=== PATIENT | female | born 1950 | race Caucasian/White ===

== ENCOUNTER 2016-08-15 16:50 | Inpatient (IN) | payer MEDICARE, MEDICAID ==
--- NOTE | 2016-08-15 16:57 | HP ---
HISTORY OF PRESENT ILLNESS: This 65-year-old, white female is admitted to the hospital from Dr. Chamberlain office as a direct admit. She has been getting progressively worse with worsening shortness of breath for the last 6 days. She was seen about [address] Chamberlain office when a chest x-ray was within normal limits and was started on Keflex and prednisone with a tapering dosage. She has taken the medications faithfully and now returns to his office feeling worse. No one else is sick in the family. She has had no fever or chills, no sputum production. She is short of breath to the point where she has difficulty completing her sentences. Her last episode of severe shortness of breath similar to this was about 3 years previously. In the clinic, her white count was 5,000 and she was afebrile with a chest x-ray repeated earlier today in the clinic for which we have no record or direct as to was reported as within normal limits. The patient is very noisy with expiratory slowing and coughing, but no sputum production. She is admitted to the hospital because of severe dyspnea as well as hypoxia with only 83% on room air saturation in the clinic. PAST MEDICAL HISTORY: 1. Coronary artery disease with an acute myocardial infarction in the years 2007, 2009 and 2014, requiring 3 stents. 2. 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 3. Diverticulosis. 4. Chronic neck and back pain. 5. History of fibromyalgia. 6. History of generalized osteoarthritis. 7. History of repeat thoracic and lumbar vertebral compression fractures requiring multiple procedures. 8. Chronic migraine headaches. 9. Depression. 10. Hyperlipidemia. 11. History of hypertension 12. History of gastroesophageal reflux disease with a large hiatal hernia. 13. Iron deficiency anemia. PAST SURGICAL HISTORY: 1. Hysterectomy. 2. Coronary stents in 2007 and 2009. 3. Kyphoplasty. 4. Appendectomy. 5. Hernia repair. 6. Tummy tuck surgery. 7. Colonoscopy in April 2010. MEDICATIONS: Please refer to nursing notes for complete list of up to date and verified medications taken at home. ALLERGIES: PENICILLIN, ADHESIVE TAPES. FAMILY HISTORY: The patient is adopted and she does not know the significance of her family history. 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 She has never smoked, but has breathed a lot of secondhand smoke from her . She lives in [place] and does not drink alcohol or illicit drugs. REVIEW OF SYSTEMS: GENERAL: Weight is generally stable, no fever or chills. HEENT: Hearing and vision appear to be fairly normal. LUNGS: Worsening shortness of breath with expiratory wheezing and tightness in breathing. CARDIOVASCULAR: No significant palpitations or chest pains. GASTROINTESTINAL: Appetite is fairly good with no nausea, vomiting, diarrhea or blood in the stool. GENITOURINARY: No dysuria or blood in the urine. EXTREMITIES: No significant worsening pedal edema. Chronic arthritic discomforts noted in both legs and arms. NEUROLOGIC: No focal weakness. She does have headaches in the past. PHYSICAL EXAMINATION: VITAL SIGNS: Afebrile. Pulse 103. Blood pressure 123/79. Pulse oximetry 89% on room air, up to 97% on 2 liters. Weight 75.1 kg. GENERAL: The patient is otherwise alert and communicative though is sometimes so tight in her breathing that she has difficulty talking in complete sentences. is present to assist with the history collection. HEENT: Unremarkable. NECK: Supple with slight increased jugular venous distention on the right. LUNGS: Diminished breath sounds with marked wheezes on exhalation and rhonchi especially laterally bilaterally. Faint rales present in the bases. CARDIOVASCULAR: Heart tones are regular without any significant gallops, but somewhat fast. ABDOMEN: Soft with no organomegaly, masses or tenderness. EXTREMITIES: Fairly well-formed with no significant edema or tenderness upon palpation. NEUROLOGIC: No focal neurological deficits are noted, but the patient appears to be somewhat weak compared to normal and definitely dyspneic. LABORATORY: Laboratory studies were done in Dr. Chamberlain office and repeat lab will be in the morning as part of followup. ASSESSMENT: 1. Chronic obstructive pulmonary disease with an acute exacerbation, having failed outpatient therapy and requiring a new antibiotic, corticosteroid administration and bronchodilator. 2. Hypoxia with pulse oximetry 83% on room air. 3. History of coronary artery disease with history of repeat myocardial infarctions as well as coronary stent placements. 4. History of diverticulosis. 5. History of chronic neck and back pain having had repeat thoracic and lumbar vertebral compression fractures repaired with multiple procedures. 6. History of fibromyalgia. 7. Chronic migraine headaches. 8. History of depression. 9. History of hyperlipidemia. 10. Hypertension. 11. Gastroesophageal reflux disease with a large hiatal hernia. 12. History of chronic anemia with iron deficiency state. PLAN: The patient is admitted to the hospital for initiation of antibiotic therapy with Levaquin which is different than what she has been on for the last week. She will be continued on a tapering dose of Solu-Medrol as well as bronchodilators with inhaled Decadron initially to assist with the wheezing noted. Await a sputum specimen. Await ambulation studies. Continue with SCDs and Lovenox for prophylaxis. Repeat lab and chest x-ray in the morning. Close observation and followup and followup with Dr. Barrera when ready to be discharged. #[id number] [facility]
[2016-08-15] MEDS ORDERED: IPRATROPIUM/ALBUTEROL 3 ML VIAL NEB ONE ×2 (17:52→18:06)
[2016-08-15] MEDS ORDERED: ALUM & MAG HYDROX-SIMETHICONE 30 ML UD PO PRN (18:29)
[2016-08-15] MEDS ORDERED: ONDANSETRON INJ 4 MG/2 ML VIAL IV PRN (18:29)
[2016-08-15] MEDS ORDERED: MAGNESIUM HYDROXIDE 30 ML UD PO PRN (18:29)
[2016-08-15] MEDS ORDERED: ACETAMINOPHEN 325 MG TAB PO PRN (18:29)
[2016-08-15] MEDS ORDERED: LEVALBUTEROL NEBS 1.25 MG/3 ML VIAL INH PRN (18:29)
[2016-08-15] MEDS: LEVALBUTEROL NEBS 0.63 MG/3 ML VIAL INH SCH ×2 (18:30→23:46)
[2016-08-15] MEDS ORDERED: IV SET AND CAP CHANGE INJ INJ SCH (18:30)
[2016-08-15] MEDS ORDERED: DEXAMETHASONE INJ 2 MG, SODIUM CHLORIDE 0.9% NEB 3 ML NEB ONE ×2 (18:48)
[2016-08-15] MEDS ORDERED: levoFLOXacin 500MG IV 100 ML IVPB ONE (19:33)
[2016-08-15] MEDS: SODIUM CHLORIDE 0.9% (FLUSH) 10 ML SYG IV PRN ×2 (20:21→20:54)
[2016-08-15] MEDS: SODIUM CHLORIDE 0.9% 1000ML 1,000 ML IVS PRN (20:21)
[2016-08-15] MEDS: levoFLOXacin 500MG IV 500 MG in PREMIX BAG 1 BAG IVPB SCH (20:22)
[2016-08-15] MEDS: ENOXAPARIN SODIUM 40 MG/0.4 ML SYG SUBCU SCH (20:22)
[2016-08-15] MEDS: methylPREDNISolone SODIUM SUC 40 MG/ML VIAL IV SCH (20:55)
[2016-08-15] MEDS: IPRATROPIUM/ALBUTEROL 3 ML VIAL INH SCH (21:09)
[2016-08-15] MEDS ORDERED: DEXAMETHASONE INJ 4 MG/ML VIAL ONE (23:36)
[2016-08-15] MEDS ORDERED: SODIUM CHLORIDE 0.9% NEB 3 ML VIAL ONE (23:36)
[2016-08-16] MEDS: SODIUM CHLORIDE 0.9% (FLUSH) 10 ML SYG IV PRN ×2 (02:56→19:55)
[2016-08-16] MEDS: methylPREDNISolone SODIUM SUC 40 MG/ML VIAL IV SCH ×4 (02:56→19:56)
[2016-08-16] MEDS: OMEPRAZOLE CAP 20 MG CAP PO SCH (06:30)
--- NOTE | 2016-08-16 07:03 | RAD ---
Clinical History : COPD with Hypoxia , MAIN Exam : PA and lateral views of the chest 08/16/2016 8:00 AM BOTTLE WASHER Comparisons : Portable AP view of the chest May 05, 2016CT chest with contrast May 06, 2016 Findings : There is patchy lingular airspace disease. Stable emphysematous changes are noted throughout the lungs bilaterally.There is flattening of the diaphragms and increased retrosternal clear space.. The heart is normal in size. The mediastinal contours are normal in appearance. There is a stable large hiatal hernia. The patient is osteopenic with multilevel vertebral plasty material throughout the thoracic spine. Limited evaluation of the upper abdomen demonstrates no gross abnormalities. Impression: 1. Patchy left basilar airspace disease.2. Stable emphysema and large hiatal hernia.3. Osteopenia with multilevel vertebroplasty. Electronically signed by: Tobi Morgan MD 08/16/2016 7:03 AM BOTTLE WASHER
[2016-08-16] MEDS ORDERED: SODIUM CHLORIDE 0.9% 10 ML VIAL IV PRN (07:40)
[2016-08-16] MEDS: LEVALBUTEROL NEBS 0.63 MG/3 ML VIAL INH SCH (08:00)
[2016-08-16] MEDS: IPRATROPIUM/ALBUTEROL 3 ML VIAL INH SCH ×4 (08:50→20:13)
[2016-08-16] MEDS ORDERED: BENZONATATE PERLES 100 MG CAP PO PRN ×2 (09:14→09:33)
[2016-08-16] MEDS: SODIUM CHLORIDE 0.9% 1000ML 1,000 ML IVS PRN (13:02)
[2016-08-16] MEDS ORDERED: HYDROcodone 10MG/APAP 325MG 1 EA TAB PO PRN (14:34)
[2016-08-16] MEDS ORDERED: levoFLOXacin 500MG IV 100 ML IVPB ONE (18:31)
[2016-08-16] MEDS: ENOXAPARIN SODIUM 40 MG/0.4 ML SYG SUBCU SCH (18:36)
[2016-08-16] MEDS: levoFLOXacin 500MG IV 500 MG in PREMIX BAG 1 BAG IVPB SCH (18:37)
[2016-08-16] MEDS ORDERED: MELOXICAM 7.5 MG TAB ONE (19:23)
[2016-08-16] MEDS ORDERED: DOCUSATE SODIUM 100 MG CAP ONE (19:24)
[2016-08-16] MEDS ORDERED: SERTRALINE HCL 50 MG TAB ONE (19:24)
[2016-08-16] MEDS ORDERED: PREGABALIN 75 MG CAP ONE (19:25)
[2016-08-16] MEDS ORDERED: TEMAZEPAM 15 MG CAP PO PRN (19:40)
--- NOTE | 2016-08-16 19:44 | PN ---
DATE: 08/16/16 SUBJECTIVE: The patient is having some choking spells with some respiratory secretions apparently tending to go down the wrong tube. She is able to eventually cough it out and is feeling much improved. She seems to be more alert though she did have some significant depressive symptoms earlier today according to the family. The patient has been ambulating in the room but we are still awaiting the ambulation studies to determine the degree of oxygen requirements. She does have oxygen at home with a concentrator. Appetite is fair. Unable to produce any sputum because most of it is swallowed. OBJECTIVE: Afebrile, pulse 94, blood pressure 125/77, pulse oximetry 95% with 2 liters nasal cannula. Weight 76.7 kilos. The patient is otherwise awake and alert. No significant pain. No constipation. No nausea and vomiting. No fever. LABORATORY: White count is low at 3,200 with hemoglobin 11.5, 85% neutrophils. Chemistry shows potassium 4.3, BUN 16, glucose 145, calcium 8.9. Liver enzymes normal. Beta natriuretic peptide 52, albumin 3.5. Urinalysis generally clean. No cultures obtained. Repeat chest x-ray after last x-ray was done yesterday in Dr. Barrera's office which was reported as normal. This morning, x-ray does reveal a patchy left basilar infiltrative process suggesting a pneumonia with chronic obstructive pulmonary disease and a large hiatal hernia, and bone softening with osteopenia. CHEST: She does have some localized wheezing especially on the left side with some rales noted in the left base compared to the right. HEART: Tones otherwise regular. ABDOMEN: Soft. Color is otherwise pretty good at this time. ASSESSMENT: 1. Chronic obstructive pulmonary disease with an acute exacerbation having failed outpatient therapy and requiring antibiotic and corticosteroid administration and bronchodilator with support. 2. Acute left lower lobe infiltrate suggesting community acquired pneumonia currently being treated with Levaquin and cultures pending. 3. Hypoxia awaiting ambulation studies to determine requirements for oxygen. 4. History of coronary artery disease with a history of repeat myocardial infarctions as well as coronary stent placements. 5. History of diverticulosis. 6. History of chronic neck and back pain having had repeat thoracic and lumbar vertebral compression fractures repaired with multiple procedures. 7. History of fibromyalgia. 8. Chronic migraine headaches. 9. History of depression. 10. History of hyperlipidemia. 11. Hypertension. 12. History of gastroesophageal reflux disease with a large hiatal hernia noted. 13. History of chronic anemia with iron deficiency state. PLAN: Will continue with tomorrow being day 2 of parenteral antibiotic therapy with Levaquin. Await ambulation studies to evaluate the function of the lung. Continue to taper Solu-Medrol and increased activity level encouraged. Reevaluation in the morning. #[id number] [facility]
[2016-08-16] MEDS: MELOXICAM 7.5 MG TAB PO SCH (19:57)
[2016-08-16] MEDS: PREGABALIN 75 MG CAP PO SCH (19:57)
[2016-08-16] MEDS ORDERED: SERTRALINE HCL 50 MG TAB PO SCH (21:00)
[2016-08-16] MEDS ORDERED: DOCUSATE SODIUM 100 MG CAP PO SCH (21:00)
[2016-08-17] MEDS: LEVALBUTEROL NEBS 0.63 MG/3 ML VIAL INH SCH ×2 (00:14→07:48)
[2016-08-17] MEDS: OMEPRAZOLE CAP 20 MG CAP PO SCH (06:30)
[2016-08-17] MEDS: SODIUM CHLORIDE 0.9% 1000ML 1,000 ML IVS PRN (06:33)
[2016-08-17] MEDS ORDERED: POTASSIUM CHLORIDE 10 MEQ TAB PO SCH (07:30)
[2016-08-17] MEDS: IPRATROPIUM/ALBUTEROL 3 ML VIAL INH SCH ×2 (07:48→12:05)
[2016-08-17] MEDS: methylPREDNISolone SODIUM SUC 40 MG/ML VIAL IV SCH (07:50)
[2016-08-17] MEDS ORDERED: TIOTROPIUM INHALER INH SCH (08:00)
[2016-08-17] MEDS: PREGABALIN 75 MG CAP PO SCH (08:47)
[2016-08-17] MEDS: MELOXICAM 7.5 MG TAB PO SCH (08:47)
[2016-08-17] MEDS ORDERED: ASPIRIN EC 81 MG TAB PO SCH (09:00)
[2016-08-17] MEDS ORDERED: NON-FORMULARY MEDICATION 1 EA MIS (Tiotropium Bromide Monohydrate [Spiriva Respimat] 2.5 M IN SCH (09:00)
[2016-08-17] MEDS ORDERED: VERAPAMIL ER TAB 180 MG TAB PO SCH (09:00)
[2016-08-17] MEDS ORDERED: CLOPIDOGREL 75 MG TAB PO SCH (09:00)
[2016-08-17 15:06] VITALS: BP 130/80; TEMP 97.9; O2SAT 90
--- NOTE | 2016-08-18 13:53 | DS ---
SUPERVISING PHYSICIAN: Nikunj Roberts MD DISCHARGE DIAGNOSIS: 1. Chronic obstructive pulmonary disease with acute exacerbation having failed outpatient therapy treatment plan and requiring antibiotic and corticosteroid administration as well as bronchodilators and aggressive pulmonary hygiene , showing improvement. 2. Acute left lower lobe infiltrate suggestive of community acquired pneumonia , treated with Levaquin, showing clinical improvement. 3. Hypoxia requiring oxygen. 4. History of coronary artery disease with history of repeat myocardial infarctions as well as coronary stent placements. 5. History of diverticulosis. 6. History of chronic neck and back pain having repeat thoracic and lumbar vertebral compression fracture, repaired with multiple procedures. 7. History of fibromyalgia. 8. History of chronic migraine headaches. 9. History of depression. 10. History of hyperlipidemia. 11. Hypertension. 12. History of gastroesophageal reflux disease with large hiatal hernia. 13. History of chronic anemia with iron deficiency state. HISTORY OF PRESENT ILLNESS: Ms. Herring is a 65-year-old, female patient who was admitted to the hospital directly from Dr. Chamberlain office. She had been getting progressively worse with worsening shortness of breath for six days prior to admission. She was seen five days previously in Dr. Barrera s office when a chest x-ray was within normal limits and at that time started on Keflex and prednisone tapering dose. She was taking the medications faithfully and returned to the office feeling worse. She noted there was no one else at home that was sick. She denied any fever or chills, no sputum production. She was short of breath to the point where she was having difficulty completing her sentences. Her last episode of severe shortness of breath previous to this admission was three years previously. On the clinic on date of admission, her white count was 5,000 and she was afebrile. Chest x-ray repeated was reported to be within normal limits. The patient was very noisy with expiratory slowing and coughing, but no sputum production. She was admitted to the hospital due to severe dyspnea as well as hypoxia with 83% on room air saturation in the clinic having failed to respond to outpatient treatment plan. LABORATORY: White count on admission was 3.2, hemoglobin 11.5, hematocrit 34.8. Differential did show a left shift. Chemistries showed normal electrolytes with potassium 4.3, BUN 16, creatinine 0.5. Urinalysis was within normal limits. RADIOLOGY: Chest x-ray on admission showed patchy left basilar airspace disease and a large hiatal hernia per radiology interpretation. HOSPITAL COURSE: Ms. Herring was admitted directly from Dr. Chamberlain office as noted in history of present illness for exacerbation of chronic obstructive pulmonary disease with concern for bibasilar pneumonia, likely community acquired. She was started on Levaquin, Solu-Medrol and bronchodilators. Clinically, she did show good improvement and on date of discharge was felt well enough clinically to be continued in the outpatient setting with treatment plan. PLAN: Ms. Herring was discharged to have close clinical followup with Dr. Barrera on 08/23/16 at 10:45 AM. She was encouraged to increase her activity as tolerate and resume her normal diet and to resume all her home medications as previously. She was started on new medications and instructed to take as directed. She was to wear oxygen as instructed previous to admission and to return to the hospital if she was having worsening or no improvement in her symptoms. She was sent home with new prescriptions to include: 1. Levaquin 500 mg p.o., #8. 2. Prednisone tapering dose, 10 mg tablets, #12, with 40 mg x1 day, 30 mg x1 day, then 20 mg, then 10 mg until all gone. CONDITION AT TIME OF DISCHARGE: Good and stable. #[id number] [facility]
--- NOTE | 2016-08-29 00:11 | RAD ---
Clinical History : COPD with Hypoxia , MAIN Exam : PA and lateral views of the chest 08/16/2016 8:00 AM ELEMENTARY READING SPECIALIST Comparisons : Portable AP view of the chest May 05, 2016CT chest with contrast May 06, 2016 Findings : There is patchy lingular airspace disease. Stable emphysematous changes are noted throughout the lungs bilaterally.There is flattening of the diaphragms and increased retrosternal clear space.. The heart is normal in size. The mediastinal contours are normal in appearance. There is a stable large hiatal hernia. The patient is osteopenic with multilevel vertebral plasty material throughout the thoracic spine. Limited evaluation of the upper abdomen demonstrates no gross abnormalities. Impression: 1. Patchy left basilar airspace disease.2. Stable emphysema and large hiatal hernia.3. Osteopenia with multilevel vertebroplasty. Electronically signed by: Tobi Morgan MD 08/16/2016 7:03 AM ELEMENTARY READING SPECIALIST
== END 2016-08-17 15:03 | disposition home or self-care (01) | DRG 190 ==
LOC: MS 16:50
PROVIDERS: ADMIT Emergency Medicine; ATTEND Nurse Practitioner Family
DX: J44.0 Chronic obstructive pulmonary disease with (acute) lower respiratory infection (principal); J18.9 Pneumonia, unspecified organism; R09.02 Hypoxemia; J44.1 Chronic obstructive pulmonary disease with (acute) exacerbation; K57.30 Diverticulosis of large intestine without perforation or abscess without bleeding; G89.29 Other chronic pain; M54.9 Dorsalgia, unspecified; M79.7 Fibromyalgia; F32.9 Major depressive disorder, single episode, unspecified; E78.5 Hyperlipidemia, unspecified; I10 Essential (primary) hypertension; K21.9 Gastro-esophageal reflux disease without esophagitis; K44.9 Diaphragmatic hernia without obstruction or gangrene; D50.9 Iron deficiency anemia, unspecified; M15.9 Polyosteoarthritis, unspecified; Z77.22 Contact with and (suspected) exposure to environmental tobacco smoke (acute) (chronic); I25.2 Old myocardial infarction; Z95.5 Presence of coronary angioplasty implant and graft; Z88.0 Allergy status to penicillin

== ENCOUNTER 2016-10-10 20:13 | Emergency (ER) | payer MEDICARE, MEDICAID ==
[2016-10-10] MEDS ORDERED: ASPIRIN TABLET 325 MG TAB ONE (20:15)
[2016-10-10] MEDS ORDERED: NITROGLYCERIN 0.4 MG 25 EA TAB SL ONE ×2 (20:15→20:26)
[2016-10-10] MEDS ORDERED: SODIUM CHLORIDE 0.9% 1000ML 1,000 ML ONE (20:25)
[2016-10-10] MEDS ORDERED: ONDANSETRON INJ 4 MG/2 ML VIAL IV ONE (20:26)
[2016-10-10] MEDS ORDERED: SODIUM CHLORIDE 0.9% (FLUSH) 10 ML SYG IV PRN (20:26)
[2016-10-10] MEDS ORDERED: ASPIRIN TABLET 325 MG TAB PO ONE (20:26)
--- NOTE | 2016-10-10 21:04 | RAD ---
Procedure: AP View Chest Exam date: 10/10/2016 8:26 PM CDT Ordering Provider: Leonora Foy Clinical Indication: chest pain Comparison: August 16, 2016 Findings: Mild cardiomegaly. Mild central vascular congestion. No large pleural effusions or pneumothorax. Osseous structures are nonacute. Stable findings of extensive prior vertebral augmentation procedure. Large hiatal hernia. No evidence of active tuberculosis. Impression: Cardiomegaly with mild central vascular congestion. Other chronic findings as above. Electronically signed by: Spencer Benson MD 10/10/2016 9:03 PM CDT
[2016-10-10] MEDS ORDERED: SODIUM CHLORIDE 0.9% 1000ML 1,000 ML IVS PRN (21:06)
--- NOTE | 2016-10-10 21:20 | ED.PDOC ---
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 The pain is substernal and piercing. It radiates to her left neck and arm. The arm feels very heavy. It also radiates to her back. She has reflux, but it is not the reflux kind of pain. She has SOB which started when the chest pain started, and mild nausea. Patient has some type of heart monitor inserted which was inserted about 6 months ago when she had episodes of fainting. She "pushed the button" already this evening. Patient's paid search analyst is Pankaj Norris M.D. in [facility]. Timing/Duration: 1/2 hour Severity/Quality: severe, sharp, stabbing Location: substernal, back Chest Pain Radiation: jaw, arms, back Activities at Onset: none Prior Chest Pain/Cardiac Workup: cardiac cath, heart attack Worsening Factors: nothing Nitro Today/Relief: 0.4 mg x 2, no relief Aspirin Treatment Today: 325 mg x 1, provided by ED Associated Symptoms: back pain, nausea/vomiting, shortness of breath Allergies/Adverse Reactions: Allergies Penicillins Allergy (Verified 01/12/15 21:57) ADHESIVE TAPE Adverse Reaction (Uncoded 02/09/15 15:43) Home Medications: Ambulatory Orders Aspirin [Aspir-81] 81 mg PO AM 08/31/12 Clopidogrel Bisulfate [Plavix] 75 mg PO AM 08/31/12 Esomeprazole [Nexium] 40 mg PO DAILY@0700 08/31/12 Pregabalin [Lyrica] 150 mg PO BID 08/31/12 Verapamil HCl ER [Isoptin Sr] 180 mg PO DAILY 01/13/15 Docusate Sodium [Colace] 100 mg PO BEDTIME 05/06/16 Meloxicam [Mobic] 15 mg PO BID 05/06/16 Potassium Chloride Tab [Micro-K] 10 meq PO DAILY 05/06/16 Sennosides [Senokot] 17.2 mg PO BEDTIME 05/06/16 Sertraline HCl [Zoloft] 200 mg PO BEDTIME 05/06/16 Albuterol Sulfate Nebs [Proventil Nebs] 2.5 mg INH QID PRN 08/16/16 Atorvastatin Calcium [Lipitor] 40 mg PO BEDTIME 08/16/16 Nitroglycerin [Nitrostat] 0.4 mg SL Q5MIN PRN 08/16/16 Tiotropium [place] Monohydrate [Spiriva Handihaler] 2 puff INH DAILY 08/16/16 Review of Systems - Review of Systems Constitutional: States: no symptoms reported EENTM: States: no symptoms reported Respiratory: States: cough, short of breath Cardiology: States: chest pain Gastrointestinal/Abdominal: States: nausea Genitourinary: States: no symptoms reported Musculoskeletal: States: back pain Skin: States: no symptoms reported Neurological: States: anxiety Endocrine: States: no symptoms reported Hematologic/Lymphatic: States: no symptoms reported All other Systems: Reviewed and Negative Past Medical History (General) - Patient Medical History Hx Seizures: No Hx Stroke: Yes - 2009 Hx Dementia: No Hx Asthma: No Hx of COPD: Yes Hx Cardiac Disorders: Yes Hx Congestive Heart Failure: Yes Hx Pacemaker: No Hx Hypertension: No Hx Thyroid Disease: No Hx Diabetes: No Hx Gastroesophageal Reflux: Yes Hx Renal Disease: No Hx Cancer: No Hx of HIV: No Hx Hepatitis C: No Hx MRSA: No MRSA Source:: Wound Surgical History: coronary bypass surgery - Vaccination History Hx Tetanus, Diphtheria Vaccination: Yes Hx Influenza Vaccination: Yes Hx Pneumococcal Vaccination: Yes - Social History Hx Tobacco Use: No Hx Alcohol Use: No Hx Substance Use: No Hx Substance Use Treatment: No Hx Depression: Yes Hx Physical Abuse: No Hx Emotional Abuse: No - Female History Patient is a Female of Child Bearing Age (10 -59 yrs old): No Patient : No Family Medical History - Family History Mother Family History: Unknown Living Status: Hx Family;Other: SHE DID NOT KNOW PARENTS AND SHE DOES KNOW NOT HISTORY. PT ADOPTED Physical Exam - Physical Exam General Appearance: Alert, Anxious, Obvious distress Eyes, Ears, Nose, Throat Exam: normal ENT inspection Neck: non-tender, full range of motion, supple Respiratory: lungs clear, no respiratory distress, decreased breath sounds Cardiovascular/Chest: regular rate, rhythm, no edema, no JVD, no murmur Gastrointestinal/Abdominal: soft, no organomegaly, abnormal bowel sounds - hyperactive, tenderness - RUQ, mild Extremity: normal range of motion, non-tender, no pedal edema, no calf tenderness Neurologic: alert, normal mood/affect, oriented x 3 Skin Exam: normal color, warm/dry Progress - Progress Progress: 10/10/16 22:15 Patient had no pain relief after a total of 3 sublingual nitro, ASA 325, and 1/2 " nitro paste. Therefore a nitro drip was started at 5 mcg/min and Patient was given Morphine 2 mg IV. 10/10/16 22:23 Transfer accepted at 1009. - Results/Orders Results/Orders: 10/10/16 10/10/16 10/10/16 20:20 20:30 20:55 Pulse Rate 90 Pulse Rate [ 89 90 84 Apical] Respiratory 18 18 Rate Blood Pressure 117/71 121/67 [Right Arm] O2 Sat by Pulse 96 97 Oximetry 10/10/16 10/10/16 10/10/16 21:05 21:26 22:00 Pulse Rate Pulse Rate [ 82 88 92 H Apical] Respiratory 18 20 18 Rate Blood Pressure 119/74 117/51 128/74 [Right Arm] O2 Sat by Pulse 96 96 96 Oximetry 10/10/16 20:26 IV Care:Saline Lock per Protoc QSHIFT Telemetry .ONCE Sodium Chloride 0.9% (Flush) [Saline Flush Syringe] 10 ml IV PRN PRN EKG Stat Oxygen Delivery Assessment: QSHIFT Pulse Ox Stat Pulse Oximetry Assessment DAILY 10/10/16 20:55 B-TYPE NATRIURETIC PEPTIDE/BNP Stat CARDIAC PANEL,ER Stat HEPATIC FUNCTION PANEL Stat 10/10/16 21:06 Sodium Chloride 0.9% 1000ML [Ns 1000 ml] 1,000 ml IVS .KVO 10/10/16 22:00 Nitroglycerin/D5w IV 250 ml IVS PRN 10/11/16 09:00 Oxygen Daily Laboratory Results WBC 5.0 K/mm3 (4.8-10.8) 10/10/16 20:55 RBC 3.67 M/mm3 (4.20-5.40) L 10/10/16 20:55 Hgb 11.6 gm/dL (12.0-16.0) L 10/10/16 20:55 Hct 35.0 % (36.0-47.0) L 10/10/16 20:55 MCV 95.3 fl (81.0-99.0) 10/10/16 20:55 MCH 31.6 pg (27.0-31.0) H 10/10/16 20:55 MCHC 33.1 g/dL (33.0-37.0) 10/10/16 20:55 RDW 14.7 % (11.5-14.5) H 10/10/16 20:55 Plt Count 221 K/mm3 (130-400) 10/10/16 20:55 MPV 8.3 fl (7.40-10.4) 10/10/16 20:55 Absolute Neuts (auto) 3.30 K/uL (1.8-6.8) 10/10/16 20:55 Absolute Lymphs (auto) 1.10 K/uL (1.0-3.4) 10/10/16 20:55 Absolute Monos (auto) 0.50 K/uL (0.2-0.8) 10/10/16 20:55 Absolute Eos (auto) 0.00 K/uL (0.0-0.4) 10/10/16 20:55 Absolute Basos (auto) 0.00 K/uL (0.0-0.1) 10/10/16 20:55 Neutrophils % 65.3 % (42.0-78.0) 10/10/16 20:55 Lymphocytes % 22.9 % (20.0-50.0) 10/10/16 20:55 Monocytes % 10.7 % (2.0-9.0) H 10/10/16 20:55 Eosinophils % 0.5 % (1.0-5.0) L 10/10/16 20:55 Basophils % 0.6 % (0.0-2.0) 10/10/16 20:55 PT 10.4 SECONDS (9.4-12.5) 10/10/16 20:55 INR 0.920 10/10/16 20:55 PTT (SP) 29.6 SECONDS (25.1-36.5) 10/10/16 20:55 D-Dimer, Quantitative < 200 ng/mL (0-230) 10/10/16 20:55 Sodium 142 mmol/L (135-145) 10/10/16 20:55 Potassium 3.5 mmol/L (3.6-5.0) L 10/10/16 20:55 Chloride 108 mmol/L (101-111) 10/10/16 20:55 Carbon Dioxide 28 mmol/L (21-31) 10/10/16 20:55 Anion Gap 9.5 (12-18) L 10/10/16 20:55 BUN 10 mg/dL (7-18) 10/10/16 20:55 Creatinine 0.65 mg/dL (0.6-1.3) 10/10/16 20:55 BUN/Creatinine Ratio 15.4 (10-20) 10/10/16 20:55 Random Glucose 101 mg/dL (70-105) 10/10/16 20:55 Serum Osmolality 282.3 mOsm/L (275-295) 10/10/16 20:55 Calcium 8.9 mg/dL (8.4-10.2) 10/10/16 20:55 Magnesium 2.0 mg/dL (1.8-2.5) 10/10/16 20:55 Total Bilirubin 0.4 mg/dL (0.2-1.0) 10/10/16 20:55 Direct Bilirubin < 0.1 mg/dL (0-0.2) 10/10/16 20:55 Indirect Bilirubin 0.3 mg/dL (0.2-0.8) 10/10/16 20:55 AST 18 IU/L (10-42) 10/10/16 20:55 ALT < 8 IU/L (10-60) L 10/10/16 20:55 Alkaline Phosphatase 85 IU/L (42-121) 10/10/16 20:55 Creatine Kinase 52 IU/L (26-140) 10/10/16 20:55 CK-MB (CK-2) 1.7 ng/mL (0.0-4.4) 10/10/16 20:55 CK-MB (CK-2) % Not Reportable 10/10/16 20:55 Troponin I < 0.02 ng/mL (0.01-0.05) 10/10/16 20:55 Serum Total Protein 6.2 gm/dL (6.4-8.2) L 10/10/16 20:55 Albumin 3.6 g/dl (3.2-5.5) 10/10/16 20:55 - EKG/XRAY/CT EKG: Sinus - 96 bpm, nonspecific ST T wave Chg - T-wave inversion in leads III and aVF, Changed from - No T-wave inversion in EKG of Comments: [place] NML, NML intervals. NML EKG XRAY: chest Xray Comments: cardiomegaly, mild central vascular congestion Departure - Departure Clinical Impression: History of PA (myocardial infarction) Chest pain Qualifiers: Chest pain type: unspecified Qualifier Code: (R07.9) Chest pain, unspecified Time of Disposition: 22:22 Disposition: Transfer to Hospital Condition: Poor Home Medications: Ambulatory Orders Aspirin [Aspir-81] 81 mg PO AM 08/31/12 Clopidogrel Bisulfate [Plavix] 75 mg PO AM 08/31/12 Esomeprazole [Nexium] 40 mg PO DAILY@0700 08/31/12 Pregabalin [Lyrica] 150 mg PO BID 08/31/12 Verapamil HCl ER [Isoptin Sr] 180 mg PO DAILY 01/13/15 Docusate Sodium [Colace] 100 mg PO BEDTIME 05/06/16 Meloxicam [Mobic] 15 mg PO BID 05/06/16 Potassium Chloride Tab [Micro-K] 10 meq PO DAILY 05/06/16 Sennosides [Senokot] 17.2 mg PO BEDTIME 05/06/16 Sertraline HCl [Zoloft] 200 mg PO BEDTIME 05/06/16 Albuterol Sulfate Nebs [Proventil Nebs] 2.5 mg INH QID PRN 08/16/16 Atorvastatin Calcium [Lipitor] 40 mg PO BEDTIME 08/16/16 Nitroglycerin [Nitrostat] 0.4 mg SL Q5MIN PRN 08/16/16 Tiotropium [place] Monohydrate [Spiriva Handihaler] 2 puff INH DAILY 08/16/16 Transfer to Outside Facility - Transfer Information Accepting Provider:: Dr. Landa Accepting Facility: [facility] Reason for Transfer: required specialist not available - Cardiology
[2016-10-10] MEDS ORDERED: NITROGLYCERIN 2% 1 GM UD TOP ONE (21:24)
[2016-10-10] MEDS ORDERED: MORPHINE SULFATE INJ 10 MG/ML VIAL IV ONE (21:55)
[2016-10-10] MEDS ORDERED: NITROGLYCERIN/D5W IV 250 ML IVS SCH (22:00)
[2016-10-10 23:00] VITALS: BP 111/62; TEMP 98.2; O2SAT 96
== END 2016-10-10 23:00 | disposition short-term general hospital (02) ==
LOC: ER 20:13
DX: R07.9 Chest pain, unspecified (principal); I25.2 Old myocardial infarction; I51.7 Cardiomegaly; I50.9 Heart failure, unspecified; K21.9 Gastro-esophageal reflux disease without esophagitis; Z95.1 Presence of aortocoronary bypass graft; J44.9 Chronic obstructive pulmonary disease, unspecified; Z79.82 Long term (current) use of aspirin; Z79.899 Other long term (current) drug therapy; Z86.73 Personal history of transient ischemic attack (TIA), and cerebral infarction without residual deficits; Z88.0 Allergy status to penicillin; Z91.048 Other nonmedicinal substance allergy status
CPT/HCPCS: 36415; 71010; 80048; 80076; 82550; 82553; 83880; 84484; 85025; 85379; 85610; 85730; 93005; J2060; J2270; J2405; J7030

== ENCOUNTER 2017-01-20 10:29 | Emergency (ER) | payer MEDICARE, MEDICAID ==
--- NOTE | 2017-01-20 11:17 | ED.PDOC ---
History of Present Illness - General Chief Complaint: Lower Extremity Injury Time Seen by Provider: 01/20/17 11:10 Source: patient Exam Limitations: no limitations - History of Present Illness Initial Comments: Mariann Herring 66 y/o male stated she fell on carpeted floor at home landing on his left hip.Denies head/neck injuries.But with dull ache after the incidenton her left hip. Occurred: yesterday Pain - Lower Extremity: moderate: Left Thigh/Hip Method of Injury: fell Improving Factors: rest Worsening Factors: movement Allergies/Adverse Reactions: Allergies Penicillins Allergy (Verified 01/20/17 11:34) ADHESIVE TAPE Adverse Reaction (Uncoded 02/09/15 15:43) Home Medications: Ambulatory Orders Aspirin [Aspir-81] 81 mg PO AM 08/31/12 Clopidogrel Bisulfate [Plavix] 75 mg PO AM 08/31/12 Esomeprazole [Nexium] 40 mg PO DAILY@0700 08/31/12 Pregabalin [Lyrica] 150 mg PO BID 08/31/12 Verapamil HCl ER [Isoptin Sr] 180 mg PO DAILY 01/13/15 Docusate Sodium [Colace] 100 mg PO BEDTIME 05/06/16 Meloxicam [Mobic] 15 mg PO BID 05/06/16 Potassium Chloride Tab [Micro-K] 10 meq PO DAILY 05/06/16 Sennosides [Senokot] 17.2 mg PO BEDTIME 05/06/16 Sertraline HCl [Zoloft] 200 mg PO BEDTIME 05/06/16 Albuterol Sulfate Nebs [Proventil Nebs] 2.5 mg INH QID PRN 08/16/16 Atorvastatin Calcium [Lipitor] 40 mg PO BEDTIME 08/16/16 Nitroglycerin [Nitrostat] 0.4 mg SL Q5MIN PRN 08/16/16 Tiotropium [place] Monohydrate [Spiriva Handihaler] 2 puff INH DAILY 08/16/16 Review of Systems - Review of Systems Constitutional: States: no symptoms reported EENTM: States: no symptoms reported Respiratory: States: no symptoms reported Cardiology: States: no symptoms reported Genitourinary: States: no symptoms reported Musculoskeletal: States: see HPI Skin: States: no symptoms reported Neurological: States: no symptoms reported Endocrine: States: no symptoms reported Past Medical History (General) - Patient Medical History Hx Seizures: No Hx Stroke: Yes - 2009 Hx Dementia: No Hx Asthma: No Hx of COPD: Yes Hx Cardiac Disorders: Yes Hx Congestive Heart Failure: Yes Hx Pacemaker: No Hx Hypertension: No Hx Thyroid Disease: No Hx Diabetes: No Hx Gastroesophageal Reflux: Yes Hx Renal Disease: No Hx Cancer: No Hx of HIV: No Hx Hepatitis C: No Hx MRSA: No Hx Other PMH: Yes - osteoporosis MRSA Source:: Wound Surgical History: coronary bypass surgery, other - stent cardiac,right hip, hysterectomy ,lumbar spine - Vaccination History Hx Tetanus, Diphtheria Vaccination: Yes Hx Influenza Vaccination: Yes Hx Pneumococcal Vaccination: Yes - Social History Hx Tobacco Use: No Hx Alcohol Use: No Hx Substance Use: No Hx Substance Use Treatment: No Hx Depression: Yes Hx Physical Abuse: No Hx Emotional Abuse: No - Female History Patient : No Family Medical History - Family History Mother Family History: Unknown Living Status: Hx Family;Other: SHE DID NOT KNOW PARENTS AND SHE DOES KNOW NOT HISTORY. PT ADOPTED Physical Exam - Physical Exam General Appearance: Alert, Comfortable, No apparent distress Eyes, Ears, Nose, Throat: PERRL/EOMI, normal ENT inspection, TMs normal, pharynx normal Neck: non-tender, full range of motion, supple Cardiovascular/Respiratory: regular rate, rhythm, no M/R/G, normal breath sounds , no respiratory distress Gastrointestinal/Abdominal: non-tender, no organomegaly Back: normal inspection, no CVA tenderness, no vertebral tenderness Thigh/Hip: normal inspection, bone tenderness - left hip, limited ROM - left hip because of pain, soft tissue tenderness Leg: normal inspection, non-tender, no evidence of injury Knee: normal inspection, non-tender, no evidence of injury Ankle: normal inspection, non-tender, no evidence of injury Foot: normal inspection, non-tender, no evidence of injury Neuro/Tendon: normal sensation, normal motor functions, normal tendon functions Mental Status: alert, oriented x 3 Skin: normal color, warm/dry Progress - Progress Progress: 01/20/17 12:08 Vital Signs - 8 hr 01/20/17 11:03 Temperature 98.0 F Pulse Rate [ 78 Left Radial] Respiratory 20 Rate Blood Pressure 113/69 [Left Arm] O2 Sat by Pulse 93 L Oximetry - EKG/XRAY/CT XRAY: hip - left -no acute fracture/radiologist Departure - Departure Clinical Impression: Hip pain, left, Contusion of hip or thigh, left Fall at home Qualifiers: Encounter type: initial encounter Qualified Code(s): W19.XXXA - Unspecified fall, initial encounter Time of Disposition: 12:10 Disposition: Discharge to Home or Self Care Departure Forms: ED Discharge - Pt. Copy, Patient Portal Self Enrollment Instructions: Contusion Referrals: Kwame Barrera MD [Primary Care Provider] - 1-2 Weeks Home Medications: Ambulatory Orders Aspirin [Aspir-81] 81 mg PO AM 08/31/12 Clopidogrel Bisulfate [Plavix] 75 mg PO AM 08/31/12 Esomeprazole [Nexium] 40 mg PO DAILY@0700 08/31/12 Pregabalin [Lyrica] 150 mg PO BID 08/31/12 Verapamil HCl ER [Isoptin Sr] 180 mg PO DAILY 01/13/15 Docusate Sodium [Colace] 100 mg PO BEDTIME 05/06/16 Meloxicam [Mobic] 15 mg PO BID 05/06/16 Potassium Chloride Tab [Micro-K] 10 meq PO DAILY 05/06/16 Sennosides [Senokot] 17.2 mg PO BEDTIME 05/06/16 Sertraline HCl [Zoloft] 200 mg PO BEDTIME 05/06/16 Albuterol Sulfate Nebs [Proventil Nebs] 2.5 mg INH QID PRN 08/16/16 Atorvastatin Calcium [Lipitor] 40 mg PO BEDTIME 08/16/16 Nitroglycerin [Nitrostat] 0.4 mg SL Q5MIN PRN 08/16/16 Tiotropium [place] Monohydrate [Spiriva Handihaler] 2 puff INH DAILY 08/16/16 Additional Instructions: Follow up with primary md in one week ;Call for appointment
--- NOTE | 2017-01-20 11:19 | RAD ---
EXAM DESCRIPTION: Hip,Left 2 Views CLINICAL HISTORY: 66 years,Female,fall COMPARISON: None FINDINGS: The left hip demonstrates no fractures, dislocations, or other bony abnormalities. The joint spaces are unremarkable. The included pelvis is unremarkable. IMPRESSION: Unremarkable hip Electronically signed by: Huhg Meredith MD 01/20/2017 11:18 AM CDT
[2017-01-20 11:31] VITALS: BP 113/69; TEMP 98; O2SAT 93
--- NOTE | 2017-01-20 11:38 | RAD ---
EXAM DESCRIPTION: Pelvis CLINICAL HISTORY: pain COMPARISON: None. TECHNIQUE: AP pelvis FINDINGS: A total hip arthroplasty seen in place on the patient's left. No evidence of loosening or infection is seen. No pelvic fracturing is detected. IMPRESSION: A right total hip arthroplasty is observed. Exam is otherwise unremarkable. Electronically signed by: Hugh King MD 01/20/2017 11:36 AM CDT
== END 2017-01-20 12:27 | disposition home or self-care (01) ==
LOC: ER 10:29
DX: S70.02XA Contusion of left hip, initial encounter (principal); J44.9 Chronic obstructive pulmonary disease, unspecified; I50.9 Heart failure, unspecified; K21.9 Gastro-esophageal reflux disease without esophagitis; M81.0 Age-related osteoporosis without current pathological fracture; Z79.82 Long term (current) use of aspirin; Z79.02 Long term (current) use of antithrombotics/antiplatelets; Z79.899 Other long term (current) drug therapy; Z88.0 Allergy status to penicillin; Z95.1 Presence of aortocoronary bypass graft; Z98.61 Coronary angioplasty status; Z91.048 Other nonmedicinal substance allergy status; W19.XXXA Unspecified fall, initial encounter; Y92.009 Unspecified place in unspecified non-institutional (private) residence as the place of occurrence of the external cause

== ENCOUNTER → 2017-01-25 | Outpatient (CLI) | payer MEDICARE, MEDICAID ==
--- NOTE | 2017-01-27 10:29 | CT ---
EXAM DESCRIPTION: Pelvis CLINICAL HISTORY: 66 years, Female, LEFT HIP PAIN COMPARISON: November 07, 2013 TECHNIQUE: This exam was performed using radiation doses that are As Low As Reasonably Achievable (ALARA). Multiple axial helical tomographic images obtained of the pelvis without contrast and reconstructed sagittal coronal plane. FINDINGS: There is a right total hip orthoplasty which appears unremarkable. No lucencies about the hardware devices or fractures. Few small rounded bony fragments seen about the greater trochanter but they are all old appearing. L4 and L5 demonstrate compression fractures. L4 measures 1.7 cm and L2 measures 1.6 cm Central height. There are unchanged. There is severe facet hypertrophy bilaterally at L5-S1. And moderate at L4-5. And mild bilateral neural foraminal stenosis at L4-5. Few diverticula sigmoid colon. No acute disease. Uterus and ovaries not seen present be surgically absent including the appendix. Mild loss of joint space in the left hip. And mild osteophyte changes. IMPRESSION: Mild left hip osteoarthritic changes no acute findings. Stable mild compression fractures at L4 and L5. And facet arthropathy at the lower 2 lumbar levels with mild bilateral neural foraminal stenosis at L4-5. A few uncomplicated diverticula sigmoid colon. Interval right total hip orthoplasty which appears unremarkable. Electronically signed by: Hugh Meredith MD 01/27/2017 10:28 AM CDT
== END ==
LOC: CT 11:01
PROVIDERS: ATTEND Family Medicine
DX: M16.12 Unilateral primary osteoarthritis, left hip (principal); M48.56XA Collapsed vertebra, not elsewhere classified, lumbar region, initial encounter for fracture; Z96.641 Presence of right artificial hip joint

== ENCOUNTER → 2017-02-09 | Outpatient (CLI) | payer MEDICARE, MEDICAID ==
--- NOTE | 2017-02-09 14:28 | MRI ---
MRI left hip without and with intravenous contrast INDICATION: Left hip pain multiple falls TECHNIQUE: MR imaging left hip without and with intravenous gadolinium FINDINGS: Metal artifact is noted related to a right hip arthroplasty. There is extensive osteonecrosis throughout the left femoral head with diffuse edema throughout the femoral neck to the intertrochanteric region. There is also edema within the acetabulum which is of uncertain etiology either an occult fracture degenerative change or acetabular osteonecrosis. There is mild flattening of the subchondral aspect of the superior and superior medial femoral head. This indicates developing subchondral collapse. Minimal hip fluid. Superimposed subchondral fracture in the femoral head cannot be entirely excluded but the crescentic morphology is more suggestive of AVN. 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
== END | disposition home or self-care (01) ==
LOC: MRI 09:53
PROVIDERS: ATTEND Family Medicine
DX: M25.552 Pain in left hip (principal); M16.12 Unilateral primary osteoarthritis, left hip

== ENCOUNTER 2017-02-11 09:19 | Observation (INO) | payer MEDICAID, MEDICARE ==
--- NOTE | 2017-02-11 10:12 | RAD ---
PROCEDURE: Chest,2 Views CLINICAL HISTORY: chest pain, nausea INDICATION: Same as above COMPARISON: 10/10/2016 TECHNIQUE: PA and and lateral chest radiographs were obtained. FINDINGS: There is evidence of prior surgery in the lower cervical spine. Vertebral body augmentation is again noted at multiple levels in the thoracic spine . A cine loop recorder is projected over the left anterior chest There are no discrete airspace infiltrates, pneumothoraces or pleural effusions. The pulmonary vascularity is normal. Large hiatal hernia is again noted. The cardiomediastinal silhouette is stable. IMPRESSION: There is no acute pleural-parenchymal process seen in the imaged lung smith. Multilevel vertebral body augmentation and a large hiatal hernia Electronically signed by: Jose Ames MD 02/11/2017 10:11 AM CDT Workstation: [id number]
--- NOTE | 2017-02-11 10:13 | RAD ---
PROCEDURE: Abdomen Flat Upright Clinical History: chest pain, nausea Indication: Chest pain and nausea Comparison: Chest x-ray done on the same day Technique: Two views of the abdomen and pelvis were done. Findings: There is no gross evidence of free air in the abdomen or the pelvis . The small and large bowel gas pattern does not show any evidence of obstruction, ileus or bowel wall thickening. There is no visualization of radiopaque calculi in the outline of the urinary tract. The visualized lung bases are unremarkable . Note is made of multilevel vertebral body augmentation in the visualized lower thoracic and the upper lumbar spine. There is a right hip arthroplasty. Small amount of retained fecal material is seen in the large bowel. Impression: Nonobstructive and nonspecific bowel gas pattern Location of Interpretation: [id number] Electronically signed by: Jose Ames MD 02/11/2017 10:12 AM CDT Workstation: [id number]
[2017-02-11] MEDS ORDERED: ONDANSETRON ODT 8 MG TAB SL ONE (10:30)
[2017-02-11] MEDS ORDERED: LIDOCAINE VIS-MYLANTA 30 ML UD PO ONE (10:30)
[2017-02-11] MEDS ORDERED: ASPIRIN TABLET 325 MG TAB PO ONE (13:48)
[2017-02-11] MEDS ORDERED: ALUMINUM & MAGNESIUM HYDROXIDE 30 ML UD PO ONE (13:48)
[2017-02-11] MEDS ORDERED: CLOPIDOGREL 75 MG TAB PO ONE (13:48)
--- NOTE | 2017-02-11 13:51 | ED.PDOC ---
History of Present Illness - General Chief Complaint: Chest Pain/NH Stated Complaint: nausea,chest pain Time Seen by Provider: 02/11/17 09:22 Source: patient Exam Limitations: no limitations - History of Present Illness Initial Comments: The patient is a 66-year-old female presenting to the emergency room secondary to substernal chest pain that started this morning. The symptoms have been preceded by some nausea and vomiting overnight. The patient has a known large hiatal hernia. She has had some constipation issues no diarrhea. No fevers. The patient does have a history of coronary artery disease and apparently has 3 stents. The patient is concerned because she did have a heart attack in the past that presented symptomatically with nausea and vomiting. The patient did go to [facility] approximately 4 months ago for a similar episode. They did not find any acute coronary pathology. Her cardiologists is a Dr. Hensley in [place] [address]. The patient has been doing well otherwise. No fevers. No blood or bile in the vomitus. Timing/Duration: 24 hours Severity: mild Improving Factors: nothing Worsening Factors: nothing Associated Symptoms: chest pain, malaise, nausea/vomiting Allergies/Adverse Reactions: Allergies Penicillins Allergy (Verified 01/20/17 11:34) ADHESIVE TAPE Adverse Reaction (Uncoded 02/09/15 15:43) Home Medications: Ambulatory Orders Aspirin [Aspir-81] 81 mg PO AM 08/31/12 Clopidogrel Bisulfate [Plavix] 75 mg PO AM 08/31/12 Esomeprazole [Nexium] 40 mg PO DAILY@0700 08/31/12 Pregabalin [Lyrica] 150 mg PO BID 08/31/12 Verapamil HCl ER [Isoptin Sr] 180 mg PO DAILY 01/13/15 Docusate Sodium [Colace] 100 mg PO BEDTIME 05/06/16 Meloxicam [Mobic] 15 mg PO BID 05/06/16 Potassium Chloride Tab [Micro-K] 10 meq PO DAILY 05/06/16 Sennosides [Senokot] 17.2 mg PO BEDTIME 05/06/16 Sertraline HCl [Zoloft] 200 mg PO BEDTIME 05/06/16 Albuterol Sulfate Nebs [Proventil Nebs] 2.5 mg INH QID PRN 08/16/16 Atorvastatin Calcium [Lipitor] 40 mg PO BEDTIME 08/16/16 Nitroglycerin [Nitrostat] 0.4 mg SL Q5MIN PRN 08/16/16 Tiotropium Wilson Monohydrate [Spiriva Handihaler] 2 puff INH DAILY 08/16/16 Review of Systems - Review of Systems Constitutional: States: malaise EENTM: States: no symptoms reported Respiratory: States: no symptoms reported Cardiology: States: chest pain. Denies: edema, palpitations, syncope Gastrointestinal/Abdominal: States: constipation, nausea, vomiting Genitourinary: States: no symptoms reported Musculoskeletal: States: no symptoms reported Skin: States: no symptoms reported Neurological: States: no symptoms reported Endocrine: States: no symptoms reported Hematologic/Lymphatic: States: no symptoms reported All other Systems: No Change from Baseline Past Medical History (General) - Patient Medical History Hx Seizures: No Hx Stroke: Yes - 2009 Hx Dementia: No Hx Asthma: No Hx of COPD: Yes Hx Cardiac Disorders: Yes Hx Congestive Heart Failure: Yes Hx Pacemaker: No Hx Hypertension: No Hx Thyroid Disease: No Hx Diabetes: No Hx Gastroesophageal Reflux: Yes Hx Renal Disease: No Hx Cancer: No Hx of HIV: No Hx Hepatitis C: No Hx MRSA: No MRSA Source:: Wound Surgical History: coronary bypass surgery, Hysterectomy - Vaccination History Hx Tetanus, Diphtheria Vaccination: Yes Hx Influenza Vaccination: Yes Hx Pneumococcal Vaccination: Yes - Social History Hx Tobacco Use: No Hx Alcohol Use: No Hx Substance Use: No Hx Substance Use Treatment: No Hx Depression: Yes Hx Physical Abuse: No Hx Emotional Abuse: No - Female History Patient : No Family Medical History - Family History Mother Family History: Unknown Living Status: Hx Family;Other: SHE DID NOT KNOW PARENTS AND SHE DOES KNOW NOT HISTORY. PT ADOPTED Physical Exam - Physical Exam General Appearance: Alert, Anxious, No apparent distress Eye Exam: bilateral normal Ears, Nose, Throat: hearing grossly normal, normal ENT inspection, normal pharynx Neck: full range of motion, supple Respiratory: lungs clear, normal breath sounds, no respiratory distress, no accessory muscle use, other - the patient does have some mild chest wall discomfort palpation. Cardiovascular/Chest: normal peripheral pulses, regular rate, rhythm, no edema Peripheral Pulses: radial,right: 2+, radial,left: 2+, dorsalis pedis,right: 2+, dorsalis pedis,left: 2+ Gastrointestinal/Abdominal: soft, other - Mild epigastric and right upper quadrant discomfort palpation. No true rebound or peritoneal signs. 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, alert, normal mood/affect - She is anxiouswhich is appropriate, oriented x 3 Skin Exam: normal color Comments: Vital Signs - 24 hr 02/11/17 02/11/17 02/11/17 09:28 09:38 10:57 Temperature 97.7 F Pulse Rate [ 77 77 97 H Left Brachial] Respiratory 20 20 Rate Blood Pressure 109/76 116/85 [Left Arm] O2 Sat by Pulse 95 95 Oximetry 02/11/17 02/11/17 02/11/17 11:29 11:47 12:11 Temperature Pulse Rate [ 89 91 H Left Brachial] Respiratory 20 20 Rate Blood Pressure 112/81 117/77 [Left Arm] O2 Sat by Pulse 89 L 85 L 96 Oximetry 02/11/17 13:21 Temperature Pulse Rate [ 92 H Left Brachial] Respiratory 20 Rate Blood Pressure 118/73 [Left Arm] O2 Sat by Pulse 95 Oximetry Progress - Progress Progress: 02/11/17 13:55 The patient is a 66-year-old female presenting with nausea and vomiting and some chest discomfort since last night. 2 sets of cardiac enzymes showed no elevation. Chest discomfort and nausea. I have resolved with medications. Given her significant cardiac history the patient will be admitted for a longer rule out. Symptoms are most likely from her hernia and long-standing underlying constipation. Continue monitoring. The patient is given a dose of her aspirin and Plavix here. She does appear to have a small urinary tract infection. She is going to be given a dose of Rocephin IV 1 for now. - Results/Orders Results/Orders: 02/11/17 09:37 Telemetry .CONTINUOUS normal sinus rhythm. 02/11/17 09:45 EKG STAT Normal sinus rhythm. No acute definitive ST segment changes concerning for ischemia. Normal QT interval. There is long-standing T-wave inversion in lead 3. 02/11/17 10:44 URINE CULTURE W/COLONY COUNT Stat Chest x-ray shows significant hiatal hernia. No other acute abnormalities. The hiatal hernia is not new. Abdominal x-ray shows no acute definitive pathology. Laboratory Results - last 24 hr 02/11/17 02/11/17 02/11/17 09:55 09:55 09:55 WBC 4.8 RBC 4.06 L Hgb 12.6 Hct 37.8 MCV 93.1 MCH 31.0 MCHC 33.3 RDW 13.9 Plt Count 224 MPV 8.1 Absolute Neuts (auto) 3.70 Absolute Lymphs (auto) 0.70 L Absolute Monos (auto) 0.40 Absolute Eos (auto) 0.10 Absolute Basos (auto) 0.00 Neutrophils % 77.0 Lymphocytes % 13.8 L Monocytes % 7.3 Eosinophils % 1.4 Basophils % 0.5 PT 11.0 INR 0.970 PTT (SP) 30.9 Sodium 143 Potassium 3.8 Chloride 106 Carbon Dioxide 27 Anion Gap 13.8 BUN 11 Creatinine 0.52 L BUN/Creatinine Ratio 21.2 H Random Glucose 109 H Serum Osmolality 285.0 Calcium 9.5 Magnesium 2.1 Total Bilirubin 0.4 AST 22 ALT < 8 L Alkaline Phosphatase 100 Creatine Kinase 46 CK-MB (CK-2) 1.3 CK-MB (CK-2) % Not Reportable Troponin I < 0.02 B-Natriuretic Peptide 56.5 Serum Total Protein 7.1 Albumin 3.9 Globulin 3.2 Albumin/Globulin Ratio 1.2 Amylase 34 Lipase 16 L Urine Color Urine Appearance Urine pH Ur Specific [place] Urine Protein Urine Glucose (UA) Urine Ketones Urine Blood Urine Nitrite Urine Bilirubin Urine Urobilinogen Ur Leukocyte Esterase Urine RBC Urine WBC Ur Epithelial Cells Urine Bacteria 02/11/17 02/11/17 10:44 12:58 WBC RBC Hgb Hct MCV MCH MCHC RDW Plt Count MPV Absolute Neuts (auto) Absolute Lymphs (auto) Absolute Monos (auto) Absolute Eos (auto) Absolute Basos (auto) Neutrophils % Lymphocytes % Monocytes % Eosinophils % Basophils % PT INR PTT (SP) Sodium Potassium Chloride Carbon Dioxide Anion Gap BUN Creatinine BUN/Creatinine Ratio Random Glucose Serum Osmolality Calcium Magnesium Total Bilirubin AST ALT Alkaline Phosphatase Creatine Kinase 44 CK-MB (CK-2) 1.3 CK-MB (CK-2) % Not Reportable Troponin I < 0.02 B-Natriuretic Peptide Serum Total Protein Albumin Globulin Albumin/Globulin Ratio Amylase Lipase Urine Color Yellow Urine Appearance Cloudy Urine pH 7.5 Ur Specific [place] 1.015 Urine Protein Negative Urine Glucose (UA) Negative Urine Ketones Negative Urine Blood Trace-intact H Urine Nitrite Positive H Urine Bilirubin Negative Urine Urobilinogen 0.2 Ur Leukocyte Esterase Small H Urine RBC 1-3 Urine WBC 5-10 H Ur Epithelial Cells 3-5 Urine Bacteria 2+ H Departure - Departure Clinical Impression: Chest pain of unknown etiology, History of NH (myocardial infarction) Urinary tract infection Qualifiers: Urinary tract infection type: site unspecified Hematuria presence: without hematuria Qualified Code(s): N39.0 - Urinary tract infection, site not specified Disposition: Admit Patient Home Medications: Ambulatory Orders Aspirin [Aspir-81] 81 mg PO AM 08/31/12 Clopidogrel Bisulfate [Plavix] 75 mg PO AM 08/31/12 Esomeprazole [Nexium] 40 mg PO DAILY@0700 08/31/12 Pregabalin [Lyrica] 150 mg PO BID 08/31/12 Verapamil HCl ER [Isoptin Sr] 180 mg PO DAILY 01/13/15 Docusate Sodium [Colace] 100 mg PO BEDTIME 05/06/16 Meloxicam [Mobic] 15 mg PO BID 05/06/16 Potassium Chloride Tab [Micro-K] 10 meq PO DAILY 05/06/16 Sennosides [Senokot] 17.2 mg PO BEDTIME 05/06/16 Sertraline HCl [Zoloft] 200 mg PO BEDTIME 05/06/16 Albuterol Sulfate Nebs [Proventil Nebs] 2.5 mg INH QID PRN 08/16/16 Atorvastatin Calcium [Lipitor] 40 mg PO BEDTIME 08/16/16 Nitroglycerin [Nitrostat] 0.4 mg SL Q5MIN PRN 08/16/16 Tiotropium Wilson Monohydrate [Spiriva Handihaler] 2 puff INH DAILY 08/16/16 Decision To Admit - Decistion To Admit Decision to Admit Reason: Medical Nature Decision to Admit Date: 02/11/17 Decision to Admit Time: 13:57
--- NOTE | 2017-02-11 14:09 | HP ---
SUPERVISING PHYSICIAN: Ney Fernandez M.D. CHIEF COMPLAINT: Chest pain. HISTORY OF PRESENT ILLNESS: Ms. Herring is a 66 year-old female patient that presented to the Emergency Room complaining of substernal chest pain that started early this morning. She notes that the symptoms progressed with some nausea and vomiting. She has had some issues with constipation in the past but reports no diarrhea or any fevers. She does have a history of having coronary artery disease and apparently has had previous stents placed with the most recent being in 2014. The patient noted that she came to the E. R. because she is concerned that she had a heart attack in the past that presented symptomatically with nausea and vomiting similar to this episode. The patient notes that she has been to [facility] in the past 4 months for the same episodes and no acute coronary pathology was noted. She does see a director home health in [place], Dr. Norris. Laboratory studies in the Emergency Department showed initial cardiac enzymes to be negative times 2. EKG showed normal sinus rhythm with no acute ST segment changes concerning for any ischemia. Initially the patient was given a GI cocktail which did result in resolution of her symptoms. She notes that she does have a large hiatal hernia and again has had constipation issues. Given the patient's significant cardiac history, the patient now will be admitted to rule out an acute ischemic event. The patient was given Plavix and aspirin in the Emergency Department. It was also noted that on urinalysis she had positive nitrites on dipstick with 5 to 10 WBCs and 2+ bacteria. She was given Rocephin in the Emergency Department prior to admission. She is now placed in Observation in stable condition. PAST MEDICAL HISTORY: 1. Coronary artery disease with acute myocardial infarction both in 2007, 2009 and 2014 requiring stents. 2. Chronic obstructive pulmonary disease. 3. Diverticulosis. 4. Chronic neck and back pain. 5. History of fibromyalgia. 6. History of osteoarthritis. 7. Multiple thoracic and lumbar vertebral compression fractures requiring multiple procedures. 8. Chronic migraine nodularities. 9. Depression. 10. Hyperlipidemia. 11. Hypertension. 12. Gastroesophageal reflux disease. 13. Large hiatal hernia. 14. Iron deficiency anemia. PAST SURGICAL HISTORY: 1. Hysterectomy. 2. Coronary artery stents in 2007, 2009 and 2014. 3. Kyphoplasty. 4. Appendectomy. 5. Hernia repair. 6. Tummy tuck surgery. 7. Right hip surgery replacement. CURRENT MEDICATIONS: Please see updated list for verified medications list. Home medications: 1. Verapamil extended release 180 mg daily. 2. Spiriva Handihaler 2 puffs daily. 3. Zoloft 200 mg at bedtime. 4. Senokot 17.2 mg at bedtime. 5. Lyrica 150 mg b.i.d. 6. Micro-K 10 mEq daily. 7. Nitrostat 0.4 mg sublingual every 5 minutes as needed. 8. Meloxicam 15 mg twice daily. 9. Nexium 40 mg daily. 10. Colace 100 mg at bedtime. 11. Plavix 75 mg. 12. Lipitor 40 mg at bedtime. 13. Aspirin 81 mg. 14. Albuterol nebs 2.5 mg inhaled q.i.d. as needed. ALLERGIES: PENICILLINS AND ADHESIVE TAPE. FAMILY HISTORY: She is adopted and has no knowledge of her previous family history. 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 She has never smoked. She currently lives in [place]. She denies any alcohol or illicit drug use. REVIEW OF SYSTEMS: Denies any fevers or chills. No significant weight loss. HEENT: Denies any hearing or visual disturbances. CARDIOVASCULAR: As noted on History of Present Illness, chest pains. RESPIRATORY: Denies any dyspnea with the chest pains. No cough. No shortness of breath. GASTROINTESTINAL: As noted in History of Present Illness, she does have some nausea and vomiting but no reported abdominal pains. GENITOURINARY: Denies any dysuria, hematuria, polyuria or other urinary symptoms. NEUROLOGIC: She denies any neurological complaints. PHYSICAL EXAMINATION: VITAL SIGNS: Temperature 97.3, pulse 90, blood pressure 101/98, respirations 18 , satting 96% on room air. Admission weight was 72.9 kg. GENERAL: The patient on exam on the Medical/Surgical floor was in no acute distress. Resting comfortably and alert. HEENT: Tympanic membranes are clear bilaterally. Oropharynx is pink and moist without any lesions. NECK: Supple with full range of motion, non-tender with no jugular venous distention. CHEST: Lungs are clear to auscultation without any rhonchi, wheezing or rales. She does have a little chest wall tenderness on palpation. CARDIOVASCULAR: Regular rate and rhythm without appreciable murmurs, gallops, or rubs. ABDOMEN: Soft with some mild epigastric discomfort on palpation. No rebound tenderness. No guarding. Bowel sounds were positive. EXTREMITIES: No clubbing, cyanosis or edema. NEUROLOGIC: Cranial nerves II-XII are grossly intact. She was alert and oriented times three. Facial features were symmetrical. Extraocular movements are within normal limits. There was no notable nystagmus. LABORATORY: White count was 4.8, hemoglobin 12.6, hematocrit 37.8, platelet count was 224,000. Differential showed to be within normal limits with no left shift. Coagulation studies showed a normal PT and PTT. Chemistries showed normal electrolytes with potassium 3.8 with BUN 11, creatinine 0.52. Glucose 109, magnesium 2.1, calcium 9.5. Liver functions showed to be within normal limits with troponins times 2 at less than 0.02. BNP was 56.5. Lipase was normal at 16, amylase normal at 34. Urinalysis showed a trace of intact blood with positive nitrites, small amount of leukocyte esterase with WBCs showing to be 5 to 10, 3 to 5 epithelials and 2+ bacteria. MICROBIOLOGY: Urine culture is pending. RADIOLOGY: Abdominal x-ray per radiology interpretation showed nonobstructive nonspecific bowel gas pattern. She also had a chest x-ray 2 view per radiology interpretation showed no acute pleural parenchymal processes noted. There is note of multilevel vertebral body augmentation and large hiatal hernia. ASSESSMENT: 1. Chest pain with unknown etiology needing to rule out acute myocardial infarction and ischemic changes with the patient having a significant history of previous myocardial infarctions. 2. Epigastric discomfort with a history of large hiatal hernia and gastroesophageal reflux disease showing no relief of her symptoms of chest pains with GI cocktail. 3. Hypertension. 4. History of coronary artery disease with multiple myocardial infarctions in 2007, 2009 and 2014. 5. Urinary tract infection with cultures pending. PLAN: The patient will be placed in Observation tonight for close cardiac monitoring to further rule out any further acute ischemic changes. She was given Plavix and aspirin in the Emergency Department. Given her past medical history with significant cardiovascular disease and multiple myocardial infarctions, I will go ahead and start her on Lovenox 1 mg per kg every 12 hours awaiting final rule out enzymes and EKGs. For the urinary tract infection , she was started on Rocephin. This will be continued until we have culture results. Will anticipate length of stay to be 1 to 2 days, hopefully discharge tomorrow pending reevaluation of cardiac enzymes. Until then, will continue to monitor and treat appropriately. [facility][id number] [facility]
[2017-02-11] MEDS ORDERED: SODIUM CHLORIDE 0.9% (FLUSH) 10 ML SYG IV PRN (14:20)
[2017-02-11] MEDS ORDERED: ACETAMINOPHEN 325 MG TAB PO PRN (14:20)
[2017-02-11] MEDS ORDERED: NITROGLYCERIN 0.4 MG 25 EA TAB SL PRN (14:20)
[2017-02-11] MEDS ORDERED: MORPHINE SULFATE INJ 10 MG/ML VIAL IV PRN (14:20)
[2017-02-11] MEDS ORDERED: cefTRIAXone SODIUM 1 GM in SODIUM CHL 0.9% 50ML MIN-BAG+ 50 ML IVPB SCH (14:30)
[2017-02-11] MEDS ORDERED: IV SET AND CAP CHANGE INJ INJ SCH (14:30)
[2017-02-11] MEDS ORDERED: SODIUM CHL 0.9% 50ML MIN-BAG+ 50 ML IVPB ONE (16:31)
[2017-02-11] MEDS ORDERED: cefTRIAXone SODIUM 1 GM VIAL ONE (16:32)
--- NOTE | 2017-02-11 16:41 | PCM.CORE ---
Physician DVT/VTE - Prophylaxis Currently: Patient already on anticoagulation therapy - lovenox 1mg/kg q 12 - Nurse DVT Assessment & Total Each Risk Factor Represents 3 Points: Medical PT with Hx of PA, CHF, Severe infection/sepsis Each Risk Factor Represents 2 Points: Age 60-74 Each Risk Factor is 1 Point: Obesity (BMI >25), Serious Lung disease (pnemonia < 1month, COPD, emphysema,etc) DVT Assessment Score: 7 - 5 or more Very High Risk Treatments: Early Ambulation *, Sequential Compression Device
[2017-02-11] MEDS: ENOXAPARIN SODIUM 80 MG/0.8 ML SYG SUBCU SCH (16:43)
[2017-02-11] MEDS: VERAPAMIL ER TAB 180 MG TAB PO SCH (16:43)
[2017-02-11] MEDS: KCL 20MEQ/0.45% NS 1,000 ML IVS PRN (16:45)
[2017-02-11] MEDS ORDERED: SODIUM CHLORIDE 0.9% (FLUSH) 10 ML SYG IV SCH (21:00)
[2017-02-12] MEDS: KCL 20MEQ/0.45% NS 1,000 ML IVS PRN (02:07)
[2017-02-12] MEDS: ENOXAPARIN SODIUM 80 MG/0.8 ML SYG SUBCU SCH (02:07)
[2017-02-12 06:20] VITALS: BP 99/61; TEMP 97.3
[2017-02-12] MEDS ORDERED: ASPIRIN TABLET 325 MG TAB ONE (07:39)
[2017-02-12] MEDS: VERAPAMIL ER TAB 180 MG TAB PO SCH (08:22)
[2017-02-12] MEDS ORDERED: ASPIRIN TABLET 325 MG TAB PO SCH (09:00)
[2017-02-12 09:28] VITALS: O2SAT 97
[2017-02-12] MEDS ORDERED: SULFA/TRIMETH 800/160 (DS) TAB 1 EA TAB PO SCH ×2 (09:30→21:00)
--- NOTE | 2017-02-12 14:22 | DS ---
SUPERVISING PHYSICIAN: Ney Fernandez M.D. DISCHARGE DIAGNOSIS: 1. Chest pain with unknown etiology rule out myocardial infarction. The patient has a significant history of previous myocardial infarctions and has negative cardiac enzymes on this admission. 2. Epigastric discomfort with a history of a large hiatal hernia with gastroesophageal reflux disease. 3. Hypertension. 4. History of coronary artery disease with multiple myocardial infarctions in 2007, 2009 and [address] Norris at [facility]. 5. Urinary tract infection with cultures pending and presently on Rocephin. She will be discharged on Bactrim. HISTORY OF PRESENT ILLNESS: This is a 66 year-old female patient that presented to the Emergency Room with complaints of substernal pains that started earlier on the morning of her admission. The symptoms progressively worsened with some nausea and vomiting. She also has had some history of constipation and gastroesophageal reflux disease in the past. She does have a history of coronary artery disease and has had multiple stents placed in the past, most recently in 2014. She sees Dr. Norris in [place] at [facility]. She came to the E. R. because she was concerned she was having a heart attack because she has had several in the past. Laboratory studies in the Emergency Department showed initial cardiac enzymes to be negative times 2. Her EKG showed normal sinus rhythm with no acute ST segment changes concerning for any ischemia. The patient was given a gastrointestinal cocktail with minimal resolution to her symptoms. She does have a large hiatal hernia and has had constipation in the past. HOSPITAL COURSE: She was placed in observation in the hospital given her significant cardiac history. She is on Plavix and aspirin and she was placed on Lovenox 1 mg per kg. She had positive nitrites on her urinalysis with 5 to 10 WBCs and 2+ bacteria. She was given Rocephin in the Emergency Room and continued on admission. She had no further complaints of chest pain. Her third and fourth set of cardiac enzymes were negative. Chemistries were basically within normal limits as well as her CBC. Urine cultures are still pending but show gram-negative rods. She will be discharged home. DISCHARGE PLAN: The patient will be discharged home in stable condition. She is to resume her previous diet as well as her previous activity. Her cultures and sensitivities are still pending but I will send her home on Bactrim. She is to followup with Dr. Barrera in the next week to followup both with the chest pain issues as well as her urinary tract infection and to review her sensitivities on her urine culture. She is to return to the hospital or to call Dr. Barrera's office for any further problems. DISCHARGE MEDICATIONS: 1. Plavix. 2. Aspirin. 3. Lyrica. 4. Nexium. 5. Verapamil. 6. Meloxicam. 7. Sertraline. 8. Potassium chloride. 9. Docusate sodium. 10. Senokot. 11. Spiriva. 12. Lipitor. 13. Nitrostat. 14. Albuterol. 15. Bactrim DS. Dr. Fernandez is the collaborating physician and available for consultation. [facility][id number] [facility]
== END 2017-02-12 09:55 | disposition home or self-care (01) ==
LOC: ER 09:19 → MS 14:08
PROVIDERS: ADMIT Nurse Practitioner Family; ATTEND Nurse Practitioner Acute Care
DX: R07.89 Other chest pain (principal); R10.13 Epigastric pain; K44.9 Diaphragmatic hernia without obstruction or gangrene; K21.9 Gastro-esophageal reflux disease without esophagitis; I10 Essential (primary) hypertension; I25.10 Atherosclerotic heart disease of native coronary artery without angina pectoris; I25.2 Old myocardial infarction; N39.0 Urinary tract infection, site not specified; R11.2 Nausea with vomiting, unspecified; J44.9 Chronic obstructive pulmonary disease, unspecified; G89.29 Other chronic pain; M19.90 Unspecified osteoarthritis, unspecified site; M79.7 Fibromyalgia; E78.5 Hyperlipidemia, unspecified; Z95.5 Presence of coronary angioplasty implant and graft; Z90.49 Acquired absence of other specified parts of digestive tract; Z90.710 Acquired absence of both cervix and uterus; Z96.641 Presence of right artificial hip joint; Z79.1 Long term (current) use of non-steroidal anti-inflammatories (NSAID); Z79.899 Other long term (current) drug therapy; Z79.02 Long term (current) use of antithrombotics/antiplatelets; Z79.82 Long term (current) use of aspirin; Z88.0 Allergy status to penicillin; Z91.048 Other nonmedicinal substance allergy status
CPT/HCPCS: 36415 ×4; 71020; 74010; 80048; 80053; 80061; 81001; 82150; 82550 ×4; 82553 ×4; 83690; 83735; 83880; 84484 ×4; 85025 ×2; 85610; 85730; 87086; 87088; 87186; 93005; 94760 ×3; 96361 ×2; 96372 ×2; 96374; 96375; 99284; G0378; J0696; J1650 ×2; J2270; J3480 ×2; J7050

== ENCOUNTER 2017-02-12 16:36 | Emergency (ER) | payer MEDICARE ==
[2017-02-12 16:49] VITALS: TEMP 98.1
--- NOTE | 2017-02-12 16:49 | ED.PDOC ---
History of Present Illness - General Chief Complaint: GI Problem Stated Complaint: nausea Time Seen by Provider: 02/12/17 16:48 Source: patient, RN notes reviewed Exam Limitations: no limitations - History of Present Illness Initial Comments: Mariann Herring 66 y/o female stated felt nauseated since she was discharged from the hospital this am for chest pain symptoms but all her cardiac enzymes came back normal.Denies vomiting,diarrhea but unable to eat for last 2 days.Had abdominal series done no acute changes noted Timing/Duration: 4-6 hours Severity: moderate Improving Factors: nothing Worsening Factors: eating Associated Symptoms: denies symptoms Allergies/Adverse Reactions: Allergies Penicillins Allergy (Verified 02/12/17 16:49) ADHESIVE TAPE Adverse Reaction (Uncoded 02/12/17 16:49) Home Medications: Ambulatory Orders Aspirin [Aspir-81] 81 mg PO AM 08/31/12 Clopidogrel Bisulfate [Plavix] 75 mg PO AM 08/31/12 Esomeprazole [Nexium] 40 mg PO DAILY@0700 08/31/12 Pregabalin [Lyrica] 150 mg PO BID 08/31/12 Verapamil HCl ER [Isoptin Sr] 180 mg PO DAILY 01/13/15 Docusate Sodium [Colace] 100 mg PO BEDTIME 05/06/16 Meloxicam [Mobic] 15 mg PO BID 05/06/16 Potassium Chloride Tab [Micro-K] 10 meq PO DAILY 05/06/16 Sennosides [Senokot] 17.2 mg PO BEDTIME 05/06/16 Sertraline HCl [Zoloft] 200 mg PO BEDTIME 05/06/16 Albuterol Sulfate Nebs [Proventil Nebs] 2.5 mg INH QID PRN 08/16/16 Atorvastatin Calcium [Lipitor] 40 mg PO BEDTIME 08/16/16 Nitroglycerin [Nitrostat] 0.4 mg SL Q5MIN PRN 08/16/16 Tiotropium [place] Monohydrate [Spiriva Handihaler] 2 puff INH DAILY 08/16/16 Metoclopramide Tab [Reglan Tab] 5 mg PO TID #30 tab 02/12/17 Sucralfate Suspension [Carafate Suspension] 10 ml PO QID #120 ml 02/12/17 Sulfa/Trimeth 800/160 (Ds) Tab [Bactrim DS] 1 ea PO Q12H #19 tablet 02/12/17 Review of Systems - Review of Systems Constitutional: States: no symptoms reported EENTM: States: no symptoms reported Respiratory: States: no symptoms reported Cardiology: States: no symptoms reported Gastrointestinal/Abdominal: States: see HPI Genitourinary: States: no symptoms reported Past Medical History (General) - Patient Medical History Hx Seizures: No Hx Stroke: Yes - 2009 Hx Dementia: No Hx Asthma: No Hx of COPD: Yes Hx Cardiac Disorders: Yes Hx Congestive Heart Failure: Yes Hx Pacemaker: No Hx Hypertension: No Hx Thyroid Disease: No Hx Diabetes: No Hx Gastroesophageal Reflux: Yes - HIATAL HERNIA Hx Renal Disease: No Hx Cancer: No Hx of HIV: No Hx Hepatitis C: No Hx MRSA: No MRSA Source:: Wound Surgical History: coronary bypass surgery, other - cardiac stent ,right hip, hysterectomy,lumbar spine - Vaccination History Hx Tetanus, Diphtheria Vaccination: Yes Hx Influenza Vaccination: Yes Hx Pneumococcal Vaccination: Yes - Social History Hx Tobacco Use: No Hx Alcohol Use: No Hx Substance Use: No Hx Substance Use Treatment: No Hx Depression: Yes Hx Physical Abuse: No Hx Emotional Abuse: No - Female History Patient : No Family Medical History - Family History Mother Family History: Unknown Living Status: Hx Family;Other: SHE DID NOT KNOW PARENTS AND SHE DOES KNOW NOT HISTORY. PT ADOPTED Physical Exam - Physical Exam General Appearance: Alert, No apparent distress Eye Exam: bilateral normal Ears, Nose, Throat: hearing grossly normal, normal ENT inspection Neck: non-tender, supple Respiratory: chest non-tender, lungs clear Cardiovascular/Chest: normal peripheral pulses, regular rate, rhythm, no murmur Peripheral Pulses: radial,right: 1+, radial,left: 1+ Gastrointestinal/Abdominal: normal bowel sounds, non tender, soft, no organomegaly Back Exam: no CVA tenderness Extremity: non-tender, no pedal edema, no calf tenderness Neurologic: alert, normal mood/affect, oriented x 3 Progress - Progress Progress: 02/12/17 19:51 Vital Signs - 8 hr 02/12/17 02/12/17 16:41 18:15 Temperature 98.1 F Pulse Rate [ 83 90 pulse ox] Respiratory 20 16 Rate Blood Pressure 143/64 119/77 [Right Arm] O2 Sat by Pulse 95 Oximetry Laboratory Tests 02/12/17 02/12/17 02/12/17 17:03 17:03 17:03 WBC 4.5 L RBC 4.25 Hgb 13.3 Hct 39.7 MCV 93.5 MCH 31.2 H MCHC 33.4 RDW 13.9 Plt Count 236 MPV 8.2 Absolute Neuts (auto) 3.40 Absolute Lymphs (auto) 0.70 L Absolute Monos (auto) 0.30 Absolute Eos (auto) 0.00 Absolute Basos (auto) 0.00 Neutrophils % 75.5 Lymphocytes % 16.2 L Monocytes % 7.2 Eosinophils % 0.6 L Basophils % 0.5 Sodium 143 Potassium 4.1 Chloride 104 Carbon Dioxide 26 Anion Gap 17.1 BUN 9 Creatinine 0.66 BUN/Creatinine Ratio 13.6 Random Glucose 98 Serum Osmolality 283.6 Calcium 9.8 Total Bilirubin 0.5 AST 26 ALT 11 Alkaline Phosphatase 108 Troponin I Serum Total Protein 7.8 Albumin 4.2 Globulin 3.6 H Albumin/Globulin Ratio 1.2 Lipase 16 L 02/12/17 17:44 WBC RBC Hgb Hct MCV MCH MCHC RDW Plt Count MPV Absolute Neuts (auto) Absolute Lymphs (auto) Absolute Monos (auto) Absolute Eos (auto) Absolute Basos (auto) Neutrophils % Lymphocytes % Monocytes % Eosinophils % Basophils % Sodium Potassium Chloride Carbon Dioxide Anion Gap BUN Creatinine BUN/Creatinine Ratio Random Glucose Serum Osmolality Calcium Total Bilirubin AST ALT Alkaline Phosphatase Troponin I < 0.02 Serum Total Protein Albumin Globulin Albumin/Globulin Ratio Lipase Departure - Departure Clinical Impression: Nausea, Hiatal hernia with GERD Time of Disposition: 19:52 Disposition: Discharge to Home or Self Care Condition: Fair Departure Forms: ED Discharge - Pt. Copy, Patient Portal Self Enrollment Instructions: Hiatal Hernia, DI for Hiatal Hernia Diet: low fat, low cholesterol, low salt diet, other - small frequent meal Referrals: Kwame Barrera MD [Primary Care Provider] - 1-2 Weeks Prescriptions: Metoclopramide Tab [Reglan Tab] 5 mg PO TID #30 tab Sucralfate Suspension [Carafate Suspension] 10 ml PO QID #120 ml Home Medications: Ambulatory Orders Aspirin [Aspir-81] 81 mg PO AM 08/31/12 Clopidogrel Bisulfate [Plavix] 75 mg PO AM 08/31/12 Esomeprazole [Nexium] 40 mg PO DAILY@0700 08/31/12 Pregabalin [Lyrica] 150 mg PO BID 08/31/12 Verapamil HCl ER [Isoptin Sr] 180 mg PO DAILY 01/13/15 Docusate Sodium [Colace] 100 mg PO BEDTIME 05/06/16 Meloxicam [Mobic] 15 mg PO BID 05/06/16 Potassium Chloride Tab [Micro-K] 10 meq PO DAILY 05/06/16 Sennosides [Senokot] 17.2 mg PO BEDTIME 05/06/16 Sertraline HCl [Zoloft] 200 mg PO BEDTIME 05/06/16 Albuterol Sulfate Nebs [Proventil Nebs] 2.5 mg INH QID PRN 08/16/16 Atorvastatin Calcium [Lipitor] 40 mg PO BEDTIME 08/16/16 Nitroglycerin [Nitrostat] 0.4 mg SL Q5MIN PRN 08/16/16 Tiotropium [place] Monohydrate [Spiriva Handihaler] 2 puff INH DAILY 08/16/16 Metoclopramide Tab [Reglan Tab] 5 mg PO TID #30 tab 02/12/17 Sucralfate Suspension [Carafate Suspension] 10 ml PO QID #120 ml 02/12/17 Sulfa/Trimeth 800/160 (Ds) Tab [Bactrim DS] 1 ea PO Q12H #19 tablet 02/12/17 Additional Instructions: FOLLOW UP WITH PRIMARY MD IN AM FOR REFERRAL TO [facility]AL[facility] MANAGER
[2017-02-12] MEDS ORDERED: ONDANSETRON INJ 4 MG/2 ML VIAL IV ONE (16:50)
[2017-02-12] MEDS ORDERED: METOCLOPRAMIDE HCL INJ 10 MG/2 ML VIAL IV ONE (17:30)
[2017-02-12] MEDS ORDERED: PANTOPRAZOLE INJECTION 80 MG in SODIUM CHLORIDE 0.9% 100ML 80 ML IVPB ONE (17:30)
[2017-02-12] MEDS ORDERED: SUCRALFATE 1 GM/10 ML 1 GM UD PO ONE (17:31)
[2017-02-12] MEDS ORDERED: PANTOPRAZOLE SODIUM IV 40 MG VIAL ONE ×2 (17:32→17:33)
[2017-02-12] MEDS ORDERED: SODIUM CHLORIDE 0.9% 100ML 100 ML IVPB ONE (17:33)
[2017-02-12] MEDS ORDERED: SODIUM CHLORIDE 0.9% 500ML 500 ML IVS ONE (17:55)
[2017-02-12] MEDS ORDERED: LORazepam 0.5 MG TAB PO ONE (18:16)
[2017-02-12 20:24] VITALS: BP 126/82; O2SAT 96
== END 2017-02-12 20:24 | disposition home or self-care (01) ==
LOC: ER 16:36
DX: K21.9 Gastro-esophageal reflux disease without esophagitis (principal); K44.9 Diaphragmatic hernia without obstruction or gangrene; R11.0 Nausea; J44.9 Chronic obstructive pulmonary disease, unspecified; I50.9 Heart failure, unspecified; Z79.899 Other long term (current) drug therapy; Z88.0 Allergy status to penicillin; Z91.048 Other nonmedicinal substance allergy status; Z86.73 Personal history of transient ischemic attack (TIA), and cerebral infarction without residual deficits
CPT/HCPCS: 36415; 80053; 83690; 84484; 85025; J2060; J2405; J2765; J7040; J7050

== ENCOUNTER → 2017-03-08 | Outpatient (CLI) | payer MEDICARE, MEDICAID | LOC: GMAH 11:31 | PROVIDERS: ATTEND Family Medicine | DX: Z01.810 Encounter for preprocedural cardiovascular examination (principal); I50.9 Heart failure, unspecified ==

== ENCOUNTER 2017-03-22 08:55 | Emergency (ER) | payer MEDICARE, MEDICAID ==
[2017-03-22 09:15] VITALS: TEMP 98.6
--- NOTE | 2017-03-22 09:17 | ED.PDOC ---
History of Present Illness - General Chief Complaint: GI Problem Stated Complaint: nausea Time Seen by Provider: 03/22/17 09:17 Source: patient Exam Limitations: no limitations - History of Present Illness Initial Comments: Mariann Herring 66 y/o female stated that she had been feeling nauseated for the last 3 days had seen primary md yesterday and had blood work done and abdominal x rays stating that it came back with normal results. Timing/Duration: other - 3 days Severity: moderate Improving Factors: nothing Worsening Factors: eating Associated Symptoms: other - insomnia ;unable to sleep the last 3 days;takes benadryl Allergies/Adverse Reactions: Allergies Penicillins Allergy (Verified 03/22/17 09:15) ADHESIVE TAPE Adverse Reaction (Uncoded 03/22/17 09:15) Home Medications: Ambulatory Orders Aspirin [Aspir-81] 81 mg PO AM 08/31/12 Clopidogrel Bisulfate [Plavix] 75 mg PO AM 08/31/12 Esomeprazole [Nexium] 40 mg PO DAILY@0700 08/31/12 Pregabalin [Lyrica] 150 mg PO BID 08/31/12 Verapamil HCl ER [Isoptin Sr] 180 mg PO DAILY 01/13/15 Docusate Sodium [Colace] 100 mg PO BEDTIME 05/06/16 Meloxicam [Mobic] 15 mg PO BID 05/06/16 Potassium Chloride Tab [Micro-K] 10 meq PO DAILY 05/06/16 Sennosides [Senokot] 17.2 mg PO BEDTIME 05/06/16 Sertraline HCl [Zoloft] 200 mg PO BEDTIME 05/06/16 Albuterol Sulfate Nebs [Proventil Nebs] 2.5 mg INH QID PRN 08/16/16 Atorvastatin Calcium [Lipitor] 40 mg PO BEDTIME 08/16/16 Nitroglycerin [Nitrostat] 0.4 mg SL Q5MIN PRN 08/16/16 Tiotropium [place] Monohydrate [Spiriva Handihaler] 2 puff INH DAILY 08/16/16 Metoclopramide Tab [Reglan Tab] 5 mg PO TID #30 tab 02/12/17 Sucralfate Suspension [Carafate Suspension] 10 ml PO QID #120 ml 02/12/17 Sulfa/Trimeth 800/160 (Ds) Tab [Bactrim DS] 1 ea PO Q12H #19 tablet 02/12/17 Trazodone HCl 100 mg PO BEDTIME #30 tab 03/22/17 Review of Systems - Review of Systems Constitutional: States: no symptoms reported EENTM: States: no symptoms reported Respiratory: States: no symptoms reported Cardiology: States: no symptoms reported Gastrointestinal/Abdominal: States: see HPI Genitourinary: States: no symptoms reported Musculoskeletal: States: no symptoms reported Skin: States: no symptoms reported Neurological: States: other - insomnia Past Medical History (General) - Patient Medical History Hx Seizures: No Hx Stroke: Yes - 2010 Hx Dementia: No Hx Asthma: No Hx of COPD: Yes Hx Cardiac Disorders: Yes - [place] Hx Congestive Heart Failure: Yes Hx Pacemaker: No Hx Hypertension: No Hx Thyroid Disease: No Hx Diabetes: No Hx Gastroesophageal Reflux: Yes - HIATAL HERNIA Hx Renal Disease: No Hx Cancer: No Hx of HIV: No Hx Hepatitis C: No Hx MRSA: No MRSA Source:: Wound Surgical History: Hysterectomy, other - hysterectomy,right hip replacement - Vaccination History Hx Tetanus, Diphtheria Vaccination: Yes Hx Influenza Vaccination: Yes Hx Pneumococcal Vaccination: Yes - Social History Hx Tobacco Use: No Hx Alcohol Use: No Hx Substance Use: No Hx Substance Use Treatment: No Hx Depression: Yes Hx Physical Abuse: No Hx Emotional Abuse: No - Female History Patient is a Female of Child Bearing Age (10 -59 yrs old): No Patient : No Family Medical History - Family History Mother Family History: Unknown Living Status: Hx Family;Other: SHE DID NOT KNOW PARENTS AND SHE DOES NOT KNOW FH HISTORY. PT ADOPTED Physical Exam - Physical Exam General Appearance: Alert, Anxious, No apparent distress Eye Exam: bilateral normal Ears, Nose, Throat: hearing grossly normal, normal ENT inspection, normal pharynx Neck: full range of motion, supple Respiratory: chest non-tender, lungs clear, normal breath sounds, no respiratory distress Cardiovascular/Chest: normal peripheral pulses, regular rate, rhythm, no gallop , no murmur Peripheral Pulses: radial,right: 1+, radial,left: 1+ Gastrointestinal/Abdominal: normal bowel sounds, non tender, soft, no organomegaly Back Exam: no CVA tenderness Neurologic: alert, normal mood/affect, oriented x 3 Skin Exam: normal color, warm/dry Lymphatic: no adenopathy Progress - Progress Progress: 03/22/17 09:36 Vital Signs - 8 hr 03/22/17 08:55 Temperature 98.6 F Pulse Rate [ 78 pulse ox] Respiratory 20 Rate Blood Pressure 105/58 [Left Arm] O2 Sat by Pulse 98 Oximetry - Results/Orders Results/Orders: Laboratory Tests 03/22/17 03/22/17 03/22/17 09:30 09:30 09:30 WBC 4.8 RBC 4.29 Hgb 13.3 Hct 39.5 MCV 92.1 MCH 31.0 MCHC 33.6 RDW 13.9 Plt Count 248 MPV 8.0 Absolute Neuts (auto) 3.60 Absolute Lymphs (auto) 0.70 L Absolute Monos (auto) 0.40 Absolute Eos (auto) 0.00 Absolute Basos (auto) 0.00 Neutrophils % 74.9 Lymphocytes % 15.5 L Monocytes % 8.7 Eosinophils % 0.5 L Basophils % 0.4 Sodium 139 Potassium 3.6 Chloride 103 Carbon Dioxide 25 Anion Gap 14.6 BUN 26 H Creatinine 0.60 BUN/Creatinine Ratio 43.3 H Random Glucose 89 Serum Osmolality 281.8 Calcium 9.5 Total Bilirubin 0.6 AST 25 ALT 11 Alkaline Phosphatase 96 Troponin I < 0.02 Serum Total Protein 7.6 Albumin 4.0 Globulin 3.6 H Albumin/Globulin Ratio 1.1 Lipase 24 No nausea/vomiting while in ER Departure - Departure Clinical Impression: Nausea and vomiting in adult Insomnia disorder Qualifiers: Insomnia type: unspecified Qualified Code(s): G47.00 - Insomnia, unspecified Time of Disposition: 14:36 Disposition: Discharge to Home or Self Care Condition: Fair Departure Forms: ED Discharge - Pt. Copy, Patient Portal Self Enrollment Instructions: Insomnia, No More Sleepless Nights: Dealing With Insomnia, DI for Insomnia Diet: other - SMALL FREQUENT MEALS AVOID greasy,spicy foods Referrals: Kwame Barrera MD [Primary Care Provider] - 1-2 Weeks Prescriptions: Trazodone HCl 100 mg PO BEDTIME #30 tab Home Medications: Ambulatory Orders Aspirin [Aspir-81] 81 mg PO AM 08/31/12 Clopidogrel Bisulfate [Plavix] 75 mg PO AM 08/31/12 Esomeprazole [Nexium] 40 mg PO DAILY@0700 08/31/12 Pregabalin [Lyrica] 150 mg PO BID 08/31/12 Verapamil HCl ER [Isoptin Sr] 180 mg PO DAILY 01/13/15 Docusate Sodium [Colace] 100 mg PO BEDTIME 05/06/16 Meloxicam [Mobic] 15 mg PO BID 05/06/16 Potassium Chloride Tab [Micro-K] 10 meq PO DAILY 05/06/16 Sennosides [Senokot] 17.2 mg PO BEDTIME 05/06/16 Sertraline HCl [Zoloft] 200 mg PO BEDTIME 05/06/16 Albuterol Sulfate Nebs [Proventil Nebs] 2.5 mg INH QID PRN 08/16/16 Atorvastatin Calcium [Lipitor] 40 mg PO BEDTIME 08/16/16 Nitroglycerin [Nitrostat] 0.4 mg SL Q5MIN PRN 08/16/16 Tiotropium [place] Monohydrate [Spiriva Handihaler] 2 puff INH DAILY 08/16/16 Metoclopramide Tab [Reglan Tab] 5 mg PO TID #30 tab 02/12/17 Sucralfate Suspension [Carafate Suspension] 10 ml PO QID #120 ml 02/12/17 Sulfa/Trimeth 800/160 (Ds) Tab [Bactrim DS] 1 ea PO Q12H #19 tablet 02/12/17 Trazodone HCl 100 mg PO BEDTIME #30 tab 03/22/17 Additional Instructions: Follow up with primary md in one week patient to call for appointment
[2017-03-22] MEDS ORDERED: PROMETHAZINE HCL INJ 25 MG/ML VIAL IM ONE (09:20)
[2017-03-22] MEDS ORDERED: SODIUM CHLORIDE 0.9% 1000ML 1,000 ML IVS ONE (09:20)
[2017-03-22] MEDS ORDERED: PANTOPRAZOLE SODIUM IV 40 MG VIAL IV ONE (09:23)
--- NOTE | 2017-03-22 10:02 | RAD ---
EXAM DESCRIPTION: Chest,2 Views CLINICAL HISTORY: Nausea COMPARISON: February 11, 2017 Findings/impression: Frontal and lateral views of the chest. Cine loop recorder again seen projecting over the left anterior chest. Cardiac silhouette and pulmonary vascularity are stable in appearance. Calcific atherosclerosis and tortuosity noted of the thoracic aorta. Subtle opacities in the bilateral lung bases, left greater than right, atelectasis versus infiltrates. No pleural effusion. No pneumothorax. Multiple vertebral augmentation demonstrated of the thoracic spine. Cervical ACDF construct is incompletely imaged. Electronically signed by: Hugh Castellanos MD 03/22/2017 10:01 AM CDT
[2017-03-22 14:42] VITALS: BP 124/69; O2SAT 95
== END 2017-03-22 14:55 | disposition home or self-care (01) ==
LOC: ER 08:55
DX: R11.2 Nausea with vomiting, unspecified (principal); G47.00 Insomnia, unspecified; I25.2 Old myocardial infarction; I50.9 Heart failure, unspecified; Z86.73 Personal history of transient ischemic attack (TIA), and cerebral infarction without residual deficits; Z79.82 Long term (current) use of aspirin; Z79.02 Long term (current) use of antithrombotics/antiplatelets; Z88.0 Allergy status to penicillin
CPT/HCPCS: 36415; 71020; 80053; 83690; 84484; 85025; 93005; J2060; J2550; J7030

== ENCOUNTER 2017-05-08 17:19 | Emergency (ER) | payer MEDICARE, MEDICAID ==
[2017-05-08 17:38] VITALS: TEMP 98
[2017-05-08] MEDS ORDERED: SODIUM CHLORIDE 0.9% 1000ML 1,000 ML IVS ONE (17:53)
[2017-05-08] MEDS ORDERED: PROMETHAZINE HCL INJ 25 MG in SODIUM CHLORIDE 0.9% 50ML 50 ML IVPB ONE (17:53)
[2017-05-08] MEDS ORDERED: SODIUM CHLORIDE 0.9% 50ML 50 ML ONE (18:28)
[2017-05-08] MEDS ORDERED: PROMETHAZINE HCL INJ 25 MG/ML VIAL ONE (18:28)
--- NOTE | 2017-05-08 19:01 | RAD ---
EXAM: Abdomen Series CLINICAL INDICATION: 66-year-old female with nausea, vomiting and history of hiatal hernia. TECHNIQUE: Single view, PA chest was obtained. Two views of the abdomen were obtained in upright and supine positioning. COMPARISON: None. FINDINGS: Chest: Unremarkable cardiac and mediastinal silhouette. Heart size is normal. Lungs are clear without focal opacity, pneumothorax or pleural effusions. The visualized bones are reveal diffuse demineralization and multilevel vertebral plasty cement. Cervical spine fusion hardware. Abdomen: Gas is seen within normal caliber large bowel. Multiple nonspecific dilated air-filled small bowel loops raising the question of enteritis versus small bowel obstruction No free air is identified. Bilateral pelvic phleboliths. RIGHT total hip arthroplasty. Degenerative changes of the lumbar spine. IMPRESSION: 1. No acute cardiopulmonary abnormalities. 2. Multiple nonspecific dilated air-filled small bowel loops raising the question of enteritis versus small bowel obstruction further evaluation with CT may be considered. Electronically signed by: Maday Quinteros MD 05/08/2017 6:59 PM [employer] Workstation: [id number]
[2017-05-08] MEDS ORDERED: METOCLOPRAMIDE HCL 5 MG TAB PO ONE (19:19)
--- NOTE | 2017-05-08 21:02 | CT ---
EXAM DESCRIPTION: Abdoment/Pelvis w/o Contrast CLINICAL HISTORY: Nausea, vomiting, diarrhea, generalized abdominal pain COMPARISON: None Available TECHNIQUE: Contiguous axial images of the abdomen and pelvis were obtained followed by reconstruction images. This exam was performed according to our departmental dose-optimization program, which includes automated exposure control, adjustment of the mA and/or kV according to patient size and/or use of iterative reconstruction technique. FINDINGS: There is a hiatal hernia. There is atherosclerosis. Linear opacities within the lungs may represent scar versus subsegmental atelectasis. Patient is status post right hip arthroplasty. Metallic artifact degrades images of the pelvis. There are diverticuli without CT evidence of acute diverticulitis. Patient is status post hysterectomy. Calcifications within the pelvis may represent phlebolith. Appendix was not visualized, there is no pericecal inflammation. Gallbladder is distended otherwise unremarkable by CT criteria. There is evidence of prior vertebroplasty. Compression fractures of multiple thoracic and lumbar vertebral bodies could represent old fractures. There is a punctate nonobstructive stone within the right kidney. The liver, spleen, pancreas and kidneys are otherwise within normal limits. There is no hydronephrosis. Aorta is of normal caliber and tapering. There is no free fluid in the abdomen or pelvis. There is no bowel obstruction. There is no stranding of the mesenteric fat to suggest an inflammatory response. 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
[2017-05-08] MEDS ORDERED: ALUMINUM & MAGNESIUM HYDROXIDE 30 ML UD PO ONE (21:08)
--- NOTE | 2017-05-08 21:11 | ED.PDOC ---
History of Present Illness - General Chief Complaint: GI Problem Stated Complaint: N/V/D Time Seen by Provider: 05/08/17 17:52 Source: patient, family Exam Limitations: no limitations - History of Present Illness Initial Comments: the patient is a 66-year-old female presenting to the emergency room secondary to a recurrence of her nausea and vomiting. It has been going on for about the last 36-48 hours. No fever. No abdominal pain. She has a known large hiatal hernia that has caused her issue in the past. Additionally she has just had put her sister on end-of-life care apparently causing numerous social stressors and anxiety. The patient is quite worked up on arrival here. She denies any blood or bile in the vomitus. Fever. No real diarrhea. No chest pain and no shortness of breath. No syncope or near syncope. She is very dysphoric. Timing/Duration: 24 hours Severity: moderate Improving Factors: nothing Worsening Factors: nothing Associated Symptoms: malaise, nausea/vomiting Allergies/Adverse Reactions: Allergies Penicillins Allergy (Verified 03/22/17 09:15) ADHESIVE TAPE Adverse Reaction (Uncoded 03/22/17 09:15) Home Medications: Ambulatory Orders Aspirin [Aspir-81] 81 mg PO AM 08/31/12 Clopidogrel Bisulfate [Plavix] 75 mg PO AM 08/31/12 Esomeprazole [Nexium] 40 mg PO DAILY@0700 08/31/12 Pregabalin [Lyrica] 150 mg PO BID 08/31/12 Verapamil HCl ER [Isoptin Sr] 180 mg PO DAILY 01/13/15 Docusate Sodium [Colace] 100 mg PO BEDTIME 05/06/16 Meloxicam [Mobic] 15 mg PO BID 05/06/16 Potassium Chloride Tab [Micro-K] 10 meq PO DAILY 05/06/16 Sennosides [Senokot] 17.2 mg PO BEDTIME 05/06/16 Sertraline HCl [Zoloft] 200 mg PO BEDTIME 05/06/16 Albuterol Sulfate Nebs [Proventil Nebs] 2.5 mg INH QID PRN 08/16/16 Atorvastatin Calcium [Lipitor] 40 mg PO BEDTIME 08/16/16 Nitroglycerin [Nitrostat] 0.4 mg SL Q5MIN PRN 08/16/16 Tiotropium [place] Monohydrate [Spiriva Handihaler] 2 puff INH DAILY 08/16/16 Metoclopramide Tab [Reglan Tab] 5 mg PO TID #30 tab 02/12/17 Sucralfate Suspension [Carafate Suspension] 10 ml PO QID #120 ml 02/12/17 Sulfa/Trimeth 800/160 (Ds) Tab [Bactrim DS] 1 ea PO Q12H #19 tablet 02/12/17 Trazodone HCl 100 mg PO BEDTIME #30 tab 03/22/17 Metoclopramide Tab [Reglan Tab] 5 mg PO Q8HR #30 tab 05/08/17 Review of Systems - Review of Systems Constitutional: States: malaise EENTM: States: no symptoms reported Respiratory: States: no symptoms reported Cardiology: States: no symptoms reported Gastrointestinal/Abdominal: States: nausea, vomiting Genitourinary: States: no symptoms reported Musculoskeletal: States: no symptoms reported Skin: States: no symptoms reported Neurological: States: anxiety, depressed Endocrine: States: no symptoms reported All other Systems: No Change from Baseline Past Medical History (General) - Patient Medical History Hx Seizures: No Hx Stroke: Yes - 2009 Hx Dementia: No Hx Asthma: No Hx of COPD: Yes Hx Cardiac Disorders: Yes - [place] Hx Congestive Heart Failure: Yes Hx Pacemaker: No Hx Hypertension: No Hx Thyroid Disease: No Hx Diabetes: No Hx Gastroesophageal Reflux: Yes - HIATAL HERNIA Hx Renal Disease: No Hx Cancer: No Hx of HIV: No Hx Hepatitis C: No Hx MRSA: No MRSA Source:: Wound - Vaccination History Hx Tetanus, Diphtheria Vaccination: Yes Hx Influenza Vaccination: Yes Hx Pneumococcal Vaccination: Yes - Social History Hx Tobacco Use: No Hx Alcohol Use: No Hx Substance Use: No Hx Substance Use Treatment: No Hx Depression: Yes Hx Physical Abuse: No Hx Emotional Abuse: No - Female History Patient : No Family Medical History - Family History Mother Family History: Unknown Living Status: Hx Family;Other: SHE DID NOT KNOW PARENTS AND SHE DOES NOT KNOW FH HISTORY. PT ADOPTED Physical Exam - Physical Exam General Appearance: Alert, Anxious, No apparent distress Eye Exam: bilateral normal Ears, Nose, Throat: hearing grossly normal, normal ENT inspection, normal pharynx Neck: full range of motion, supple, normal inspection Respiratory: lungs clear, normal breath sounds, no respiratory distress, no accessory muscle use Cardiovascular/Chest: normal peripheral pulses, regular rate, rhythm, no edema Peripheral Pulses: radial,right: 2+, radial,left: 2+, dorsalis pedis,right: 2+, dorsalis pedis,left: 2+ Gastrointestinal/Abdominal: non tender, soft Rectal Exam: deferred Back Exam: normal inspection, no CVA tenderness Extremity: normal range of motion, non-tender, normal inspection, no pedal edema , normal capillary refill 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 This is likely the result of her hiatal hernia combined with increased stress and anxiety over recent family matters. The patient has responded well to antiemetics. She has received some IV fluids here. Lab work is reassuring at this time otherwise. The CT scan of abdomen and pelvis shows no evidence of any obstruction but does confirm a hiatal hernia. I'm going to place the patient on a trial of Reglan 5 mg 3 times daily which will hopefully help in the near future with reducing the nausea and vomiting as well as reducing some anxiety. This may not be a good medication for her long-term. She should follow-up with her primary care doctor later this week. If her blood pressure started running too low this medication will need to be discontinued. ER warnings were given for any significant worsening. She should keep herself well hydrated. 05/08/17 21:14 - Results/Orders Results/Orders: Laboratory Results - last 24 hr 05/08/17 05/08/17 05/08/17 19:33 19:33 19:48 WBC 4.4 L RBC 4.06 L Hgb 12.4 Hct 37.5 MCV 92.4 MCH 30.5 MCHC 33.1 RDW 13.8 Plt Count 192 MPV 8.2 Absolute Neuts (auto) 3.00 Absolute Lymphs (auto) 1.00 Absolute Monos (auto) 0.40 Absolute Eos (auto) 0.00 Absolute Basos (auto) 0.00 Neutrophils % 67.5 Lymphocytes % 21.9 Monocytes % 9.7 H Eosinophils % 0.5 L Basophils % 0.4 Sodium 140 Potassium 3.6 Chloride 107 Carbon Dioxide 26 Anion Gap 10.6 L BUN 17 Creatinine 0.51 L BUN/Creatinine Ratio 33.3 H Random Glucose 80 Serum Osmolality 279.9 Calcium 9.0 Total Bilirubin 0.7 AST 26 ALT 9 L Alkaline Phosphatase 87 Creatine Kinase 253 H* CK-MB (CK-2) 6.7 H* CK-MB (CK-2) % 2.65 Troponin I < 0.02 Serum Total Protein 6.7 Albumin 3.8 Globulin 2.9 Albumin/Globulin Ratio 1.3 Amylase 27 L Lipase 18 L Urine Color Yellow Urine Appearance Clear Urine pH 5.5 Ur Specific Rock >= 1.030 Urine Protein 30 Urine Glucose (UA) Negative Urine Ketones 40 H Urine Blood Negative Urine Nitrite Negative Urine Bilirubin Moderate Urine Urobilinogen 0.2 Ur Leukocyte Esterase Negative Urine RBC 0 Urine WBC 3-5 H Ur Epithelial Cells 1-3 Urine Bacteria 2+ H Urine Mucus Large abdominal series shows some mildly dilated loops of small intestine possibly second consistent with a small bowel obstruction. No free air. Corresponding CT scan shows no evidence of any bowel obstruction. No evidence of acute pathology. She does have a large hiatal hernia. Departure - Departure Clinical Impression: Dehydration, moderate Vomiting alone Qualifiers: Vomiting type: unspecified Vomiting Intractability: non-intractable Qualified Code(s): R11.11 - Vomiting without nausea Disposition: Discharge to Home or Self Care Condition: Fair Departure Forms: ED Discharge - Pt. Copy, Patient Portal Self Enrollment Instructions: DI for Hiatal Hernia Diet: bland diet Activity: increase activity as tolerated Referrals: Kwame Barrera MD [Primary Care Provider] - 1-2 Weeks Prescriptions: Metoclopramide Tab [Reglan Tab] 5 mg PO Q8HR #30 tab Home Medications: Ambulatory Orders Aspirin [Aspir-81] 81 mg PO AM 08/31/12 Clopidogrel Bisulfate [Plavix] 75 mg PO AM 08/31/12 Esomeprazole [Nexium] 40 mg PO DAILY@0700 08/31/12 Pregabalin [Lyrica] 150 mg PO BID 08/31/12 Verapamil HCl ER [Isoptin Sr] 180 mg PO DAILY 01/13/15 Docusate Sodium [Colace] 100 mg PO BEDTIME 05/06/16 Meloxicam [Mobic] 15 mg PO BID 05/06/16 Potassium Chloride Tab [Micro-K] 10 meq PO DAILY 05/06/16 Sennosides [Senokot] 17.2 mg PO BEDTIME 05/06/16 Sertraline HCl [Zoloft] 200 mg PO BEDTIME 05/06/16 Albuterol Sulfate Nebs [Proventil Nebs] 2.5 mg INH QID PRN 08/16/16 Atorvastatin Calcium [Lipitor] 40 mg PO BEDTIME 08/16/16 Nitroglycerin [Nitrostat] 0.4 mg SL Q5MIN PRN 08/16/16 Tiotropium [place] Monohydrate [Spiriva Handihaler] 2 puff INH DAILY 08/16/16 Metoclopramide Tab [Reglan Tab] 5 mg PO TID #30 tab 02/12/17 Sucralfate Suspension [Carafate Suspension] 10 ml PO QID #120 ml 02/12/17 Sulfa/Trimeth 800/160 (Ds) Tab [Bactrim DS] 1 ea PO Q12H #19 tablet 02/12/17 Trazodone HCl 100 mg PO BEDTIME #30 tab 03/22/17 Metoclopramide Tab [Reglan Tab] 5 mg PO Q8HR #30 tab 05/08/17 Additional Instructions: the patient is 66-year-old female presenting to the emergency room secondary to a recurrence of her vomiting with resultant moderate dehydration. This is likely the result of her hiatal hernia combined with increased stress and anxiety over recent family matters. The patient has responded well to antiemetics. She has received some IV fluids here. Lab work is reassuring at this time otherwise. The CT scan of abdomen and pelvis shows no evidence of any obstruction but does confirm a hiatal hernia. I'm going to place the patient on a trial of Reglan 5 mg 3 times daily which will hopefully help in the near future with reducing the nausea and vomiting as well as reducing some anxiety. This may not be a good medication for her long-term. She should follow-up with her primary care doctor later this week. If her blood pressure started running too low this medication will need to be discontinued. ER warnings were given for any significant worsening. She should keep herself well hydrated. the patient should additionally try to sit upright for at least a couple of hours after taking food and drink.
[2017-05-08 21:19] VITALS: BP 88/52; O2SAT 90
== END 2017-05-08 21:27 | disposition home or self-care (01) ==
LOC: ER 17:19
DX: E86.0 Dehydration (principal); R11.11 Vomiting without nausea; K21.9 Gastro-esophageal reflux disease without esophagitis; K44.9 Diaphragmatic hernia without obstruction or gangrene; I50.9 Heart failure, unspecified; Z88.0 Allergy status to penicillin; Z79.82 Long term (current) use of aspirin; Z79.02 Long term (current) use of antithrombotics/antiplatelets; I25.2 Old myocardial infarction; Z86.73 Personal history of transient ischemic attack (TIA), and cerebral infarction without residual deficits
CPT/HCPCS: 36415; 74020; 74176; 80053; 81001; 82150; 82550; 82553; 83690; 84484; 85025; A4216; J2550; J7030

== ENCOUNTER 2017-06-05 18:00 | Emergency (ER) | payer MEDICARE, MEDICAID ==
[2017-06-05] MEDS ORDERED: SODIUM CHLORIDE 0.9% (FLUSH) 10 ML SYG IV PRN (18:38)
--- NOTE | 2017-06-05 18:38 | ED.PDOC ---
History of Present Illness - General Source: patient, family Exam Limitations: no limitations - History of Present Illness Initial Comments: PT SENT TO THE ED FOR PSYCHIATRIC EVALUATION AFTER EXPRESSING SUICIDAL IDEATION TO REHAB FACILITY STAFF, PERSONAL THERAPIST AND FAMILY. PT REPORTS THAT SHE WAS FRUSTRATED WHEN SHE SAID IT BECAUSE SHE HAD NOT BEEN RECEIVING HER REGULAR HOME MEDS, PAIN MEDS OR NAUSEA MEDS. PT DENIES HAVING A PLAN AND DENIES SUICIDALITY AT THIS TIME. PT COMPLAINS OF L HIP PAIN S/P LEFT HIP REPLACEMENT 5 DAYS AGO AND NAUSEA. Timing/Duration: this afternoon Severity: moderate Associated Symptoms: insomnia, suicidal ideation <Stephane Strickland - Last Filed: 06/05/17 18:41> <Dawood Britt - Last Filed: 06/05/17 20:31> - General Chief Complaint: Behavioral / Psych Stated Complaint: suicidal thoughts Time Seen by Provider: 06/05/17 18:35 - History of Present Illness Allergies/Adverse Reactions: Allergies Penicillins Allergy (Verified 03/22/17 09:15) Sulfa Antibiotics Allergy (Verified 06/05/17 18:21) Sulfamethoxazole w/Trimethoprim [From Bactrim] Allergy (Verified 06/05/17 18:21) ADHESIVE TAPE Adverse Reaction (Uncoded 03/22/17 09:15) Home Medications: Ambulatory Orders Aspirin [Aspir-81] 81 mg PO AM 08/31/12 Clopidogrel Bisulfate [Plavix] 75 mg PO AM 08/31/12 Esomeprazole [Nexium] 40 mg PO DAILY@0700 08/31/12 Pregabalin [Lyrica] 150 mg PO BID 08/31/12 Verapamil HCl ER [Isoptin Sr] 180 mg PO DAILY 01/13/15 Docusate Sodium [Colace] 100 mg PO BEDTIME 05/06/16 Meloxicam [Mobic] 15 mg PO BID 05/06/16 Potassium Chloride Tab [Micro-K] 10 meq PO DAILY 05/06/16 Sennosides [Senokot] 17.2 mg PO BEDTIME 05/06/16 Sertraline HCl [Zoloft] 200 mg PO BEDTIME 05/06/16 Albuterol Sulfate Nebs [Proventil Nebs] 2.5 mg INH QID PRN 08/16/16 Atorvastatin Calcium [Lipitor] 40 mg PO BEDTIME 08/16/16 Nitroglycerin [Nitrostat] 0.4 mg SL Q5MIN PRN 08/16/16 Tiotropium [place] Monohydrate [Spiriva Handihaler] 2 puff INH DAILY 08/16/16 Metoclopramide Tab [Reglan Tab] 5 mg PO TID #30 tab 02/12/17 Sucralfate Suspension [Carafate Suspension] 10 ml PO QID #120 ml 02/12/17 Sulfa/Trimeth 800/160 (Ds) Tab [Bactrim DS] 1 ea PO Q12H #19 tablet 02/12/17 Trazodone HCl 100 mg PO BEDTIME #30 tab 03/22/17 Metoclopramide Tab [Reglan Tab] 5 mg PO Q8HR #30 tab 05/08/17 Review of Systems - Review of Systems Constitutional: Denies: chills, fever EENTM: Denies: nose congestion, throat pain Respiratory: Denies: cough, short of breath Cardiology: Denies: chest pain, palpitations, syncope Gastrointestinal/Abdominal: States: nausea. Denies: abdominal pain, diarrhea, vomiting Genitourinary: Denies: dysuria, frequency Musculoskeletal: States: see HPI, joint pain, joint swelling Skin: Denies: change in color, dryness Neurological: States: see HPI, depressed. Denies: headache, paresthesia Endocrine: States: no symptoms reported Hematologic/Lymphatic: States: no symptoms reported <Stephane Strickland - Last Filed: 06/05/17 18:41> Past Medical History (General) - Patient Medical History Hx Seizures: No Hx Stroke: Yes - 2009 Hx Dementia: No Hx Asthma: No Hx of COPD: Yes Hx Cardiac Disorders: Yes - [place] Hx Congestive Heart Failure: Yes Hx Pacemaker: No Hx Hypertension: No Hx Thyroid Disease: No Hx Diabetes: No Hx Gastroesophageal Reflux: Yes - HIATAL HERNIA Hx Renal Disease: No Hx Cancer: No Hx of HIV: No Hx Hepatitis C: No Hx MRSA: No MRSA Source:: Wound Surgical History: Hysterectomy - Vaccination History Hx Tetanus, Diphtheria Vaccination: Yes Hx Influenza Vaccination: Yes Hx Pneumococcal Vaccination: Yes Immunizations Up to Date: Yes - Social History Hx Tobacco Use: No Hx Alcohol Use: No Hx Substance Use: No Hx Substance Use Treatment: No Hx Depression: Yes Feels Threatened In Home Enviroment: No Feels Threatened In a Relationship: No Hx Physical Abuse: No Hx Emotional Abuse: No Hx Suspected Abuse: No - Activities of Daily Living [facility] (if applicable[facility]:: [facility] - Female History Patient is a Female of Child Bearing Age (10 -59 yrs old): No Patient : No <Marco AOswaldoaudrey Sil - Last Filed: 06/05/17 18:41> Family Medical History - Family History Mother Family History: Unknown Living Status: Hx Family;Other: SHE DID NOT KNOW PARENTS AND SHE DOES NOT KNOW FH HISTORY. PT ADOPTED <Marco AOswaldoaudrey Sil - Last Filed: 06/05/17 18:41> Physical Exam - Physical Exam General Appearance: Alert, Comfortable, No apparent distress Eyes, Ears, Nose, Throat Exam: normal ENT inspection Neck: full range of motion, supple Respiratory: chest non-tender, lungs clear, normal breath sounds, no respiratory distress Cardiovascular/Chest: regular rate, rhythm, no murmur Gastrointestinal/Abdominal: non tender, soft Extremities Exam: edema, tenderness - WITH ECHYMOSIS TO THE LEFT LATERAL HIP, INCISION IS DRESSED WITH ADHESIVE DRESSING Neurological: alert, normal mood/affect, calm, oriented x 3 Appearance: appropriate appearance, appropriate insight, no memory impairment Behavior/Eye Contact/Speech: cooperative, good eye contact, normal speech Thoughts/Hallucinations: normal thought pattern, no apparent hallucination Skin Exam: normal color, warm/dry <Stephane Strickland Sil - Last Filed: 06/05/17 18:41> Progress - Progress Progress: 06/05/17 18:46 WILL TRANSFER PATIENT CARE TO DR. BRITT UPON ARRIVAL. PENDING LABS AND [facility] EVALUATION. - EKG/XRAY/CT CT Ordered: No CT Interpretation Call Back: No <Stephane Strickland Sil - Last Filed: 06/05/17 18:41> - Progress Progress: 06/05/17 20:28 ASSUMED CARE OF PT 1900. HAVE REVIEWED CHART, LAB, EXAMINED AND INTERVIEWED PT. AGREE WITH DOCUMENTATION THUS FAR. PT DENIES ANY CURRENT SUICIDAL/HOMICIDAL IDEATIONS. STATES SHE WAS FRUSTRATED AND MADE A COMMENT SHE SHOULD NOT HAVE. SHE HAS BEEN EVALUATED BY LANA VASQUEZ AND THEY HAVE RECOMMENDED D/C WITH SAFETY PLAN WHICH [facility] IS CURRENTLY GIVING. PT. 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 Copy, Patient Portal Self Enrollment Instructions: DI for Psychosis, Depression Referrals: Kwame Barrera MD [Primary Care Provider] - 1-2 Weeks Home Medications: Ambulatory Orders Aspirin [Aspir-81] 81 mg PO AM 08/31/12 Clopidogrel Bisulfate [Plavix] 75 mg PO AM 08/31/12 Esomeprazole [Nexium] 40 mg PO DAILY@0700 08/31/12 Pregabalin [Lyrica] 150 mg PO BID 08/31/12 Verapamil HCl ER [Isoptin Sr] 180 mg PO DAILY 01/13/15 Docusate Sodium [Colace] 100 mg PO BEDTIME 05/06/16 Meloxicam [Mobic] 15 mg PO BID 05/06/16 Potassium Chloride Tab [Micro-K] 10 meq PO DAILY 05/06/16 Sennosides [Senokot] 17.2 mg PO BEDTIME 05/06/16 Sertraline HCl [Zoloft] 200 mg PO BEDTIME 05/06/16 Albuterol Sulfate Nebs [Proventil Nebs] 2.5 mg INH QID PRN 08/16/16 Atorvastatin Calcium [Lipitor] 40 mg PO BEDTIME 08/16/16 Nitroglycerin [Nitrostat] 0.4 mg SL Q5MIN PRN 08/16/16 Tiotropium [place] Monohydrate [Spiriva Handihaler] 2 puff INH DAILY 08/16/16 Metoclopramide Tab [Reglan Tab] 5 mg PO TID #30 tab 02/12/17 Sucralfate Suspension [Carafate Suspension] 10 ml PO QID #120 ml 02/12/17 Sulfa/Trimeth 800/160 (Ds) Tab [Bactrim DS] 1 ea PO Q12H #19 tablet 02/12/17 Trazodone HCl 100 mg PO BEDTIME #30 tab 03/22/17 Metoclopramide Tab [Reglan Tab] 5 mg PO Q8HR #30 tab 05/08/17
[2017-06-05] MEDS: ONDANSETRON INJ 4 MG/2 ML VIAL IV ONE (18:54)
[2017-06-05] MEDS: KETOROLAC TROMETHAMINE INJ 30 MG/ML VIAL IV ONE (18:55)
[2017-06-05] MEDS: MORPHINE SULFATE INJ 10 MG/ML VIAL IV ONE (18:56)
[2017-06-05] MEDS: SODIUM CHLORIDE 0.9% 1000ML 1,000 ML IVS ONE ×2 (18:58→19:15)
[2017-06-05 19:46] VITALS: TEMP 99
[2017-06-05] MEDS: HYDROcodone 7.5MG/APAP 325MG 1 EA TAB PO ONE (21:15)
[2017-06-05] MEDS: PROMETHAZINE HCL 25 MG TAB PO ONE (21:15)
[2017-06-05 21:27] VITALS: BP 110/57; O2SAT 93
== END 2017-06-05 21:44 | disposition home or self-care (01) ==
LOC: ER 18:00
DX: F32.9 Major depressive disorder, single episode, unspecified (principal); Z96.642 Presence of left artificial hip joint; I25.2 Old myocardial infarction; I50.9 Heart failure, unspecified; J44.9 Chronic obstructive pulmonary disease, unspecified; K21.9 Gastro-esophageal reflux disease without esophagitis; K44.9 Diaphragmatic hernia without obstruction or gangrene; Z86.73 Personal history of transient ischemic attack (TIA), and cerebral infarction without residual deficits; Z79.82 Long term (current) use of aspirin; Z79.02 Long term (current) use of antithrombotics/antiplatelets; Z79.899 Other long term (current) drug therapy; Z88.0 Allergy status to penicillin; Z88.2 Allergy status to sulfonamides
CPT/HCPCS: 80048; 80076; 81001; 85025; J1885; J2270; J2405; Q0169

== ENCOUNTER → 2017-06-15 | Outpatient (CLI) | payer MEDICARE, MEDICAID | END | disposition home or self-care (01) | LOC: BFHH 12:05 | PROVIDERS: ATTEND Family Medicine | DX: I25.10 Atherosclerotic heart disease of native coronary artery without angina pectoris (principal); E78.5 Hyperlipidemia, unspecified; I10 Essential (primary) hypertension ==

== ENCOUNTER 2017-06-25 07:51 | Emergency (ER) | payer MEDICARE, MEDICAID ==
[2017-06-25 08:01] VITALS: TEMP 97.7
[2017-06-25] MEDS ORDERED: ONDANSETRON INJ 4 MG/2 ML VIAL IV ONE (08:11)
[2017-06-25] MEDS ORDERED: SODIUM CHLORIDE 0.9% 1000ML 1,000 ML IVS ONE (08:11)
--- NOTE | 2017-06-25 08:15 | ED.PDOC ---
History of Present Illness - General Chief Complaint: GI Problem Stated Complaint: Nausea and diarrhea Time Seen by Provider: 06/25/17 08:04 Information Source: patient, RN notes reviewed, Vital Signs reviewed Exam Limitations: no limitations - History of Present Illness Initial Comments: Patient presents to ER with c/o diarrhea that started overnight. Reports 3-4 episodes of watery diarrhea. No blood or abdominal pain. + nausea for a couple of days but no vomiting. Concerned she is dehydrated. No fever but + chills. Abdominal Pain Onset Location: other - None Pain Radiation: no radiation Timing/Duration: 4-6 hours Improving Factors: nothing Worsening Factors: nothing Associated Symptoms: diarrhea, fever/chills, nausea/vomiting, weakness Review of Systems - Review of Systems Constitutional: States: see HPI, chills, malaise, weakness. Denies: fever EENTM: States: no symptoms reported Respiratory: States: no symptoms reported Cardiology: States: no symptoms reported Gastrointestinal/Abdominal: States: see HPI, diarrhea, nausea. Denies: abdominal pain, vomiting Genitourinary: States: no symptoms reported Musculoskeletal: States: no symptoms reported Skin: States: no symptoms reported Neurological: States: no symptoms reported Endocrine: States: no symptoms reported Hematologic/Lymphatic: States: no symptoms reported Past Medical History (General) - Patient Medical History Hx Seizures: No Hx Stroke: Yes - 2009 Hx Dementia: No Hx Asthma: No Hx of COPD: Yes Hx Cardiac Disorders: Yes - [place]; cardiac stents Hx Congestive Heart Failure: Yes Hx Pacemaker: No Hx Hypertension: No Hx Thyroid Disease: No Hx Diabetes: No Hx Gastroesophageal Reflux: Yes - HIATAL HERNIA Hx Renal Disease: No Hx Cancer: No Hx of HIV: No Hx Hepatitis C: No Hx MRSA: No MRSA Source:: Wound Surgical History: other - Vaccination History Hx Tetanus, Diphtheria Vaccination: Yes Hx Influenza Vaccination: Yes Hx Pneumococcal Vaccination: Yes - Social History Hx Tobacco Use: No Hx Alcohol Use: No Hx Substance Use: No Hx Substance Use Treatment: No Hx Depression: Yes Hx Physical Abuse: No Hx Emotional Abuse: No Hx Suspected Abuse: No - Female History Patient : No Family Medical History - Family History Mother Family History: Unknown Living Status: Hx Family;Other: SHE DID NOT KNOW PARENTS AND SHE DOES NOT KNOW FH HISTORY. PT ADOPTED Physical Exam - Physical Exam General Appearance: Alert, Comfortable, No apparent distress, Well Developed, Well Groomed, Well Nourished Eyes, Ears, Nose, Throat Exam: other - mildly dry mucous membranes Neck: full range of motion, supple Respiratory: lungs clear, normal breath sounds, no respiratory distress, no accessory muscle use Cardiovascular/Chest: regular rate, rhythm, no gallop, no JVD, no murmur Gastrointestinal/Abdominal: non tender, soft, no organomegaly, no pulsatile mass , abnormal bowel sounds - Hyperactive Extremity: normal range of motion, normal inspection Neurologic: no motor/sensory deficits, alert, normal mood/affect, oriented x 3 Skin Exam: normal color, warm/dry, rash - mild decreased turgur Comments: Vital Signs 06/25/17 07:58 Temperature 97.7 F Pulse Rate [ 77 Left Radial] Respiratory 20 Rate Blood Pressure 99/56 [Right Arm] O2 Sat by Pulse 96 Oximetry Progress - Progress Progress: 06/25/17 09:27 Patient is resting comfortably. Benign labs. No diarrhea since arrival. Awaiting IVF to finish. 06/25/17 09:51 Patient continues to do well. IVF are done. Will d/c home with Rx for Zofran - Results/Orders Results/Orders: Laboratory Tests 06/25/17 06/25/17 08:19 08:19 WBC 4.5 L RBC 3.84 L Hgb 12.1 Hct 35.7 L MCV 92.9 MCH 31.5 H MCHC 33.9 RDW 14.8 H Plt Count 324 MPV 8.1 Absolute Neuts (auto) 3.30 Absolute Lymphs (auto) 0.80 L Absolute Monos (auto) 0.40 Absolute Eos (auto) 0.00 Absolute Basos (auto) 0.00 Neutrophils % 73.3 Lymphocytes % 17.2 L Monocytes % 8.5 Eosinophils % 0.4 L Basophils % 0.6 Sodium 141 Potassium 4.0 Chloride 102 Carbon Dioxide 26 Anion Gap 17.0 BUN 11 Creatinine 0.51 L BUN/Creatinine Ratio 21.6 H Random Glucose 90 Serum Osmolality 280.2 Calcium 9.6 Total Bilirubin 0.7 AST 22 ALT 9 L Alkaline Phosphatase 129 H Serum Total Protein 7.7 Albumin 3.8 Globulin 3.9 H Albumin/Globulin Ratio 1.0 L Departure - Departure Clinical Impression: Nausea, Dehydration, mild Diarrhea Qualifiers: Diarrhea type: presumed infectious Qualified Code(s): A09 - Infectious gastroenteritis and colitis, unspecified Time of Disposition: 09:52 Disposition: Discharge to Home or Self Care Condition: Good Departure Forms: ED Discharge - Pt. Copy, Patient Portal Self Enrollment Instructions: Diarrhea Diet: resume usual diet Activity: increase activity as tolerated Referrals: Kwame Barrera MD [Primary Care Provider] - 1-2 Weeks Prescriptions: Ondansetron [Zofran Odt] 4 mg PO Q6HR PRN #12 tab PRN Reason: Nausea/Vomiting Home Medications: Ambulatory Orders Aspirin [Aspir-81] 81 mg PO AM 08/31/12 Clopidogrel Bisulfate [Plavix] 75 mg PO AM 08/31/12 Esomeprazole [Nexium] 40 mg PO DAILY@0700 08/31/12 Pregabalin [Lyrica] 150 mg PO BID 08/31/12 Verapamil HCl ER [Isoptin Sr] 180 mg PO DAILY 01/13/15 Docusate Sodium [Colace] 100 mg PO BEDTIME 05/06/16 Meloxicam [Mobic] 15 mg PO BID 05/06/16 Potassium Chloride Tab [Micro-K] 10 meq PO DAILY 05/06/16 Sennosides [Senokot] 17.2 mg PO BEDTIME 05/06/16 Sertraline HCl [Zoloft] 200 mg PO BEDTIME 05/06/16 Albuterol Sulfate Nebs [Proventil Nebs] 2.5 mg INH QID PRN 08/16/16 Atorvastatin Calcium [Lipitor] 40 mg PO BEDTIME 08/16/16 Nitroglycerin [Nitrostat] 0.4 mg SL Q5MIN PRN 08/16/16 Tiotropium [place] Monohydrate [Spiriva Handihaler] 2 puff INH DAILY 08/16/16 Metoclopramide Tab [Reglan Tab] 5 mg PO TID #30 tab 02/12/17 Sucralfate Suspension [Carafate Suspension] 10 ml PO QID #120 ml 02/12/17 Trazodone HCl 100 mg PO BEDTIME #30 tab 03/22/17 Ondansetron [Zofran Odt] 4 mg PO Q6HR PRN #12 tab 06/25/17
[2017-06-25 10:31] VITALS: BP 107/61; O2SAT 94
== END 2017-06-25 10:19 | disposition home or self-care (01) ==
LOC: ER 07:51
DX: R19.7 Diarrhea, unspecified (principal); R11.0 Nausea; E86.0 Dehydration; J44.9 Chronic obstructive pulmonary disease, unspecified; I25.2 Old myocardial infarction; I50.9 Heart failure, unspecified; K21.9 Gastro-esophageal reflux disease without esophagitis; F32.9 Major depressive disorder, single episode, unspecified; Z86.73 Personal history of transient ischemic attack (TIA), and cerebral infarction without residual deficits; Z95.5 Presence of coronary angioplasty implant and graft; Z79.82 Long term (current) use of aspirin; Z79.899 Other long term (current) drug therapy
CPT/HCPCS: 36415; 80053; 85025; J2405; J7030

== ENCOUNTER 2017-06-28 12:07 | Emergency (ER) | payer MEDICARE, MEDICAID ==
[2017-06-28] MEDS ORDERED: SODIUM CHLORIDE 0.9% 1000ML 1,000 ML IVS ONE (12:10)
[2017-06-28] MEDS ORDERED: ONDANSETRON INJ 4 MG/2 ML VIAL IV ONE (12:11)
--- NOTE | 2017-06-28 12:14 | ED.PDOC ---
History of Present Illness - General Chief Complaint: General Stated Complaint: n/v/weakness Time Seen by Provider: 06/28/17 12:10 Source: patient, RN notes reviewed, Vital Signs reviewed Additional Information: Pt here 3 days ago with similar complaints. Pt in no visible distress. Her main complaint is poor appetite and concern for dehydration. - History of Present Illness Timing/Duration: 1 week Severity: mild Improving Factors: nothing Worsening Factors: nothing Associated Symptoms: malaise, nausea/vomiting, weakness Allergies/Adverse Reactions: Allergies Penicillins Allergy (Verified 06/28/17 12:13) Sulfa Antibiotics Allergy (Verified 06/28/17 12:13) Sulfamethoxazole w/Trimethoprim [From Bactrim] Allergy (Verified 06/28/17 12:13) ADHESIVE TAPE Adverse Reaction (Uncoded 06/28/17 12:13) Home Medications: Ambulatory Orders Aspirin [Aspir-81] 81 mg PO AM 08/31/12 Clopidogrel Bisulfate [Plavix] 75 mg PO AM 08/31/12 Esomeprazole [Nexium] 40 mg PO DAILY@0700 08/31/12 Pregabalin [Lyrica] 150 mg PO BID 08/31/12 Verapamil HCl ER [Isoptin Sr] 180 mg PO DAILY 01/13/15 Docusate Sodium [Colace] 100 mg PO BEDTIME 05/06/16 Meloxicam [Mobic] 15 mg PO BID 05/06/16 Potassium Chloride Tab [Micro-K] 10 meq PO DAILY 05/06/16 Sennosides [Senokot] 17.2 mg PO BEDTIME 05/06/16 Sertraline HCl [Zoloft] 200 mg PO BEDTIME 05/06/16 Albuterol Sulfate Nebs [Proventil Nebs] 2.5 mg INH QID PRN 08/16/16 Atorvastatin Calcium [Lipitor] 40 mg PO BEDTIME 08/16/16 Nitroglycerin [Nitrostat] 0.4 mg SL Q5MIN PRN 08/16/16 Tiotropium [place] Monohydrate [Spiriva Handihaler] 2 puff INH DAILY 08/16/16 Metoclopramide Tab [Reglan Tab] 5 mg PO TID #30 tab 02/12/17 Sucralfate Suspension [Carafate Suspension] 10 ml PO QID #120 ml 02/12/17 Trazodone HCl 100 mg PO BEDTIME #30 tab 03/22/17 Ondansetron [Zofran Odt] 4 mg PO Q6HR PRN #12 tab 06/25/17 Ondansetron Odt [Zofran ODT] 8 mg PO Q6HR PRN #10 tab 06/28/17 Review of Systems - Review of Systems Constitutional: States: weakness EENTM: States: no symptoms reported Respiratory: States: no symptoms reported Cardiology: States: no symptoms reported Gastrointestinal/Abdominal: States: see HPI, nausea, vomiting Genitourinary: States: no symptoms reported Musculoskeletal: States: no symptoms reported Skin: States: no symptoms reported Neurological: States: no symptoms reported Endocrine: States: no symptoms reported Hematologic/Lymphatic: States: no symptoms reported Past Medical History (General) - Patient Medical History Hx Seizures: No Hx Stroke: Yes - 2009 Hx Dementia: No Hx Asthma: No Hx of COPD: Yes Hx Cardiac Disorders: Yes - [place]; cardiac stents Hx Congestive Heart Failure: Yes Hx Pacemaker: No Hx Hypertension: No Hx Thyroid Disease: No Hx Diabetes: No Hx Gastroesophageal Reflux: Yes - HIATAL HERNIA Hx Renal Disease: No Hx Cancer: No Hx of HIV: No Hx Hepatitis C: No Hx MRSA: No MRSA Source:: Wound - Vaccination History Hx Tetanus, Diphtheria Vaccination: Yes Hx Influenza Vaccination: Yes Hx Pneumococcal Vaccination: Yes - Social History Hx Tobacco Use: No Hx Alcohol Use: No Hx Substance Use: No Hx Substance Use Treatment: No Hx Depression: Yes Hx Physical Abuse: No Hx Emotional Abuse: No Hx Suspected Abuse: No - Female History Patient : No Family Medical History - Family History Mother Family History: Unknown Living Status: Hx Family;Other: SHE DID NOT KNOW PARENTS AND SHE DOES NOT KNOW FH HISTORY. 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 Pt given 1 L NS IV x 1 and renewed Zofran Rx. Pt stable for d/c home with strict return precautions. - Results/Orders Results/Orders: Laboratory Results - last 24 hr 06/28/17 06/28/17 12:24 12:24 WBC 4.3 L RBC 3.97 L Hgb 12.4 Hct 36.7 MCV 92.5 MCH 31.2 H MCHC 33.7 RDW 14.6 H Plt Count 290 MPV 7.7 Absolute Neuts (auto) 3.10 Absolute Lymphs (auto) 0.70 L Absolute Monos (auto) 0.40 Absolute Eos (auto) 0.00 Absolute Basos (auto) 0.00 Neutrophils % 72.3 Lymphocytes % 16.7 L Monocytes % 9.8 H Eosinophils % 0.7 L Basophils % 0.5 Sodium 140 Potassium 3.9 Chloride 100 L Carbon Dioxide 26 Anion Gap 17.9 BUN 14 Creatinine 0.54 L BUN/Creatinine Ratio 25.9 H Random Glucose 91 Serum Osmolality 279.5 Calcium 9.5 Total Bilirubin 0.7 AST 21 ALT < 8 L Alkaline Phosphatase 119 Serum Total Protein 7.3 Albumin 3.7 Globulin 3.6 H Albumin/Globulin Ratio 1.0 L 06/28/17 06/28/17 12:16 13:52 Temperature 98.2 F Pulse Rate [ 69 72 Left Radial] Respiratory 20 20 Rate Blood Pressure 107/65 126/79 [Left Arm] O2 Sat by Pulse 98 94 L Oximetry Departure - Departure Clinical Impression: Weakness Time of Disposition: 13:40 Disposition: Discharge to Home or Self Care Condition: Fair Departure Forms: ED Discharge - Pt. Copy, Patient Portal Self Enrollment Instructions: DI for Muscle Weakness Referrals: Kwame Barrera MD [Primary Care Provider] - 1-5 Days Prescriptions: Ondansetron Odt [Zofran ODT] 8 mg PO Q6HR PRN #10 tab PRN Reason: Nausea/Vomiting Home Medications: Ambulatory Orders Aspirin [Aspir-81] 81 mg PO AM 08/31/12 Clopidogrel Bisulfate [Plavix] 75 mg PO AM 08/31/12 Esomeprazole [Nexium] 40 mg PO DAILY@0700 08/31/12 Pregabalin [Lyrica] 150 mg PO BID 08/31/12 Verapamil HCl ER [Isoptin Sr] 180 mg PO DAILY 01/13/15 Docusate Sodium [Colace] 100 mg PO BEDTIME 05/06/16 Meloxicam [Mobic] 15 mg PO BID 05/06/16 Potassium Chloride Tab [Micro-K] 10 meq PO DAILY 05/06/16 Sennosides [Senokot] 17.2 mg PO BEDTIME 05/06/16 Sertraline HCl [Zoloft] 200 mg PO BEDTIME 05/06/16 Albuterol Sulfate Nebs [Proventil Nebs] 2.5 mg INH QID PRN 08/16/16 Atorvastatin Calcium [Lipitor] 40 mg PO BEDTIME 08/16/16 Nitroglycerin [Nitrostat] 0.4 mg SL Q5MIN PRN 08/16/16 Tiotropium [place] Monohydrate [Spiriva Handihaler] 2 puff INH DAILY 08/16/16 Metoclopramide Tab [Reglan Tab] 5 mg PO TID #30 tab 02/12/17 Sucralfate Suspension [Carafate Suspension] 10 ml PO QID #120 ml 02/12/17 Trazodone HCl 100 mg PO BEDTIME #30 tab 03/22/17 Ondansetron [Zofran Odt] 4 mg PO Q6HR PRN #12 tab 06/25/17 Ondansetron Odt [Zofran ODT] 8 mg PO Q6HR PRN #10 tab 06/28/17 Additional Instructions: Stay well hydrated. Follow-up with Primary Care Provider for ongoing evaluation and management. Continue home Physical Therapy for post-operative rehab.
[2017-06-28 12:18] VITALS: TEMP 98.2
[2017-06-28 13:53] VITALS: BP 126/79; O2SAT 94
== END 2017-06-28 13:53 | disposition home or self-care (01) ==
LOC: ER 12:07
DX: R53.1 Weakness (principal); R11.2 Nausea with vomiting, unspecified; I50.9 Heart failure, unspecified; I25.2 Old myocardial infarction; J44.9 Chronic obstructive pulmonary disease, unspecified; Z88.0 Allergy status to penicillin; Z88.2 Allergy status to sulfonamides; Z79.82 Long term (current) use of aspirin; Z79.899 Other long term (current) drug therapy; Z86.73 Personal history of transient ischemic attack (TIA), and cerebral infarction without residual deficits; Z95.5 Presence of coronary angioplasty implant and graft
CPT/HCPCS: 36415; 80053; 85025; J2405; J7030

== ENCOUNTER 2017-07-05 05:56 | Emergency (ER) | payer MEDICARE, MEDICAID ==
[2017-07-05] MEDS ORDERED: PROPOFOL 200 MG/20 ML VIAL IV ONE (05:57)
[2017-07-05] MEDS ORDERED: ePHEDrine SULF 50 MG/ML IV ONE (05:57)
[2017-07-05] MEDS ORDERED: HYDROmorphone HCL INJ 2 MG/ML VIAL IV ONE (06:04)
[2017-07-05 06:09] VITALS: TEMP 98
--- NOTE | 2017-07-05 06:18 | ED.PDOC ---
History of Present Illness - General Source: patient, EMS notes reviewed Exam Limitations: no limitations - History of Present Illness Initial Comments: Mariann Herring 66 y/o female brought by EMS with sharp left hip pain after rolling from her bed early this morning.No history of fall but had left hip replacement May 31 in [place], [place].She was given Morphine Sulfate 10 mg iv by ems. Occurred: just prior to arrival Pain - Lower Extremity: moderate: Left Thigh/Hip Method of Injury: other - no injury Improving Factors: nothing Worsening Factors: movement <Francisco Ford R - Last Filed: 07/05/17 06:14> <Trenton Roberts - Last Filed: 07/05/17 08:36> - General Chief Complaint: Lower Extremity Injury Stated Complaint: left hip pain Time Seen by Provider: 07/05/17 06:02 - History of Present Illness Allergies/Adverse Reactions: Allergies Penicillins Allergy (Verified 06/28/17 12:13) Sulfa Antibiotics Allergy (Verified 06/28/17 12:13) Sulfamethoxazole w/Trimethoprim [From Bactrim] Allergy (Verified 06/28/17 12:13) ADHESIVE TAPE Adverse Reaction (Uncoded 06/28/17 12:13) Home Medications: Ambulatory Orders Aspirin [Aspir-81] 81 mg PO AM 08/31/12 Clopidogrel Bisulfate [Plavix] 75 mg PO AM 08/31/12 Esomeprazole [Nexium] 40 mg PO DAILY@0700 08/31/12 Pregabalin [Lyrica] 150 mg PO BID 08/31/12 Verapamil HCl ER [Isoptin Sr] 180 mg PO DAILY 01/13/15 Docusate Sodium [Colace] 100 mg PO BEDTIME 05/06/16 Meloxicam [Mobic] 15 mg PO BID 05/06/16 Potassium Chloride Tab [Micro-K] 10 meq PO DAILY 05/06/16 Sennosides [Senokot] 17.2 mg PO BEDTIME 05/06/16 Sertraline HCl [Zoloft] 200 mg PO BEDTIME 05/06/16 Albuterol Sulfate Nebs [Proventil Nebs] 2.5 mg INH QID PRN 08/16/16 Atorvastatin Calcium [Lipitor] 40 mg PO BEDTIME 08/16/16 Nitroglycerin [Nitrostat] 0.4 mg SL Q5MIN PRN 08/16/16 Tiotropium [place] Monohydrate [Spiriva Handihaler] 2 puff INH DAILY 08/16/16 Metoclopramide Tab [Reglan Tab] 5 mg PO TID #30 tab 02/12/17 Sucralfate Suspension [Carafate Suspension] 10 ml PO QID #120 ml 02/12/17 Trazodone HCl 100 mg PO BEDTIME #30 tab 03/22/17 Ondansetron [Zofran Odt] 4 mg PO Q6HR PRN #12 tab 06/25/17 Ondansetron Odt [Zofran ODT] 8 mg PO Q6HR PRN #10 tab 06/28/17 Review of Systems - Review of Systems Constitutional: States: no symptoms reported EENTM: States: no symptoms reported Respiratory: States: no symptoms reported Cardiology: States: no symptoms reported Gastrointestinal/Abdominal: States: no symptoms reported Genitourinary: States: no symptoms reported Musculoskeletal: States: see HPI Skin: States: no symptoms reported Neurological: States: no symptoms reported <Francisco Ford R - Last Filed: 07/05/17 06:14> Past Medical History (General) - Patient Medical History Hx Seizures: No Hx Stroke: Yes - 2009 Hx Dementia: No Hx Asthma: No Hx of COPD: Yes Hx Cardiac Disorders: Yes - [place]; cardiac stents Hx Congestive Heart Failure: Yes Hx Pacemaker: No Hx Hypertension: No Hx Thyroid Disease: No Hx Diabetes: No Hx Gastroesophageal Reflux: Yes - HIATAL HERNIA Hx Renal Disease: No Hx Cancer: No Hx of HIV: No Hx Hepatitis C: No Hx MRSA: No MRSA Source:: Wound - Vaccination History Hx Tetanus, Diphtheria Vaccination: Yes Hx Influenza Vaccination: Yes Hx Pneumococcal Vaccination: Yes - Social History Hx Tobacco Use: No Hx Alcohol Use: No Hx Substance Use: No Hx Substance Use Treatment: No Hx Depression: Yes Hx Physical Abuse: No Hx Emotional Abuse: No Hx Suspected Abuse: No - Female History Patient : No <Francisco Ford R - Last Filed: 07/05/17 06:14> Family Medical History - Family History Mother Family History: Unknown - adopted Living Status: Hx Family;Other: SHE DID NOT KNOW PARENTS AND SHE DOES NOT KNOW FH HISTORY. PT ADOPTED <Francisco Ford R - Last Filed: 07/05/17 06:14> Physical Exam - Physical Exam General Appearance: No apparent distress, Other - in pain Eyes, Ears, Nose, Throat: normal ENT inspection, pharynx normal Neck: full range of motion, supple Cardiovascular/Respiratory: regular rate, rhythm, no M/R/G, normal peripheral pulses Gastrointestinal/Abdominal: non-tender, no organomegaly Back: no vertebral tenderness Thigh/Hip: deformity - left hip, pain - left hip, soft tissue tenderness Leg: normal inspection, non-tender Knee: normal inspection, non-tender Ankle: normal inspection, non-tender Foot: normal inspection, non-tender Neuro/Tendon: normal sensation, normal motor functions Mental Status: alert, oriented x 3 Skin: normal color <Francisco Ford - Last Filed: 07/05/17 06:14> Progress - Progress Progress: 07/05/17 08:33 the patient is a 66-year-old female presenting to the emergency room approximately 5 weeks after a left total hip. The patient sustained a dislocation today while rolling over in bed. Anesthesia was contacted for moderate sedation. Risks and benefits were explained and the patient did agree to proceed. See anesthesia notes for details of the procedure. Adequate reduction was obtained of the hip with x-ray postreduction for confirmation. The patient has been instructed to make small movements with the hip. She is to contact her orthopedist for any further restrictions on the hip. She needs to keep follow-up as indicated by them. She needs to ambulate with her walker only. ER warnings were given for any worsening or recurrence. No additional pain medications are warranted at this time. <Trenton Roberts L - Last Filed: 07/05/17 08:36> Departure <Francisco Ford R - Last Filed: 07/05/17 06:14> - Departure Diet: regular diet Activity: other - see above <Trenton Roberts - Last Filed: 07/05/17 08:36> - Departure Clinical Impression: Hip dislocation, left Qualifiers: Encounter type: initial encounter Qualified Code(s): S73.005A - Unspecified dislocation of left hip, initial encounter Disposition: Discharge to Home or Self Care Condition: Fair Departure Forms: ED Discharge - Pt. Copy, Patient Portal Self Enrollment Instructions: DI for Leg Pain Referrals: Kwame Barrera MD [Primary Care Provider] - 1-2 Weeks Home Medications: Ambulatory Orders Aspirin [Aspir-81] 81 mg PO AM 08/31/12 Clopidogrel Bisulfate [Plavix] 75 mg PO AM 08/31/12 Esomeprazole [Nexium] 40 mg PO DAILY@0700 08/31/12 Pregabalin [Lyrica] 150 mg PO BID 08/31/12 Verapamil HCl ER [Isoptin Sr] 180 mg PO DAILY 01/13/15 Docusate Sodium [Colace] 100 mg PO BEDTIME 05/06/16 Meloxicam [Mobic] 15 mg PO BID 05/06/16 Potassium Chloride Tab [Micro-K] 10 meq PO DAILY 05/06/16 Sennosides [Senokot] 17.2 mg PO BEDTIME 05/06/16 Sertraline HCl [Zoloft] 200 mg PO BEDTIME 05/06/16 Albuterol Sulfate Nebs [Proventil Nebs] 2.5 mg INH QID PRN 08/16/16 Atorvastatin Calcium [Lipitor] 40 mg PO BEDTIME 08/16/16 Nitroglycerin [Nitrostat] 0.4 mg SL Q5MIN PRN 08/16/16 Tiotropium [place] Monohydrate [Spiriva Handihaler] 2 puff INH DAILY 08/16/16 Metoclopramide Tab [Reglan Tab] 5 mg PO TID #30 tab 02/12/17 Sucralfate Suspension [Carafate Suspension] 10 ml PO QID #120 ml 02/12/17 Trazodone HCl 100 mg PO BEDTIME #30 tab 03/22/17 Ondansetron [Zofran Odt] 4 mg PO Q6HR PRN #12 tab 06/25/17 Ondansetron Odt [Zofran ODT] 8 mg PO Q6HR PRN #10 tab 06/28/17 Additional Instructions: the patient is a 66-year-old female presenting to the emergency room approximately 5 weeks after a left total hip. The patient sustained a dislocation today while rolling over in bed. Anesthesia was contacted for moderate sedation. Risks and benefits were explained and the patient did agree to proceed. See anesthesia notes for details of the procedure. Adequate reduction was obtained of the hip with x-ray postreduction for confirmation. The patient has been instructed to make small movements with the hip. She is to contact her orthopedist for any further restrictions on the hip. She needs to keep follow-up as indicated by them. She needs to ambulate with her walker only. ER warnings were given for any worsening or recurrence. No additional pain medications are warranted at this time.
--- NOTE | 2017-07-05 06:26 | RAD ---
EXAM: Two view(s) of the left hip. INDICATION: Pain. COMPARISON: None. FINDINGS: There are changes of a left hip arthroplasty with a dislocation of the left hip with the femoral component dislocated superiorly and laterally from its expected position. There is no acute fracture. Changes of a right hip arthroplasty are partially visualized. IMPRESSION: Left hip dislocation Electronically signed by: Milind Gonzalez MD 07/05/2017 6:25 AM [facility] Workstation: [id number]
[2017-07-05] MEDS ORDERED: SODIUM CHLORIDE 0.9% 1000ML 1,000 ML ONE (07:00)
[2017-07-05] MEDS ORDERED: NALOXONE HCL INJ 0.4 MG/ML VIAL ONE (07:25)
--- NOTE | 2017-07-05 07:55 | RAD ---
EXAM DESCRIPTION: Left hip, 2 views CLINICAL HISTORY: Hip arthroplasty dislocation. Reduction radiographs FINDINGS/ IMPRESSION: Comparison previous radiograph 6:10 AM Interval reduction of the previously noted dislocated left total hip arthroplasty. No periprosthetic osteolysis. A well-corticated fragment is present along the superior lateral aspect of the left hip. The margins suggest remote fragment or heterotopic ossification as opposed to an acute fracture fragment, although not excluded. There are no previous radiographs of the left hip prior to the dislocation Electronically signed by: Car Shin MD 07/05/2017 7:54 AM [facility]
[2017-07-05 09:11] VITALS: BP 91/74; O2SAT 96
== END 2017-07-05 09:11 | disposition home or self-care (01) ==
LOC: ER 05:56
DX: T84.021A Dislocation of internal left hip prosthesis, initial encounter (principal); W06.XXXA Fall from bed, initial encounter; I25.2 Old myocardial infarction; I11.0 Hypertensive heart disease with heart failure; I50.9 Heart failure, unspecified; Z98.61 Coronary angioplasty status; Z79.82 Long term (current) use of aspirin; Z79.02 Long term (current) use of antithrombotics/antiplatelets
CPT/HCPCS: 73502; 94770; 99156; 99157; J1170; J2310; J3490; J7030

== ENCOUNTER → 2017-08-16 | Outpatient (CLI) | payer MEDICARE, MEDICAID | LOC: GMAH 11:55 | PROVIDERS: ATTEND Family Medicine | DX: N39.0 Urinary tract infection, site not specified (principal); Z51.81 Encounter for therapeutic drug level monitoring ==

== ENCOUNTER 2017-10-02 18:34 | Emergency (ER) | payer MEDICARE, MEDICAID ==
[2017-10-02 18:55] VITALS: O2SAT 97
--- NOTE | 2017-10-02 19:40 | RAD ---
Procedure: XR FEMUR 2 VIEWS . Left Exam Date: 10/02/2017 6:57 PM CDT Ordering Provider: Trenton Roberts Clinical Indication: fall with pain this am Comparison: None Findings: There is evidence of profound osteopenia. There is a total left hip arthroplasty with a single femoral cerclage wire. No evidence of hardware failure or loosening is present. There is no evidence for an acute fracture or focal osseous destruction. IMPRESSION: No acute osseous abnormality. Intact left hip total arthroplasty. Electronically signed by: Michael Suh MD 10/02/2017 7:39 PM CDT
--- NOTE | 2017-10-02 19:43 | RAD ---
Procedure: XR KNEE 1-2 VIEWS, XR LUMBAR SPINE 4 OR MORE VIEWS, XR PELVIS 1-2 VIEWS Exam Date: 10/02/2017 6:57 PM CDT Ordering Provider: Trenton Roberts Clinical Indication: fall with pain this am Comparison: None Findings: AP view of the pelvis demonstrates bilateral total hip arthroplasties. No definite evidence for an acute fracture or focal osseous destruction is present. There appears to be a subacute or chronic healing fracture of the proximal left femur. Bones are profoundly osteopenic. Five views of the lumbar spine demonstrate diffusely osteopenic appearance of the bones. There is age indeterminate compression fracture deformities of the T12 and L2 vertebral bodies. Approximately 25% height loss at superior endplate of T12 and 60% height loss involving the central aspect of the L2 vertebral body. No significant osseous retropulsion. Percutaneous vertebral body augmentation at T11 and L1 vertebral bodies. Vascular calcifications are present. Two views of the left knee demonstrate no evidence for an acute fracture or focal osseous destruction. No joint effusion is present. Bones are profoundly osteopenic. IMPRESSION: No definite acute, displaced fracture in the pelvis or the left knee joint. Age indeterminate compression fracture deformities of T12 and L2 without significant osseous retropulsion. Electronically signed by: Michael Suh MD 10/02/2017 7:41 PM CDT
--- NOTE | 2017-10-02 20:18 | ED.PDOC ---
History of Present Illness - General Chief Complaint: Trauma Stated Complaint: fall Time Seen by Provider: 10/02/17 18:41 Source: patient Exam Limitations: no limitations - History of Present Illness Initial Comments: the patient is a 67-year-old female presenting to the emergency room secondary to a fall last night in the middle of the night when she tried to get up to adjust her oxygen. She tripped and fell and sustained some pain to her left lateral knee as well as some pain to her coccyx and left lateral upper hip. She has mild bruising to the left flank that actually does look older than just last night. No spinal tenderness to palpation. No evidence of any pelvic instability. Range of motion of the knee is preserved and she does have mild tenderness to palpation laterally. Ligamentous testing does appear reassuring however. Passive range of motion testing of the left hip is limited secondary to recent surgery. No evidence of reinjury at that site clinically. No undue tenderness to palpation. No evidence of infection. No gross deformity. She does appear neurovascularly at her baseline. No other obvious injuries. No lacerations. Severity: moderate Improving Factors: nothing Worsening Factors: movement Associated Symptoms: denies symptoms Allergies/Adverse Reactions: Allergies Penicillins Allergy (Verified 10/02/17 18:51) Sulfa Antibiotics Allergy (Verified 10/02/17 18:51) Sulfamethoxazole w/Trimethoprim [From Bactrim] Allergy (Verified 10/02/17 18:51) ADHESIVE TAPE Adverse Reaction (Uncoded 10/02/17 18:51) Home Medications: Ambulatory Orders Aspirin [Aspir-81] 81 mg PO AM 08/31/12 Clopidogrel Bisulfate [Plavix] 75 mg PO AM 08/31/12 Esomeprazole [Nexium] 40 mg PO DAILY@0700 08/31/12 Pregabalin [Lyrica] 150 mg PO BID 08/31/12 Verapamil HCl ER [Isoptin Sr] 180 mg PO DAILY 01/13/15 Docusate Sodium [Colace] 100 mg PO BEDTIME 05/06/16 Meloxicam [Mobic] 15 mg PO BID 05/06/16 Potassium Chloride Tab [Micro-K] 10 meq PO DAILY 05/06/16 Sennosides [Senokot] 17.2 mg PO BEDTIME 05/06/16 Sertraline HCl [Zoloft] 200 mg PO BEDTIME 05/06/16 Albuterol Sulfate Nebs [Proventil Nebs] 2.5 mg INH QID PRN 08/16/16 Atorvastatin Calcium [Lipitor] 40 mg PO BEDTIME 08/16/16 Nitroglycerin [Nitrostat] 0.4 mg SL Q5MIN PRN 08/16/16 Tiotropium [place] Monohydrate [Spiriva Handihaler] 2 puff INH DAILY 08/16/16 Metoclopramide Tab [Reglan Tab] 5 mg PO TID #30 tab 02/12/17 Sucralfate Suspension [Carafate Suspension] 10 ml PO QID #120 ml 02/12/17 Trazodone HCl 100 mg PO BEDTIME #30 tab 03/22/17 Ondansetron [Zofran Odt] 4 mg PO Q6HR PRN #12 tab 06/25/17 Ondansetron Odt [Zofran ODT] 8 mg PO Q6HR PRN #10 tab 06/28/17 Review of Systems - Review of Systems Constitutional: States: no symptoms reported EENTM: States: no symptoms reported Respiratory: States: no symptoms reported Gastrointestinal/Abdominal: States: no symptoms reported Genitourinary: States: no symptoms reported Musculoskeletal: States: see HPI Skin: States: see HPI Neurological: States: no symptoms reported Endocrine: States: no symptoms reported All other Systems: No Change from Baseline Past Medical History (General) - Patient Medical History Hx Seizures: No Hx Stroke: Yes - 2009 Hx Dementia: No Hx Asthma: No Hx of COPD: Yes Hx Cardiac Disorders: Yes - [place]; cardiac stents Hx Congestive Heart Failure: Yes Hx Pacemaker: No Hx Hypertension: No Hx Thyroid Disease: No Hx Diabetes: No Hx Gastroesophageal Reflux: Yes - HIATAL HERNIA Hx Renal Disease: No Hx Cancer: No Hx of HIV: No Hx Hepatitis C: No Hx MRSA: No MRSA Source:: Wound Surgical History: other - Vaccination History Hx Tetanus, Diphtheria Vaccination: Yes Hx Influenza Vaccination: Yes Hx Pneumococcal Vaccination: Yes - Social History Hx Tobacco Use: No Hx Alcohol Use: No Hx Substance Use: No Hx Substance Use Treatment: No Hx Depression: Yes Hx Physical Abuse: No Hx Emotional Abuse: No Hx Suspected Abuse: No - Female History Patient : No Family Medical History - Family History Mother Family History: Unknown Living Status: Hx Family;Other: SHE DID NOT KNOW PARENTS AND SHE DOES NOT KNOW FH HISTORY. PT ADOPTED Physical Exam - Physical Exam General Appearance: Alert, Comfortable, No apparent distress Eye Exam: bilateral normal Ears, Nose, Throat: hearing grossly normal, normal ENT inspection, normal pharynx Neck: full range of motion, supple Respiratory: lungs clear, normal breath sounds, no respiratory distress, no accessory muscle use Cardiovascular/Chest: normal peripheral pulses, no edema, other - regular rate Peripheral Pulses: radial,right: 2+, radial,left: 2+, dorsalis pedis,right: 2+, dorsalis pedis,left: 2+ Gastrointestinal/Abdominal: non tender, soft Rectal Exam: deferred Back Exam: other - the patient does have some tenderness to palpation over her coccyx but no obviouspalpable deformity there. No laceration there. She has mild discomfort palpation over her left lateral upper hip There is mild bruising on the left flank that is minimally uncomfortable to palpation and does look older. No spinous tenderness to palpation. No obvious new deformities. 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 No lacerations. Comments: Vital Signs - 24 hr 10/02/17 10/02/17 18:45 18:54 Temperature 97.1 F L Pulse Rate [ 83 pulse ox] Respiratory 20 20 Rate Blood Pressure 108/70 [Left Arm] O2 Sat by Pulse 97 Oximetry Progress - Progress Progress: 10/02/17 20:19 the patient is a 67-year-old female fell in the middle of the night last night on accident. X-rays of the pelvis, lumbar spine, left femur and left knee show no evidence of any acute trauma. Multiple chronic changes are present. She does have what are most likely old compression fractures of T12 and L2 but she does not have any pain in those areas currently. The patient is to ambulate carefully with her walker. She does likely have a mild left LCL strain. she can continue her medications as current. ER warnings were given for any significant worsening. She should anticipate some pain in the knee for at least 2 weeks. she should follow-up with her primary care doctor within the coming week. Departure - Departure Clinical Impression: Strain of left knee Fall at home Qualifiers: Encounter type: initial encounter Qualified Code(s): W19.XXXA - Unspecified fall, initial encounter; Y92.099 - Unspecified place in other non-institutional residence as the place of occurrence of the external cause Contusion, back Qualifiers: Encounter type: initial encounter Laterality: left Qualified Code(s): S20.222A - Contusion of left back wall of thorax, initial encounter Disposition: Discharge to Home or Self Care Condition: Fair Departure Forms: ED Discharge - Pt. Copy, Patient Portal Self Enrollment Diet: regular diet Activity: increase activity as tolerated Referrals: Kwame Barrera MD [Primary Care Provider] - 1-2 Weeks Home Medications: Ambulatory Orders Aspirin [Aspir-81] 81 mg PO AM 08/31/12 Clopidogrel Bisulfate [Plavix] 75 mg PO AM 08/31/12 Esomeprazole [Nexium] 40 mg PO DAILY@0700 08/31/12 Pregabalin [Lyrica] 150 mg PO BID 08/31/12 Verapamil HCl ER [Isoptin Sr] 180 mg PO DAILY 01/13/15 Docusate Sodium [Colace] 100 mg PO BEDTIME 05/06/16 Meloxicam [Mobic] 15 mg PO BID 05/06/16 Potassium Chloride Tab [Micro-K] 10 meq PO DAILY 05/06/16 Sennosides [Senokot] 17.2 mg PO BEDTIME 05/06/16 Sertraline HCl [Zoloft] 200 mg PO BEDTIME 05/06/16 Albuterol Sulfate Nebs [Proventil Nebs] 2.5 mg INH QID PRN 08/16/16 Atorvastatin Calcium [Lipitor] 40 mg PO BEDTIME 08/16/16 Nitroglycerin [Nitrostat] 0.4 mg SL Q5MIN PRN 08/16/16 Tiotropium [place] Monohydrate [Spiriva Handihaler] 2 puff INH DAILY 08/16/16 Metoclopramide Tab [Reglan Tab] 5 mg PO TID #30 tab 02/12/17 Sucralfate Suspension [Carafate Suspension] 10 ml PO QID #120 ml 02/12/17 Trazodone HCl 100 mg PO BEDTIME #30 tab 03/22/17 Ondansetron [Zofran Odt] 4 mg PO Q6HR PRN #12 tab 06/25/17 Ondansetron Odt [Zofran ODT] 8 mg PO Q6HR PRN #10 tab 06/28/17 Additional Instructions: the patient is a 67-year-old female fell in the middle of the night last night on accident. X-rays of the pelvis, lumbar spine, left femur and left knee show no evidence of any acute trauma. Multiple chronic changes are present. She does have what are most likely old compression fractures of T12 and L2 but she does not have any pain in those areas currently. The patient is to ambulate carefully with her walker. She does likely have a mild left LCL strain. she can continue her medications as current. ER warnings were given for any significant worsening. She should anticipate some pain in the knee for at least 2 weeks. she should follow-up with her primary care doctor within the coming week.
[2017-10-02 20:37] VITALS: BP 74/54; TEMP 97.8
== END 2017-10-02 20:37 | disposition home or self-care (01) ==
LOC: ER 18:34
DX: S86.912A Strain of unspecified muscle(s) and tendon(s) at lower leg level, left leg, initial encounter (principal); S20.222A Contusion of left back wall of thorax, initial encounter; J44.9 Chronic obstructive pulmonary disease, unspecified; I25.2 Old myocardial infarction; K21.9 Gastro-esophageal reflux disease without esophagitis; K44.9 Diaphragmatic hernia without obstruction or gangrene; Z88.0 Allergy status to penicillin; Z88.2 Allergy status to sulfonamides; Z79.82 Long term (current) use of aspirin; Z79.02 Long term (current) use of antithrombotics/antiplatelets; Z99.81 Dependence on supplemental oxygen; W01.0XXA Fall on same level from slipping, tripping and stumbling without subsequent striking against object, initial encounter; Y92.009 Unspecified place in unspecified non-institutional (private) residence as the place of occurrence of the external cause

== ENCOUNTER → 2017-10-30 | Outpatient (CLI) | payer MEDICARE, MEDICAID | LOC: BFHH 13:30 | PROVIDERS: ATTEND Family Medicine | DX: I95.9 Hypotension, unspecified (principal); I50.30 Unspecified diastolic (congestive) heart failure; I25.10 Atherosclerotic heart disease of native coronary artery without angina pectoris ==

== ENCOUNTER → 2018-02-06 | Outpatient (CLI) | payer MEDICARE, MEDICAID ==
--- NOTE | 2018-02-07 15:44 | MRI ---
Study: MRI of the Left Hip. Indication: T84.038A,M25.552, M70.62, Z47.1R Technique: Multiplanar, multi sequence MRI of the left hip was obtained without intravenous contrast. Menorrhagia artifact reduction techniques utilized. Comparison: February 04, 2015. CT pelvis May 08, 2017. Findings: Age-indeterminate wedge deformities of the L5, L4, and L2 vertebral bodies noted on the linux consultant images. These are likely remote but ultimately age indeterminate by this examination. No acute high-grade tendon tear identified of the pelvis. Mild pubic symphysis osseous or triceps. Colonic diverticulosis. Post surgical changes of bilateral total hip arthroplasties with pronounced susceptibility artifact despite metal artifact reduction techniques. No gross periprosthetic fracture or osteolysis identified. As noted on the prior CT pelvis there is multifocal ossification along the superior and posterior aspects of the right hip joint with changes most pronounced at the superior margin of the greater trochanter where the dominant osseous fragment measures up to 27 mm. A small right hip effusion is suspected extending along the lateral margin the right greater trochanter. This is difficult to evaluate due to the artifact. There is more pronounced elevated STIR signal about the left hip joint which is likely artifactual. There is at least a small left hip effusion with extension along the left greater trochanter as well and is slightly larger than that on the right. No definitive periprosthetic osteolysis. Impression: Postsurgical changes of bilateral total hip arthroplasties without definitive features of acute periprostatic fracture or osteolysis, however there does appear to be nonspecific joint effusions. Correlation with ESR and CRP recommended.. There is concern for infection, aspiration could be performed. Additional findings as above. Electronically signed by: Alex Sheppard MD 02/07/2018 3:43 PM CDT
== END ==
LOC: MRI 11:15
PROVIDERS: ATTEND Orthopaedic Surgery
DX: T84.038A Mechanical loosening of other internal prosthetic joint, initial encounter (principal); M25.552 Pain in left hip; M70.62 Trochanteric bursitis, left hip; Z47.1 Aftercare following joint replacement surgery

== ENCOUNTER 2018-03-16 12:02 | Inpatient (IN) | payer MEDICARE, MEDICAID ==
--- NOTE | 2018-03-16 12:13 | ED.PDOC ---
History of Present Illness - General Chief Complaint: Trauma Stated Complaint: fall/syncope Time Seen by Provider: 03/16/18 12:12 Source: patient, EMS Exam Limitations: no limitations - History of Present Illness Initial Comments: Mariann Herring 67 y/o female stated that she was at her door standing holding to a walker looking for her dog then she just passed out fell on her head and back on the concrete floor does not remember how long she was laying on the floor and on waking up she pressed her alarm button then son came home after he was called by the alarm company on sons arrival he noted she was still on the floor stating has dull ache on her head,neck and lower back then ems arrived 4 minutes later to pick her up at home and was brought to er.Lives by herself.On her arrival at ER she was talking awake pointing to scalp selling back of head.Denies weakness,dysarthria,hip pains shoulder pains.Patient remembers incident. Timing/Duration: 1-3 hours Improving Factors: immobilization Worsening Factors: nothing Associated Symptoms: other - see hpi Allergies/Adverse Reactions: Allergies Penicillins Allergy (Verified 10/02/17 18:51) Sulfa Antibiotics Allergy (Verified 10/02/17 18:51) Sulfamethoxazole w/Trimethoprim [From Bactrim] Allergy (Verified 10/02/17 18:51) ADHESIVE TAPE Adverse Reaction (Uncoded 10/02/17 18:51) Home Medications: Ambulatory Orders Aspirin [Aspir-81] 81 mg PO AM 08/31/12 Clopidogrel Bisulfate [Plavix] 75 mg PO AM 08/31/12 Esomeprazole [Nexium] 40 mg PO DAILY@0700 08/31/12 Pregabalin [Lyrica] 150 mg PO BID 08/31/12 Verapamil HCl ER [Isoptin Sr] 180 mg PO DAILY 01/13/15 Docusate Sodium [Colace] 100 mg PO BEDTIME 05/06/16 Meloxicam [Mobic] 15 mg PO BID 05/06/16 Potassium Chloride Tab [Micro-K] 10 meq PO DAILY 05/06/16 Sennosides [Senokot] 17.2 mg PO BEDTIME 05/06/16 Sertraline HCl [Zoloft] 200 mg PO BEDTIME 05/06/16 Albuterol Sulfate Nebs [Proventil Nebs] 2.5 mg INH QID PRN 08/16/16 Atorvastatin Calcium [Lipitor] 40 mg PO BEDTIME 08/16/16 Nitroglycerin [Nitrostat] 0.4 mg SL Q5MIN PRN 08/16/16 Tiotropium [place] Monohydrate [Spiriva Handihaler] 2 puff INH DAILY 08/16/16 Metoclopramide Tab [Reglan Tab] 5 mg PO TID #30 tab 02/12/17 Sucralfate Suspension [Carafate Suspension] 10 ml PO QID #120 ml 02/12/17 Trazodone HCl 100 mg PO BEDTIME #30 tab 03/22/17 Ondansetron [Zofran Odt] 4 mg PO Q6HR PRN #12 tab 06/25/17 Ondansetron Odt [Zofran ODT] 8 mg PO Q6HR PRN #10 tab 06/28/17 Review of Systems - Review of Systems Constitutional: States: no symptoms reported EENTM: States: no symptoms reported Respiratory: States: no symptoms reported Cardiology: States: no symptoms reported Gastrointestinal/Abdominal: States: no symptoms reported Genitourinary: States: no symptoms reported Musculoskeletal: States: no symptoms reported Skin: States: see HPI Neurological: States: see HPI Endocrine: States: no symptoms reported Hematologic/Lymphatic: States: no symptoms reported Past Medical History (General) - Patient Medical History Hx Seizures: No Hx Stroke: Yes - 2009 Hx Dementia: No Hx Asthma: No Hx of COPD: Yes Hx Cardiac Disorders: Yes - [place]; cardiac stents Hx Congestive Heart Failure: Yes Hx Pacemaker: No Hx Hypertension: No Hx Thyroid Disease: No Hx Diabetes: No Hx Gastroesophageal Reflux: Yes - HIATAL HERNIA Hx Renal Disease: No Hx Cancer: No Hx of HIV: No Hx Hepatitis C: No Hx MRSA: No MRSA Source:: Wound Surgical History: other - hysterectomy,cataract,cardiac stents - Vaccination History Hx Tetanus, Diphtheria Vaccination: Yes Hx Influenza Vaccination: Yes Hx Pneumococcal Vaccination: Yes - Social History Hx Tobacco Use: No Hx Alcohol Use: No Hx Substance Use: No Hx Substance Use Treatment: No Hx Depression: Yes Hx Physical Abuse: No Hx Emotional Abuse: No Hx Suspected Abuse: No - Activities of Daily Living Patient Lives Alone: Yes Grooming Ability: Independent Eating (Feeding) Ability: Independent Toileting Ability: Independent - Female History Patient : No Family Medical History - Family History Mother Family History: Unknown Living Status: Hx Family;Other: SHE DID NOT KNOW PARENTS AND SHE DOES NOT KNOW FH HISTORY. PT ADOPTED Physical Exam - Physical Exam General Appearance: Alert, Comfortable, No apparent distress Eye Exam: bilateral normal Ears, Nose, Throat: hearing grossly normal, normal ENT inspection Neck: normal inspection, tender lateral Respiratory: chest non-tender, lungs clear, normal breath sounds, no respiratory distress Cardiovascular/Chest: normal peripheral pulses, regular rate, rhythm, no murmur Peripheral Pulses: radial,right: 2+, radial,left: 2+ Gastrointestinal/Abdominal: normal bowel sounds, non tender, soft, no organomegaly Back Exam: normal inspection, no CVA tenderness, no vertebral tenderness Extremity: normal range of motion, normal inspection, no pedal edema, no calf tenderness, normal capillary refill, other - internqal external rotation of both hips non tender Neurologic: no motor/sensory deficits, alert, oriented x 3, other - speech fluent ,no neurologic deficits Skin Exam: normal color, warm/dry, other - soft tissue swelling and tenderness saclp Progress - Progress Progress: 03/16/18 12:55 Vital Signs - 24 hr 03/16/18 12:02 Temperature 97.4 F L Pulse Rate [ 66 Right Radial] Respiratory 16 Rate Blood Pressure 103/63 [Left Arm] O2 Sat by Pulse 93 L Oximetry - Results/Orders Results/Orders: 03/16/18 12:17 IV Care:Saline Lock per Protoc QSHIFT 03/16/18 12:30 EKG STAT 03/16/18 14:05 Lactated Ringers [Lr] 1,000 ml IVS .QD 03/16/18 14:31 URINALYSIS Stat 03/16/18 14:32 URINE DRUG SCREEN, 7 ASSAY Stat Laboratory Results - last 24 hr 03/16/18 03/16/18 12:33 12:33 WBC 3.9 L RBC 3.47 L Hgb 10.6 L Hct 32.0 L MCV 92.3 MCH 30.5 MCHC 33.1 RDW 16.3 H Plt Count 194 MPV 8.2 Absolute Neuts (auto) 2.60 Absolute Lymphs (auto) 0.80 L Absolute Monos (auto) 0.40 Absolute Eos (auto) 0.00 Absolute Basos (auto) 0.00 Neutrophils % 66.9 Lymphocytes % 21.4 Monocytes % 11.2 H Eosinophils % 0.0 L Basophils % 0.5 Sodium 140 Potassium 4.3 Chloride 105 Carbon Dioxide 30 Anion Gap 9.3 L BUN 21 H Creatinine 0.78 BUN/Creatinine Ratio 26.9 H Random Glucose 99 Serum Osmolality 282.4 Calcium 9.1 Total Bilirubin 0.2 AST 17 ALT < 8 L Alkaline Phosphatase 139 H Creatine Kinase 55 CK-MB (CK-2) 2.0 CK-MB (CK-2) % Not Reportable Troponin I < 0.02 Serum Total Protein 6.5 Albumin 3.5 Globulin 3.0 Albumin/Globulin Ratio 1.2 - EKG/XRAY/CT EKG: Sinus, no ST T wave changes Comments: HR-61 Xray Comments: Carotid doppler-no blockage CT Ordered: Yes - head-no hemorrhage or midline shift CT Interpretation Call Back: Yes - C-spine :intact hardware;no fracture CT Interpretation Call Back Date: 03/16/18 - lumbar-old compression fracture Departure - Departure Clinical Impression: Dehydration, mild Syncope Qualifiers: Syncope type: unspecified Qualified Code(s): R55 - Syncope and collapse Urinary tract infection Qualifiers: Urinary tract infection type: site unspecified Hematuria presence: without hematuria Qualified Code(s): N39.0 - Urinary tract infection, site not specified Time of Disposition: 14:55 Disposition: Admit Patient Condition: Fair Departure Forms: Patient Portal Self Enrollment Referrals: Kwame Barrera MD [Primary Care Provider] - 1-2 Weeks Home Medications: Ambulatory Orders Aspirin [Aspir-81] 81 mg PO AM 08/31/12 Clopidogrel Bisulfate [Plavix] 75 mg PO AM 08/31/12 Esomeprazole [Nexium] 40 mg PO DAILY@0700 08/31/12 Pregabalin [Lyrica] 150 mg PO BID 08/31/12 Verapamil HCl ER [Isoptin Sr] 180 mg PO DAILY 01/13/15 Docusate Sodium [Colace] 100 mg PO BEDTIME 05/06/16 Meloxicam [Mobic] 15 mg PO BID 05/06/16 Potassium Chloride Tab [Micro-K] 10 meq PO DAILY 05/06/16 Sennosides [Senokot] 17.2 mg PO BEDTIME 05/06/16 Sertraline HCl [Zoloft] 200 mg PO BEDTIME 05/06/16 Albuterol Sulfate Nebs [Proventil Nebs] 2.5 mg INH QID PRN 08/16/16 Atorvastatin Calcium [Lipitor] 40 mg PO BEDTIME 08/16/16 Nitroglycerin [Nitrostat] 0.4 mg SL Q5MIN PRN 08/16/16 Tiotropium [place] Monohydrate [Spiriva Handihaler] 2 puff INH DAILY 08/16/16 Metoclopramide Tab [Reglan Tab] 5 mg PO TID #30 tab 02/12/17 Sucralfate Suspension [Carafate Suspension] 10 ml PO QID #120 ml 02/12/17 Trazodone HCl 100 mg PO BEDTIME #30 tab 03/22/17 Ondansetron [Zofran Odt] 4 mg PO Q6HR PRN #12 tab 06/25/17 Ondansetron Odt [Zofran ODT] 8 mg PO Q6HR PRN #10 tab 06/28/17 Decision To Admit - Decistion To Admit Decision to Admit Reason: Admit from ER Decision to Admit Date: 03/16/18 - D/W Caridad Wright-ANGELICA/Hospitalist Decision to Admit Time: 14:52
[2018-03-16] MEDS ORDERED: SODIUM CHLORIDE 0.9% 500ML 500 ML IVS ONE (12:40)
--- NOTE | 2018-03-16 13:31 | CT ---
EXAM DESCRIPTION: Head: Computed Tomography. CLINICAL HISTORY: syncope/head contusion. Patient fell after episode of syncope. COMPARISON: CT scan of the cervical spine and lumbar spine on this visit. MRI brain 01/13/2015. CT head 01/12/2015. TECHNIQUE: Non-helical axial scans through the skull and brain, at 5.0 mm intervals, non-contrast. Coronal and sagittal 2.0 mm reconstructions. Axial 2.5 mm reconstructions. Total Exam DLP: 859.97 mGy-cm. This exam was performed according to our departmental dose-optimization program which includes automated exposure control, adjustment of the mA and/or kV according to patient size and/or use of iterative reconstruction technique; to reduce radiation dose to as low as reasonably achievable (ALARA). FINDINGS: No hemorrhage, no mass-effect, and no midline shift. Minimal low-density in the bilateral periventricular white matter and internal capsules bilaterally. Stable since the prior study. No abnormal radiodense material in the brain parenchyma. Vascular calcifications anterior and posterior, stable since the prior study; physiologic calcifications in the pineal gland and choroid plexus. Calcification in the bety just to the right of midline also stable. No effacement or displacement of the ventricles, CSF spaces, or subdural spaces. Cortical sulci minimally prominent for patient's age. Stable since the prior study. No extra axial fluid collection or hemorrhage. No gross abnormalities of the bony calvarium. Included paranasal sinuses and mastoid air cells are well - aerated. IMPRESSION: 1. No hemorrhage, no mass effect, no midline shift. Probable microvascular disease bilateral periventricular white matter and internal capsules, stable since the prior study. No extra-axial hemorrhage. Minimal cortical atrophy. 2. CT scans are insensitive for detecting small CVAs in the first 24 hours after onset. Evaluation of the brain stem is also limited. If symptoms persist, consider NON-EMERGENT MRI scan of the brain with diffusion imaging. Electronically signed by: Valeriano Sloan MD 03/16/2018 1:29 PM CDT
--- NOTE | 2018-03-16 13:42 | CT ---
EXAM DESCRIPTION: Cervical Spine: Computed Tomography. CLINICAL HISTORY: syncope/head contusion COMPARISON: MRI cervical spine 04/06/2016. Noncontrast CT scans of the head and lumbar spine on this visit. TECHNIQUE: Spiral, axial 2.5 mm scans through the cervical spine without contrast. Coronal and sagittal 2.0 mm Reconstructions. Total Exam DLP: 415.16 mGy-cm. This exam was performed according to our departmental dose-optimization program which includes automated exposure control, adjustment of the mA and/or kV according to patient size and/or use of iterative reconstruction technique; to reduce radiation dose to as low as reasonably achievable (ALARA). FINDINGS: Atlantoaxial joint is intact with marginal spurs. Atlantooccipital joints are unremarkable other than minimal narrowing. No fracture. Bilateral C1-2 facet joints are unremarkable. Prior ACDF C3-4 with complete interbody bony fusion. Normal bone density around the hardware. Minimal 2 mm gap between the superior aspect of the plate in the anterior cortex at C3. Minimal to moderate narrowing of the neural foramina with mild facet arthrosis. Canal is patent. No acute bony or hardware abnormalities. Small uncinate spur left side at C2-C3 with mild bilateral foraminal narrowing and facet arthrosis. Posterior disc spur bulging at C6-7 narrowing the canal. Small anterior spurs. Mild bilateral facet arthrosis and bilateral uncinate spurs, with bilateral mild neural foraminal narrowing. No acute bony abnormality. No significant disc space narrowing at other levels. No fracture or other acute bony changes. Facet joints are unremarkable. Cervical lordosis is maintained. No scoliosis. Mosaic bilateral parenchymal densities in the included lung smith. Thyroid gland is unremarkable. No dominant soft tissue masses in the included neck. IMPRESSION: 1. ACDF C3-4 customary position and near-anatomic alignment. No bony or hardware complications. 2. Bilateral neural foraminal narrowing at C2-3 with facet arthrosis and uncinate spurs. No acute bony abnormality. 3. Posterior spondylosis C6-7 with mild bilateral neural foraminal narrowing, not acute. Electronically signed by: Valeriano Sloan MD 03/16/2018 1:41 PM CDT
[2018-03-16] MEDS ORDERED: LACTATED RINGERS 1,000 ML IVS PRN (14:05)
--- NOTE | 2018-03-16 14:08 | CT ---
EXAM DESCRIPTION: Lumbar Spine: Computed Tomography. CLINICAL HISTORY: syncope/head contusion. Patient fell. COMPARISON: MRI scan lumbar spine 04/06/2016. CT scan of the cervical spine and head on this visit. TECHNIQUE: Spiral, axial 2.5 x 2.5 mm scans through the lumbarspine without contrast. Coronal and sagittal 2.0 mm Reconstructions. 0.6 mm scans with bone algorithm. Total Exam DLP: 433.32 mGy-cm. This exam was performed according to our departmental dose-optimization program which includes automated exposure control, adjustment of the mA and/or kV according to patient size and/or use of iterative reconstruction technique; to reduce radiation dose to as low as reasonably achievable (ALARA). FINDINGS: Central compression type vertebral body fracture at L2 with the craniocaudal dimension 7.5 mm in the anterior cortical vertebral body distance 2.4 mm. Similar appearance on the MRI scan with no marrow edema. 2 mm retropulsion of the superior endplate. Posterior elements intact. No significant bulge of the L1-2 disc or L2-3 disc with no canal stenosis. No foraminal stenosis L2-3 with facet arthrosis, and posterior elements intact. Prior kyphoplasty at L1 with cement in the bilateral L1-2 foramina. Arthrosis in the bilateral facets. Appearance of the vertebral body, with compression, and location of the cement appears stable since the prior MRI. Bilateral facet arthrosis. No acute bony abnormalities of the posterior elements. Compression type vertebral body fractures at L4 and L5 with reduction in height of approximately 30-35% at both levels which is stable since the prior MRI scan which also did not demonstrate marrow edema. 2 elements are intact at both levels. Mild facet arthrosis bilaterally at L3-4 with moderate to severe bilateral facet arthrosis L4-5 and L5-S1. No spondylolisthesis. No canal or foraminal stenosis but moderate foraminal narrowing at L4-5. Normal height of the L3 vertebral body and no acute bony changes in the posterior elements. Bilateral facet arthrosis and mild foraminal narrowing and no canal stenosis. Vertebral body augmentation also at T11 also seen in the bilateral pedicles. Stable since the prior study. Gas density in the T10-11 and T11-12 disc spaces. Reduction of height of the central and anterior T12 vertebral body similar to the MRI scan with no marrow edema on the scan. No significant retropulsion. Significant bilateral foraminal narrowing at T12-L1; bilateral facet arthrosis. IMPRESSION: 1. No acute compression type vertebral body fractures in the lumbar spine and no significant retropulsion. Compression of the T12 L2 L4 and L5 vertebral bodies stable. Posterior elements are intact. Prior vertebral bodies augmentation T11 and L1. 2. Possible bilateral foraminal stenosis due to bony elements at T12-L1. Also seen on the prior MRI. Augmentation cement in the bilateral L1-2 foramina may be abutting the L1 nerves in the foramina. Electronically signed by: Valeriano Sloan MD 03/16/2018 2:06 PM CDT
--- NOTE | 2018-03-16 14:14 | US ---
EXAM DESCRIPTION: Carotid Duplex: ULTRASOUND. CLINICAL HISTORY: syncope. Patient fell. COMPARISON: CT scans of the head, cervical spine, and lumbar spine on this visit. TECHNIQUE: Transcutaneous scanning utilizing naylor-scale and Doppler modes to evaluate the bilateral carotid systems and vertebral arteries. Percentage of diameter of stenosis or no stenosis recorded will be based upon NASCET criteria. FINDINGS: Peak systolic/end diastolic (CM-Sec) CCA Right 79/27 Left 72/18. ICA Right proximal 65/21, distal 100/39. Left proximal 62/25, mid 71/31.. Vertebral Right 53/15 Left 36/11. ECA (PS Only) Right 44 left 55. ICA/CCA peak systolic ratio: Right 1.3 Left 1.0 ICA/CCA end diastolic ratio: Right 1.4 Left 1.7 Vertebral arteries: antegrade flow. Comments: Bilateral calcifications and narrowing of the CCA bifurcations and proximal ICAs. Color turbulent flow in the bilateral ICAs. Spectral broadening in the bilateral ICAs proximal to mid segments. Approximately 30% diameter stenosis of the right CCA bulb. Approximately 45% diameter stenosis of the proximal right ICA. Similar to area stenosis at these segments. 40% diameter stenosis of the left CCA bulb and 37% area stenosis. IMPRESSION: 1. Doppler evaluation of the bilateral carotid systems and vertebral arteries shows no hemodynamically significant stenoses. 2. No significant amount of plaque seen in the carotid arteries bilaterally. Bilateral vertebral arteries showed antegrade-cephalad flow. Electronically signed by: Valeriano Sloan MD 03/16/2018 2:12 PM CDT
[2018-03-16] MEDS ORDERED: cefTRIAXone SODIUM 2 GM in SODIUM CHL 0.9% 100ML MINI-BAG 100 ML IVPB ONE (14:51)
--- NOTE | 2018-03-16 15:46 | HP ---
SUPERVISING PHYSICIAN: Car Roberts MD CHIEF COMPLAINT: Syncope and low back pain. HISTORY OF PRESENT ILLNESS: This is a 67 year-old female patient who was by herself at home. She uses a walker most of the time. She was watching her dog a the door and for an unknown reason she said she passed out and fell straight back. When she hit the floor she was awake so there was no loss of consciousness except during the actual syncopal episode. She landed on her bottom as well as hit the back of her head. She pushed the alarm around her neck and her son brought her to the Emergency Room. In the Emergency Room she complained of low back pain, tailbone pain, mild neck pain and mild head pain. Lab done in the Emergency Room showed WBCs of 3.9 with hemoglobin 10.6 and hematocrit 32. Her electrolytes were basically within normal limits except her BUN was elevated at 21, creatinine normal at 0.78 and alkaline phosphatase was 139. Urine drug screen was negative. Urinalysis showed positive urine nitrite , small amount of urine leukoesterase, 3 to 5 urine WBCs and 2+ urine bacteria. Radiology reports include a CT cervical spine that showed: 1. ACDF C3 to 4 customary position and near anatomical alignment. No bony or hardware complications. 2. Bilateral neuroforaminal narrowing at C2 to 3 with facet arthrosis and uncinate spurs. No bony abnormality. 3. Posterior spondylosis of C6 to 7 with mild bilateral neural foraminal narrowing, not acute. Her lumbar CT showed no acute compression type vertebral body fractures of the lumbar spine and no significant retropulsion. The compression of T12, L2 and L4 and 5 vertebral bodies were stable with possible bilateral foraminal stenosis , easy bony elements at T12 to L1. Head CT showed no hemorrhage, no mass effect, no midline shift, probably microvascular disease. Carotid artery ultrasound showed no significant amount of plaque seen in the carotid arteries. All other labs and films were reviewed in the EMR. The patient was given some fluids. Vital signs: she was hypothermic at 96.7 with a heart rate in the 60s, although she did have several recorded heart rates in the 80s. Her blood pressure was as low as 95/62, after fluids was up to 127/76, respiratory 18, 02 saturation 90% on 2 liters nasal cannula. I was called for admission for urosepsis as well as a syncopal episode. PAST MEDICAL HISTORY: 1. Coronary artery disease 2. Myocardial infarction in 2007, 2009 and 2014, each OK required stints. 3. Chronic obstructive pulmonary disease. 4. Diverticulosis.\ 5. Chronic neck and back pain. 6. History of fibromyalgia. 7. Osteoarthritis. 8. Multiple thoracic and lumbar vertebral fractures requiring multiple procedures. 9. Chronic migraine. 10. Depression. 11. Hyperlipidemia. 12. Hypertension. 13. Gastroesophageal reflux disease. 14. Hiatal hernia. 15. Iron deficiency anemia. PAST SURGICAL HISTORY: 1. Hysterectomy. 2. Coronary stints in 2007, 2009 and 2014. 3. Kyphoplasty. 4. Multiple neck and back surgeries. 5. Tummy tuck surgery. 6. Bilateral hip replacement. CURRENT MEDICATIONS: 1. Plavix. 2. Aspirin. 3. Lyrica. 4. Nexium. 5. Isoptin. 6. Colace. . 7. Senokot. . 8. Lipitor. . 9. Proventil Nebs.. 10. Trazodone. 11. Zofran. 12. Hydrocodone. PAIN MEDICINE PHYSICIAN: Dr. Carcamo. ALLERGIES: PENICILLIN AND ADHESIVE TAPE, SULFA ANTIBIOTICS. FAMILY HISTORY: She is adopted so no family history is known. SOCIAL HISTORY: She is retired. She never smoked, used alcohol or illicit drugs. REVIEW OF SYSTEMS: GENERAL: Denies fever, fatigue or weight changes. HEENT: Denies headaches, sinus symptoms, ear pain, vision changes. RESPIRATORY: Negative for coughing, wheezing, shortness of breath. CARDIAC: Negative for chest pain, palpitations, tachycardia. ABDOMEN: Positive for chronic constipation due to pain medications. Negative for nausea, vomiting, diarrhea. MUSCULOSKELETAL: Positive for mild neck pain and tailbone pain as well as lower back pain. GENITOURINARY: Positive for mild dysuria, negative for hematuria or polyuria. NEURO: Positive for syncope and chronic migraines as well as mild headache at this time. Negative for seizures. PHYSICAL EXAMINATION: VITAL SIGNS: Temperature 97.9, heart rate 75, blood pressure 137/78, respiratory rate 18, 02 saturation 95% on 2 liters. GENERAL: This is a 67 year-old female patient laying in her hospital bed. She is in no acute distress. HEENT: Normocephalic and atraumatic. Pupils are equal and reactive although her posterior skull is tender to palpation. NECK: Supple without mass. CHEST: Essentially clear to auscultation bilaterally. There is equal rise and fall of the chest with inspiration and expiration. CARDIOVASCULAR: Regular rate and rhythm. ABDOMEN: Soft, non-tender, nondistended. Bowel sounds are positive. BACK: There is no ecchymosis noted but she does have bilateral CVA tenderness as well as tenderness over the coccyx area. EXTREMITIES: No cyanosis, clubbing, or edema. NEUROLOGIC: She is awake, alert, and oriented x3. Cranial nerves II through XII are grossly intact. Labs and films are as per the history of present illness. ASSESSMENT: 1. Urosepsis with dehydration and single syncopal episode with admission temperature of 96.7. WBCs of 3900, blood pressure of 95/62. 2. Syncopal episode most likely related to dehydration and #1 resulting in a mild trauma to her posterior head, neck and coccyx area. 3. Chronic obstructive pulmonary disease. 4. Hypertension. 5. Gastroesophageal reflux disease. 6. Chronic neck and lower back pain on narcotics managed by Dr. Carcamo. 7. Normocytic normochromic anemia. PLAN: We will admit the patient to the hospital. She will continue with an additional liter or two of IV fluids. She has been started on Rocephin and blood and urine cultures have been obtained prior to starting antibiotics. Her home medications will be resumed. She has a PPI for ulcer prophylaxis and Lovenox for DVT prophylaxis. Encouraged good pulmonary hygiene. I have ordered some Imitrex for her migraines. Hopefully, she can be discharged in two to three days with close followup, especially in following urine culture with Dr. Barrera, her primary care physician. #[id number] [facility]
[2018-03-16] MEDS ORDERED: SODIUM CHL 0.9% 100ML MINI-BAG 100 ML IVPB ONE (16:06)
[2018-03-16] MEDS ORDERED: SODIUM CHLORIDE 0.9% (FLUSH) 10 ML SYG IV PRN (17:34)
[2018-03-16] MEDS ORDERED: ACETAMINOPHEN 325 MG TAB PO PRN (17:36)
[2018-03-16] MEDS ORDERED: SODIUM CHLORIDE 0.45% 1000ML 1,000 ML IVS ONE (17:40)
[2018-03-16] MEDS ORDERED: LEVALBUTEROL NEBS 1.25 MG/3 ML VIAL INH PRN (17:46)
[2018-03-16] MEDS ORDERED: IV SET AND CAP CHANGE INJ INJ SCH (18:00)
[2018-03-16] MEDS: PANTOPRAZOLE SODIUM IV 40 MG VIAL IV SCH (18:19)
[2018-03-16] MEDS ORDERED: ATORVASTATIN 20 MG TAB PO ONE (19:25)
[2018-03-16] MEDS ORDERED: ALBUTEROL SULFATE 2.5 MG/3 ML VIAL NEB PRN (20:29)
[2018-03-16] MEDS: SERTRALINE HCL 50 MG TAB PO SCH (20:34)
[2018-03-16] MEDS: SODIUM CHLORIDE 0.9% (FLUSH) 10 ML SYG IV SCH (20:34)
[2018-03-16] MEDS: DOCUSATE SODIUM 100 MG CAP PO SCH (20:34)
[2018-03-16] MEDS: ENOXAPARIN SODIUM 40 MG/0.4 ML SYG SUBCU SCH (20:34)
[2018-03-16] MEDS ORDERED: NON-FORMULARY MEDICATION 1 EA MIS (Atorvastatin Calcium [Lipitor] 40 MG) PO SCH (21:00)
[2018-03-16] MEDS ORDERED: SENNOSIDES 8.6 MG TAB PO SCH (21:00)
[2018-03-16] MEDS ORDERED: PREGABALIN 75 MG CAP PO SCH (21:00)
[2018-03-16] MEDS ORDERED: traZODone HCL 50 MG TAB PO SCH (21:00)
[2018-03-17] MEDS ORDERED: cefTRIAXone SODIUM 1 GM VIAL ONE (07:42)
[2018-03-17] MEDS ORDERED: PREGABALIN 100 MG CAP ONE (07:43)
[2018-03-17] MEDS ORDERED: SODIUM CHL 0.9% 50ML MIN-BAG+ 50 ML IVPB ONE (07:44)
[2018-03-17] MEDS ORDERED: SODIUM CHL 0.9% 100ML MINI-BAG 0 ML IVPB ONE (07:44)
[2018-03-17] MEDS ORDERED: ONDANSETRON ODT 8 MG TAB PO PRN (08:00)
[2018-03-17] MEDS: cefTRIAXone SODIUM 1 GM in SODIUM CHL 0.9% 50ML MIN-BAG+ 50 ML IVPB SCH (08:17)
[2018-03-17] MEDS: VERAPAMIL ER TAB 180 MG TAB PO SCH (08:17)
[2018-03-17] MEDS: CLOPIDOGREL 75 MG TAB PO SCH (08:17)
[2018-03-17] MEDS: PREGABALIN 100 MG CAP PO SCH ×2 (08:17→21:10)
[2018-03-17] MEDS: ALBUTEROL SULFATE 2.5 MG/3 ML VIAL NEB SCH ×4 (08:26→20:18)
[2018-03-17] MEDS ORDERED: SUMAtriptan SUCCINATE 50 MG TAB PO PRN (12:04)
[2018-03-17] MEDS: HYDROcodone 10MG/APAP 325MG 1 EA TAB PO PRN ×2 (12:46→21:13)
[2018-03-17] MEDS ORDERED: SODIUM CHLORIDE 0.45% 1000ML 1,000 ML IVS ONE (16:26)
[2018-03-17] MEDS: SODIUM CHLORIDE 0.9% (FLUSH) 10 ML SYG IV SCH ×2 (16:44→22:09)
[2018-03-17] MEDS: PANTOPRAZOLE SODIUM IV 40 MG VIAL IV SCH (18:48)
[2018-03-17] MEDS ORDERED: traZODone HCL 100 MG TAB PO SCH (21:00)
[2018-03-17] MEDS ORDERED: ATORVASTATIN 20 MG TAB PO SCH (21:00)
[2018-03-17] MEDS: DOCUSATE SODIUM 100 MG CAP PO SCH (21:09)
[2018-03-17] MEDS: SERTRALINE HCL 50 MG TAB PO SCH (21:10)
[2018-03-17] MEDS: ENOXAPARIN SODIUM 40 MG/0.4 ML SYG SUBCU SCH (21:11)
[2018-03-18] MEDS: ALBUTEROL SULFATE 2.5 MG/3 ML VIAL NEB SCH ×2 (07:46→11:28)
[2018-03-18] MEDS ORDERED: SODIUM CHL 0.9% 50ML MIN-BAG+ 50 ML IVPB ONE (08:12)
[2018-03-18] MEDS ORDERED: cefTRIAXone SODIUM 1 GM VIAL ONE (08:13)
[2018-03-18] MEDS: cefTRIAXone SODIUM 1 GM in SODIUM CHL 0.9% 50ML MIN-BAG+ 50 ML IVPB SCH (09:15)
[2018-03-18] MEDS: VERAPAMIL ER TAB 180 MG TAB PO SCH (09:16)
[2018-03-18] MEDS: CLOPIDOGREL 75 MG TAB PO SCH (09:16)
[2018-03-18] MEDS: PREGABALIN 100 MG CAP PO SCH (09:16)
[2018-03-18] MEDS: SODIUM CHLORIDE 0.9% (FLUSH) 10 ML SYG IV SCH (09:17)
[2018-03-18 10:38] VITALS: BP 136/73; TEMP 97.5
[2018-03-18 11:31] VITALS: O2SAT 92
--- NOTE | 2018-03-18 19:05 | PN ---
DATE: 03/17/18 SUPERVISING PHYSICIAN: Car Roberts M.D. SUBJECTIVE: The patient is sitting up in bed. She complains of a headache. It is one of her typical migraines. She did forget to put her Triptan on her home medication list. We discussed that I would start Imitrex for her. Otherwise her tailbone continues to hurt, but her lower back pain has improved. Denies shortness of breath, chest pain, nausea or vomiting. OBJECTIVE: VITAL SIGNS: Temperature 98.3, heart rate 80, blood pressure 94/60, respiratory rate 20, O2 sat is 92% on 2 liters nasal cannula. RESPIRATORY: Essentially clear to auscultation bilaterally. CARDIAC: Regular rate and rhythm. GASTROINTESTINAL: Abdomen is soft, nondistended, non-tender. Bowel sounds are positive. There is no CVA tenderness. NEUROLOGIC: She is awake, alert and oriented times three. LABORATORY: WBCs have improved to 4,200 with a stable hemoglobin of 10.5 and hematocrit 31.8. Electrolytes are basically within normal limits. Alkaline phosphatase is slightly elevated at 122. Preliminary blood cultures show no growth after 24 hours. Urine culture is pending. All other labs and films have been reviewed via the EMR. ASSESSMENT: 1. Urosepsis with dehydration and single syncopal episode with admission temperature of 96.7. WBCs of 3900 that have now normalized to 4200. Blood pressure remains in the 90s/60s but her baseline systolic blood pressure is usually in the 90s to 100s. She is presently on Rocephin. 2. Syncopal episode most likely related to dehydration and #1 resulting in a mild trauma to her posterior head, neck and coccyx area. 3. Chronic obstructive pulmonary disease. 4. Hypertension. 5. Gastroesophageal reflux disease. 6. Chronic neck and lower back pain on narcotics managed by Dr. Carcamo. 7. Normocytic normochromic anemia. PLAN: We will continue present supportive care. Will monitor her cultures and change antibiotics if needed. She has improved clinically, although she is still quite sore from the fall. Her neurologic checks have been stable. I have ordered some p.o. Imitrex for her migraines and restarted her Fossil pain medication. Encouraged good pulmonary hygiene. We will repeat her lab in the morning and hopefully she can be discharged in the next [address] Roberts is the collaborating physician available for consultation. #[id number] [facility]
--- NOTE | 2018-03-18 20:51 | DS ---
SUPERVISING PHYSICIAN: Car Roberts M.D. DISCHARGE DIAGNOSIS: 1. Urosepsis with dehydration and single syncopal episode with admission temperature of 96.7. WBCs of 3900 on admission, today they were 4700. 2. Syncopal episode most likely related to dehydration and #1 resulting in a mild trauma to her posterior head, neck and coccyx area. 3. Chronic obstructive pulmonary disease. 4. Hypertension. 5. Gastroesophageal reflux disease. 6. Chronic neck and lower back pain on narcotics managed by Dr. Carcamo. 7. Normocytic normochromic anemia. HISTORY OF PRESENT ILLNESS: This is a 67 year-old female patient who was in her usual state of health. She uses a walker most of the time. She was watching her dog standing in a doorway and for some unknown reason she said she passed out and fell straight back. She hit the floor on her buttocks as well as the back of her head. She does not remember an actual loss of consciousness , except during the syncopal episode. She pushed the alarm around her neck and her son brought her to the Emergency Room. In the E. R., she complained of low back pain, tailbone pain, mild neck pain and mild head pain. Lab done in the Emergency Room showed WBCs of 3900 with hemoglobin 10.6 and hematocrit 32. Electrolytes were basically within normal limits with the exception of her BUN was elevated at 21, creatinine normal at 0.78 and alkaline phosphatase was 139. Urine drug screen was negative. Urinalysis showed positive urine nitrite, small amount of urine leukoesterase, 3 to 5 urine WBCs and 2+ urine bacteria. Radiology reports include a CT cervical spine that showed: 1. ACDF C3 to 4 customary position and near anatomical alignment. No bony or hardware complications. 2. Bilateral neuroforaminal narrowing at C2 to 3 with facet arthrosis and uncinate spurs. No bony abnormality. 3. Posterior spondylosis of C6 to 7 with mild bilateral neural foraminal narrowing, not acute. Her lumbar CT showed no acute compression type vertebral body fractures of the lumbar spine and no significant retropulsion. The compression of T12, L2 and L4 and 5 vertebral bodies were stable with possible bilateral foraminal stenosis , easy bony elements at T12 to L1. Head CT showed no hemorrhage, no mass effect, no midline shift, probably microvascular disease. Carotid artery ultrasound showed no significant amount of plaque seen in the carotid arteries. All other labs and films were reviewed in the EMR. The patient was given some fluids. Vital signs: she was hypothermic at 96.7 with a heart rate in the 60s, although she did have several recorded heart rates in the 80s. Her blood pressure was as low as 95/62, after fluids was up to 127/76, respiratory 18, 02 saturation 90% on 2 liters nasal cannula. The patient was admitted for urosepsis as well as a syncopal episode. HOSPITAL COURSE: The patient was placed on Rocephin. Blood cultures were done. Urine culture was sent off. She was given fluids. WBCs normalized to 4, 700 today with a stable hemoglobin and hematocrit of 10.1 and 30.7. Electrolytes today were basically within normal limits. Alkaline phosphatase normalized today at 121. Urine culture is still pending. Preliminary blood cultures show no growth after 48 hours. Vital signs are stable. Initially she did have a rather low blood pressure, but her baseline systolic blood pressure is in the 90s to 110s. Her clinical condition improved and today she can be discharged home in stable condition. DISCHARGE PLAN: The patient will be discharged home in stable condition. She is to resume her previous medications. I have also sent her home on some Cefdinir. She has a followup appointment with her primary care physician, Dr. Kwame Barrera, on , 03/22/18 at 9:30 AM. It would be beneficial to check her urine cultures at that time as her sensitivities are not back. She is to return to the hospital or call Dr. Barrera's office for any problems or complications. DISCHARGE MEDICATIONS: 1. Plavix. 2. Aspirin. 3. Lyrica. 4. Nexium. 5. Verapamil. 6. Sertraline. 7. Colace. 8. Senokot. 9. Atorvastatin. 10. Albuterol nebs. 11. Trazodone. 12. Zofran. 13. Cefdinir. #[id number] [facility]
== END 2018-03-18 13:00 | disposition home or self-care (01) | DRG 690 ==
LOC: ER 12:02 → MS 15:45
PROVIDERS: ADMIT Nurse Practitioner Acute Care; ATTEND Nurse Practitioner Acute Care
DX: N12 Tubulo-interstitial nephritis, not specified as acute or chronic (principal); R55 Syncope and collapse; M47.892 Other spondylosis, cervical region; I25.10 Atherosclerotic heart disease of native coronary artery without angina pectoris; I25.2 Old myocardial infarction; J44.9 Chronic obstructive pulmonary disease, unspecified; G89.29 Other chronic pain; M19.90 Unspecified osteoarthritis, unspecified site; G43.909 Migraine, unspecified, not intractable, without status migrainosus; F32.9 Major depressive disorder, single episode, unspecified; E78.5 Hyperlipidemia, unspecified; I10 Essential (primary) hypertension; K21.9 Gastro-esophageal reflux disease without esophagitis; D50.9 Iron deficiency anemia, unspecified; Z95.5 Presence of coronary angioplasty implant and graft; Z96.643 Presence of artificial hip joint, bilateral; Z79.02 Long term (current) use of antithrombotics/antiplatelets; Z79.82 Long term (current) use of aspirin; Z88.0 Allergy status to penicillin; Z88.2 Allergy status to sulfonamides; E86.0 Dehydration

== ENCOUNTER 2018-04-21 14:22 | Inpatient (IN) | payer MEDICARE, MEDICAID ==
[2018-04-21] MEDS ORDERED: ATORVASTATIN 20 MG TAB PO ONE (14:32)
[2018-04-21] MEDS ORDERED: MORPHINE SULFATE INJ 10 MG/ML VIAL IV ONE ×2 (14:32→15:59)
--- NOTE | 2018-04-21 14:36 | ED.PDOC ---
History of Present Illness - General Chief Complaint: Chest Pain/CO Stated Complaint: chest pain Time Seen by Provider: 04/21/18 14:31 Source: patient, EMS Exam Limitations: no limitations - History of Present Illness Initial Comments: patient comes in today with 1 hour history of worsening chest pain. The pain is left-sided, sharp, associated with some nausea, and occurred at rest. Patient has had heart attacks in the past and the last was 2-3 years ago. Patient states she is unsure if this is similar pain and she does not number was not felt likely. Patient states she's had no problems since the last attack to 3 years ago. Patient states the morphine they gave her in route did not help and she was given aspirin by EMS as well. Patient has mild shortness of breath but she does have a baseline of COPD that time is O2 dependent. Patient's option level this morning prior to chest discomfort were 91%. Patient has no diaphoresis, trauma, or recent change in activity. She denies any swelling of her legs nor prolonged travel. Patient has not recently been sick and does not have any cough, congestion, fever, or chills. Timing/Duration: 1 hour Severity/Quality: severe, sharp Location: other - left chest wall Chest Pain Radiation: no radiation Activities at Onset: rest Prior Chest Pain/Cardiac Workup: heart attack Improving Factors: nothing Worsening Factors: movement Nitro Today/Relief: 0.4 mg x 1, provided by EMS Aspirin Treatment Today: 325 mg x 1, provided by EMS Associated Symptoms: nausea/vomiting Allergies/Adverse Reactions: Allergies Penicillins Allergy (Mild, Verified 03/16/18 17:57) Unknown Sulfa Antibiotics Allergy (Unknown, Verified 03/16/18 17:57) Unknown Sulfamethoxazole w/Trimethoprim [From Bactrim] Allergy (Unknown, Verified 17:56) Unknown ADHESIVE TAPE Allergy (Mild, Uncoded 03/16/18 17:57) Unknown Home Medications: Ambulatory Orders Aspirin [Aspir-81] 81 mg PO AM 08/31/12 Clopidogrel Bisulfate [Plavix] 75 mg PO AM 08/31/12 Esomeprazole [Nexium] 40 mg PO DAILY@0700 08/31/12 Pregabalin [Lyrica] 300 mg PO BID 08/31/12 Verapamil HCl ER [Isoptin Sr] 180 mg PO DAILY 01/13/15 Docusate Sodium [Colace] 100 mg PO BEDTIME 05/06/16 Sennosides [Senokot] 17.2 mg PO BEDTIME 05/06/16 Sertraline HCl [Zoloft] 200 mg PO BEDTIME 05/06/16 Albuterol Sulfate Nebs [Proventil Nebs] 2.5 mg INH QID PRN 08/16/16 Atorvastatin Calcium [Lipitor] 40 mg PO BEDTIME 08/16/16 Trazodone HCl 100 mg PO BEDTIME #30 tab 03/22/17 Ondansetron [Zofran Odt] 4 mg PO Q6HR PRN #12 tab 06/25/17 Review of Systems - Review of Systems Constitutional: States: no symptoms reported. Denies: chills, diaphoresis, fever, weakness EENTM: States: no symptoms reported. Denies: eye pain, ear pain, nose pain, throat pain Respiratory: States: no symptoms reported. Denies: cough, short of breath, wheezing Cardiology: States: no symptoms reported, chest pain, palpitations Gastrointestinal/Abdominal: States: nausea. Denies: abdominal pain, constipation, diarrhea, vomiting Genitourinary: States: no symptoms reported Musculoskeletal: States: no symptoms reported Skin: States: no symptoms reported Neurological: States: no symptoms reported Endocrine: States: no symptoms reported Past Medical History (General) - Patient Medical History Hx Seizures: No Hx Stroke: Yes - 2009 Hx Dementia: No Hx Asthma: No Hx of COPD: Yes Hx Cardiac Disorders: Yes - CO; cardiac stents Hx Congestive Heart Failure: Yes Hx Pacemaker: No Hx Hypertension: No Hx Thyroid Disease: No Hx Diabetes: No Hx Gastroesophageal Reflux: Yes - HIATAL HERNIA Hx Renal Disease: No Hx Cancer: No Hx of HIV: No Hx Hepatitis C: No Hx MRSA: No MRSA Source:: Wound - Vaccination History Hx Tetanus, Diphtheria Vaccination: Yes Hx Influenza Vaccination: Yes Hx Pneumococcal Vaccination: Yes - Social History Hx Tobacco Use: No Hx Alcohol Use: No Hx Substance Use: No Hx Substance Use Treatment: No Hx Depression: Yes Hx Physical Abuse: No Hx Emotional Abuse: No Hx Suspected Abuse: No - Female History Patient : No Family Medical History - Family History Mother Family History: Unknown Living Status: Hx Family;Other: SHE DID NOT KNOW PARENTS AND SHE DOES NOT KNOW FH HISTORY. PT ADOPTED Physical Exam - Physical Exam General Appearance: Alert, Comfortable, No apparent distress Eyes, Ears, Nose, Throat Exam: PERRL/EOMI, normal ENT inspection, TMs normal, pharynx normal Neck: non-tender, full range of motion, supple, normal inspection Respiratory: chest non-tender, lungs clear, normal breath sounds, no respiratory distress Cardiovascular/Chest: normal peripheral pulses, regular rate, rhythm, no edema, no gallop, no JVD, no murmur Gastrointestinal/Abdominal: normal bowel sounds, non tender, soft, no organomegaly Extremity: normal range of motion, non-tender, normal inspection Neurologic: 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 Modified wells score of 3. We have ordered toradol for pain and CTA for diagnoisis. At this time will hold on anticoagulation as CTA is immediately available 15:18 04/21/18 16:28 discussed with manager oncology BIOMETRICS TECHNICIAN Jose Manuel Bacon and will admit for pneumonia as she is requiring oxygen at this time 2 L - Results/Orders Results/Orders: Patient Name: LESLY SANDOVAL Gender: Female Date of : 1950 Referring Physician: JEFF RAMEY Organization: [facility] Accession Number: [id number] Requested Date: April 21, 2018 14:32 Report Status: Final Requested Procedure: 1 Procedure Description: Chest,1 View Modality: CR Findings Reporting MD: Valeriano Posada Fellow MD: Not available Dictation Time: Institutional Custodian: Not available Museum Librarian Date: EXAM DESCRIPTION: Chest,1 View CLINICAL HISTORY: chest pain COMPARISON: 03/22/2017 FINDINGS: Cardiac silhouette is unchanged. There is a probable moderate hiatal hernia. Pulmonary edema has worsened bilaterally. There is increased consolidation at the left lung base. Small bilateral pleural effusions. IMPRESSION: Worsened pulmonary edema with left lung base consolidation. Bilateral effusions. Electronically signed by 04/21/18 14:45 EKG STAT 04/21/18 15:06 [email or web address] SODIUM [Rocephin] 1 gm Sodium Chl 0.9% 50Ml Min-Bag+ [NS 50ml MINI -BAG+] 50 ml IVPB ONCE 04/21/18 15:14 CTA Chest [CT] Stat Laboratory Results WBC 4.1 K/mm3 (4.8-10.8) L 04/21/18 14:20 RBC 4.14 M/mm3 (4.20-5.40) L 04/21/18 14:20 Hgb 12.5 gm/dL (12.0-16.0) 04/21/18 14:20 Hct 38.2 % (36.0-47.0) 04/21/18 14:20 MCV 92.2 fl (81.0-99.0) 04/21/18 14:20 MCH 30.1 pg (27.0-31.0) 04/21/18 14:20 MCHC 32.6 g/dL (33.0-37.0) L 04/21/18 14:20 RDW 14.7 % (11.5-14.5) H 04/21/18 14:20 Plt Count 211 K/mm3 (130-400) 04/21/18 14:20 MPV 8.8 fl (7.40-10.4) 04/21/18 14:20 Absolute Neuts (auto) 2.80 K/uL (1.8-6.8) 04/21/18 14:20 Absolute Lymphs (auto) 0.80 K/uL (1.0-3.4) L 04/21/18 14:20 Absolute Monos (auto) 0.40 K/uL (0.2-0.8) 04/21/18 14:20 Absolute Eos (auto) 0.00 K/uL (0.0-0.4) 04/21/18 14:20 Absolute Basos (auto) 0.00 K/uL (0.0-0.1) 04/21/18 14:20 Neutrophils % 68.7 % (42.0-78.0) 04/21/18 14:20 Lymphocytes % 20.4 % (20.0-50.0) 04/21/18 14:20 Monocytes % 9.8 % (2.0-9.0) H 04/21/18 14:20 Eosinophils % 0.8 % (1.0-5.0) L 04/21/18 14:20 Basophils % 0.3 % (0.0-2.0) 04/21/18 14:20 PT 9.8 SECONDS (9.0-10.9) 04/21/18 14:20 INR 0.98 (0.9-1.15) 04/21/18 14:20 PTT (SP) 25.4 SECONDS (21.8-31.6) 04/21/18 14:20 D-Dimer, Quantitative 1.94 mg/L FEU (0-0.49) H* 04/21/18 14:20 Sodium 141 mmol/L (135-145) 04/21/18 14:20 Potassium 3.6 mmol/L (3.6-5.0) 04/21/18 14:20 Chloride 103 mmol/L (101-111) 04/21/18 14:20 Carbon Dioxide 31 mmol/L (21-31) 04/21/18 14:20 Anion Gap 10.6 (12-18) L 04/21/18 14:20 BUN 16 mg/dL (7-18) 04/21/18 14:20 Creatinine 0.65 mg/dL (0.6-1.3) 04/21/18 14:20 BUN/Creatinine Ratio 24.6 (10-20) H 04/21/18 14:20 Random Glucose 104 mg/dL (70-105) 04/21/18 14:20 Serum Osmolality 282.8 mOsm/L (275-295) 04/21/18 14:20 Calcium 9.4 mg/dL (8.4-10.2) 04/21/18 14:20 Magnesium 2.0 mg/dL (1.8-2.5) 04/21/18 14:20 Total Bilirubin 0.3 mg/dL (0.2-1.0) 04/21/18 14:20 AST 17 IU/L (10-42) 04/21/18 14:20 ALT < 8 IU/L (10-60) L 04/21/18 14:20 Alkaline Phosphatase 200 IU/L (42-121) H 04/21/18 14:20 Creatine Kinase 34 IU/L (26-140) 04/21/18 14:20 CK-MB (CK-2) 1.1 ng/mL (0.0-4.4) 04/21/18 14:20 CK-MB (CK-2) % Not Reportable 04/21/18 14:20 Troponin I < 0.02 ng/mL (0.01-0.05) 04/21/18 14:20 Serum Total Protein 7.3 gm/dL (6.4-8.2) 04/21/18 14:20 Albumin 3.7 g/dl (3.2-5.5) 04/21/18 14:20 Globulin 3.6 gm/dL (2.3-3.5) H 04/21/18 14:20 Albumin/Globulin Ratio 1.0 (1.1-1.9) L 04/21/18 14:20 Patient Name: LESLY SANDOVAL Gender: Female Date of : 1950 Referring Physician: JEFF RAMEY Organization: [facility] Accession Number: [id number] Requested Date: April 21, 2018 15:14 Report Status: Final Requested Procedure: 1 Procedure Description: CTA Chest Modality: CT Findings Reporting MD: Valeriano Posada Fellow MD: Not available Dictation Time: Institutional Custodian: Not available Museum Librarian Date: PROCEDURE: CTA Chest CLINICAL HISTORY: 67 years Female elevated d-dimer COMPARISON: None. TECHNIQUE: Contiguous axial images were obtained through the chest during the infusion of IV contrast. Reformatted images obtained. MIP reformatted images obtained. This exam was performed according to our department optimization program which includes automated exposure control, adjustment of the mA and/or kv according to patient size and/or use of iterative reconstruction technique. FINDINGS: There is a large hiatal hernia. Mildly enlarged mediastinal lymph nodes. There is scattered groundglass opacification in both lungs. There is also scattered atelectasis. Pulmonary arteries are engorged bilaterally. No PE. Aorta is ectatic but not enlarged. Sequela of multiple kyphoplasty is. Chronic appearing rib fractures are seen. No pneumothorax is seen. Heart size is normal. No pleural effusions. IMPRESSION: Numerous bony abnormalities. Large hiatal hernia. No evidence of pulmonary embolus. - EKG/XRAY/CT EKG: Sinus, nonspecific ST T wave Chg, Changed from - 02/11/2017 T wave flattened compared to 2017 Comments: normal axis and normal QTC with no ST elevation Departure - Departure Clinical Impression: Pneumonia Qualifiers: Pneumonia type: due to unspecified organism Laterality: left Lung location: lower lobe of lung Qualified Code(s): J18.1 - Lobar pneumonia, unspecified organism Disposition: Admit Patient Condition: Good Departure Forms: ED Discharge - Pt. Copy, Patient Portal Self Enrollment Instructions: DI for Chest Pain Referrals: Kwame Barrera MD [Primary Care Provider] - 1-2 Weeks Home Medications: Ambulatory Orders Aspirin [Aspir-81] 81 mg PO AM 08/31/12 Clopidogrel Bisulfate [Plavix] 75 mg PO AM 08/31/12 Esomeprazole [Nexium] 40 mg PO DAILY@0700 08/31/12 Pregabalin [Lyrica] 300 mg PO BID 08/31/12 Verapamil HCl ER [Isoptin Sr] 180 mg PO DAILY 01/13/15 Docusate Sodium [Colace] 100 mg PO BEDTIME 05/06/16 Sennosides [Senokot] 17.2 mg PO BEDTIME 05/06/16 Sertraline HCl [Zoloft] 200 mg PO BEDTIME 05/06/16 Albuterol Sulfate Nebs [Proventil Nebs] 2.5 mg INH QID PRN 08/16/16 Atorvastatin Calcium [Lipitor] 40 mg PO BEDTIME 08/16/16 Trazodone HCl 100 mg PO BEDTIME #30 tab 03/22/17 Ondansetron [Zofran Odt] 4 mg PO Q6HR PRN #12 tab 06/25/17
--- NOTE | 2018-04-21 14:49 | RAD ---
EXAM DESCRIPTION: Chest,1 View CLINICAL HISTORY: chest pain COMPARISON: 03/22/2017 FINDINGS: Cardiac silhouette is unchanged. There is a probable moderate hiatal hernia. Pulmonary edema has worsened bilaterally. There is increased consolidation at the left lung base. Small bilateral pleural effusions. IMPRESSION: Worsened pulmonary edema with left lung base consolidation. Bilateral effusions. Electronically signed by: Valeriano Posada 04/21/2018 2:48 PM CDT
[2018-04-21] MEDS ORDERED: KETOROLAC TROMETHAMINE INJ 30 MG/ML VIAL IV ONE (15:04)
[2018-04-21] MEDS ORDERED: cefTRIAXone SODIUM 1 GM in SODIUM CHL 0.9% 50ML MIN-BAG+ 50 ML IVPB ONE (15:06)
[2018-04-21] MEDS ORDERED: cefTRIAXone SODIUM 1 GM VIAL ONE (15:10)
[2018-04-21] MEDS ORDERED: SODIUM CHL 0.9% 50ML MIN-BAG+ 50 ML IVPB ONE (15:11)
--- NOTE | 2018-04-21 16:07 | CT ---
PROCEDURE: CTA Chest CLINICAL HISTORY: 67 years Female elevated d-dimer COMPARISON: None. TECHNIQUE: Contiguous axial images were obtained through the chest during the infusion of IV contrast. Reformatted images obtained. MIP reformatted images obtained. This exam was performed according to our department optimization program which includes automated exposure control, adjustment of the mA and/or kv according to patient size and/or use of iterative reconstruction technique. FINDINGS: There is a large hiatal hernia. Mildly enlarged mediastinal lymph nodes. There is scattered groundglass opacification in both lungs. There is also scattered atelectasis. Pulmonary arteries are engorged bilaterally. No PE. Aorta is ectatic but not enlarged. Sequela of multiple kyphoplasty is. Chronic appearing rib fractures are seen. No pneumothorax is seen. Heart size is normal. No pleural effusions. IMPRESSION: Numerous bony abnormalities. Large hiatal hernia. No evidence of pulmonary embolus. Electronically signed by: Valeriano Posada 04/21/2018 4:06 PM CDT
--- NOTE | 2018-04-21 16:44 | HP ---
SUPERVISING PHYSICIAN: Ney Fernandez MD CHIEF COMPLAINT: Chest pain. HISTORY OF PRESENT ILLNESS: Ms. Herring is a 67 year-old female patient who presented to the Emergency Room after she had a one-hour history of increasing chest pain. She noted the chest pain was located on the left side, it is sharp, associated with a little bit of nausea and was occurring at rest. The patient notes she has had previous heart attacks in the past 3 years. She was taken to the Emergency Room via ambulance and prior to arrival she was given morphine which she noticed did not help, as well as aspiring. She was noted to be mildly short of breath on arrival and does have some chronic obstructive pulmonary disease and is 02 dependent. She notes the chest pain is fairly reproducible with deep inspiratory effort and coughing but denied any recent increase in a worsening cough or fevers. Initial workup in the Emergency Room showed she had a white count of 4,100 without a left shift. Coag showed an elevated D-dimer at 1.94.and cardiac enzymes showed initial troponin less than 0.02. Given the elevated D-dimer she was sent to radiology for CT of the chest and per radiology interpretation there was no evidence of pulmonary embolus but there was note of scattered ground glass opacifications in both lungs along with scattered atelectasis. Given the findings on CT and that there was no evidence of pulmonary embolism, she was found to have what looks like bilateral pneumonia, community acquired, and was started on treatments after blood cultures were completed. She was started on Rocephin initially and then Dr. Das, Emergency Room physician, requested the patient be admitted for further cardiac telemetry to rule out acute NE as well as treatment for underlying bilateral pneumonia. She was admitted in stable condition. PAST MEDICAL HISTORY: 1. Coronary artery disease 2. Myocardial infarctions in 2007, 2009 and 2014 with stint placements. 3. Chronic obstructive pulmonary disease. 4. History of diverticulosis. 5. Chronic neck and back pain. 6. History of fibromyalgia. 7. Osteoarthritis. 8. Multiple thoracic and lumbar vertebral fractures requiring multiple procedures in the past. 9. Chronic migraine. 10. Depression. 11. Hyperlipidemia. 12. Hypertension. 13. Gastroesophageal reflux disease. 14. Hiatal hernia. 15. Iron deficiency anemia. PAST SURGICAL HISTORY: 1. Hysterectomy. 2. Coronary stints in 2007, 2009 and 2014. 3. Kyphoplasty surgery. 4. Multiple neck and back surgeries. 5. Tummy tuck surgery. 6. Bilateral hip replacement. CURRENT MEDICATIONS: 1. Verapamil 180 mg daily. 2. Trazodone 100 mg at bedtime. 3. Zoloft 200 mg at bedtime. 4. Senokot 17.2 mg at bedtime. 5. Lyrica 300 mg b.i.d. 6. Zofran 4 mg every 6 hours as needed. 7. Nexium 40 mg daily. 8. Colace 100 mg at bedtime. 9. Plavix.75 mg daily. 10. Lipitor 40 mg daily. 11. Aspirin.81 mg daily. 12. Proventil nebulizer 2.5 mg inhaled q.i.d. if needed. ALLERGIES: PENICILLIN AND ADHESIVE TAPE, SULFA ANTIBIOTICS. FAMILY HISTORY: She is adopted so family history is known. SOCIAL HISTORY: She is retired. She lives in [place]. She has never smoked, used alcohol or illicit drugs. REVIEW OF SYSTEMS: GENERAL: Denies fever, chills, diaphoresis or weakness. . HEENT: Denies ear pain, sore throat, earache, nose pain.. RESPIRATORY: Denies coughing, wheezing, shortness of breath. CARDIAC: Noted as in history of present illness. Chest pains, palpitations.. ABDOMEN: Denies abdominal pain, constipation, diarrhea or vomiting. . GENITOURINARY: Denies dysuria, hematuria or polyuria or other urinary symptoms. NEURO: Denies syncopal episodes, dizziness, ataxia or other neuro or focal deficits. LABORATORY: CBC on admission showed a white count of 4,100 with hemoglobin 12.5 , hematocrit 38.2, platelet count 211,000. Differential showed to be without a left shift. Coagulation studies showed normal PT/PTT but elevated D-dimer at 1.94. Chemistries showed normal electrolytes, potassium 3.6, BUN 16, creatinine 0.65, magnesium normal at 2.0. Liver functions all showed to be within normal limits. Troponin x2 sets was less than 0.02. MICROBIOLOGY: Blood cultures pending. Sputum culture pending. RADIOLOGY: She initially had a chest x-ray in the Emergency Room and per radiology interpretation shows probable moderate hiatal hernia with pulmonary edema worsened bilaterally. There is increasing consolidations in the left lung base. This was followed up with a CT of the chest to rule out PE and per radiology interpretation there was no evidence of an acute pulmonary embolus. There was note of a large hiatal hernia and scattered ground glass opacifications in both lungs and scattered atelectasis. EKG showed there was note of T-wave flattening compared to a previous one in January of [address] elevation. PHYSICAL EXAMINATION: VITAL SIGNS: Temperature 98.1, pulse 88, blood pressure 109/69, respirations 18 , satting 89% on nasal cannula at 2 liters. Admission weight is 63.9 kg. GENERAL: On admission to the Medical/Surgical floor, the patient appears to be comfortable in no acute distress. She is alert. HEENT: Tympanic membranes are clear bilaterally. Oropharynx was pink and moist without any lesions. NECK: Supple, non-tender. Full range of motion. No jugular venous distention. CHEST: Lung sounds were diminished throughout with a significant amount of rhonchi heard on the lateral aspect of the left side greater than the right with a faint inspiratory wheeze bilaterally. CARDIOVASCULAR: Regular rate and rhythm without appreciable murmurs, gallops, or rubs. ABDOMEN: Soft, non-tender. Positive bowel sounds. EXTREMITIES: Without any clubbing, cyanosis or edema. NEUROLOGIC: She is alert and oriented times three. ASSESSMENT: 1. Acute exacerbation of chronic obstructive pulmonary disease with bilateral pneumonia, likely community acquired. 2. Chest pains requiring further rule out, although more likely associated with underlying pneumonia developing more so in the left than the right. 3. Elevated D-dimer without any evidence of PE on CTA of the chest felt to be due to the underlying pneumonia developing. 4. Hypertension. 5. Gastroesophageal reflux disease. 6. Chronic neck and lower back pain on narcotics and followed by Dr. Carcamo. PLAN: The patient is going to be admitted to the hospital for ongoing treatment of the bilateral pneumonia as well as further rule out acute myocardial infarction. She will be placed on telemetry with cardiac enzymes measured 6 hours after admission as well as EKGs. She will be started on Rocephin and azithromycin for pneumonia as well as aggressive bronchial hygiene with breathing treatments as needed. Will anticipate her length of stay to be at least 2 to 3 days. She will be on DVT prophylaxis per protocol. We will resume home medications once those are updated and verified. Until discharge, we will continue to monitor and treat as needed. #[id number] [facility]
[2018-04-21] MEDS ORDERED: ALBUTEROL SULFATE 2.5 MG/3 ML VIAL NEB PRN (20:32)
[2018-04-21] MEDS ORDERED: ONDANSETRON INJ 4 MG/2 ML VIAL IV PRN (20:32)
[2018-04-21] MEDS ORDERED: SODIUM CHLORIDE 0.9% 250ML 250 ML ONE (20:56)
[2018-04-21] MEDS ORDERED: traZODone HCL 100 MG TAB PO ONE (20:56)
[2018-04-21] MEDS ORDERED: AZITHROMYCIN IV 500 MG VIAL IVPB ONE (20:57)
[2018-04-21] MEDS ORDERED: PREGABALIN 75 MG CAP PO SCH (21:00)
[2018-04-21] MEDS ORDERED: IV SET AND CAP CHANGE INJ INJ SCH (21:00)
[2018-04-21] MEDS: SODIUM CHLORIDE 0.9% (FLUSH) 10 ML SYG IV PRN (21:03)
[2018-04-21] MEDS: traZODone HCL 50 MG TAB PO SCH (21:05)
[2018-04-21] MEDS: AZITHROMYCIN IV 500 MG in SODIUM CHLORIDE 0.9% 250ML 250 ML IVPB SCH (21:05)
[2018-04-21] MEDS: ACETAMINOPHEN 325 MG TAB PO PRN (21:05)
[2018-04-21] MEDS: DOCUSATE SODIUM 100 MG CAP PO SCH (21:05)
[2018-04-21] MEDS: SERTRALINE HCL 50 MG TAB PO SCH (21:05)
[2018-04-21] MEDS: KCL 20MEQ/0.45% NS 1,000 ML IVS PRN (23:26)
[2018-04-22] MEDS: ACETAMINOPHEN 325 MG TAB PO PRN (05:51)
--- NOTE | 2018-04-22 06:40 | RAD ---
EXAM: AP CHEST RADIOGRAPH CLINICAL INDICATION: Pneumonia. COMPARISON: Yesterday's chest radiograph at 1438 hours. FINDINGS: Cardiac size remains normal. Improving pulmonary congestion. Residual left basilar atelectasis. No pleural effusions or pneumothorax. IMPRESSION: Improving chest radiograph. Electronically signed by: Lewis Grace MD 04/22/2018 6:39 AM CDT
[2018-04-22] MEDS ORDERED: SODIUM CHL 0.9% 50ML MIN-BAG+ 50 ML IVPB ONE (08:34)
[2018-04-22] MEDS ORDERED: cefTRIAXone SODIUM 1 GM VIAL ONE (08:34)
[2018-04-22] MEDS: cefTRIAXone SODIUM 1 GM in SODIUM CHL 0.9% 50ML MIN-BAG+ 50 ML IVPB SCH (08:36)
[2018-04-22] MEDS: ASPIRIN (ENTERIC COATED) 81 MG TAB PO SCH (08:37)
[2018-04-22] MEDS: CLOPIDOGREL 75 MG TAB PO SCH (08:37)
[2018-04-22] MEDS: PREGABALIN 100 MG CAP PO SCH ×2 (08:37→21:22)
[2018-04-22] MEDS: VERAPAMIL ER TAB 180 MG TAB PO SCH (08:37)
[2018-04-22] MEDS: IPRATROPIUM/ALBUTEROL 3 ML VIAL NEB SCH ×4 (08:48→20:33)
[2018-04-22] MEDS ORDERED: KETOROLAC TROMETHAMINE INJ 30 MG/ML VIAL IV PRN (09:56)
[2018-04-22] MEDS ORDERED: methylPREDNISolone SODIUM SUC 125 MG/2 ML VIAL IV ONE (09:57)
[2018-04-22] MEDS ORDERED: KETOROLAC TROMETHAMINE INJ 30 MG/ML VIAL ONE (10:16)
[2018-04-22] MEDS: KCL 20MEQ/0.45% NS 1,000 ML IVS PRN (10:29)
[2018-04-22] MEDS: MORPHINE SULFATE INJ 10 MG/ML VIAL IV PRN ×2 (14:14→21:13)
--- NOTE | 2018-04-22 14:24 | PN ---
DATE: 04/22/18 SUPERVISING PHYSICIAN: Ney Fernandez MD SUBJECTIVE: Patient this morning still has some chest wall discomfort with deep inspiratory effort and moving. She denied any recent falls but does have worsening pneumonia on that side. She has been afebrile without any nausea or vomiting. OBJECTIVE: VITAL SIGNS: Temperature 97.6, pulse71, blood pressure 124/86, respirations 18 , saturation 96% on nasal cannula at 2 liters. I&O: Weight 63.9 kg. CHEST: Lung sounds are diminished throughout, although more aerated than yesterday with continued rhonchi greater on the left than the right heard better on the posterolateral aspect on the left side. HEART: Regular rate and rhythm. ABDOMEN: Soft, non-tender, positive bowel sounds. EXTREMITIES: Without cyanosis, clubbing, or edema. NEUROLOGIC: She is alert and oriented x 3. LABORATORY: White count down to 2.85 with hemoglobin 11.1 and hematocrit 32.3 with platelet count of 192,000. Differential does show to be without a left shift but has reported 8% bands. Chemistries show normal electrolytes, BUN 11, creatinine 0.6, glucose 94, calcium 9.3. MICROBIOLOGY: Sputum culture and blood cultures are pending. RADIOLOGY: Repeat single view chest this morning per radiology interpretation shows improved chest radiograph with improving pulmonary congestion, residual left basilar atelectasis. ASSESSMENT: 1. Acute exacerbation of chronic obstructive pulmonary disease with bilateral pneumonia, likely community acquired. 2. Neutropenia, uncertain etiology with patient having an active case of pneumonia but remains afebrile. 3 Chest wall pains reproducible with deep inspiration and any movement felt to be due to underlying pleurisy from underlying infectious process identified as pneumonia. 4. Elevated D-dimer likely due to the developing pneumonia but no PE seen on CTA of the chest. 5. Hypertension, stable and monitoring. 6. Gastroesophageal reflux disease, stable and monitoring. 7. Chronic neck and lower back pain on narcotics and followed by Dr. Carcamo. PLAN: Will continue antibiotics at this point with Rocephin and azithromycin. Given that she does have a low white count and has some chest wall pain, I will go ahead and try some Solu-Medrol hopefully to stimulate some immune response as well as assist in some relief of the chest wall pain. Will also try some Toradol 15 mg with a max of 2 doses as needed for continued neck pain. She will be on aggressive pulmonary hygiene and continued breathing treatments. We plan to reevaluate labs in the morning as well as a chest x-ray and hopefully will discharge in the morning. She has noted that she would like to go home tomorrow as early as possible. She has an appointment with her orthopedic surgeon regarding her hips. Until discharge will continue to monitor the patient and treat as needed. #[id number] [facility]
[2018-04-22] MEDS: SENNOSIDES 8.6 MG TAB PO SCH ×2 (18:55→21:22)
[2018-04-22] MEDS ORDERED: SODIUM CHLORIDE 0.9% 250ML 250 ML ONE (19:35)
[2018-04-22] MEDS ORDERED: AZITHROMYCIN IV 500 MG VIAL IVPB ONE (19:36)
[2018-04-22] MEDS: SODIUM CHLORIDE 0.9% (FLUSH) 10 ML SYG IV PRN (21:13)
[2018-04-22] MEDS: AZITHROMYCIN IV 500 MG in SODIUM CHLORIDE 0.9% 250ML 250 ML IVPB SCH (21:15)
[2018-04-22] MEDS: traZODone HCL 50 MG TAB PO SCH (21:22)
[2018-04-22] MEDS: DOCUSATE SODIUM 100 MG CAP PO SCH (21:22)
[2018-04-22] MEDS: SERTRALINE HCL 50 MG TAB PO SCH (21:22)
[2018-04-23] MEDS: SODIUM CHLORIDE 0.9% (FLUSH) 10 ML SYG IV PRN ×2 (01:12→05:15)
[2018-04-23] MEDS: MORPHINE SULFATE INJ 10 MG/ML VIAL IV PRN ×4 (01:13→20:54)
[2018-04-23] MEDS: KCL 20MEQ/0.45% NS 1,000 ML IVS PRN ×2 (02:57→14:41)
--- NOTE | 2018-04-23 07:18 | RAD ---
EXAM DESCRIPTION: Chest,2 Views CLINICAL HISTORY:67 years Female, pneumonia Comparison: April 22, 2018 FINDINGS: Very large hiatal hernia. Improving left basilar opacities may represent atelectasis or pneumonia. Cardiac silhouette is unchanged. Electronically signed by: Yonathan Martinez MD 04/23/2018 7:16 AM CDT
[2018-04-23] MEDS ORDERED: SODIUM CHL 0.9% 50ML MIN-BAG+ 50 ML IVPB ONE (07:43)
[2018-04-23] MEDS ORDERED: cefTRIAXone SODIUM 1 GM VIAL ONE (07:44)
[2018-04-23] MEDS: IPRATROPIUM/ALBUTEROL 3 ML VIAL NEB SCH ×4 (08:11→21:02)
[2018-04-23] MEDS: cefTRIAXone SODIUM 1 GM in SODIUM CHL 0.9% 50ML MIN-BAG+ 50 ML IVPB SCH (08:17)
[2018-04-23] MEDS: CLOPIDOGREL 75 MG TAB PO SCH (09:12)
[2018-04-23] MEDS: VERAPAMIL ER TAB 180 MG TAB PO SCH (09:12)
[2018-04-23] MEDS: PREGABALIN 100 MG CAP PO SCH ×2 (09:13→20:53)
[2018-04-23] MEDS: ASPIRIN (ENTERIC COATED) 81 MG TAB PO SCH (09:13)
--- NOTE | 2018-04-23 14:42 | PN ---
SUPERVISING PHYSICIAN: Car Roberts MD DATE: 04/23/18 SUBJECTIVE: The patient still feels a little bit short of breath with exertional effort. In fact, she had an ambulatory study in efforts to see if she was ready to go home today and even on 2 liters, she was desaturating with minimal ambulation to 88%. She has been afebrile. She has not had any chest pain other than that reproducible with a cough or re-positioning. She notes that has gotten better. OBJECTIVE: VITAL SIGNS: Temperature 97.7. Pulse 82. Blood pressure 95/61. Respirations 20. Saturation 95% on nasal cannula at 2 liters at rest and desaturating to 88 % on 2 liters with ambulation. I&Os show positive balance of 539, 2839 in, 2300 out. Weight 65.8 kg. GENERAL: The patient is resting comfortably and appears to be in no distress. She is alert. CHEST: Lung sounds are much better aerated today with no notable rhonchi or wheezing. HEART: Regular rate and rhythm. ABDOMEN: Soft, nontender, positive bowel sounds. EXTREMITIES: Without cyanosis, clubbing, or edema. NEUROLOGIC: She is alert and oriented x3. LABORATORY: White count improved to 4,900 with hemoglobin 10.9 and hematocrit 32.7. Platelet count 190,000. Differential does show a left shift with no bands today. MICROBIOLOGY: Sputum culture and blood cultures are pending. RADIOLOGY: Two view chest x-ray per radiologic interpretation shows a very large hiatal hernia, but improving left basilar opacities which may represent atelectasis or pneumonia. Cardiac silhouette was unchanged. ASSESSMENT: 1. Acute exacerbation of chronic obstructive pulmonary disease with bilateral pneumonia, likely community acquired, progressing well on parenteral antibiotics an aggressive pulmonary hygiene, but still showing desaturations on oxygen with ambulation. 2. Neutropenia, uncertain etiology, but improved after initiation of therapy. 3. Chest wall pains, likely pleurisy versus costochondritis, reproducible with coughing and palpation of the chest wall with the patient having an active case of pneumonia on the left side. 4. Elevated D-dimer likely due to the developing pneumonia but no pulmonary emboli seen on CTA of the chest. 5. Hypertension, stable and monitoring. 6. Gastroesophageal reflux disease, stable and monitoring. 7. Chronic neck and lower back pain on narcotics, being followed by Dr. Carcamo. PLAN: We will continue current plan of care with Rocephin and azithromycin for another 24 hours with anticipation of hopefully discharging tomorrow morning. She will continue with her aggressive bronchial hygiene. We will plan to repeat labs in the morning as needed as well as x-ray and, again, hopeful anticipation that she will be discharged tomorrow to followup with her primary care provider, Dr. Barrera, once discharged. Until discharge we will continue to monitor the patient and treat as needed. #[id number] [facility]
[2018-04-23] MEDS ORDERED: SODIUM CHLORIDE 0.9% 250ML 250 ML ONE ×2 (19:59→21:45)
[2018-04-23] MEDS ORDERED: AZITHROMYCIN IV 500 MG VIAL IVPB ONE ×2 (20:01→21:45)
[2018-04-23] MEDS: DOCUSATE SODIUM 100 MG CAP PO SCH (20:53)
[2018-04-23] MEDS: SENNOSIDES 8.6 MG TAB PO SCH (20:53)
[2018-04-23] MEDS: traZODone HCL 50 MG TAB PO SCH (20:53)
[2018-04-23] MEDS: SERTRALINE HCL 50 MG TAB PO SCH (20:53)
[2018-04-23] MEDS: AZITHROMYCIN IV 500 MG in SODIUM CHLORIDE 0.9% 250ML 250 ML IVPB SCH (20:53)
[2018-04-24] MEDS ORDERED: cefTRIAXone SODIUM 1 GM VIAL ONE (07:44)
[2018-04-24] MEDS ORDERED: SODIUM CHL 0.9% 50ML MIN-BAG+ 50 ML IVPB ONE (07:44)
[2018-04-24] MEDS: IPRATROPIUM/ALBUTEROL 3 ML VIAL NEB SCH ×2 (08:27→14:15)
[2018-04-24] MEDS: VERAPAMIL ER TAB 180 MG TAB PO SCH (08:52)
[2018-04-24] MEDS: PREGABALIN 100 MG CAP PO SCH (08:52)
[2018-04-24] MEDS: ASPIRIN (ENTERIC COATED) 81 MG TAB PO SCH (08:53)
[2018-04-24] MEDS: CLOPIDOGREL 75 MG TAB PO SCH (08:53)
[2018-04-24] MEDS: cefTRIAXone SODIUM 1 GM in SODIUM CHL 0.9% 50ML MIN-BAG+ 50 ML IVPB SCH (09:00)
[2018-04-24] MEDS ORDERED: methylPREDNISolone SODIUM SUC 40 MG/ML VIAL IV ONE (11:44)
--- NOTE | 2018-04-24 13:15 | DS ---
SUPERVISING PHYSICIAN: Car Roberts MD DISCHARGE DIAGNOSIS: 1. Acute exacerbation of chronic obstructive pulmonary disease with bilateral pneumonia, likely community acquired, progressing well on parenteral antibiotics and aggressive pulmonary hygiene. 2. Neutropenia, uncertain etiology, but improved after initiation of therapy. 3. Chest wall pains, likely pleurisy versus costochondritis, reproducible with coughing and palpation of the chest wall with the patient having an active case of pneumonia on the left side. 4. Elevated D-dimer due to the developing pneumonia but no pulmonary emboli seen on CTA of the chest. 5. Hypertension, stable. 6. Gastroesophageal reflux disease. 7. Chronic neck and lower back pain on narcotics, being followed by Dr. Carcamo. 8. Chronic obstructive pulmonary disease with mild exacerbation. HISTORY OF PRESENT ILLNESS: This is a 67-year-old female patient who presented to the Emergency Room on date of admission after she had a one-hour history of chest pain. The chest pain was located on the left side, it was very sharp, associated with a little bit of nausea and was occurring at rest. She has had previous heart attacks in the past three years. She was given morphine in the ambulance prior to arrival and it did not help. She was also found to be mildly short of breath on arrival to the Emergency Room and does have some chronic obstructive pulmonary disease and is O2 dependent. She notes the chest pain is fairly reproducible with deep inspiratory effort and coughing, but she denied any recent increase in a worsening cough or fevers. The Emergency Room workup showed she had a white count of 4,100 without a left shift. D-dimer was elevated at 1.94.and cardiac enzymes showed initial troponin less than 0.02. CTA of the chest was done and showed no evidence of pulmonary embolus, but there were scattered ground glass opacifications in both lungs along with scattered atelectasis. She was found to have what looks like bilateral pneumonia, community acquired, and was started on treatments after blood cultures were completed. She was started on Rocephin initially and was admitted in stable condition. HOSPITAL COURSE: The patient was given aggressive pulmonary hygiene. She was also started on azithromycin. She was also given a dose of Solu-Medrol as well as some Toradol for her chest wall pain. Her chest x-ray showed improving left basilar opacities. Her lab showed a white count that normalized to 4.9 with a stable hemoglobin and hematocrit of 10.9 and 32.7. Electrolytes were basically within normal limits. Her second troponin was negative. She is oxygen dependent and did have low saturations when ambulating in the [facility]. She is oxygen dependent at home. She was kept an extra day for IV antibiotic therapy. Today, she will be discharged home in stable condition with continued aggressive pulmonary hygiene as well as antibiotics and a prednisone taper. DISCHARGE PLAN: The patient will be discharged home in stable condition. She is to resume her previous activity and followup with Dr. Barrera within the next week. She is being discharged on some azithromycin as well as some cefdinir and a prednisone taper as well as her previous home medications. I have initiated a pulmonary rehab referral and the hospital will call her for that. She may benefit from physical therapy as well as she has been very weak as she has been in the hospital several times over the last several months. Recommendation when she follows up with Dr. Barrera to followup with the pulmonary rehab referral as well as a physical therapy referral. She is to return to the hospital or call Dr. Barrera's office for any problems or complications. DISCHARGE MEDICATIONS: 1. Plavix. 2. Aspirin. 3. Lyrica. 4. Nexium. 5. Verapamil. 6. Sertraline. 7. Colace. 8. Senokot. 9. Atorvastatin. 10. Albuterol nebulizers. 11. Trazodone. 12. Zofran. 13. Azithromycin. 14. Cefdinir. 15. Prednisone taper. #[id number] [facility]
[2018-04-24] MEDS ORDERED: INFLUENZA VIRUS VACC (ADULT) 0.5 ML SYG IM ONE ×2 (13:24→13:29)
[2018-04-24 13:56] VITALS: BP 105/68; TEMP 98.8; O2SAT 93
== END 2018-04-24 14:15 | disposition home health service (06) | DRG 190 ==
LOC: ER 14:22 → MS 16:42
PROVIDERS: ADMIT Nurse Practitioner Family; ATTEND Nurse Practitioner Acute Care
DX: J44.0 Chronic obstructive pulmonary disease with (acute) lower respiratory infection (principal); J18.9 Pneumonia, unspecified organism; J44.1 Chronic obstructive pulmonary disease with (acute) exacerbation; D70.9 Neutropenia, unspecified; I10 Essential (primary) hypertension; K21.9 Gastro-esophageal reflux disease without esophagitis; Z99.81 Dependence on supplemental oxygen; Z79.01 Long term (current) use of anticoagulants; Z79.82 Long term (current) use of aspirin; I25.10 Atherosclerotic heart disease of native coronary artery without angina pectoris; I25.2 Old myocardial infarction; G89.29 Other chronic pain; F32.9 Major depressive disorder, single episode, unspecified; E78.5 Hyperlipidemia, unspecified; M19.90 Unspecified osteoarthritis, unspecified site; D50.9 Iron deficiency anemia, unspecified; Z95.5 Presence of coronary angioplasty implant and graft; Z96.643 Presence of artificial hip joint, bilateral; Z88.0 Allergy status to penicillin; Z88.2 Allergy status to sulfonamides

== ENCOUNTER 2018-05-08 10:17 | Emergency (ER) | payer MEDICARE, MEDICAID ==
[2018-05-08] MEDS ORDERED: ORPHENADRINE CITRATE 30 MG/ML AMP IV ONE (10:42)
[2018-05-08] MEDS ORDERED: KETOROLAC TROMETHAMINE INJ 30 MG/ML VIAL IV ONE (10:42)
[2018-05-08] MEDS ORDERED: TRIAMCINOLONE ACETONIDE INJ 40 MG/ML VIAL IM ONE (10:44)
--- NOTE | 2018-05-08 10:48 | ED.PDOC ---
History of Present Illness - General Chief Complaint: Back Pain or Injury Stated Complaint: low back pain Time Seen by Provider: 05/08/18 10:35 Source: patient Exam Limitations: no limitations - History of Present Illness Initial Comments: C/O ACUTE ONSET OF LBP THIS AM, NO TRAUMA, HAS CHRONIC LBP, SIMILAR TO PREVIOUS. HAS TAKEN HYDROCODONE WITHOUT RELIEF. Quality/Severity: moderate Back Pain Location: lumbar spine Back Pain Radiation: other - NONE Improving Factors: nothing Worsening Factors: other - COUGH/SNEEZE Allergies/Adverse Reactions: Allergies Penicillins Allergy (Mild, Verified 04/21/18 17:52) Unknown Sulfa Antibiotics Allergy (Unknown, Verified 04/21/18 17:52) Unknown Sulfamethoxazole w/Trimethoprim [From Bactrim] Allergy (Unknown, Verified 17:52) Unknown ADHESIVE TAPE Allergy (Mild, Uncoded 03/16/18 17:57) Unknown Home Medications: Ambulatory Orders Aspirin [Aspir-81] 81 mg PO AM 08/31/12 Clopidogrel Bisulfate [Plavix] 75 mg PO AM 08/31/12 Esomeprazole [Nexium] 40 mg PO DAILY@0700 08/31/12 Pregabalin [Lyrica] 300 mg PO BID 08/31/12 Verapamil HCl ER [Isoptin Sr] 180 mg PO DAILY 01/13/15 Docusate Sodium [Colace] 100 mg PO BEDTIME 05/06/16 Sennosides [Senokot] 17.2 mg PO BEDTIME 05/06/16 Sertraline HCl [Zoloft] 200 mg PO BEDTIME 05/06/16 Albuterol Sulfate Nebs [Proventil Nebs] 2.5 mg INH QID PRN 08/16/16 Atorvastatin Calcium [Lipitor] 40 mg PO BEDTIME 08/16/16 Trazodone HCl 100 mg PO BEDTIME #30 tab 03/22/17 Ondansetron [Zofran Odt] 4 mg PO Q6HR PRN #12 tab 06/25/17 Cyclobenzaprine HCl [Flexeril] 10 mg PO TID PRN #15 tab 05/08/18 Indomethacin 50 mg PO TID PRN #14 cap 05/08/18 Review of Systems - Review of Systems Constitutional: Denies: chills, fever EENTM: States: no symptoms reported Respiratory: Denies: cough, short of breath, wheezing Cardiology: Denies: chest pain, palpitations Gastrointestinal/Abdominal: Denies: abdominal pain, nausea, vomiting Genitourinary: States: other - NO INCONTINENCE . Denies: dysuria, frequency, hematuria Musculoskeletal: States: back pain. Denies: joint pain, joint swelling, neck pain Skin: States: no symptoms reported Neurological: Denies: numbness, paresthesia, tingling Endocrine: States: no symptoms reported Hematologic/Lymphatic: States: no symptoms reported Past Medical History (General) - Patient Medical History Hx Seizures: No Hx Stroke: Yes - 2010 Hx Dementia: No Hx Asthma: No Hx of COPD: Yes Hx Cardiac Disorders: Yes - [place] Hx Congestive Heart Failure: Yes Hx Pacemaker: No Hx Hypertension: No Hx Thyroid Disease: No Hx Diabetes: No Hx Gastroesophageal Reflux: Yes - HIATAL HERNIA Hx Renal Disease: No Hx Cancer: No Hx of HIV: No Hx Hepatitis C: No Hx MRSA: No MRSA Source:: Wound Surgical History: Hysterectomy - Vaccination History Hx Tetanus, Diphtheria Vaccination: Yes Hx Influenza Vaccination: Yes Hx Pneumococcal Vaccination: Yes - Social History Hx Tobacco Use: No Hx Chewing Tobacco Use: No Hx Alcohol Use: No Hx Substance Use: No Hx Substance Use Treatment: No Hx Depression: Yes Hx Physical Abuse: No Hx Emotional Abuse: No Hx Suspected Abuse: No - Female History Patient : No Family Medical History - Family History Mother Family History: Unknown Living Status: Hx Family;Other: SHE DID NOT KNOW PARENTS AND SHE DOES NOT KNOW FH HISTORY. PT ADOPTED Physical Exam - Physical Exam General Appearance: Alert, Other - MOD DISTRESS DTP Eyes, Ears, Nose, Throat Exam: PERRL/EOMI, normal ENT inspection Neck Exam: non-tender, full range of motion, normal alignment Cardiovascular/Respiratory: regular rate, rhythm, no M/R/G Peripheral Pulses: dorsalis pedis,right: 2+, dorsalis pedis,left: 2+, posterior tibialis,right: 2+, posterior tibialis,left: 2+ Gastrointestinal/Abdominal: non tender, soft, no organomegaly Back Exam: normal inspection, no CVA tenderness, no vertebral tenderness, other - NO SPASM, DIFFUSE TTP RED THORACO-LUMBAR REGION Neurologic: no motor/sensory deficits, alert, normal mood/affect, other - NO FOOT DROP, REFLEXES 2+/4+ PATELLAR, ACHILLES Skin Exam: normal color, warm/dry Progress - Progress Progress: 05/08/18 11:22 REPORTS PAIN NO BETTER. WILL XRAY 05/08/18 12:04 FEELS BETTER BUT STILL C/O PAIN. LIVES ALONE BUT WILL GET SOMEONE TO STAY WITH HER. DOES NOT WANT ADMISSION. - EKG/XRAY/CT XRAY: LSPINE, MULTIPLE COMPRESSION FX'S AND KYPHOPLASTIES, UNCHANGED FROM PREVIOUS Departure - Departure Clinical Impression: Chronic low back pain Qualifiers: Back pain laterality: bilateral Sciatica presence: without sciatica Qualified Code(s): M54.5 - Low back pain; G89.29 - Other chronic pain; G89.29 - Other chronic pain Hypertension Qualifiers: Hypertension type: essential hypertension Qualified Code(s): I10 - Essential ( primary) hypertension ICD-10 Supporting Text: ACUTE EXACERBATION Time of Disposition: 12:08 Disposition: Discharge to Home or Self Care Condition: Good Departure Forms: ED Discharge - Pt. Copy, Patient Portal Self Enrollment Instructions: DI for Low Back Pain Referrals: Kwame Barrera MD [Primary Care Provider] - 1-2 Weeks Prescriptions: Cyclobenzaprine HCl [Flexeril] 10 mg PO TID PRN #15 tab PRN Reason: Pain Indomethacin 50 mg PO TID PRN #14 cap PRN Reason: Pain Home Medications: Ambulatory Orders Aspirin [Aspir-81] 81 mg PO AM 08/31/12 Clopidogrel Bisulfate [Plavix] 75 mg PO AM 08/31/12 Esomeprazole [Nexium] 40 mg PO DAILY@0700 08/31/12 Pregabalin [Lyrica] 300 mg PO BID 08/31/12 Verapamil HCl ER [Isoptin Sr] 180 mg PO DAILY 01/13/15 Docusate Sodium [Colace] 100 mg PO BEDTIME 05/06/16 Sennosides [Senokot] 17.2 mg PO BEDTIME 05/06/16 Sertraline HCl [Zoloft] 200 mg PO BEDTIME 05/06/16 Albuterol Sulfate Nebs [Proventil Nebs] 2.5 mg INH QID PRN 08/16/16 Atorvastatin Calcium [Lipitor] 40 mg PO BEDTIME 08/16/16 Trazodone HCl 100 mg PO BEDTIME #30 tab 03/22/17 Ondansetron [Zofran Odt] 4 mg PO Q6HR PRN #12 tab 12/24/17 Cyclobenzaprine HCl [Flexeril] 10 mg PO TID PRN #15 tab 05/08/18 Indomethacin 50 mg PO TID PRN #14 cap 05/08/18
[2018-05-08] MEDS ORDERED: fentaNYL CITRATE INJ 50 MCG/ML AMP IV ONE (11:23)
--- NOTE | 2018-05-08 11:54 | RAD ---
EXAM DESCRIPTION: Lumbar Spine 3 Views CLINICAL HISTORY: LBP COMPARISON: October 02, 2017 TECHNIQUE: Three views lumbar spine FINDINGS: Three views of the lumbar spine demonstrate previous kyphoplasty or vertebroplasty performed at the L1 and T11 and T9 levels. Previously noted moderate T12 and moderately severe L2 as well as milder superior endplate L4 and L5 compression deformities are noted. Marked osteopenia is present. Bilateral hip replacements are noted. S-shaped scoliosis of the spine is apparent. Aortic calcification without aneurysm is apparent IMPRESSION: There are osteopenia and moderate degenerative changes and mild scoliosis of the spine with bilateral hip replacements and multilevel thoracolumbar prior augmentation. Additional multiple mild to moderate compression deformities are present at T12 and L1 and minimally in the lower lumbar spine, unchanged from prior October 2017 study. Electronically signed by: Car Hdz MD 05/08/2018 11:52 AM [facility]
[2018-05-08 13:15] VITALS: BP 93/63; TEMP 98.6; O2SAT 97
== END 2018-05-08 13:00 | disposition home or self-care (01) ==
LOC: ER 10:17
DX: M54.5 Low back pain (principal); G89.29 Other chronic pain; I11.0 Hypertensive heart disease with heart failure; I50.9 Heart failure, unspecified; I25.2 Old myocardial infarction; J44.9 Chronic obstructive pulmonary disease, unspecified; F32.9 Major depressive disorder, single episode, unspecified; Z86.73 Personal history of transient ischemic attack (TIA), and cerebral infarction without residual deficits; Z79.899 Other long term (current) drug therapy; Z88.0 Allergy status to penicillin; Z88.2 Allergy status to sulfonamides; Z79.82 Long term (current) use of aspirin
CPT/HCPCS: 72100; J1885; J2360; J3010; J3301

== ENCOUNTER 2018-05-19 00:02 | Observation (INO) | payer MEDICARE, MEDICAID ==
--- NOTE | 2018-05-19 01:18 | RAD ---
EXAM DESCRIPTION: Humerus,Left CLINICAL HISTORY: fall at home COMPARISON: None. FINDINGS: 2 views of the left humerus. Acute minimally displaced surgical neck fracture of the humerus. Osteopenia. IMPRESSION: 1. Acute minimally displaced surgical neck fracture of the left humerus. Electronically signed by: Lazaro Valencia 05/19/2018 1:17 AM [facility]
--- NOTE | 2018-05-19 01:20 | ED.PDOC ---
History of Present Illness - General Chief Complaint: Trauma Stated Complaint: Fall with left arm and hip pain Time Seen by Provider: 05/19/18 00:04 Source: patient, family Exam Limitations: no limitations - History of Present Illness Initial Comments: the patient is a 67-year-old female presenting to the emergency room after having fallen at home. The patient has had a history of multiple falls and does normally use a walker to get around. She does also normally wear oxygen. The patient had taken her sleep and pain medications and then gotten up to get around. She frequently falls and she does this. No head injury. No new neck pain. She has pain in her left shoulder as well as some pain in her left hip. She is actually moving the left hip quite well. She moves the left elbow and wrist well. She has pain over the proximal humerus. There is some mild bruising already.the patient is initially very drowsy due to her own medications and the fentanyl given by EMS. Timing/Duration: momentarily Severity: moderate Improving Factors: nothing Allergies/Adverse Reactions: Allergies Penicillins Allergy (Mild, Verified 04/21/18 17:52) Unknown Sulfa Antibiotics Allergy (Unknown, Verified 04/21/18 17:52) Unknown Sulfamethoxazole w/Trimethoprim [From Bactrim] Allergy (Unknown, Verified 17:52) Unknown ADHESIVE TAPE Allergy (Mild, Uncoded 03/16/18 17:57) Unknown Home Medications: Ambulatory Orders Aspirin [Aspir-81] 81 mg PO AM 08/31/12 Clopidogrel Bisulfate [Plavix] 75 mg PO AM 08/31/12 Esomeprazole [Nexium] 40 mg PO DAILY@0700 08/31/12 Pregabalin [Lyrica] 300 mg PO BID 08/31/12 Verapamil HCl ER [Isoptin Sr] 180 mg PO DAILY 01/13/15 Docusate Sodium [Colace] 100 mg PO BEDTIME 05/06/16 Sennosides [Senokot] 17.2 mg PO BEDTIME 05/06/16 Sertraline HCl [Zoloft] 200 mg PO BEDTIME 05/06/16 Albuterol Sulfate Nebs [Proventil Nebs] 2.5 mg INH QID PRN 08/16/16 Atorvastatin Calcium [Lipitor] 40 mg PO BEDTIME 08/16/16 Trazodone HCl 100 mg PO BEDTIME #30 tab 03/22/17 Ondansetron [Zofran Odt] 4 mg PO Q6HR PRN #12 tab 06/25/17 Cyclobenzaprine HCl [Flexeril] 10 mg PO TID PRN #15 tab 05/08/18 Indomethacin 50 mg PO TID PRN #14 cap 05/08/18 Review of Systems - Review of Systems Constitutional: States: malaise EENTM: States: no symptoms reported Respiratory: States: no symptoms reported Cardiology: States: no symptoms reported Gastrointestinal/Abdominal: States: no symptoms reported Genitourinary: States: no symptoms reported Musculoskeletal: States: see HPI Skin: States: no symptoms reported Neurological: States: no symptoms reported Endocrine: States: no symptoms reported All other Systems: No Change from Baseline Past Medical History (General) - Patient Medical History Hx Seizures: No Hx Stroke: Yes - 2009 Hx Dementia: No Hx Asthma: No Hx of COPD: Yes Hx Cardiac Disorders: Yes - [place] Hx Congestive Heart Failure: Yes Hx Pacemaker: No Hx Hypertension: No Hx Thyroid Disease: No Hx Diabetes: No Hx Gastroesophageal Reflux: Yes - HIATAL HERNIA Hx Renal Disease: No Hx Cancer: No Hx of HIV: No Hx Hepatitis C: No Hx MRSA: No MRSA Source:: Wound - Vaccination History Hx Tetanus, Diphtheria Vaccination: Yes Hx Influenza Vaccination: Yes Hx Pneumococcal Vaccination: Yes - Social History Hx Tobacco Use: No Hx Chewing Tobacco Use: No Hx Alcohol Use: No Hx Substance Use: No Hx Substance Use Treatment: No Hx Depression: Yes Hx Physical Abuse: No Hx Emotional Abuse: No Hx Suspected Abuse: No - Female History Patient : No Family Medical History - Family History Mother Family History: Unknown Living Status: Hx Family;Other: SHE DID NOT KNOW PARENTS AND SHE DOES NOT KNOW FH HISTORY. PT ADOPTED Physical Exam - Physical Exam General Appearance: Other - initially drowsy but much more alert after the fentanyl wears off Eye Exam: bilateral normal Ears, Nose, Throat: hearing grossly normal, normal ENT inspection Neck: supple Respiratory: no respiratory distress, no accessory muscle use, rales - chronic dry rales Cardiovascular/Chest: normal peripheral pulses, no edema Peripheral Pulses: radial,right: 2+, radial,left: 2+, dorsalis pedis,right: 2+, dorsalis pedis,left: 2+ Gastrointestinal/Abdominal: non tender, soft Rectal Exam: other - pelvis is stable Back Exam: no vertebral tenderness Extremity: no pedal edema, no calf tenderness, normal capillary refill, other - normal active and passive range of motion the left lower extremity as well as the right lower extremity and right upper extremity. Left upper extremity patient has limited range of motion and significant pain in the left shoulder. She does appear to be neurovascularly intact in the left hand. 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 X-ray and examination of the left hip are both reassuring. X-ray of the left proximal humerus shows a proximal humerus fracture. Closed. The patient is being placed in a shoulder immobilizer. The patient is going to be admitted overnight for pain control and evaluation of functional stability in the morning given that she now only has one hand to stabilize herself with an assistive device. She normally uses a walker at home. It will have to be seen how well she get around with a cane. it is possible that the patient may end up having to go to a rehabilitation facility in order to improve her status. Departure - Departure Clinical Impression: Fall at home Qualifiers: Encounter type: initial encounter Qualified Code(s): W19.XXXA - Unspecified fall, initial encounter; Y92.009 - Unspecified place in unspecified non- institutional (private) residence as the place of occurrence of the external cause; Y92.009 - Unspecified place in unspecified non-institutional (private) residence as the place of occurrence of the external cause Proximal humerus fracture Qualifiers: Encounter type: initial encounter Fracture type: closed Fracture morphology: unspecified fracture morphology Laterality: left Qualified Code(s): S42.202A - Unspecified fracture of upper end of left humerus, initial encounter for closed fracture Disposition: Admit Patient Home Medications: Ambulatory Orders Aspirin [Aspir-81] 81 mg PO AM 08/31/12 Clopidogrel Bisulfate [Plavix] 75 mg PO AM 08/31/12 Esomeprazole [Nexium] 40 mg PO DAILY@0700 08/31/12 Pregabalin [Lyrica] 300 mg PO BID 08/31/12 Verapamil HCl ER [Isoptin Sr] 180 mg PO DAILY 01/13/15 Docusate Sodium [Colace] 100 mg PO BEDTIME 05/06/16 Sennosides [Senokot] 17.2 mg PO BEDTIME 05/06/16 Sertraline HCl [Zoloft] 200 mg PO BEDTIME 05/06/16 Albuterol Sulfate Nebs [Proventil Nebs] 2.5 mg INH QID PRN 08/16/16 Atorvastatin Calcium [Lipitor] 40 mg PO BEDTIME 08/16/16 Trazodone HCl 100 mg PO BEDTIME #30 tab 03/22/17 Ondansetron [Zofran Odt] 4 mg PO Q6HR PRN #12 tab 06/25/17 Cyclobenzaprine HCl [Flexeril] 10 mg PO TID PRN #15 tab 05/08/18 Indomethacin 50 mg PO TID PRN #14 cap 05/08/18 Decision To Admit - Decistion To Admit Decision to Admit Reason: Accidental Injury Decision to Admit Date: 05/19/18 Decision to Admit Time: 01:26
--- NOTE | 2018-05-19 01:21 | RAD ---
EXAM DESCRIPTION: Scapula,Left CLINICAL HISTORY: fall at home COMPARISON: None. FINDINGS: Single view of the left scapula. Lateral view not performed due to inability of the patient. Redemonstrated surgical neck fracture of the left humerus. Minimal displacement. Osteopenia. No definite scapular fracture identified. A definite acute abnormality of the left hemithorax. Atherosclerotic calcification aortic arch. Prior vertebroplasties of the thoracic spine. Postoperative change of the cervical spine. IMPRESSION: 1. Acute minimally displaced surgical neck fracture of the left humerus. 2. No definite scapular fracture identified on this single image. Electronically signed by: Lazaro Valencia 05/19/2018 1:19 AM [facility]
--- NOTE | 2018-05-19 01:22 | RAD ---
EXAM DESCRIPTION: Shoulder,Left 2 or More Views CLINICAL HISTORY: fall at home COMPARISON: None. FINDINGS: 2 views of the left shoulder. No glenohumeral dislocation. Minimally displaced surgical neck fracture of the humerus. Osteopenia. No definite acute abnormalities of the left hemithorax. Postoperative change of the cervical spine. Prior thoracic vertebroplasties. IMPRESSION: 1. Acute minimally displaced surgical neck fracture of the left humerus. Electronically signed by: Lazaro Valencia 05/19/2018 1:[address] [facility]
--- NOTE | 2018-05-19 01:25 | RAD ---
EXAM DESCRIPTION: Hip,Left 2 Views (accession [id number]), Pelvis (accession [id number]) CLINICAL HISTORY: fall at home COMPARISON: None. FINDINGS: Single view of the pelvis with 2 views of the left hip. Bilateral total hip arthroplasties. No definite hardware abnormality identified. Osteopenia. No acute fracture or dislocation. IMPRESSION: 1. No acute fracture identified. 2. Bilateral total hip arthroplasties. Electronically signed by: Lazaro Valencia 05/19/2018 1:24 AM [facility]
--- NOTE | 2018-05-19 01:25 | RAD ---
EXAM DESCRIPTION: Hip,Left 2 Views (accession [id number]), Pelvis (accession [id number]) CLINICAL HISTORY: fall at home COMPARISON: None. FINDINGS: Single view of the pelvis with 2 views of the left hip. Bilateral total hip arthroplasties. No definite hardware abnormality identified. Osteopenia. No acute fracture or dislocation. IMPRESSION: 1. No acute fracture identified. 2. Bilateral total hip arthroplasties. Electronically signed by: Lazaro Valencia 05/19/2018 1:24 AM [facility]
[2018-05-19] MEDS ORDERED: MORPHINE SULFATE INJ 10 MG/ML VIAL IV ONE (01:28)
[2018-05-19] MEDS ORDERED: MORPHINE SULFATE INJ 10 MG/ML VIAL IV PRN (01:37)
[2018-05-19] MEDS ORDERED: SODIUM CHLORIDE 0.9% (FLUSH) 10 ML SYG IV PRN (01:37)
[2018-05-19] MEDS ORDERED: ACETAMINOPHEN 325 MG TAB PO PRN (01:37)
--- NOTE | 2018-05-19 01:44 | HP ---
SUPERVISING PHYSICIAN: Car Roberts MD CHIEF COMPLAINT: Fall with left arm and hip pain. HISTORY OF PRESENT ILLNESS: Ms. Herring is a 67 year-old female patient who presented to the Emergency Room earlier this morning after she had fallen at home. She noted she had been having several falls at home and had been using a walker to get around. She also does wear oxygen and takes multiple pain medications as well as for sleep. She noted she was sleeping in the living room on the couch after she had taken her muscle relaxant and Oxycodone. She attempted to get up to go to the bed and slipped and fell. She tried to catch herself which resulted in pain in her left arm. On admission to the Emergency Room she was having severe pain in her left shoulder. X-rays showed she had a minimally displaced surgical neck fracture of the left humerus. No other acute injuries were noted on x-rays including those of the hip, pelvis and scapula. Dr. Roberts, Emergency Room physician, requested the patient be placed in observation for pain control and assist with physical therapy in the morning and possible rehabilitation efforts as the patient does have an acute fracture. The patient has a history of multiple falls. The patient is admitted in stable condition. PAST MEDICAL HISTORY: 1. Coronary artery disease 2. Myocardial infarctions in 2007, 2009 and 2014 with stint placements. 3. Chronic obstructive pulmonary disease. 4. History of diverticulosis. 5. Chronic neck and back pain. 6. History of fibromyalgia. 7. Osteoarthritis. 8. Multiple thoracic and lumbar vertebral fractures requiring multiple procedures in the past. 9. Chronic migraine. 10. Depression. 11. Hyperlipidemia. 12. Hypertension. 13. Gastroesophageal reflux disease. 14. Hiatal hernia. 15. Iron deficiency anemia. PAST SURGICAL HISTORY: 1. Hysterectomy. 2. Coronary stints in 2007, 2009 and 2014. 3. Kyphoplasty surgery. 4. Multiple neck and back surgeries. 5. Tummy tuck surgery. 6. Bilateral hip replacement. CURRENT MEDICATIONS: 1. Indomethacin 50 mg every 6 hours. 2. Coreg 3.125 mg b.i.d. 3. Plaquenil 200 mg b.i.d. 4. Spironolactone 25 mg daily. 5. Trazodone 100 mg at bedtime. 6. Lyrica 300 mg b.i.d. 7. Verapamil 180 mg daily. 8. Zoloft 200 mg at bedtime. 9. Lipitor 50 mg at bedtime. 10. Flexeril 10 mg every 8 hours p.r.n. 11. Oxycodone 10 mg every 6 hours p.r.n. 12. Risedronate sodium 35 mg weekly. 13. Ventolin inhaler p.r.n. 14. Parafon Forte DSC 500 mg every 6 hours p.r.n. ALLERGIES: PENICILLIN, ADHESIVE TAPE, SULFA ANTIBIOTICS. FAMILY HISTORY: She is adopted so family history is known. SOCIAL HISTORY: She is retired. She lives in [place]. She has never smoked, used alcohol or illicit drugs. REVIEW OF SYSTEMS: GENERAL: Denies fever, chills, diaphoresis or weakness. . HEENT: Denies ear pain, sore throat, earache, nose pain.. RESPIRATORY: Denies coughing, wheezing, shortness of breath. CARDIAC: Denies chest pains, palpitations or syncopal episodes. ABDOMEN: Denies abdominal pain, constipation, diarrhea or vomiting. . GENITOURINARY: Denies dysuria, hematuria or polyuria or other urinary symptoms. EXTREMITIES: As noted in the history of present illness, left shoulder pain. NEURO: Denies syncopal episodes, dizziness, ataxia or other neuro or focal deficits. LABORATORY: No laboratory studies on admission. RADIOLOGY: She had x-rays of her left shoulder, scapula, pelvis, humerus and hip. The only acute finding was a proximal humerus fracture on the left. PHYSICAL EXAMINATION: VITAL SIGNS: Temperature 97, pulse 61, blood pressure 107/61, respirations 16, saturation 97% on nasal cannula at rest. Admission weight 67.1 kg. GENERAL: The patient is resting comfortably.and appears to be in no acute distress with good pain control. She is alert. HEENT: Tympanic membranes are clear bilaterally. Oropharynx was pink and moist without any lesions. NECK: Supple, non-tender. Full range of motion. No jugular venous distention. CHEST: Lungs are clear to auscultation without any rhonchi, rales, or wheezes. . CARDIOVASCULAR: Regular rate and rhythm without appreciable murmurs, gallops, or rubs. ABDOMEN: Soft, non-tender. Positive bowel sounds. BACK: No vertebral tenderness. EXTREMITIES/PELVIS: Stable on exam. No cyanosis, clubbing, or edema. She does have normal active range of motion of the lower extremities and the right upper extremity. The left upper extremity is in a sling with limited motion and significant pain on palpation or movement of the shoulder. No notable neurovascular deficits. Radial pulses on the left side 2+ and equal bilaterally. NEUROLOGIC: Cranial nerves II through XII are grossly intact. Facial features are symmetrical. Extraocular movements within normal limits. She is oriented x3. SKIN: [place], warm and dry with a mild bruise noted to the proximal shoulder on the left. ASSESSMENT: 1. Acute minimally displaced surgical neck fracture of the left humerus status post same level fall. 2. Status post same level fall with acute injury as noted in #1 with no other acute injuries noted with no other complaints. 3. Chronic pain syndrome, on multiple medications including narcotics with Oxycodone and muscle relaxants, likely resulting in her falls due to over-sedation. 4. Hypertension. 5. Gastroesophageal reflux disease. 6. Significant history of coronary artery disease with myocardial infarctions x3 with stint placements. 7. History of diverticulosis. 8. History of chronic obstructive pulmonary disease with no exacerbation noted on admission. 9. History of fibromyalgia on multiple medications. 10. History of multiple thoracic and lumbar vertebral fractures in the past requiring kyphoplasty procedures. 11. History of depression and anxiety. 12. History of iron-deficiency anemia. PLAN: The patient is to be placed in observation today to have a further assessment with physical therapy as she normally does walk with a walker. I have discussed with the patient that she certainly would benefit from a in- house hospital rehabilitation program such as [facility]. She is open to discussion going to [facility]. We are awaiting that referral. She also has had a physical therapy assessment this morning that again showed the need for in -house physical therapy or at least home health with physical therapy. The patient is a significant fall risk and has been educated multiple times that she would benefit from in-house hospitalization for rehabilitation efforts as she does live alone. Will await that assessment and possible transfer to [facility] which will probably not be able to take place until tomorrow. Until she can transition fo an outpatient program or inpatient program for rehabilitation, will continue to monitor and treat appropriately and manage her pain with home medications as needed. We anticipate her length of stay to be 1 to 2 days and once discharged, she will need close clinical followup with Dr. Andino in regards to the acute fracture and further followup with Dr. Barrera as needed. [facility][id number] [facility]
[2018-05-19] MEDS ORDERED: IV SET AND CAP CHANGE INJ INJ SCH (02:00)
[2018-05-19] MEDS ORDERED: CEFDINIR 300 MG CAP PO SCH (11:00)
--- NOTE | 2018-05-19 11:09 | CT ---
PROCEDURE: CT Head Without Intravenous Contrast CLINICAL INDICATION: The patient is 67 years old and is Female; fall lethargic TECHNIQUE: Axial computed tomography images of the head/brain without intravenous contrast. Sagittal and coronal reformatted images were created and reviewed. This exam was performed according to our departmental dose-optimization program, which includes automated exposure control, adjustment of the mA and/or kV according to patient size and/or use of iterative reconstruction technique. COMPARISON: Prior study from 03/06/2018 FINDINGS: BRAIN: Early infarcts within the first 12 hours may not be visible on noncontrast CT. The naylor/white matter differentiation is intact. NO intra-or extra-axial fluid collections are seen. No hemorrhage. There is a RIGHT pontine calcification. It is stable. MIDLINE SHIFT: There is NO midline shift. VENTRICLES: No acute abnormality identified. BONES/JOINTS: Unremarkable. No acute fracture. SOFT TISSUES: The soft tissues of the scalp are unremarkable. VASCULATURE: Intracranial vascular calcifications are noted. SINUSES: The visualized paranasal sinuses are clear. MASTOID AIR CELLS: Unremarkable as visualized. No mastoid effusion. ORBITS: There has been bilateral cataract surgery. IMPRESSION: No acute intracranial abnormality is identified. No change from 10 weeks earlier. Electronically signed by: Jesus Dumont MD 05/19/2018 11:08 AM [facility]
[2018-05-19] MEDS ORDERED: INDOMETHACIN CAP 25 MG CAP PO PRN (11:30)
[2018-05-19] MEDS ORDERED: AZITHROMYCIN 250 MG TAB PO SCH (11:30)
[2018-05-19] MEDS: CARVEDILOL 3.125 MG TAB PO SCH ×2 (12:02→21:13)
[2018-05-19] MEDS: VERAPAMIL ER TAB 180 MG TAB PO SCH (12:03)
[2018-05-19] MEDS: NON-FORMULARY MEDICATION 1 EA MIS (Hydroxychloroquine Sulfate [Plaquenil] 200 MG) PO SCH ×2 (12:03→21:15)
[2018-05-19] MEDS: PREGABALIN 100 MG CAP PO SCH ×2 (12:03→21:12)
[2018-05-19] MEDS: SPIRONOLACTONE 25 MG TAB PO SCH (12:03)
[2018-05-19] MEDS: HYDROcodone 5MG/APAP 325MG 1 EA TAB PO PRN (18:18)
[2018-05-19] MEDS ORDERED: ATORVASTATIN 20 MG TAB PO SCH (21:00)
[2018-05-19] MEDS ORDERED: traZODone HCL 100 MG TAB PO SCH (21:00)
[2018-05-19] MEDS ORDERED: SERTRALINE HCL 50 MG TAB PO SCH (21:00)
[2018-05-19] MEDS: SODIUM CHLORIDE 0.9% (FLUSH) 10 ML SYG IV SCH (21:13)
[2018-05-20] MEDS: HYDROcodone 5MG/APAP 325MG 1 EA TAB PO PRN ×2 (02:28→06:41)
[2018-05-20 06:59] VITALS: TEMP 97.9
[2018-05-20] MEDS: PREGABALIN 100 MG CAP PO SCH (08:16)
[2018-05-20] MEDS: VERAPAMIL ER TAB 180 MG TAB PO SCH (08:16)
[2018-05-20] MEDS: CARVEDILOL 3.125 MG TAB PO SCH (08:17)
[2018-05-20] MEDS: SPIRONOLACTONE 25 MG TAB PO SCH (08:17)
[2018-05-20] MEDS: NON-FORMULARY MEDICATION 1 EA MIS (Hydroxychloroquine Sulfate [Plaquenil] 200 MG) PO SCH (08:21)
[2018-05-20] MEDS: SODIUM CHLORIDE 0.9% (FLUSH) 10 ML SYG IV SCH (08:21)
[2018-05-20] MEDS ORDERED: ENOXAPARIN SODIUM 40 MG/0.4 ML SYG SUBCU SCH (09:00)
[2018-05-20 10:01] VITALS: BP 93/52; O2SAT 96
[2018-05-26] MEDS ORDERED: RISEDRONATE SODIUM 35 MG PO SCH (09:00)
--- NOTE | 2018-05-29 10:35 | DS ---
SUPERVISING PHYSICIAN: Car Roberts MD ADMISSION DIAGNOSIS: 1. Acute minimally displaced surgical neck fracture of the left humerus status post same level fall. 2. Status post same level fall with acute injury as noted in #1 with no other acute injuries noted with no other complaints. 3. Chronic pain syndrome, on multiple medications including narcotics with Oxycodone and muscle relaxants, likely resulting in her falls due to over-sedation. 4. Hypertension. 5. Gastroesophageal reflux disease. 6. Significant history of coronary artery disease with myocardial infarctions x3 with stint placements. 7. History of diverticulosis. 8. History of chronic obstructive pulmonary disease with no exacerbation noted on admission. 9. History of fibromyalgia on multiple medications. 10. History of multiple thoracic and lumbar vertebral fractures in the past requiring kyphoplasty procedures. 11. History of depression and anxiety. 12. History of iron-deficiency anemia. DISCHARGE DIAGNOSIS: 1. Acute minimally displaced surgical neck fracture of the left humerus status post same level fall. 2. Status post same level fall with acute injury as noted in #1 with no other acute injuries noted with no other complaints. 3. Chronic pain syndrome, on multiple medications including narcotics with Oxycodone and muscle relaxants, likely resulting in her falls due to over-sedation. 4. Hypertension. 5. Gastroesophageal reflux disease. 6. Significant history of coronary artery disease with myocardial infarctions x3 with stint placements. 7. History of diverticulosis. 8. History of chronic obstructive pulmonary disease with no exacerbation noted on admission. 9. History of fibromyalgia on multiple medications. 10. History of multiple thoracic and lumbar vertebral fractures in the past requiring kyphoplasty procedures. 11. History of depression and anxiety. 12. History of iron-deficiency anemia. REASON FOR HOSPITALIZATION: Ms. Herring is a 67 year-old female patient who presented to the Emergency Room earlier this morning after she had fallen at home. She noted she had been having several falls at home and had been using a walker to get around. She also does wear oxygen and takes multiple pain medications as well as for sleep. She noted she was sleeping in the living room on the couch after she had taken her muscle relaxant and Oxycodone. She attempted to get up to go to the bed and slipped and fell. She tried to catch herself which resulted in pain in her left arm. On admission to the Emergency Room she was having severe pain in her left shoulder. X-rays showed she had a minimally displaced surgical neck fracture of the left humerus. No other acute injuries were noted on x- rays including those of the hip, pelvis and scapula. Dr. Roberts, Emergency Room physician, requested the patient be placed in observation for pain control and assist with physical therapy in the morning and possible rehabilitation efforts as the patient does have an acute fracture. The patient has a history of multiple falls. The patient was admitted in stable condition. LABORATORY STUDIES: White count was 5,900, hemoglobin 10.1, hematocrit 30.7, platelet count 187,000. Differential showed to be with a left shift. Chemistries showed normal electrolytes. BUN 19, creatinine 0.8. Liver functions showed to be within normal limits. Urinalysis within normal limits. RADIOLOGY: Pelvis and hip x-ray showed no acute fractures per radiology interpretation. Left shoulder, scapula and humerus showed acute minimally displaced neck fracture of the left humerus. CT of the head without contrast per radiology interpretation showed no acute intracranial abnormalities noted. No change from previous exam of 10 weeks ago. HOSPITAL COURSE: Ms. Herring was admitted on 05/19/18 from the Emergency Room for further management and observation of left humerus fracture. She was provided with pain management and was showing no complications and was able to get a referral from [facility] in [place] and was to be transferred for continued inpatient rehabilitation efforts. PLAN: Ms. Herring was discharged on 05/20, transfer to be admitted to [facility] in [place] for continued rehabilitation efforts. She will need to followup with her primary care physician once discharged who is Dr. Barrera. She was to resume her home medications as prior to hospitalization. DIET: Regular as tolerated. ACTIVITY:: As per physical therapy. MEDICATIONS: No new medications prescribed at discharge. DISPOSITION: Patient transferred to be admitted to [facility]. CONDITION ON DISCHARGE: Stable and improving. #[id number] [facility]
== END 2018-05-20 14:12 ==
LOC: ER 00:02 → MS 01:43
PROVIDERS: ADMIT Nurse Practitioner Family; ATTEND Nurse Practitioner Family
DX: S42.212A Unspecified displaced fracture of surgical neck of left humerus, initial encounter for closed fracture (principal); M25.552 Pain in left hip; R29.6 Repeated falls; S09.90XA Unspecified injury of head, initial encounter; J44.9 Chronic obstructive pulmonary disease, unspecified; I11.0 Hypertensive heart disease with heart failure; I50.9 Heart failure, unspecified; I25.10 Atherosclerotic heart disease of native coronary artery without angina pectoris; G89.4 Chronic pain syndrome; M54.2 Cervicalgia; E78.5 Hyperlipidemia, unspecified; K21.9 Gastro-esophageal reflux disease without esophagitis; K44.9 Diaphragmatic hernia without obstruction or gangrene; F32.9 Major depressive disorder, single episode, unspecified; F41.9 Anxiety disorder, unspecified; M79.7 Fibromyalgia; I25.2 Old myocardial infarction; M85.812 Other specified disorders of bone density and structure, left shoulder; W01.0XXA Fall on same level from slipping, tripping and stumbling without subsequent striking against object, initial encounter; Z91.81 History of falling; Y93.89 Activity, other specified; Y92.008 Other place in unspecified non-institutional (private) residence as the place of occurrence of the external cause; Z99.81 Dependence on supplemental oxygen; Z79.891 Long term (current) use of opiate analgesic; Z79.02 Long term (current) use of antithrombotics/antiplatelets; Z79.82 Long term (current) use of aspirin; Z79.899 Other long term (current) drug therapy; Z88.0 Allergy status to penicillin; Z88.2 Allergy status to sulfonamides; Z91.048 Other nonmedicinal substance allergy status; Z96.643 Presence of artificial hip joint, bilateral; Z86.73 Personal history of transient ischemic attack (TIA), and cerebral infarction without residual deficits; Z95.5 Presence of coronary angioplasty implant and graft; Z86.2 Personal history of diseases of the blood and blood-forming organs and certain disorders involving the immune mechanism
CPT/HCPCS: 96374; 96372; J2270; J1650; 80053; 36415; 81001; 85025; 72170; 73060; 73010; 73030; 73502; 70450; 94760 ×4; 97116; G8978; G8979; G8980; 97162; 99285; G0378

== ENCOUNTER → 2018-06-07 | Outpatient (CLI) | payer MEDICARE, MEDICAID ==
--- NOTE | 2018-06-08 08:21 | MRI ---
EXAM DESCRIPTION: Lumbar Spine w/o Contrast CLINICAL HISTORY: LOW BACK PAIN COMPARISON: April 06, 2016 TECHNIQUE: Multiplanar, multisequence MRI of the lumbar spine was performed without contrast. FINDINGS: Remote compression fracture deformity and vertebral augmentation at T9, T11, and L1 are unchanged from previous exam without progressive loss of vertebral body height. There remains increased kyphosis of the lower thoracic to upper lumbar spine junction. Remote compression fracture deformities at L2 and involving the superior endplates of L4 and L5 are again seen. There is new mild concavity the superior plate of L3 with horizontally oriented fracture below the superior endplate and diffuse bone marrow edema throughout the entire vertebral body. Less than 25% loss of vertebral body height is seen with 2 mm retropulsed fragment of the superior endplate. No resulting spinal canal stenosis. Horizontal positioning of the upper sacrum is again seen. Bone marrow edema in the left and right aspect of the sacrum is seen with horizontal marrow edema in the mid aspect of S2 new from previous. Fracture lines are seen on T1-weighted sequences. Conus medullaris terminates at T12-L1 and is unremarkable. No high-grade spinal canal stenosis. Visualized intra-abdominal and retroperitoneal structures show no acute findings. There is facet arthrosis throughout the lumbar spine which is severe at L5-S1 and moderate at the other levels. No exiting nerve root impingement. There is increased clumping of the nerve roots in the periphery and posterior aspect of the thecal sac from L3 to the sacrum. IMPRESSION: Acute compression fracture deformity involving the superior plate of L3 with diffuse bone marrow edema is new from previous exam. Minimal retropulsed fragment of the superior plate is seen without spinal canal stenosis. Sacral insufficiency fractures are incompletely visualized on this exam and are new from previous exam. Multiple remote compression fracture deformities with vertebral augmentation at the thoracolumbar junction. Increased clumping of nerve roots in the periphery of the thecal sac and posteriorly from L3 to the sacrum raises suspicion for arachnoiditis. Electronically signed by: Davey Ly MD 06/08/2018 8:20 AM [employer]
== END ==
LOC: MRI 08:29
PROVIDERS: ATTEND Family Medicine
DX: M48.56XA Collapsed vertebra, not elsewhere classified, lumbar region, initial encounter for fracture (principal); M48.55XA Collapsed vertebra, not elsewhere classified, thoracolumbar region, initial encounter for fracture; S32.10XA Unspecified fracture of sacrum, initial encounter for closed fracture

== ENCOUNTER 2018-06-10 13:48 | Emergency (ER) | payer MEDICARE, MEDICAID ==
--- NOTE | 2018-06-10 15:06 | RAD ---
EXAM DESCRIPTION: Ribs,Right 3 Views CLINICAL HISTORY: 67 years Female lower rib pain after fall COMPARISON: None TECHNIQUE: AP and oblique views of the ribs are obtained. FINDINGS: The visualized lungs are clear with no evidence of acute consolidation. Hiatal hernia again demonstrated. There is no evidence of pleural fluid or pneumothorax. The osseous structures are demineralized. Vertebroplasty has been performed at multiple thoracic and upper lumbar levels. There are no definite acute fractures involving the right ribs. Fractures of the left anterior eighth, ninth and 10th anterior ribs are age indeterminate. The soft tissues are intact without evidence of subcutaneous emphysema. IMPRESSION: No acute osseous abnormalities involving the right ribs. Fractures of the left eighth, ninth and 10th anterior age indeterminate. Recommend clinical correlation for any focal tenderness. Remainder of findings as described above. Electronically signed by: Minnie Baird MD 06/10/2018 3:04 PM [facility]
[2018-06-10 15:44] VITALS: O2SAT 94
--- NOTE | 2018-06-10 16:10 | ED.PDOC ---
History of Present Illness - General Chief Complaint: Trauma Stated Complaint: fall and injured right ribs Time Seen by Provider: 06/10/18 13:56 Source: patient Exam Limitations: no limitations - History of Present Illness Initial Comments: the patient is a 67-year-old female presenting to emergency room after getting up out of her bed, becoming dizzy and sliding down to the floor. When she did this she hit the side of the dresser with her right rib cage. She has pain in the right rib cage which is primarily why she presented. The patient is obviously drowsy. She has taken some of her trazodone and Lyrica. The patient's pulse oximetry shows oxygen saturation is ranging from 85-93% on room air. The patient has also not been wearing her oxygen. Additionally the patient's blood pressures are in the low normal range at best. She does take several blood pressure medications along with several sedating medications. She also takes a diuretic. Aside from the right-sided chest pain she is feeling okay at the moment. She does have chronic pain from a fall 3 weeks ago where she hurt her left rib cage and her left shoulder. She did not hurt these in the fall today according to her. She is alert and oriented and cooperative. Timing/Duration: momentarily Severity: moderate Improving Factors: nothing Worsening Factors: movement Associated Symptoms: chest pain Allergies/Adverse Reactions: Allergies Penicillins Allergy (Mild, Verified 05/19/18 02:40) Unknown reports made throat swell when she was a child Sulfamethoxazole w/Trimethoprim [From Bactrim] Allergy (Mild, Verified 05/19/18 02:41) Nausea Home Medications: Ambulatory Orders Atorvastatin Calcium [Lipitor] 40 mg PO BEDTIME 05/19/18 Carvedilol [Coreg] 3.125 mg PO BID 05/19/18 Chlorzoxazone [Parafon Forte DSC] 500 mg PO Q6H PRN 05/19/18 Hydroxychloroquine Sulfate [Plaquenil] 200 mg PO BID 05/19/18 Indomethacin 50 mg PO Q6H 05/19/18 Pregabalin [Lyrica] 300 mg PO BID 05/19/18 Sertraline HCl [Zoloft] 200 mg PO BEDTIME 05/19/18 Spironolactone [Aldactone] 25 mg PO DAILY 05/19/18 Trazodone HCl [Trazodone Hydrochloride] 100 mg PO BEDTIME 05/19/18 Ventolin Hfa Inhaler 2 inh INH Q4H PRN 05/19/18 Verapamil HCl [Verapamil HCl Sr] 180 mg PO DAILY 05/19/18 Review of Systems - Review of Systems Constitutional: States: malaise, weakness - generalized EENTM: States: no symptoms reported Respiratory: States: no symptoms reported Cardiology: States: chest pain - rib cage pain Gastrointestinal/Abdominal: States: no symptoms reported Genitourinary: States: no symptoms reported Musculoskeletal: States: see HPI - chronic pain Skin: States: no symptoms reported Neurological: States: see HPI - hronic pain Endocrine: States: no symptoms reported All other Systems: No Change from Baseline Past Medical History (General) - Patient Medical History Hx Seizures: No Hx Stroke: Yes - 2006 Hx Dementia: No Hx Asthma: No Hx of COPD: Yes Hx Cardiac Disorders: Yes - CT Hx Congestive Heart Failure: Yes Hx Pacemaker: No Hx Hypertension: No Hx Thyroid Disease: No Hx Diabetes: No Hx Gastroesophageal Reflux: Yes - HIATAL HERNIA Hx Renal Disease: No Hx Cancer: No Hx of HIV: No Hx Hepatitis C: No Hx MRSA: No MRSA Source:: Wound Surgical History: Hysterectomy, other - Vaccination History Hx Tetanus, Diphtheria Vaccination: Yes Hx Influenza Vaccination: Yes Hx Pneumococcal Vaccination: Yes - Social History Hx Tobacco Use: No Hx Chewing Tobacco Use: No Hx Alcohol Use: No Hx Substance Use: No Hx Substance Use Treatment: No Hx Depression: Yes Hx Physical Abuse: No Hx Emotional Abuse: No Hx Suspected Abuse: No - Female History Patient : No Family Medical History - Family History Mother Family History: Unknown Living Status: Hx Family;Other: SHE DID NOT KNOW PARENTS AND SHE DOES NOT KNOW FH HISTORY. PT ADOPTED Physical Exam - Physical Exam General Appearance: Alert, Other - sleepy but cooperative Eye Exam: bilateral normal Ears, Nose, Throat: hearing grossly normal, normal ENT inspection, normal pharynx Neck: full range of motion, supple Respiratory: lungs clear, normal breath sounds, no respiratory distress, no accessory muscle use, other - she does actually have tenderness to the right anterior lateral lower chest wall. No crepitus. No obvious bruising at this time. She also has soreness to the left side from her previous injuries. 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, normal mood/affect - she is drowsy due to medications, oriented x 3 Skin Exam: normal color Comments: Vital Signs - 24 hr 06/10/18 06/10/18 06/10/18 14:03 15:00 15:01 Temperature 99.4 F Pulse Rate [ 73 Right Apical] Respiratory 22 16 16 Rate Blood Pressure 136/77 102/69 [right brachial ] O2 Sat by Pulse 92 L 89 L 96 Oximetry 06/10/18 06/10/18 06/10/18 15:35 15:52 15:53 Temperature Pulse Rate [ 80 80 86 Right Apical] Respiratory 20 16 16 Rate Blood Pressure 111/73 90/61 99/65 [right brachial ] O2 Sat by Pulse 94 L 94 L 94 L Oximetry Progress - Progress Progress: 06/10/18 16:13 the patient is a 67-year-old female with numerous long-term medical problems presenting after a small fall at home after becoming dizzy. X-ray of the right rib cage shows no evidence of any fracture. She does need to remember to take big deep breaths to prevent fluid accumulation and pneumonia. The patient additionally needs to keep her oxygen on at home. Low oxygen levels may be contributing to her episodes of dizziness, as she has not been wearing her oxygen much. Additionally the patient is mildly dehydrated and correspondingly mildly hypotensive. For now I want the patient to hold her spironolactone and Coreg/carvedilol for the next 5 days. After that she can resume the Coreg at the regular dose and resume spironolactone and one half the dose daily. She does need to have her blood pressures checked regularly. She needs to increase her fluid intake for the next few days. The Lyrica and trazodone may also be contributing to the lower blood pressures. She is certainly drowsy here today. These do increase her fall risk and she should try to minimize these as much as tolerable. She needs to follow back up with her primary care doctor in 2-3 days. ER warnings were given. - Results/Orders Results/Orders: Laboratory Tests 06/10/18 06/10/18 06/10/18 14:55 14:55 15:42 WBC 6.4 RBC 3.85 L Hgb 11.1 L Hct 34.1 L MCV 88.6 MCH 28.8 MCHC 32.5 L RDW 14.5 Plt Count 243 MPV 8.4 Absolute Neuts (auto) 5.10 Absolute Lymphs (auto) 0.70 L Absolute Monos (auto) 0.50 Absolute Eos (auto) 0.00 Absolute Basos (auto) 0.00 Neutrophils % 80.3 H Lymphocytes % 11.8 L Monocytes % 7.4 Eosinophils % 0.1 L Basophils % 0.4 Sodium 138 Potassium 3.7 Chloride 101 Carbon Dioxide 29 Anion Gap 11.7 L BUN 19 H Creatinine 0.68 BUN/Creatinine Ratio 27.9 H Random Glucose 94 Serum Osmolality 277.7 Calcium 9.4 Total Bilirubin 0.5 AST 24 ALT < 8 L Alkaline Phosphatase 196 H Creatine Kinase 74 CK-MB (CK-2) 1.5 CK-MB (CK-2) % Not Reportable Troponin I < 0.02 B-Natriuretic Peptide 108.0 H Serum Total Protein 7.0 Albumin 3.7 Globulin 3.3 Albumin/Globulin Ratio 1.1 Urine Color Yellow Urine Appearance Clear Urine pH 5.0 Ur Specific [place] >= 1.030 Urine Protein Negative Urine Glucose (UA) Negative Urine Ketones Trace Urine Blood Negative Urine Nitrite Negative Urine Bilirubin Small H Urine Urobilinogen 0.2 Ur Leukocyte Esterase Negative Urine RBC 0 Urine WBC 0 Ur Epithelial Cells 3-5 Urine Bacteria Rare Departure - Departure Clinical Impression: Dehydration, Near syncope Fall at home Qualifiers: Encounter type: initial encounter Qualified Code(s): W19.XXXA - Unspecified fall, initial encounter; Y92.009 - Unspecified place in unspecified non- institutional (private) residence as the place of occurrence of the external cause; Y92.009 - Unspecified place in unspecified non-institutional (private) residence as the place of occurrence of the external cause Disposition: Discharge to Home or Self Care Condition: Fair Departure Forms: ED Discharge - Pt. Copy, Patient Portal Self Enrollment Diet: regular diet Activity: walking as tolerated Referrals: Barrera,Kwame D, MD [Primary Care Provider] - 1-5 Days Home Medications: Ambulatory Orders Atorvastatin Calcium [Lipitor] 40 mg PO BEDTIME 05/19/18 Carvedilol [Coreg] 3.125 mg PO BID 05/19/18 Chlorzoxazone [Parafon Forte DSC] 500 mg PO Q6H PRN 05/19/18 Hydroxychloroquine Sulfate [Plaquenil] 200 mg PO BID 05/19/18 Indomethacin 50 mg PO Q6H 05/19/18 Pregabalin [Lyrica] 300 mg PO BID 05/19/18 Sertraline HCl [Zoloft] 200 mg PO BEDTIME 05/19/18 Spironolactone [Aldactone] 25 mg PO DAILY 05/19/18 Trazodone HCl [Trazodone Hydrochloride] 100 mg PO BEDTIME 05/19/18 Ventolin Hfa Inhaler 2 inh INH Q4H PRN 05/19/18 Verapamil HCl [Verapamil HCl Sr] 180 mg PO DAILY 05/19/18 Additional Instructions: the patient is a 67-year-old female with numerous long-term medical problems presenting after a small fall at home after becoming dizzy. X-ray of the right rib cage shows no evidence of any fracture. She does need to remember to take big deep breaths to prevent fluid accumulation and pneumonia. The patient additionally needs to keep her oxygen on at home. Low oxygen levels may be contributing to her episodes of dizziness, as she has not been wearing her oxygen much. Additionally the patient is mildly dehydrated and correspondingly mildly hypotensive. For now I want the patient to hold her spironolactone and Coreg/carvedilol for the next 5 days. After that she can resume the Coreg at the regular dose and resume spironolactone and one half the dose daily. She does need to have her blood pressures checked regularly. She needs to increase her fluid intake for the next few days. The Lyrica and trazodone may also be contributing to the lower blood pressures. She is certainly drowsy here today. These do increase her fall risk and she should try to minimize these as much as tolerable. She needs to follow back up with her primary care doctor in 2-3 days. ER warnings were given.
[2018-06-10 17:20] VITALS: BP 96/67; TEMP 98.8
== END 2018-06-10 17:50 | disposition home or self-care (01) ==
LOC: ER 13:48
DX: E86.0 Dehydration (principal); R55 Syncope and collapse; R07.81 Pleurodynia; I95.9 Hypotension, unspecified; J44.9 Chronic obstructive pulmonary disease, unspecified; I25.2 Old myocardial infarction; I50.9 Heart failure, unspecified; W06.XXXA Fall from bed, initial encounter; Y92.003 Bedroom of unspecified non-institutional (private) residence as the place of occurrence of the external cause; Z86.73 Personal history of transient ischemic attack (TIA), and cerebral infarction without residual deficits; Z79.899 Other long term (current) drug therapy; Z88.0 Allergy status to penicillin; Z88.2 Allergy status to sulfonamides; Z99.81 Dependence on supplemental oxygen

== ENCOUNTER 2018-06-17 13:17 | Inpatient (IN) | payer MEDICARE, MEDICAID ==
[2018-06-17] MEDS ORDERED: NITROGLYCERIN 0.4 MG 25 EA TAB SL ONE ×2 (13:21→13:27)
[2018-06-17] MEDS ORDERED: ASPIRIN TABLET 325 MG TAB ONE (13:22)
[2018-06-17] MEDS ORDERED: ASPIRIN (CHEWABLE) 81 MG TAB PO ONE (13:27)
[2018-06-17] MEDS ORDERED: SODIUM CHLORIDE 0.9% 1000ML 1,000 ML IVS ONE ×2 (13:27→15:05)
[2018-06-17] MEDS ORDERED: ONDANSETRON INJ 4 MG/2 ML VIAL IV ONE (13:27)
--- NOTE | 2018-06-17 13:39 | ED.PDOC ---
History of Present Illness - General Chief Complaint: GI Problem Stated Complaint: nausea and chest pain x 2 days Time Seen by Provider: 06/17/18 13:26 Source: patient, family Exam Limitations: no limitations - History of Present Illness Initial Comments: patient comes in today with 2 day history of nausea and chest pain. Patient states the chest pain got much worse directly prior to coming to the emergency room since being in the emergency room it seems to have calmed down. Patient states she's had nausea but no abdominal pain, diarrhea, or emesis. She has chills and overall malaise. She's had some cough with some productive but no shortness of breath or wheezing. The chest pain feels pressure-like in the middle of her chest without radiation. She's had this before with a past MD but states she did not have any nitroglycerin nor did she take any prior to arrival. Per friend who brought her she has been sick for the past 2 days. She only complained of it prior to arrival. She has a hiatal hernia that has caused her problems before but it has not been this bad for about a year. She also has both CAD with hx of AMI/stents and anxiety attacks that come with chest pain. He states [facility] evaluated her yesterday but since she was much worse today he decided to bring her in. Timing/Duration: 1-3 hours Severity: severe Improving Factors: nothing Worsening Factors: nothing Associated Symptoms: cough, nausea/vomiting Allergies/Adverse Reactions: Allergies Penicillins Allergy (Mild, Verified 05/19/18 02:40) Unknown reports made throat swell when she was a child Sulfamethoxazole w/Trimethoprim [From Bactrim] Allergy (Mild, Verified 05/19/18 02:41) Nausea Home Medications: Ambulatory Orders Atorvastatin Calcium [Lipitor] 40 mg PO BEDTIME 05/19/18 Carvedilol [Coreg] 3.125 mg PO BID 05/19/18 Chlorzoxazone [Parafon Forte DSC] 500 mg PO Q6H PRN 05/19/18 Hydroxychloroquine Sulfate [Plaquenil] 200 mg PO BID 05/19/18 Indomethacin 50 mg PO Q6H 05/19/18 Pregabalin [Lyrica] 300 mg PO BID 05/19/18 Sertraline HCl [Zoloft] 200 mg PO BEDTIME 05/19/18 Spironolactone [Aldactone] 25 mg PO DAILY 05/19/18 Trazodone HCl [Trazodone Hydrochloride] 100 mg PO BEDTIME 05/19/18 Ventolin Hfa Inhaler 2 inh INH Q4H PRN 05/19/18 Verapamil HCl [Verapamil HCl Sr] 180 mg PO DAILY 05/19/18 Review of Systems - Review of Systems Constitutional: States: chills, malaise, weakness. Denies: fever EENTM: States: no symptoms reported. Denies: eye pain, ear pain, nose pain, nose congestion Respiratory: States: cough. Denies: short of breath, wheezing Cardiology: States: chest pain. Denies: edema, palpitations Gastrointestinal/Abdominal: States: nausea. Denies: abdominal pain, constipation, diarrhea, vomiting Genitourinary: States: no symptoms reported. Denies: dysuria, frequency, hematuria Musculoskeletal: States: no symptoms reported Skin: States: no symptoms reported Neurological: States: no symptoms reported Past Medical History (General) - Patient Medical History Hx Seizures: No Hx Stroke: Yes - 2006 Hx Dementia: No Hx Asthma: No Hx of COPD: Yes Hx Cardiac Disorders: Yes - MD Hx Congestive Heart Failure: Yes Hx Pacemaker: No Hx Hypertension: No Hx Thyroid Disease: No Hx Diabetes: No Hx Gastroesophageal Reflux: Yes - HIATAL HERNIA Hx Renal Disease: No Hx Cancer: No Hx of HIV: No Hx Hepatitis C: No Hx MRSA: No MRSA Source:: Wound - Vaccination History Hx Tetanus, Diphtheria Vaccination: Yes Hx Influenza Vaccination: Yes Hx Pneumococcal Vaccination: Yes - Social History Hx Tobacco Use: No Hx Chewing Tobacco Use: No Hx Alcohol Use: No Hx Substance Use: No Hx Substance Use Treatment: No Hx Depression: Yes Hx Physical Abuse: No Hx Emotional Abuse: No Hx Suspected Abuse: No - Female History Patient : No Family Medical History - Family History Mother Family History: Unknown Living Status: Hx Family;Other: SHE DID NOT KNOW PARENTS AND SHE DOES NOT KNOW FH HISTORY. PT ADOPTED Physical Exam - Physical Exam General Appearance: Frail Eye Exam: bilateral normal Ears, Nose, Throat: hearing grossly normal, normal ENT inspection, normal pharynx Neck: non-tender, full range of motion, supple, normal inspection Respiratory: chest non-tender, lungs clear Cardiovascular/Chest: normal peripheral pulses, regular rate, rhythm, no edema, no gallop, no JVD, no murmur Peripheral Pulses: radial,right: 2+, radial,left: 2+ Gastrointestinal/Abdominal: normal bowel sounds, non tender, soft Back Exam: normal inspection Neurologic: no motor/sensory deficits, alert Progress - Progress Progress: 06/17/18 14:58 patient feels much better after IVF. Nausea resolved with zofran and no chest pain. Discussed results with patient and camp recreation specialist practitioner Caridad Kyle and will admit for IVF and monitor her kidney function. - Results/Orders Results/Orders: Patient Name: LESLY SANDOVAL Gender: Female Date of : 1950 Referring Physician: JEFF RAMEY Organization: [facility] Accession Number: [id number] Requested Date: June 17, 2018 13:27 Report Status: Final Requested Procedure: 1 Procedure Description: Chest,1 View Modality: CR Findings Reporting MD: Lonnie Mock Fellow MD: Not available Dictation Time: Jet Inspector: Not available Comber Fixer Date: CLINICAL HISTORY: chest pain COMPARISON: June 10, 2018. TECHNIQUE: XR CHEST 1 VIEW 06/17/2018 1:27 PM DIRECTORY COMPILER FINDINGS: Cardiac silhouette is borderline in size. Lungs are clear without consolidation, atelectasis, mass or edema. There is no pleural effusion. There is no pneumothorax. Multiple compression fractures in the thoracic and lumbar spine have been repaired with vertebroplasty. There is a hiatal hernia. IMPRESSION: No definite pneumonia 06/17/18 13:30 EKG STAT Laboratory Results WBC 6.4 K/mm3 (4.8-10.8) 06/17/18 13:38 RBC 4.39 M/mm3 (4.20-5.40) 06/17/18 13:38 Hgb 12.6 gm/dL (12.0-16.0) 06/17/18 13:38 Hct 38.2 % (36.0-47.0) 06/17/18 13:38 MCV 87.1 fl (81.0-99.0) 06/17/18 13:38 MCH 28.8 pg (27.0-31.0) 06/17/18 13:38 MCHC 33.1 g/dL (33.0-37.0) 06/17/18 13:38 RDW 15.1 % (11.5-14.5) H 06/17/18 13:38 Plt Count 278 K/mm3 (130-400) 06/17/18 13:38 MPV 8.5 fl (7.40-10.4) 06/17/18 13:38 Absolute Neuts (auto) 4.80 K/uL (1.8-6.8) 06/17/18 13:38 Absolute Lymphs (auto) 1.10 K/uL (1.0-3.4) 06/17/18 13:38 Absolute Monos (auto) 0.40 K/uL (0.2-0.8) 06/17/18 13:38 Absolute Eos (auto) 0.00 K/uL (0.0-0.4) 06/17/18 13:38 Absolute Basos (auto) 0.10 K/uL (0.0-0.1) 06/17/18 13:38 Neutrophils % 75.4 % (42.0-78.0) 06/17/18 13:38 Lymphocytes % 17.3 % (20.0-50.0) L 06/17/18 13:38 Monocytes % 6.2 % (2.0-9.0) 06/17/18 13:38 Eosinophils % 0.1 % (1.0-5.0) L 06/17/18 13:38 Basophils % 1.0 % (0.0-2.0) 06/17/18 13:38 Sodium 140 mmol/L (135-145) 06/17/18 13:38 Potassium 4.0 mmol/L (3.6-5.0) 06/17/18 13:38 Chloride 102 mmol/L (101-111) 06/17/18 13:38 Carbon Dioxide 24 mmol/L (21-31) 06/17/18 13:38 Anion Gap 18.0 (12-18) 06/17/18 13:38 BUN 16 mg/dL (7-18) 06/17/18 13:38 Creatinine 0.84 mg/dL (0.6-1.3) 06/17/18 13:38 BUN/Creatinine Ratio 19.0 (10-20) 06/17/18 13:38 Random Glucose 86 mg/dL (70-105) 06/17/18 13:38 Serum Osmolality 279.9 mOsm/L (275-295) 06/17/18 13:38 Lactic Acid 1.5 mmol/L (0.5-2.2) 06/17/18 13:38 Calcium 10.0 mg/dL (8.4-10.2) 06/17/18 13:38 Total Bilirubin 0.5 mg/dL (0.2-1.0) 06/17/18 13:38 AST 147 IU/L (10-42) H 06/17/18 13:38 ALT 16 IU/L (10-60) 06/17/18 13:38 Alkaline Phosphatase 220 IU/L (42-121) H 06/17/18 13:38 Creatine Kinase 4808 IU/L (26-140) H* 06/17/18 13:38 CK-MB (CK-2) 34.0 ng/mL (0.0-4.4) H* 06/17/18 13:38 CK-MB (CK-2) % 0.71 % (0.0-4.3) 06/17/18 13:38 Troponin I < 0.02 ng/mL (0.01-0.05) 06/17/18 13:38 Serum Total Protein 7.6 gm/dL (6.4-8.2) 06/17/18 13:38 Albumin 3.7 g/dl (3.2-5.5) 06/17/18 13:38 Globulin 3.9 gm/dL (2.3-3.5) H 06/17/18 13:38 Albumin/Globulin Ratio 0.9 (1.1-1.9) L 06/17/18 13:38 - EKG/XRAY/CT EKG: Epifanio, Sinus, no ST T wave changes Comments: HR 58, normal axis Departure - Departure Clinical Impression: Rhabdomyolysis Qualifiers: Rhabdomyolysis type: non-traumatic Qualified Code(s): M62.82 - Rhabdomyolysis Disposition: Admit Patient Condition: Good Departure Forms: ED Discharge - Pt. Copy, Patient Portal Self Enrollment Referrals: Kwame Barrera MD [Primary Care Provider] - 1-2 Weeks Home Medications: Ambulatory Orders Atorvastatin Calcium [Lipitor] 40 mg PO BEDTIME 05/19/18 Carvedilol [Coreg] 3.125 mg PO BID 05/19/18 Chlorzoxazone [Parafon Forte DSC] 500 mg PO Q6H PRN 05/19/18 Hydroxychloroquine Sulfate [Plaquenil] 200 mg PO BID 05/19/18 Indomethacin 50 mg PO Q6H 05/19/18 Pregabalin [Lyrica] 300 mg PO BID 05/19/18 Sertraline HCl [Zoloft] 200 mg PO BEDTIME 05/19/18 Spironolactone [Aldactone] 25 mg PO DAILY 05/19/18 Trazodone HCl [Trazodone Hydrochloride] 100 mg PO BEDTIME 05/19/18 Ventolin Hfa Inhaler 2 inh INH Q4H PRN 05/19/18 Verapamil HCl [Verapamil HCl Sr] 180 mg PO DAILY 05/19/18 Decision To Admit - Decistion To Admit Decision to Admit Reason: Admit from ER Decision to Admit Date: 06/17/18 Decision to Admit Time: 14:59
--- NOTE | 2018-06-17 13:45 | RAD ---
CLINICAL HISTORY: chest pain COMPARISON: June 10, 2018. TECHNIQUE: XR CHEST 1 VIEW 06/17/2018 1:27 PM DOCTOR OF MEDICINE FINDINGS: Cardiac silhouette is borderline in size. Lungs are clear without consolidation, atelectasis, mass or edema. There is no pleural effusion. There is no pneumothorax. Multiple compression fractures in the thoracic and lumbar spine have been repaired with vertebroplasty. There is a hiatal hernia. IMPRESSION: No definite pneumonia. Electronically signed by: Lonnie Mock MD 06/17/2018 1:44 PM DOCTOR OF MEDICINE
[2018-06-17] MEDS ORDERED: ASPIRIN TABLET 325 MG TAB PO ONE (13:53)
--- NOTE | 2018-06-17 15:11 | HP ---
SUPERVISING PHYSICIAN: Lazaro Yang M.D. CHIEF COMPLAINT: Nausea with chest pain times 2 days. HISTORY OF PRESENT ILLNESS: This is a 67 year-old female patient who has a 2 day history of nausea and chest pain. She has had no vomiting. The chest pain finally got so bad today that she came to the Emergency Room. She said she has been in bed for these 2 days and seldom got up to move. About 1 month ago she did have a left distal humerus fracture and was in rehab at [facility] in [place] for 10 days. She does have a significant history of chronic pain syndrome on multiple pain medications. With the nausea she has had some chills and just generally felt fatigued and tired. There has been a minor cough with some production but no shortness of breath or wheezing. The chest pain was substernal but there was no radiation. It was not worse with movement nor did it improve with rest. She has had a history of myocardial infarctions in the past. She does have a hiatal hernia. In the Emergency Room her electrolytes were basically within normal limits with lactic acid of 1.5. AST was elevated at 147, alkaline phosphatase was elevated at 220, but her creatinine kinase was 4,808 with CK of 34. Troponin was negative. CBC was basically within normal limits. Chest x-ray showed no definite pneumonia. EKG was unchanged from previous EKGs. She was given Zofran in the Emergency Room as well as 2 Nitroglycerin and aspirin and a liter of normal saline. I was called for admission for an elevated CK as well as chest pain rule out myocardial infarction. PAST MEDICAL HISTORY: 1. Coronary artery disease. 2. Myocardial infarctions in 2007, 2009 and 2014 with stent placement. 3. Chronic obstructive pulmonary disease. 4. History of diverticulosis. 5. Chronic neck and back pain. 6. Fibromyalgia. 7. Osteoarthritis. 8. Multiple thoracic and lumbar vertebral fractures requiring multiple procedures in the past. 9. Chronic migraine. 10. Depression. 11. Hyperlipidemia. 12. Hypertension. 13. Gastroesophageal reflux disease. 14. Hiatal hernia. 15. Iron-deficiency anemia. 16. Left distal humerus fracture approximately 1 month ago. PAST SURGICAL HISTORY: 1. Hysterectomy. 2. Coronary stents in 2007, 2009 and 2014. 3. Kyphoplasty. 4. Multiple neck and back surgeries. 5. Tummy tuck surgery. 6. Bilateral hip replacements. CURRENT MEDICATIONS: Awaiting verification and will be per the EMR. ALLERGIES: PENICILLIN, ADHESIVE TAPE AND SULFA. FAMILY HISTORY: Unknown as she is adopted. SOCIAL HISTORY: She is retired. She lives in [place]. She has never smoked, used ETOH or illicit drugs. REVIEW OF SYSTEMS: Positive for chills. Negative for fever or weight changes. HEENT: Negative for ear pain, vision changes, sore throat or sinus symptoms. RESPIRATORY: Positive for mildly productive cough. Negative for wheezing with shortness of breath. CARDIAC: As per history of present illness. ABDOMEN: Positive for nausea. Negative for abdominal pain, vomiting, constipation or diarrhea. GENITOURINARY: Negative for dysuria, hematuria or polyuria. MUSCULOSKELETAL: Negative for myalgias, arthralgias. NEUROLOGIC: Positive for weakness. Negative for seizures or headaches. PHYSICAL EXAMINATION: VITAL SIGNS: She is afebrile, heart rate 66, blood pressure 121/72, respiratory rate 20, O2 sat 92% on room air. GENERAL: This is a 67 year-old female patient lying in her hospital bed. She is in no acute distress. HEENT: Normocephalic and atraumatic. Pupils are equal and reactive. Oropharynx is clear. NECK: Supple without mass. RESPIRATORY: Essentially clear to auscultation bilaterally. CHEST: There is equal rise and fall of the chest with inspiration and expiration. CARDIOVASCULAR: Regular rate and rhythm. GASTROINTESTINAL: Abdomen is soft, nondistended, non-tender. Bowel sounds are positive. EXTREMITIES: No clubbing, cyanosis or edema. NEUROLOGIC: She is awake, alert and oriented times three. Cranial nerves II- XII are grossly intact. LABORATORY: As per the History of Present Illness. ASSESSMENT: 1. Elevated CK of 4,808 most likely secondary to immobility for 2 plus days. 2. Chest pain with initial cardiac enzymes negative and no EKG changes. 3. Nausea times 2 plus days with no vomiting. 4. Elevated liver function tests. She does have a recent history of slightly elevated liver function tests. 5. Recent left humerus fracture just recently out of [facility]. 6. Chronic pain syndrome on multiple medications including narcotics with Oxycodone and muscle relaxants. 7. Hypertension that is stable. 8. Gastroesophageal reflux disease. 9. Significant history of coronary artery disease, myocardial infarctions times 3 with stent placement. 10. History of diverticulosis. 11. History of chronic obstructive pulmonary disease without exacerbation. 12. History of fibromyalgia. 13. History of multiple thoracic and lumbar vertebral fractures in the past requiring kyphoplasty. 14. History of depression and anxiety. PLAN: We will admit the patient to the hospital. I have initiated the chest pain guidelines and will do serial cardiac enzymes and monitor her creatinine kinase, and we will edge stitcher primary fluids. Will restart her home medications when they are verified. I have started her on Lovenox for DVT prophylaxis and Protonix for ulcer prophylaxis. I did start her Oxycodone although it was not on her home medications. A recent admission had Oxycodone 10 mg every 6 hours as needed p.r.n., but that will need to be verified at some point. I have also ordered her some Zofran for her nausea. We may need to do further testing as far as her abdomen to rule out any other reason for her nausea. I have also made her NPO. If the nausea subsides we can advance her diet as tolerated. We will continue to monitor her closely and follow as needed. [facility][id number] [facility]
[2018-06-17] MEDS ORDERED: ONDANSETRON INJ 4 MG/2 ML VIAL IV PRN (16:00)
[2018-06-17] MEDS ORDERED: SODIUM CHLORIDE 0.9% (FLUSH) 10 ML SYG IV PRN (16:00)
[2018-06-17] MEDS ORDERED: PANTOPRAZOLE SODIUM IV 40 MG VIAL IV SCH (16:30)
[2018-06-17] MEDS: SODIUM CHLORIDE 0.45% 1000ML 1,000 ML IVS PRN (17:21)
[2018-06-17] MEDS: ENOXAPARIN SODIUM 40 MG/0.4 ML SYG SUBCU SCH (17:22)
[2018-06-17] MEDS: IV SET AND CAP CHANGE INJ INJ SCH (17:23)
[2018-06-17] MEDS ORDERED: NITROGLYCERIN 0.4 MG 25 EA TAB SL PRN (19:13)
[2018-06-17] MEDS ORDERED: ATORVASTATIN 20 MG TAB PO ONE (19:34)
[2018-06-17] MEDS ORDERED: PREGABALIN 100 MG CAP ONE (19:36)
[2018-06-17] MEDS: SERTRALINE HCL 50 MG TAB PO SCH (19:52)
[2018-06-17] MEDS: traZODone HCL 100 MG TAB PO SCH (19:52)
[2018-06-17] MEDS: CARVEDILOL 3.125 MG TAB PO SCH (19:52)
[2018-06-17] MEDS: SODIUM CHLORIDE 0.9% (FLUSH) 10 ML SYG IV SCH (19:54)
[2018-06-17] MEDS: NON-FORMULARY MEDICATION 1 EA MIS (Hydroxychloroquine Sulfate [Plaquenil] 200 MG) PO SCH (19:54)
[2018-06-17] MEDS ORDERED: NON-FORMULARY MEDICATION 1 EA MIS (Pregabalin [Lyrica] 300 MG) PO SCH (21:00)
[2018-06-17] MEDS ORDERED: NON-FORMULARY MEDICATION 1 EA MIS (Atorvastatin Calcium [Lipitor] 40 MG) PO SCH (21:00)
[2018-06-18] MEDS: SODIUM CHLORIDE 0.45% 1000ML 1,000 ML IVS PRN ×3 (00:49→16:25)
[2018-06-18] MEDS: ACETAMINOPHEN 325 MG TAB PO PRN ×2 (05:10→11:29)
[2018-06-18] MEDS ORDERED: SODIUM CHLORIDE 0.45% 1000ML 1,000 ML IVS ONE (08:27)
[2018-06-18] MEDS: PANTOPRAZOLE SODIUM IV 40 MG VIAL IV SCH (09:54)
[2018-06-18] MEDS: CARVEDILOL 3.125 MG TAB PO SCH ×2 (09:55→20:15)
[2018-06-18] MEDS: PREGABALIN 100 MG CAP PO SCH ×2 (09:55→20:15)
[2018-06-18] MEDS: VERAPAMIL ER TAB 180 MG TAB PO SCH (09:55)
[2018-06-18] MEDS: ASPIRIN TABLET 325 MG TAB PO SCH (09:55)
[2018-06-18] MEDS: NON-FORMULARY MEDICATION 1 EA MIS (Hydroxychloroquine Sulfate [Plaquenil] 200 MG) PO SCH ×2 (09:56→20:16)
[2018-06-18] MEDS: SPIRONOLACTONE 25 MG TAB PO SCH (09:56)
[2018-06-18] MEDS: SODIUM CHLORIDE 0.9% (FLUSH) 10 ML SYG IV SCH ×2 (09:57→20:17)
--- NOTE | 2018-06-18 15:00 | PN ---
SUPERVISING PHYSICIAN: Ney Fernandez MD DATE: 06/18/18 SUBJECTIVE: The patient states she feels a little bit better than she did yesterday. She is still a little bit weak. She does not have any nausea or vomiting at this time. OBJECTIVE: VITAL SIGNS: Blood pressure 113/66. Heart rate 69. Respiratory rate 16. Temperature 99.1. O2 saturation 90%. GENERAL: Ms. Herring is a 67-year-old female in no active distress currently. NEUROLOGIC: Alert and oriented. LUNGS: Clear to auscultation bilaterally. CARDIOVASCULAR: Regular rate and rhythm. Normal S1, S2. ABDOMEN: Soft. Positive bowel sounds. Nontender to palpation. GENITOURINARY: Deferred. EXTREMITIES: Lower extremities with no significant edema. Left upper extremity is in a sling at this time. LABORATORY: White count 4.2, hemoglobin 10.6, hematocrit 33.1, platelet count 210. Chemistry shows sodium 140, potassium 3.6, chloride 108, BUN 15, creatinine 0.75, glucose 71, calcium 8.9. CK on her labs this morning is 3,220 which is improved from earlier this morning at 3,575. She additionally had a CK before that which was 4,819. Troponins have remained negative. ASSESSMENT: 1. Rhabdomyolysis. 2. Chest pain, which is atypical. 3. Nausea. 4. Elevated liver function tests. 5. Recent left humerus fracture status post repair and subsequent rehab at [facility]. 6. Chronic pain syndrome on oxycodone and muscle relaxants. 7. Hypertension. 8. Gastroesophageal reflux disease. 9. History of coronary artery disease in the past with documented myocardial infarctions times 3 with stent placement in the past. 10. History of diverticulosis. 11. History of chronic obstructive pulmonary disease without acute exacerbation at this time. 12. History of fibromyalgia. 13. History of multiple thoracic and lumbar vertebral fractures requiring kyphoplasty in the past. 14. History of depression and anxiety. PLAN: At this time, she seems to be step-villegas improving regarding her CK levels. She is having adequate urine output. We will continue the current IV fluids and recheck her labs tomorrow. Dr. Barrera came by this morning and stated he has tried to get her in a [facility], but insurance wanted 3 subsequent midnights to accept her to a [facility]. I did discuss this with the patient and she adamantly refuses to go to a [facility] at this time. I will discuss that with Dr. Barrera tomorrow morning. She states she has home health, so we will verify that as well. #[id number] [facility]
[2018-06-18] MEDS: ENOXAPARIN SODIUM 40 MG/0.4 ML SYG SUBCU SCH (17:45)
[2018-06-18] MEDS: SERTRALINE HCL 50 MG TAB PO SCH (20:13)
[2018-06-18] MEDS: ATORVASTATIN 20 MG TAB PO SCH (20:14)
[2018-06-18] MEDS: traZODone HCL 100 MG TAB PO SCH (20:15)
[2018-06-19] MEDS: SODIUM CHLORIDE 0.45% 1000ML 1,000 ML IVS PRN ×2 (00:20→10:42)
[2018-06-19] MEDS: PANTOPRAZOLE SODIUM IV 40 MG VIAL IV SCH (05:11)
[2018-06-19] MEDS: PREGABALIN 100 MG CAP PO SCH ×2 (09:06→20:58)
[2018-06-19] MEDS: CARVEDILOL 3.125 MG TAB PO SCH ×2 (09:06→20:58)
[2018-06-19] MEDS: ASPIRIN TABLET 325 MG TAB PO SCH (09:06)
[2018-06-19] MEDS: SPIRONOLACTONE 25 MG TAB PO SCH (09:06)
[2018-06-19] MEDS: NON-FORMULARY MEDICATION 1 EA MIS (Hydroxychloroquine Sulfate [Plaquenil] 200 MG) PO SCH ×2 (09:07→20:59)
[2018-06-19] MEDS: VERAPAMIL ER TAB 180 MG TAB PO SCH (09:07)
[2018-06-19] MEDS: SODIUM CHLORIDE 0.9% (FLUSH) 10 ML SYG IV SCH ×2 (09:10→20:59)
--- NOTE | 2018-06-19 14:10 | PN ---
DATE: 06/19/18 SUPERVISING PHYSICIAN: Ney Fernandez M.D. SUBJECTIVE: The patient feels okay today and actually wants to go home, however labs are not completely normal. I discussed with her the plan of care after discharge as she had once again declined any group home placement. She states that she has home health at home. OBJECTIVE: Blood pressure 103/60, heart rate 63, respiratory rate 16, temperature 97.5, oxygen saturation 95%. GENERAL: Ms. Herring is in no active distress currently. NEUROLOGIC: The patient is alert and oriented. LUNGS: Clear to auscultation bilaterally. CARDIOVASCULAR: Regular rate and rhythm. Normal S1 and S2. ABDOMEN: Soft. Positive bowel sounds. GENITOURINARY: Exam is deferred. EXTREMITIES: Lower extremities have no edema, 2+ pulses. Capillary refill is less than 2 seconds. Left upper extremity is in a sling. LABORATORY: White count 3.8, hemoglobin 10.1, hematocrit 30.4, platelet count 202. Sodium 142, potassium 3.4, chloride 112, CO2 is 25, BUN 12, creatinine 0.72, glucose 91, calcium 8.5. CPK is 14.34. ASSESSMENT: 1. Rhabdomyolysis. 2. Chest pain, resolved. 3. Nausea, resolved. 4. Elevated liver function tests to be worked up as an outpatient. 5. Recent left humerus fracture status post repair and subsequent rehab at [facility]. 6. Chronic pain syndrome on Oxycodone and muscle relaxers. 7. Hypertension. 8. Chronic gastroesophageal reflux disease. 9. History of coronary artery disease with 3 myocardial infarctions in the past which required stents. 10. Diverticulosis. 11. History of chronic obstructive pulmonary disease without cute exacerbation. 12. History of fibromyalgia. 13. History of multiple thoracic and lumbar vertebral fractures requiring kyphoplasty. 14. History of depression and anxiety. PLAN: She is stepwise improving and in fact could probably go home, but I would really rather her CK levels be below 1,000. Will continue IV fluids and recheck labs tomorrow. If they are within that range will send home and continue home health as previously scheduled. #[id number] [facility]
[2018-06-19] MEDS: ENOXAPARIN SODIUM 40 MG/0.4 ML SYG SUBCU SCH (17:11)
[2018-06-19] MEDS: ATORVASTATIN 20 MG TAB PO SCH (20:58)
[2018-06-19] MEDS: traZODone HCL 100 MG TAB PO SCH (20:58)
[2018-06-19] MEDS: SERTRALINE HCL 50 MG TAB PO SCH (20:59)
[2018-06-20] MEDS: SODIUM CHLORIDE 0.45% 1000ML 1,000 ML IVS PRN (02:55)
[2018-06-20] MEDS: PANTOPRAZOLE SODIUM IV 40 MG VIAL IV SCH (06:31)
[2018-06-20] MEDS: SPIRONOLACTONE 25 MG TAB PO SCH (09:13)
[2018-06-20] MEDS: VERAPAMIL ER TAB 180 MG TAB PO SCH (09:13)
[2018-06-20] MEDS: ASPIRIN TABLET 325 MG TAB PO SCH (09:13)
[2018-06-20] MEDS: NON-FORMULARY MEDICATION 1 EA MIS (Hydroxychloroquine Sulfate [Plaquenil] 200 MG) PO SCH (09:15)
[2018-06-20] MEDS: CARVEDILOL 3.125 MG TAB PO SCH (09:15)
[2018-06-20] MEDS: SODIUM CHLORIDE 0.9% (FLUSH) 10 ML SYG IV SCH (09:15)
[2018-06-20] MEDS: ACETAMINOPHEN 325 MG TAB PO PRN (09:15)
[2018-06-20] MEDS: PREGABALIN 100 MG CAP PO SCH (09:20)
[2018-06-20 14:28] VITALS: BP 90/50; TEMP 97.9; O2SAT 93
[2018-06-20] MEDS: IV SET AND CAP CHANGE INJ INJ SCH (16:15)
[2018-06-20] MEDS: ENOXAPARIN SODIUM 40 MG/0.4 ML SYG SUBCU SCH (16:42)
--- NOTE | 2018-06-22 11:36 | DS ---
SUPERVISING PHYSICIAN: Ney Fernandez MD ADMISSION DIAGNOSIS: 1. Elevated CK of 4,808 most likely secondary to immobility for 2 plus days. 2. Chest pain with initial cardiac enzymes negative and no EKG changes. 3. Nausea times 2 plus days with no vomiting. 4. Elevated liver function tests. She does have a recent history of slightly elevated liver function tests. 5. Recent left humerus fracture just recently out of [facility]. 6. Chronic pain syndrome on multiple medications including narcotics with Oxycodone and muscle relaxants. 7. Hypertension that is stable. 8. Gastroesophageal reflux disease. 9. Significant history of coronary artery disease, myocardial infarctions times 3 with stent placement. 10. History of diverticulosis. 11. History of chronic obstructive pulmonary disease without exacerbation. 12. History of fibromyalgia. 13. History of multiple thoracic and lumbar vertebral fractures in the past requiring kyphoplasty. 14. History of depression and anxiety. DISCHARGE DIAGNOSIS: 1. Rhabdomyolysis now with CK levels returning to baseline below 1000. 2. Chest pain, resolved with no evidence of acute myocardial infarction. 3. Nausea, resolved with fluids. 4. Elevated liver functions, to be followed as an outpatient, uncertain etiology. 5. Chronic pain syndrome on oxycodone and muscle relaxers. 6. Hypertension, controlled. 7. History of chronic gastroesophageal reflux disease. 8. History of coronary artery disease with three previous myocardial infarctions and stents. 9. Diverticulosis without any evidence of acute diverticulitis on admission. 10. Chronic obstructive pulmonary disease without acute exacerbation. 11. History of fibromyalgia. 12. History of multiple thoracic and lumbar vertebral fractures, requiring kyphoplasty procedures in the past. 13. History of depression and anxiety. REASON FOR HOSPITALIZATION: This is a 67 year-old female patient who has a 2 day history of nausea and chest pain. She has had no vomiting. The chest pain finally got so bad today that she came to the Emergency Room. She said she has been in bed for these 2 days and seldom got up to move. About 1 month ago she did have a left distal humerus fracture and was in rehab at [facility] in [place] for 10 days. She does have a significant history of chronic pain syndrome on multiple pain medications. With the nausea she has had some chills and just generally felt fatigued and tired. There has been a minor cough with some production but no shortness of breath or wheezing. The chest pain was substernal but there was no radiation. It was not worse with movement nor did it improve with rest. She has had a history of myocardial infarctions in the past. She does have a hiatal hernia. In the Emergency Room her electrolytes were basically within normal limits with lactic acid of 1.5. AST was elevated at 147, alkaline phosphatase was elevated at 220, but her creatinine kinase was 4,808 with CK of 34. Troponin was negative. CBC was basically within normal limits. Chest x-ray showed no definite pneumonia. EKG was unchanged from previous EKGs. She was given Zofran in the Emergency Room as well as 2 Nitroglycerin and aspirin and a liter of normal saline. I was called for admission for an elevated CK as well as chest pain rule out myocardial infarction. LABORATORY: CBC showed white count 6,400 on admission. At discharge, it was down to 3,800. Hemoglobin and hematocrit had stabilized at 10.1 and 30.4, respectively, with platelet count 202,000. Differential was without a left shift. Chemistries initially on admission showed electrolytes within normal limits with BUN 16, creatinine 0.84, lactic acid normal at 1.5. Liver functions showed elevated AST at 147, normal total bilirubin at 0.5, alkaline phosphatase elevated at 220. Initial CK was 4808. After fluids and treatment prior to discharge, it was down to 752. Troponin was less than 0.02 on admission. Lipid panel showed triglycerides to be normal at 65, cholesterol normal at 115, LDL cholesterol 68.4, HDL cholesterol 33. Blood sugars were stable between 71 and 95. Electrolytes on discharge showed mildly low potassium of 3.4, otherwise within normal limits. Creatinine was 0.46, calcium 8.5. Urinalysis on admission showed moderate amount of blood with small amount of bilirubin and microscopic revealed 5 to 10 RBCs, no WBCs, no epithelials, 1+ bacteria. MICROBIOLOGY: Influenza swab by PCR for A and B was negative. RADIOLOGY: She had a chest x-ray in the Emergency Room prior to admission and per radiologic interpretation showed no definite pneumonia. HOSPITAL COURSE: Ms. Herring was admitted on 06/17/18 for rhabdomyolysis with a history of multiple falls. She was started on IV fluids. She responded well to treatment with her CK returning to baseline prior to discharge with no evidence of acute kidney injury. There was a discussion due to the fact that the patient has history of multiple falls that [facility] was no longer going to have her on services and recommended she go to a [facility]. The patient is of sound mind and adamantly refuses to be admitted to a long-term care or mcc, especially during the holidays. I did discuss with her that she would have an APS consultation due to the fact that her home health felt she was not safe at home although she apparently has three sitters nearly around the clock. I did discuss the findings with Dr. Barrera and he agreed the patient could discharge home and continue to follow in regards to need for placement in long-term care regarding her falls at discharge. PLAN: Ms. Herring was discharged on 06/20/18 with instructions to followup with Dr. Barrera on 06/27/18 at 3:45 PM. She was to resume her home medications as previously directed. She was encouraged to continue with fluids to prevent dehydration. She was told to return to the hospital for any concerning symptoms. Diet at discharge was usual diet. Activity to ambulate only with a walker and as per physical therapy and increase activity as tolerated. No new medications were prescribed at discharge. DISPOSITION: The patient was discharged home to family. CONDITION AT DISCHARGE: Stable and improving. #[id number] [facility]
== END 2018-06-20 16:45 | disposition home health service (06) | DRG 558 ==
LOC: ER 13:17 → MS 15:11
PROVIDERS: ADMIT Nurse Practitioner Acute Care; ATTEND Nurse Practitioner Acute Care
DX: M62.82 Rhabdomyolysis (principal); G89.4 Chronic pain syndrome; I25.2 Old myocardial infarction; I25.10 Atherosclerotic heart disease of native coronary artery without angina pectoris; J44.9 Chronic obstructive pulmonary disease, unspecified; M79.7 Fibromyalgia; M19.90 Unspecified osteoarthritis, unspecified site; F32.9 Major depressive disorder, single episode, unspecified; I10 Essential (primary) hypertension; E78.5 Hyperlipidemia, unspecified; K21.9 Gastro-esophageal reflux disease without esophagitis; K44.9 Diaphragmatic hernia without obstruction or gangrene; F41.9 Anxiety disorder, unspecified; R94.5 Abnormal results of liver function studies; D50.9 Iron deficiency anemia, unspecified; K57.90 Diverticulosis of intestine, part unspecified, without perforation or abscess without bleeding; Z88.0 Allergy status to penicillin; Z88.2 Allergy status to sulfonamides

== ENCOUNTER 2018-08-04 20:49 | Emergency (ER) | payer MEDICARE, MEDICAID ==
[2018-08-04] MEDS ORDERED: SODIUM CHLORIDE 0.9% 1000ML 1,000 ML IVS ONE (21:10)
[2018-08-04] MEDS ORDERED: NITROGLYCERIN 0.4 MG 25 EA TAB SL ONE (21:10)
--- NOTE | 2018-08-04 21:13 | ED.PDOC ---
History of Present Illness - General Chief Complaint: Chest Pain/MS Time Seen by Provider: 08/04/18 21:07 Source: patient, EMS Exam Limitations: no limitations - History of Present Illness Initial Comments: patient comes in today for approximately 1 hour of left-sided chest pain that radiates to her left arm. The pain is sharp with associated mild nausea but no diaphoresis and shortness of breath is at baseline. Patient states she's had several heart attacks in the past and this does feel like her previous symptoms. She did not take any nitroglycerin at home and EMS declined for nitroglycerin secondary to hypotension. Patient did receive her aspirin in route. Patient states she has a long history of coronary artery disease, COPD, and angina. She also has a history of hypertension but no diabetes and recently she has been in good health. She denies any fever, chills, cough or cold symptoms. Patient's pain was a 10 out of 10 prior to arrival and is currently improved to an 8 out of 10. Timing/Duration: 1/2 hour Severity/Quality: severe, sharp Location: substernal Chest Pain Radiation: arms - left Activities at Onset: none Prior Chest Pain/Cardiac Workup: cardiac cath, heart attack Improving Factors: nothing Worsening Factors: nothing Nitro Today/Relief: no nitro taken today Aspirin Treatment Today: 325 mg x 1, provided by EMS Associated Symptoms: nausea/vomiting, shortness of breath Allergies/Adverse Reactions: Allergies Penicillins Allergy (Mild, Verified 08/04/18 22:00) Unknown reports made throat swell when she was a child Sulfamethoxazole w/Trimethoprim [From Bactrim] Allergy (Mild, Verified 08/04/18 22:00) Nausea Latex Allergy (Verified 08/04/18 22:00) Home Medications: Ambulatory Orders Atorvastatin Calcium [Lipitor] 40 mg PO BEDTIME 05/19/18 Carvedilol [Coreg] 3.125 mg PO BID 05/19/18 Chlorzoxazone [Parafon Forte DSC] 500 mg PO Q6H PRN 05/19/18 Hydroxychloroquine Sulfate [Plaquenil] 200 mg PO BID 05/19/18 Indomethacin 50 mg PO Q6H 05/19/18 Pregabalin [Lyrica] 300 mg PO BID 05/19/18 Sertraline HCl [Zoloft] 200 mg PO BEDTIME 05/19/18 Spironolactone [Aldactone] 12.5 mg PO DAILY 05/19/18 Trazodone HCl [Trazodone Hydrochloride] 100 mg PO BEDTIME 05/19/18 Ventolin Hfa Inhaler 2 inh INH Q4H PRN 05/19/18 Verapamil HCl [Verapamil HCl Sr] 180 mg PO DAILY 05/19/18 Aspirin [Aspirin Adult Low Dose] 81 mg PO DAILY 06/17/18 Rcgnqjphra-Bwpvzpvfduegr-Bosxm [Butalbital/Acetaminophen/ 50-300-40 mg] 1 cap PO Q6H PRN 06/17/18 Docusate Sodium 100 mg PO BEDTIME 06/17/18 Esomeprazole Magnesium [Nexium] 40 mg PO DAILY 06/17/18 Ondansetron Odt [Zofran Odt] 8 mg PO Q8HR PRN 06/17/18 Oxycodone HCl 10 mg PO Q6H PRN 06/17/18 Sennosides 8.6MG [Senokot] 8.6 mg PO DAILY 06/17/18 Review of Systems - Review of Systems Constitutional: States: no symptoms reported. Denies: chills, fever EENTM: States: no symptoms reported. Denies: eye pain, nose congestion, throat pain Respiratory: States: short of breath. Denies: cough, wheezing Cardiology: States: chest pain. Denies: edema, palpitations Gastrointestinal/Abdominal: States: nausea. Denies: abdominal pain, constipation, diarrhea, vomiting Genitourinary: States: no symptoms reported Skin: States: no symptoms reported Past Medical History (General) - Patient Medical History Hx Seizures: No Hx Stroke: Yes Hx Dementia: No Hx Asthma: No Hx of COPD: Yes Hx Cardiac Disorders: Yes - [place] Hx Congestive Heart Failure: Yes Hx Pacemaker: No Hx Hypertension: No Hx Thyroid Disease: No Hx Diabetes: No Hx Gastroesophageal Reflux: Yes - HIATAL HERNIA Hx Renal Disease: No Hx Cancer: No Hx of HIV: No Hx Hepatitis C: No Hx MRSA: No MRSA Source:: Wound - Vaccination History Hx Tetanus, Diphtheria Vaccination: Yes Hx Influenza Vaccination: Yes Hx Pneumococcal Vaccination: Yes - Social History Hx Tobacco Use: No Hx Chewing Tobacco Use: No Hx Alcohol Use: No Hx Substance Use: No Hx Substance Use Treatment: No Hx Depression: Yes Hx Physical Abuse: No Hx Emotional Abuse: No Hx Suspected Abuse: No - Female History Patient : No Family Medical History - Family History Mother Family History: Unknown Living Status: Hx Family;Other: SHE DID NOT KNOW PARENTS AND SHE DOES NOT KNOW FH HISTORY. PT ADOPTED Physical Exam - Physical Exam General Appearance: Alert, Comfortable, No apparent distress Eyes, Ears, Nose, Throat Exam: PERRL/EOMI, normal ENT inspection, TMs normal Neck: non-tender, full range of motion, supple, normal inspection Respiratory: chest non-tender, lungs clear, normal breath sounds Cardiovascular/Chest: normal peripheral pulses, regular rate, rhythm, no edema, no gallop, no JVD, no murmur Gastrointestinal/Abdominal: normal bowel sounds, non tender, soft Neurologic: alert, oriented x 3 Skin Exam: normal color Progress - Progress Progress: 08/05/18 01:07 patient persisted to have chest pain with low blood pressure. Nitro drip was started after IVF bolus but did not help with the chest pain and so was stopped. Morphine was given and patient was able to rest comfortably. D-Dimer was elevated and CTA was ordered and found to be negative. After 4 hours from onset Troponin was rechecked and still normal. EKG showed no acute changes and as patient was feeling better she was discharged for outpatient follow up. - Results/Orders Results/Orders: 08/04/18 22:15 EKG STAT 08/04/18 22:30 Nitroglycerin/D5w IV 50,000 mcg Premix Bottle 1 bottle IVS PRN 08/05/18 00:01 TROPONIN-I Stat Laboratory Results WBC 5.6 K/mm3 (4.8-10.8) 08/04/18 21:45 RBC 3.40 M/mm3 (4.20-5.40) L 08/04/18 21:45 Hgb 9.5 gm/dL (12.0-16.0) L 08/04/18 21:45 Hct 29.2 % (36.0-47.0) L 08/04/18 21:45 MCV 86.1 fl (81.0-99.0) 08/04/18 21:45 MCH 27.9 pg (27.0-31.0) 08/04/18 21:45 MCHC 32.4 g/dL (33.0-37.0) L 08/04/18 21:45 RDW 16.5 % (11.5-14.5) H 08/04/18 21:45 Plt Count 204 K/mm3 (130-400) 08/04/18 21:45 MPV 8.3 fl (7.40-10.4) 08/04/18 21:45 Absolute Neuts (auto) 4.20 K/uL (1.8-6.8) 08/04/18 21:45 Absolute Lymphs (auto) 0.90 K/uL (1.0-3.4) L 08/04/18 21:45 Absolute Monos (auto) 0.50 K/uL (0.2-0.8) 08/04/18 21:45 Absolute Eos (auto) 0.00 K/uL (0.0-0.4) 08/04/18 21:45 Absolute Basos (auto) 0.00 K/uL (0.0-0.1) 08/04/18 21:45 Neutrophils % 74.6 % (42.0-78.0) 08/04/18 21:45 Lymphocytes % 15.8 % (20.0-50.0) L 08/04/18 21:45 Monocytes % 9.4 % (2.0-9.0) H 08/04/18 21:45 Eosinophils % 0.0 % (1.0-5.0) L 08/04/18 21:45 Basophils % 0.2 % (0.0-2.0) 08/04/18 21:45 D-Dimer, Quantitative 1.19 mg/L FEU (0-0.49) H* 08/04/18 21:45 Sodium 140 mmol/L (135-145) 08/04/18 21:45 Potassium 3.6 mmol/L (3.6-5.0) 08/04/18 21:45 Chloride 108 mmol/L (101-111) 08/04/18 21:45 Carbon Dioxide 25 mmol/L (21-31) 08/04/18 21:45 Anion Gap 10.6 (12-18) L 08/04/18 21:45 BUN 13 mg/dL (7-18) 08/04/18 21:45 Creatinine 0.66 mg/dL (0.6-1.3) 08/04/18 21:45 BUN/Creatinine Ratio 19.7 (10-20) 08/04/18 21:45 Random Glucose 101 mg/dL (70-105) 08/04/18 21:45 Serum Osmolality 279.7 mOsm/L (275-295) 08/04/18 21:45 Calcium 8.6 mg/dL (8.4-10.2) 08/04/18 21:45 Total Bilirubin 0.3 mg/dL (0.2-1.0) 08/04/18 21:45 AST 15 IU/L (10-42) 08/04/18 21:45 ALT < 8 IU/L (10-60) L 08/04/18 21:45 Alkaline Phosphatase 132 IU/L (42-121) H 08/04/18 21:45 Creatine Kinase 44 IU/L (26-140) 08/04/18 21:45 CK-MB (CK-2) 2.0 ng/mL (0.0-4.4) 08/04/18 21:45 CK-MB (CK-2) % Not Reportable 08/04/18 21:45 Troponin I < 0.02 ng/mL (0.01-0.05) 08/04/18 21:45 Serum Total Protein 6.3 gm/dL (6.4-8.2) L 08/04/18 21:45 Albumin 3.1 g/dl (3.2-5.5) L 08/04/18 21:45 Globulin 3.2 gm/dL (2.3-3.5) 08/04/18 21:45 Albumin/Globulin Ratio 1.0 (1.1-1.9) L 08/04/18 21:45 Patient Name: LESLY SANDOVAL Gender: Female Date of : 1950 Referring Physician: JEFF RAMEY Organization: [facility] Accession Number: [id number] Requested Date: August 04, 2018 22:18 Report Status: Final Requested Procedure: 1 Procedure Description: CTA Chest Modality: CT Findings Reporting MD: Milind Gonzalez Fellow MD: Not available Dictation Time: Circuit Manager: Not available Medical Coding Manager Date: EXAM: CT chest angiogram with contrast. INDICATION: Chest pain. TECHNIQUE: Contiguous axial CT images of the chest. Intravenous contrast: Present. Protocol: Pulmonary embolus (PE) protocol angiogram. Reformats: MIPs and MPRs created and utilized. DLP 638 mGy-cm. This exam was performed according to our departmental dose-optimization program, which includes automated exposure control, adjustment of the mA and/or kV according to patient size and/or use of iterative reconstruction technique. Note: LV=left ventricle. RV=right ventricle. COMPARISON: None. FINDINGS: Upper abdomen: Partially imaged. Large hiatal hernia Thoracic aorta: Unremarkable. Heart: No right atrial thrombus. Atherosclerotic calcifications of the coronary arteries RV/LV ratio: Within normal limits. Pulmonary arteries: Technical: Adequate opacification to the level of the segmental vessels. Pulmonary embolus: No low-density filling defect to suggest acute Radiology [employer] [facility]. [address] [place] [address] F [phone] [email or web address] - Report exported on Mon, Aug 05, 2018 00:07:52 -0600 - Page 2 of 2 PE. Overall embolic burden: None. Mediastinum: No pathologic sized middle mediastinal lymphadenopathy. Tracheobronchial tree: Unremarkable. Lungs: Lobar consolidation: Negative. Pleural effusion: Negative. Pneumothorax: Negative. Other: Negative. Bones: There are multiple compression deformities involving the thoracolumbar spine with multilevel changes of vertebroplasty. Old healed right-sided rib fractures are noted. IMPRESSION: 1. No CT evidence of acute PE. 2. Large hiatal hernia Patient Name: LESLY SANDOVAL Gender: Female Date of : 1950 Referring Physician: JEFF RAMEY Organization: [facility] Accession Number: [id number] Requested Date: August 04, 2018 21:10 Report Status: Final Requested Procedure: 1 Procedure Description: Chest,1 View Modality: CR Findings Reporting MD: Alberto Sampson Fellow MD: Not available Dictation Time: Circuit Manager: Not available Medical Coding Manager Date: EXAM DESCRIPTION: Chest,1 View CLINICAL HISTORY: 67 years Female, chest pain COMPARISON: Chest x-ray June 17, 2018 FINDINGS: No consolidation. No pneumothorax. No significant pleural effusion. Cardiac silhouette appears mildly enlarged. Aortic atherosclerosis is present. Moderate size hiatal hernia again present. Degenerative changes of the spine noted. Dense material within multiple thoracic vertebrae demonstrated suggestive of prior kyphoplasty. ACDF changes are partly imaged. Mild deformity of the left humeral neck again noted. IMPRESSION: No acute findings. - EKG/XRAY/CT EKG: Sinus, nonspecific ST T wave Chg, Unchanged from - 06/17/18 Departure - Departure Clinical Impression: Atypical chest pain Disposition: Discharge to Home or Self Care Condition: Fair Departure Forms: ED Discharge - Pt. Copy, Patient Portal Self Enrollment Instructions: DI for Chest Pain Referrals: Kwame Barrera MD [Primary Care Provider] - 1-2 Weeks Home Medications: Ambulatory Orders Atorvastatin Calcium [Lipitor] 40 mg PO BEDTIME 05/19/18 Carvedilol [Coreg] 3.125 mg PO BID 05/19/18 Chlorzoxazone [Parafon Forte DSC] 500 mg PO Q6H PRN 05/19/18 Hydroxychloroquine Sulfate [Plaquenil] 200 mg PO BID 05/19/18 Indomethacin 50 mg PO Q6H 05/19/18 Pregabalin [Lyrica] 300 mg PO BID 05/19/18 Sertraline HCl [Zoloft] 200 mg PO BEDTIME 05/19/18 Spironolactone [Aldactone] 12.5 mg PO DAILY 05/19/18 Trazodone HCl [Trazodone Hydrochloride] 100 mg PO BEDTIME 05/19/18 Ventolin Hfa Inhaler 2 inh INH Q4H PRN 05/19/18 Verapamil HCl [Verapamil HCl Sr] 180 mg PO DAILY 05/19/18 Aspirin [Aspirin Adult Low Dose] 81 mg PO DAILY 06/17/18 Aymilynyun-Huzqzzbzpsrtc-Nncvq [Butalbital/Acetaminophen/ 50-300-40 mg] 1 cap PO Q6H PRN 06/17/18 Docusate Sodium 100 mg PO BEDTIME 06/17/18 Esomeprazole Magnesium [Nexium] 40 mg PO DAILY 06/17/18 Ondansetron Odt [Zofran Odt] 8 mg PO Q8HR PRN 06/17/18 Oxycodone HCl 10 mg PO Q6H PRN 06/17/18 Sennosides 8.6MG [Senokot] 8.6 mg PO DAILY 06/17/18 Additional Instructions: return to ER for increase chest pain, shortness of breath. Follow up with PCP on Monday
--- NOTE | 2018-08-04 21:41 | RAD ---
EXAM DESCRIPTION: Chest,1 View CLINICAL HISTORY: 67 years Female, chest pain COMPARISON: Chest x-ray June 17, 2018 FINDINGS: No consolidation. No pneumothorax. No significant pleural effusion. Cardiac silhouette appears mildly enlarged. Aortic atherosclerosis is present. Moderate size hiatal hernia again present. Degenerative changes of the spine noted. Dense material within multiple thoracic vertebrae demonstrated suggestive of prior kyphoplasty. ACDF changes are partly imaged. Mild deformity of the left humeral neck again noted. IMPRESSION: No acute findings. Electronically signed by: Alberto Sampson MD 08/04/2018 9:39 PM BOX SHOOK PATCHER
[2018-08-04] MEDS ORDERED: NITROGLYCERIN/D5W IV 250 ML IVS ONE (22:08)
[2018-08-04] MEDS ORDERED: NITROGLYCERIN/D5W IV 50,000 MCG in PREMIX BOTTLE 1 BOTTLE IVS SCH (22:30)
[2018-08-04] MEDS ORDERED: MORPHINE SULFATE INJ 10 MG/ML VIAL IV ONE (22:43)
--- NOTE | 2018-08-05 00:06 | CT ---
EXAM: CT chest angiogram with contrast. INDICATION: Chest pain. TECHNIQUE: Contiguous axial CT images of the chest. Intravenous contrast: Present. Protocol: Pulmonary embolus (PE) protocol angiogram. Reformats: MIPs and MPRs created and utilized. DLP 638 mGy-cm. This exam was performed according to our departmental dose-optimization program, which includes automated exposure control, adjustment of the mA and/or kV according to patient size and/or use of iterative reconstruction technique. Note: LV=left ventricle. RV=right ventricle. COMPARISON: None. FINDINGS: Upper abdomen: Partially imaged. Large hiatal hernia Thoracic aorta: Unremarkable. Heart: No right atrial thrombus. Atherosclerotic calcifications of the coronary arteries RV/LV ratio: Within normal limits. Pulmonary arteries: Technical: Adequate opacification to the level of the segmental vessels. Pulmonary embolus: No low-density filling defect to suggest acute PE. Overall embolic burden: None. Mediastinum: No pathologic sized middle mediastinal lymphadenopathy. Tracheobronchial tree: Unremarkable. Lungs: Lobar consolidation: Negative. Pleural effusion: Negative. Pneumothorax: Negative. Other: Negative. Bones: There are multiple compression deformities involving the thoracolumbar spine with multilevel changes of vertebroplasty. Old healed right-sided rib fractures are noted. IMPRESSION: 1. No CT evidence of acute PE. 2. Large hiatal hernia Electronically signed by: Milind Gonzalez MD 08/05/2018 12:04 AM DIRECTOR OF ORTHOPEDICS Workstation: [id number]
[2018-08-05 01:34] VITALS: BP 110/68
[2018-08-05 01:47] VITALS: TEMP 97.8; O2SAT 95
== END 2018-08-05 01:38 | disposition home or self-care (01) ==
LOC: ER 20:49
DX: R07.89 Other chest pain (principal); R06.02 Shortness of breath; R11.2 Nausea with vomiting, unspecified; J44.9 Chronic obstructive pulmonary disease, unspecified; I25.10 Atherosclerotic heart disease of native coronary artery without angina pectoris; I25.2 Old myocardial infarction; I11.0 Hypertensive heart disease with heart failure; I50.9 Heart failure, unspecified; F32.9 Major depressive disorder, single episode, unspecified; K21.9 Gastro-esophageal reflux disease without esophagitis; Z79.82 Long term (current) use of aspirin; Z79.899 Other long term (current) drug therapy; Z91.040 Latex allergy status; Z88.0 Allergy status to penicillin; Z88.2 Allergy status to sulfonamides; Z86.73 Personal history of transient ischemic attack (TIA), and cerebral infarction without residual deficits
CPT/HCPCS: 36415; 71045; 71275; 80053; 82550; 82553; 84484; 85025; 85379; 87502; 93005; J2270; J7030

== ENCOUNTER 2018-09-29 10:20 | Emergency (ER) | payer MEDICARE, MEDICAID ==
--- NOTE | 2018-09-29 10:47 | ED.PDOC ---
History of Present Illness - General Chief Complaint: General Stated Complaint: weakness, shortness of breath Time Seen by Provider: 09/29/18 10:46 Source: patient Exam Limitations: no limitations - History of Present Illness Initial Comments: Mariann Herring 68 y/o female brought to ER with productive cough and SOB for the last 3 days and low grade fever.No chills no N/V//D.No ill contact. Timing/Duration: constant, other - see hpi Severity: moderate Improving Factors: nothing Worsening Factors: nothing Associated Symptoms: malaise Allergies/Adverse Reactions: Allergies Penicillins Allergy (Mild, Verified 08/04/18 22:00) Unknown reports made throat swell when she was a child Sulfamethoxazole w/Trimethoprim [From Bactrim] Allergy (Mild, Verified 08/04/18 22:00) Nausea Latex Allergy (Verified 08/04/18 22:00) Home Medications: Ambulatory Orders Atorvastatin Calcium [Lipitor] 40 mg PO BEDTIME 05/19/18 Carvedilol [Coreg] 3.125 mg PO BID 05/19/18 Chlorzoxazone [Parafon Forte DSC] 500 mg PO Q6H PRN 05/19/18 Hydroxychloroquine Sulfate [Plaquenil] 200 mg PO BID 05/19/18 Indomethacin 50 mg PO Q6H 05/19/18 Pregabalin [Lyrica] 300 mg PO BID 05/19/18 Sertraline HCl [Zoloft] 200 mg PO BEDTIME 05/19/18 Spironolactone [Aldactone] 12.5 mg PO DAILY 05/19/18 Trazodone HCl [Trazodone Hydrochloride] 100 mg PO BEDTIME 05/19/18 Ventolin Hfa Inhaler 2 inh INH Q4H PRN 05/19/18 Verapamil HCl [Verapamil HCl Sr] 180 mg PO DAILY 05/19/18 Aspirin [Aspirin Adult Low Dose] 81 mg PO DAILY 06/17/18 Yxcglmrztz-Gkcdcamikxwbz-Fwbdi [Butalbital/Acetaminophen/ 50-300-40 mg] 1 cap PO Q6H PRN 06/17/18 Docusate Sodium 100 mg PO BEDTIME 06/17/18 Esomeprazole Magnesium [Nexium] 40 mg PO DAILY 06/17/18 Ondansetron Odt [Zofran Odt] 8 mg PO Q8HR PRN 06/17/18 Oxycodone HCl 10 mg PO Q6H PRN 06/17/18 Sennosides 8.6MG [Senokot] 8.6 mg PO DAILY 06/17/18 Ciprofloxacin [Cipro] 500 mg PO BID 5 Days #10 tab 09/29/18 Promethazine W/Codeine Syr [Phenergan With Codeine Syrup] 10 ml PO TID #120 ml 09/29/18 Review of Systems - Review of Systems Constitutional: States: no symptoms reported EENTM: States: no symptoms reported Respiratory: States: see HPI Cardiology: States: no symptoms reported Gastrointestinal/Abdominal: States: no symptoms reported Genitourinary: States: no symptoms reported Musculoskeletal: States: no symptoms reported Skin: States: no symptoms reported All other Systems: Reviewed and Negative, No Change from Baseline Past Medical History (General) - Patient Medical History Hx Seizures: No Hx Stroke: Yes Hx Dementia: No Hx Asthma: No Hx of COPD: Yes Hx Cardiac Disorders: Yes - [place] Hx Congestive Heart Failure: Yes Hx Pacemaker: No Hx Hypertension: No Hx Thyroid Disease: No Hx Diabetes: No Hx Gastroesophageal Reflux: Yes - HIATAL HERNIA Hx Renal Disease: No Hx Cancer: No Hx of HIV: No Hx Hepatitis C: No Hx MRSA: No MRSA Source:: Wound Surgical History: Hysterectomy, other - Vaccination History Hx Tetanus, Diphtheria Vaccination: Yes Hx Influenza Vaccination: Yes - 2018 Hx Pneumococcal Vaccination: Yes - 2017 - Social History Hx Tobacco Use: No Hx Chewing Tobacco Use: No Hx Alcohol Use: No Hx Substance Use: No Hx Substance Use Treatment: No Hx Depression: Yes Hx Physical Abuse: No Hx Emotional Abuse: No Hx Suspected Abuse: No - Female History Patient is a Female of Child Bearing Age (10 -59 yrs old): No Patient : No Family Medical History - Family History Mother Family History: Unknown Living Status: Hx Family;Other: SHE DID NOT KNOW PARENTS AND SHE DOES NOT KNOW FH HISTORY. PT ADOPTED Physical Exam - Physical Exam General Appearance: Alert, Comfortable, No apparent distress, Other - speaks in full sentences Eye Exam: bilateral normal Ears, Nose, Throat: hearing grossly normal, normal ENT inspection, normal ph arynx Neck: non-tender, full range of motion, supple Respiratory: chest non-tender, no respiratory distress, rales - bases Cardiovascular/Chest: normal peripheral pulses, regular rate, rhythm, no murmur Peripheral Pulses: radial,right: 2+, radial,left: 2+ Gastrointestinal/Abdominal: normal bowel sounds, non tender, soft, no organomegaly Back Exam: no CVA tenderness, no vertebral tenderness Extremity: no pedal edema, no calf tenderness Neurologic: alert, oriented x 3 Skin Exam: normal color, warm/dry Progress - Progress Progress: 09/29/18 11:56 Vital Signs 09/29/18 09/29/18 09/29/18 10:29 10:42 11:00 Temperature 99.2 F Pulse Rate Pulse Rate [ 84 80 left brachial] Respiratory 14 24 22 Rate Blood Pressure 109/65 104/54 [left brachial] O2 Sat by Pulse 85 L 94 L Oximetry 09/29/18 09/29/18 11:06 11:30 Temperature Pulse Rate 83 Pulse Rate [ 84 left brachial] Respiratory 16 22 Rate Blood Pressure 104/49 [left brachial] O2 Sat by Pulse 99 91 L Oximetry 09/29/18 12:24 Bailey better after 2 breathing treatments - Results/Orders Results/Orders: 09/29/18 10:47 Chest,1 View [RAD] Stat 09/29/18 10:48 SVN/Updraft Therapy .ONCE 09/29/18 10:49 IV Care:Saline Lock per Protoc QSHIFT 09/29/18 12:00 URINALYSIS Stat Laboratory Results - last 24 hr 09/29/18 09/29/18 09/29/18 11:02 11:02 12:00 WBC 4.0 L RBC 3.60 L Hgb 9.8 L Hct 29.7 L MCV 82.6 MCH 27.2 MCHC 32.9 L RDW 17.1 H Plt Count 177 MPV 8.6 Absolute Neuts (auto) 3.20 Absolute Lymphs (auto) 0.40 L Absolute Monos (auto) 0.30 Absolute Eos (auto) 0.00 Absolute Basos (auto) 0.00 Neutrophils % 81.2 H Lymphocytes % 10.3 L Monocytes % 8.0 Eosinophils % 0.0 L Basophils % 0.5 PT 9.9 INR 0.99 PTT (SP) 23.7 Sodium 136 Potassium 4.0 Chloride 100 L Carbon Dioxide 28 Anion Gap 12.0 BUN 13 Creatinine 0.61 BUN/Creatinine Ratio 21.3 H Random Glucose 104 Serum Osmolality 272.4 L Lactic Acid 0.8 Calcium 8.6 Magnesium 2.1 Total Bilirubin 0.3 Direct Bilirubin < 0.1 Indirect Bilirubin 0.2 AST 19 ALT < 8 L Alkaline Phosphatase 121 Creatine Kinase 24 L CK-MB (CK-2) 0.6 CK-MB (CK-2) % Not Reportable Troponin I < 0.02 B-Natriuretic Peptide 121.0 H Serum Total Protein 6.2 L Albumin 3.1 L Urine Color Yellow Urine Appearance Clear Urine pH 7.0 Ur Specific [place] 1.020 Urine Protein Negative Urine Glucose (UA) Negative Urine Ketones Negative Urine Blood Negative Urine Nitrite Negative Urine Bilirubin Negative Urine Urobilinogen 0.2 Ur Leukocyte Esterase Small H Urine RBC 0 Urine WBC 3-5 H Ur Epithelial Cells 5-10 Urine Bacteria Rare Discuss all test results with patient. - EKG/XRAY/CT XRAY: chest - chronic interstitial changes,mild basilar atelectasis - Additional EKG/XRAY/Consults XRAY #3: chest Departure - Departure Clinical Impression: Bronchitis Time of Disposition: 12:25 Disposition: Discharge to Home or Self Care Condition: Fair Departure Forms: ED Discharge - Pt. Copy, Patient Portal Self Enrollment Instructions: Acute Bronchitis, Acute Bronchitis, Adult (DC) Referrals: Kwame Barrera MD [Primary Care Provider] - 1-2 Weeks Prescriptions: Ciprofloxacin [Cipro] 500 mg PO BID 5 Days #10 tab Promethazine W/Codeine Syr [Phenergan With Codeine Syrup] 10 ml PO TID #120 ml Home Medications: Ambulatory Orders Atorvastatin Calcium [Lipitor] 40 mg PO BEDTIME 05/19/18 Carvedilol [Coreg] 3.125 mg PO BID 05/19/18 Chlorzoxazone [Parafon Forte DSC] 500 mg PO Q6H PRN 05/19/18 Hydroxychloroquine Sulfate [Plaquenil] 200 mg PO BID 05/19/18 Indomethacin 50 mg PO Q6H 05/19/18 Pregabalin [Lyrica] 300 mg PO BID 05/19/18 Sertraline HCl [Zoloft] 200 mg PO BEDTIME 05/19/18 Spironolactone [Aldactone] 12.5 mg PO DAILY 05/19/18 Trazodone HCl [Trazodone Hydrochloride] 100 mg PO BEDTIME 05/19/18 Ventolin Hfa Inhaler 2 inh INH Q4H PRN 05/19/18 Verapamil HCl [Verapamil HCl Sr] 180 mg PO DAILY 05/19/18 Aspirin [Aspirin Adult Low Dose] 81 mg PO DAILY 06/17/18 Bookvocemt-Mbuyeuyhkkfqa-Cqdhb [Butalbital/Acetaminophen/ 50-300-40 mg] 1 cap PO Q6H PRN 06/17/18 Docusate Sodium 100 mg PO BEDTIME 06/17/18 Esomeprazole Magnesium [Nexium] 40 mg PO DAILY 06/17/18 Ondansetron Odt [Zofran Odt] 8 mg PO Q8HR PRN 06/17/18 Oxycodone HCl 10 mg PO Q6H PRN 06/17/18 Sennosides 8.6MG [Senokot] 8.6 mg PO DAILY 06/17/18 Ciprofloxacin [Cipro] 500 mg PO BID 5 Days #10 tab 09/29/18 Promethazine W/Codeine Syr [Phenergan With Codeine Syrup] 10 ml PO TID #120 ml 09/29/18 Additional Instructions: Continue with all home medications and home O2;return to ER as needed;follow up with primary Md 02 October 2018 for recheck
[2018-09-29] MEDS: IPRATROPIUM/ALBUTEROL 3 ML VIAL NEB ONE (11:02)
[2018-09-29] MEDS: LEVALBUTEROL NEBS 1.25 MG/3 ML VIAL NEB ONE (12:03)
[2018-09-29] MEDS: HYDROcodone 7.5MG/APAP 325MG 1 EA TAB PO ONE (12:13)
[2018-09-29] MEDS: diphenhydrAMINE HCL 25 MG CAP PO ONE (12:13)
[2018-09-29] MEDS: BENZONATATE PERLES 100 MG CAP PO ONE (12:13)
[2018-09-29 12:38] VITALS: BP 84/72; TEMP 98.6; O2SAT 94
== END 2018-09-29 12:43 | disposition home or self-care (01) ==
LOC: ER 10:20
DX: J44.9 Chronic obstructive pulmonary disease, unspecified (principal); F32.9 Major depressive disorder, single episode, unspecified; K21.9 Gastro-esophageal reflux disease without esophagitis; I50.9 Heart failure, unspecified; I25.2 Old myocardial infarction; Z86.73 Personal history of transient ischemic attack (TIA), and cerebral infarction without residual deficits; Z79.899 Other long term (current) drug therapy; Z79.82 Long term (current) use of aspirin; Z88.0 Allergy status to penicillin; Z88.2 Allergy status to sulfonamides; Z91.040 Latex allergy status
CPT/HCPCS: 71045; 80048; 80076; 81001; 82550; 82553; 83605; 83880; 84484; 85025; 85610; 85730; 87502; 94640; J7614; J7620; Q0163

== ENCOUNTER 2018-12-08 23:01 | Emergency (ER) | payer MEDICARE, MEDICAID ==
[2018-12-08 23:17] VITALS: TEMP 98.1
--- NOTE | 2018-12-09 00:06 | RAD ---
EXAM: XR Chest, 1 View CLINICAL HISTORY: The patient is 68 years old and is Female; ams, collapse TECHNIQUE: Frontal view of the chest. COMPARISON: Chest radiograph November 20, 2018. FINDINGS: LUNGS: There are slightly low lung volumes with chronic coarse interstitial markings. Minimal bibasilar atelectasis is noted. PLEURAL SPACE: Unremarkable. No pneumothorax. HEART: The cardiac silhouette is enlarged and stable. MEDIASTINUM: Unremarkable. BONES/JOINTS: Postsurgical change of the cervical spine is present. Multiple levels of vertebroplasty are also noted. Healed left humeral fracture is noted. TUBES, LINES AND DEVICES: A loop recorder is noted. IMPRESSION: Findings suggestive of minimal bibasilar atelectasis. Electronically signed by: Yecenia Torres MD 12/09/2018 12:04 AM CDT
--- NOTE | 2018-12-09 00:07 | CT ---
EXAM DESCRIPTION: Head CLINICAL HISTORY: 68 years Female ams, fall COMPARISON: None TECHNIQUE: Images were obtained in axial, sagittal, and coronal planes. This exam was performed according to our departmental dose-optimization program which includes use of Automated Exposure Control, adjustment of the mA and/or kV according to patient size and/or use of iterative reconstruction technique. FINDINGS: Ventricular system appears age appropriate in size. Mild prominence of the cortical sulci. Calcification right bety possibly related to telangiectasia. No abnormal areas of increased or decreased attenuation are seen involving the brain parenchyma. No extra-axial fluid collections noted. Unremarkable paranasal sinuses. No evidence for skull fracture. Symmetric aeration mastoid air cells bilaterally. IMPRESSION: No acute intracranial abnormality. No evidence for hemorrhage, mass lesion, or large acute infarction. Electronically signed by: Rosa Cano MD 12/09/2018 12:05 AM CDT
--- NOTE | 2018-12-09 00:11 | CT ---
CLINICAL HISTORY: ams, fall COMPARISON: None. TECHNIQUE: CT CERVICAL SPINE WITHOUT IV CONTRAST on 12/08/2018 11:08 PM CDT This exam was performed according to our departmental dose-optimization program, which includes automated exposure control, adjustment of the mA and/or kV according to patient size and/or use of iterative reconstruction technique. FINDINGS: There is no acute fracture. Alignment is anatomic. There is mild diffuse facet arthritis. Anterior fusion of C3 and C4 was performed. There is moderate narrowing of the C6-7 disc. Vertebral body heights are preserved. Soft tissues are unremarkable. IMPRESSION: No acute fracture or subluxation. Electronically signed by: Lonnie Mock MD 12/09/2018 12:09 AM CDT
[2018-12-09] MEDS ORDERED: METOPROLOL TARTRATE INJ 5 MG/5 ML VIAL IV ONE (01:04)
--- NOTE | 2018-12-09 01:46 | ED.PDOC ---
History of Present Illness - General Time Seen by Provider: 12/08/18 23:07 Source: patient Exam Limitations: no limitations - History of Present Illness Initial Comments: the patient is 68-year-old female presenting to emergency room secondary to being found unresponsive on her front yard by her significant other. The patient has had multiple episodes in the past of getting too much pain and anxiety and sleep medications on board and becoming altered or hypotensive. She was unresponsive and EMS gave 2 mg of Narcan which brought her back around. She was significantly hypotensive with systolics in the 80s and hypoxic with oxygen saturations in the 50s when EMS found her. She does normally wear supplemental oxygen. She did correct with supplemental oxygen and the Narcan. The patient has awake but drowsy currently. Vital signs have essentially normalized with the supplemental oxygen. The patient denies trying herself. She did not hurt herself in any sort of fall. She reports that she thinks the dog tripped her. No head pain. No neck pain. The patient has however had several doses of pain medications tonight. Timing/Duration: 1/2 hour Severity: severe Improving Factors: nothing Worsening Factors: nothing Associated Symptoms: loss of appetite, malaise, weakness Allergies/Adverse Reactions: Allergies Penicillins Allergy (Mild, Verified 11/20/18 11:45) Unknown reports made throat swell when she was a child Sulfamethoxazole w/Trimethoprim [From Bactrim] Allergy (Mild, Verified 11/20/18 11:45) Nausea Latex Allergy (Verified 11/20/18 11:45) Home Medications: Ambulatory Orders Atorvastatin Calcium [Lipitor] 40 mg PO BEDTIME 05/19/18 Carvedilol [Coreg] 3.125 mg PO BID 05/19/18 Hydroxychloroquine Sulfate [Plaquenil] 200 mg PO BID 05/19/18 Pregabalin [Lyrica] 300 mg PO BID 05/19/18 Spironolactone [Aldactone] 25 mg PO DAILY 05/19/18 Trazodone HCl [Trazodone Hydrochloride] 100 mg PO BEDTIME 05/19/18 Verapamil HCl [Verapamil HCl Sr] 180 mg PO DAILY 05/19/18 Aspirin [Aspirin Adult Low Dose] 81 mg PO DAILY 06/17/18 Docusate Sodium 100 mg PO BEDTIME 06/17/18 Esomeprazole Magnesium [Nexium] 40 mg PO DAILY 06/17/18 Oxycodone HCl 10 mg PO Q6H PRN 06/17/18 ALPRAZolam [Xanax] 0.25 mg PO Q6H PRN 11/20/18 Calcium 1,200 mg PO DAILY 11/20/18 Prednisone [Deltasone] 20 mg PO BIW 11/20/18 Vortioxetine HBr [Brintellix] 10 mg PO DAILY 11/20/18 Review of Systems - Review of Systems Constitutional: States: malaise EENTM: States: no symptoms reported Respiratory: States: no symptoms reported Cardiology: States: no symptoms reported Gastrointestinal/Abdominal: States: no symptoms reported Genitourinary: States: no symptoms reported Musculoskeletal: States: see HPI - she does have significant chronic pain. Skin: States: no symptoms reported Neurological: States: other - drowsy Endocrine: States: no symptoms reported All other Systems: No Change from Baseline Past Medical History (General) - Patient Medical History Hx Seizures: No Hx Stroke: Yes Hx Dementia: No Hx Asthma: No Hx of COPD: Yes Hx Cardiac Disorders: Yes - NE x 3 Hx Congestive Heart Failure: Yes Hx Pacemaker: No Hx Hypertension: Yes Hx Thyroid Disease: No Hx Diabetes: No Hx Gastroesophageal Reflux: Yes - HIATAL HERNIA Hx Renal Disease: No Hx Cancer: No Hx of HIV: No Hx Hepatitis C: No Hx MRSA: No MRSA Source:: Wound - Vaccination History Hx Tetanus, Diphtheria Vaccination: No Hx Influenza Vaccination: Yes Hx Pneumococcal Vaccination: Yes - Social History Hx Tobacco Use: No Hx Chewing Tobacco Use: No Hx Alcohol Use: No Hx Substance Use: No Hx Substance Use Treatment: No Hx Depression: No Hx Physical Abuse: No Hx Emotional Abuse: No Hx Suspected Abuse: No - Female History Patient : No Family Medical History - Family History Mother Family History: Unknown Living Status: Hx Family;Other: SHE DID NOT KNOW PARENTS AND SHE DOES NOT KNOW FH HISTORY. PT ADOPTED Physical Exam - Physical Exam General Appearance: Other - drowsy but responsive to voice. She does slur her speech a little bit. Eye Exam: bilateral normal - upils are small. Extraocular movements are intact. Ears, Nose, Throat: hearing grossly normal, normal ENT inspection, normal pharynx Neck: other - the patient is initially in a c-collar. Once his c-collar is removed she does not have any pain. No limitations on range of motion. No deformity. No crepitus. C-collar was removed after CT scan. Respiratory: lungs clear, normal breath sounds, no respiratory distress, no accessory muscle use Cardiovascular/Chest: normal peripheral pulses, regular rate, rhythm, no edema Peripheral Pulses: radial,right: 2+, radial,left: 2+, dorsalis pedis,right: 2+, dorsalis pedis,left: 2+ Gastrointestinal/Abdominal: non tender, soft Rectal Exam: deferred Back Exam: no CVA tenderness, no vertebral tenderness Extremity: normal range of motion, non-tender, normal inspection, no pedal edema, normal capillary refill Neurologic: resident care spec II-XII nml as tested, oriented x 3, other - chronic peripheral neuropathy. The patient is drowsy but she knows where she is in what is going on. Skin Exam: pallor Comments: Vital Signs - 24 hr 12/08/18 12/08/18 12/09/18 23:05 23:14 00:30 Temperature 98.1 F Pulse Rate [ 86 Left Brachial] Respiratory 22 18 Rate Blood Pressure 110/88 115/70 [Right Arm] O2 Sat by Pulse 89 L 98 96 Oximetry Progress - Progress Progress: 12/09/18 01:48 the patient is a 68-year-old female presenting to emergency room secondary to accidental medication overdose. She recently had her sleep and anxiety medication doses increased along with numerous other sedating and blood pressure dropping-type medications which she continues to take. The patient needs to contact her primary care doctor tomorrow morning to have her medications adjusted down. Obviously if she continues to take these doses again she will end up with the same problem tomorrow night. She does understand this. The patient is to keep herself well hydrated. Vital signs have returned to normal. The patient is oxygenating well with her baseline 2 L. laboratory work is reassuring and imaging fails to show any acute pathology otherwise. She needs to follow-up with her primary care doctor. ER warnings were given. - Results/Orders Results/Orders: CT of the head and cervical spine showed no acute pathology. chest x-ray shows no acute pathology. Laboratory Tests 12/08/18 12/08/18 12/08/18 23:35 23:35 23:35 WBC 4.2 L RBC 3.58 L Hgb 10.2 L Hct 31.1 L MCV 86.9 MCH 28.6 MCHC 32.8 L RDW 19.1 H Plt Count 199 MPV 8.1 Absolute Neuts (auto) 3.10 Absolute Lymphs (auto) 0.70 L Absolute Monos (auto) 0.40 Absolute Eos (auto) 0.10 Absolute Basos (auto) 0.00 Neutrophils % 73.5 Lymphocytes % 16.0 L Monocytes % 8.7 Eosinophils % 1.3 Basophils % 0.5 Sodium 138 Potassium 3.4 L Chloride 101 Carbon Dioxide 28 Anion Gap 12.4 BUN 16 Creatinine 0.75 BUN/Creatinine Ratio 21.3 H Random Glucose 82 Serum Osmolality 275.9 Lactic Acid 1.5 Calcium 8.7 Total Bilirubin 0.6 AST 22 ALT 9 L Alkaline Phosphatase 167 H Creatine Kinase 160 H CK-MB (CK-2) 3.3 CK-MB (CK-2) % Not Reportable Troponin I 0.01 B-Natriuretic Peptide 107.0 H Serum Total Protein 6.3 L Albumin 3.3 Globulin 3.0 Albumin/Globulin Ratio 1.1 Departure - Departure Clinical Impression: Accidental medication overdose Qualifiers: Encounter type: initial encounter Qualified Code(s): T50.901A - Poisoning by unspecified drugs, medicaments and biological substances, accidental (unintentional), initial encounter Disposition: Discharge to Home or Self Care Condition: Fair Instructions: Taking Narcotics Safely Diet: regular diet Activity: increase activity as tolerated Referrals: Kwame Barrera MD [Primary Care Provider] - 1-2 Weeks Home Medications: Ambulatory Orders Atorvastatin Calcium [Lipitor] 40 mg PO BEDTIME 05/19/18 Carvedilol [Coreg] 3.125 mg PO BID 05/19/18 Hydroxychloroquine Sulfate [Plaquenil] 200 mg PO BID 05/19/18 Pregabalin [Lyrica] 300 mg PO BID 05/19/18 Spironolactone [Aldactone] 25 mg PO DAILY 05/19/18 Trazodone HCl [Trazodone Hydrochloride] 100 mg PO BEDTIME 05/19/18 Verapamil HCl [Verapamil HCl Sr] 180 mg PO DAILY 05/19/18 Aspirin [Aspirin Adult Low Dose] 81 mg PO DAILY 06/17/18 Docusate Sodium 100 mg PO BEDTIME 06/17/18 Esomeprazole Magnesium [Nexium] 40 mg PO DAILY 06/17/18 Oxycodone HCl 10 mg PO Q6H PRN 06/17/18 ALPRAZolam [Xanax] 0.25 mg PO Q6H PRN 11/20/18 Calcium 1,200 mg PO DAILY 11/20/18 Prednisone [Deltasone] 20 mg PO BIW 11/20/18 Vortioxetine HBr [Brintellix] 10 mg PO DAILY 11/20/18 Additional Instructions: the patient is a 68-year-old female presenting to emergency room secondary to accidental medication overdose. She recently had her sleep and anxiety medication doses increased along with numerous other sedating and blood pressure dropping-type medications which she continues to take. The patient needs to contact her primary care doctor tomorrow morning to have her medications adjusted down. Obviously if she continues to take these doses again she will end up with the same problem tomorrow night. She does understand this. The patient is to keep herself well hydrated. Vital signs have returned to normal. The patient is oxygenating well with her baseline 2 L. laboratory work is reassuring and imaging fails to show any acute pathology otherwise. She needs to follow-up with her primary care doctor. ER warnings were given.
[2018-12-09 02:09] VITALS: BP 90/62; O2SAT 95
== END 2018-12-09 02:10 | disposition home or self-care (01) ==
LOC: ER 23:01
DX: T50.901A Poisoning by unspecified drugs, medicaments and biological substances, accidental (unintentional), initial encounter (principal); R41.82 Altered mental status, unspecified; M46.92 Unspecified inflammatory spondylopathy, cervical region; J44.9 Chronic obstructive pulmonary disease, unspecified; I25.2 Old myocardial infarction; I50.9 Heart failure, unspecified; I11.0 Hypertensive heart disease with heart failure; K21.9 Gastro-esophageal reflux disease without esophagitis; Z86.73 Personal history of transient ischemic attack (TIA), and cerebral infarction without residual deficits; Z79.82 Long term (current) use of aspirin; Z79.899 Other long term (current) drug therapy; Z88.0 Allergy status to penicillin; Z88.2 Allergy status to sulfonamides; Z91.040 Latex allergy status; Z99.81 Dependence on supplemental oxygen; Z98.1 Arthrodesis status

== ENCOUNTER 2018-12-09 15:35 | Emergency (ER) | payer MEDICARE, MEDICAID ==
[2018-12-09 15:57] VITALS: TEMP 98.8
--- NOTE | 2018-12-09 16:14 | ED.PDOC ---
History of Present Illness - General Chief Complaint: General Stated Complaint: L knee pain for prior fall Time Seen by Provider: 12/09/18 15:45 Source: patient, family Exam Limitations: no limitations - History of Present Illness Initial Comments: Patient had fall yesterday with altered LOC thought to be secondary to overmedication and UTI. Patient was evaluated in the ER and awoke with narcan administration from EMS. At that time she was evaluated but did not have knee pain yet. She states since she went home her knee has swollen more and become very painful and she cannot weight bear. Timing/Duration: 24 hours Severity: severe Improving Factors: immobilization Worsening Factors: movement Associated Symptoms: denies symptoms Allergies/Adverse Reactions: Allergies Penicillins Allergy (Mild, Verified 12/09/18 15:57) Unknown reports made throat swell when she was a child Sulfamethoxazole w/Trimethoprim [From Bactrim] Allergy (Mild, Verified 12/09/18 15:57) Nausea Latex Allergy (Verified 12/09/18 15:57) Home Medications: Ambulatory Orders Atorvastatin Calcium [Lipitor] 40 mg PO BEDTIME 05/19/18 Carvedilol [Coreg] 3.125 mg PO BID 05/19/18 Hydroxychloroquine Sulfate [Plaquenil] 200 mg PO BID 05/19/18 Pregabalin [Lyrica] 300 mg PO BID 05/19/18 Spironolactone [Aldactone] 25 mg PO DAILY 05/19/18 Trazodone HCl [Trazodone Hydrochloride] 100 mg PO BEDTIME 05/19/18 Verapamil HCl [Verapamil HCl Sr] 180 mg PO DAILY 05/19/18 Aspirin [Aspirin Adult Low Dose] 81 mg PO DAILY 06/17/18 Docusate Sodium 100 mg PO BEDTIME 06/17/18 Esomeprazole Magnesium [Nexium] 40 mg PO DAILY 06/17/18 Oxycodone HCl 10 mg PO Q6H PRN 06/17/18 ALPRAZolam [Xanax] 0.25 mg PO Q6H PRN 11/20/18 Calcium 1,200 mg PO DAILY 11/20/18 Prednisone [Deltasone] 20 mg PO BIW 11/20/18 Vortioxetine HBr [Brintellix] 10 mg PO DAILY 11/20/18 Review of Systems - Review of Systems Constitutional: States: no symptoms reported. Denies: chills, fever EENTM: States: no symptoms reported Respiratory: States: no symptoms reported. Denies: cough, short of breath Cardiology: States: no symptoms reported. Denies: chest pain, palpitations, syncope Gastrointestinal/Abdominal: States: no symptoms reported. Denies: abdominal pain, constipation, diarrhea, nausea Genitourinary: States: no symptoms reported Musculoskeletal: States: see HPI Past Medical History (General) - Patient Medical History Hx Seizures: No Hx Stroke: Yes Hx Dementia: No Hx Asthma: No Hx of COPD: Yes Hx Cardiac Disorders: Yes Hx Congestive Heart Failure: No Hx Pacemaker: No Hx Hypertension: Yes Hx Thyroid Disease: No Hx Diabetes: No Hx Gastroesophageal Reflux: Yes Hx Renal Disease: No Hx Cancer: No Hx of HIV: No Hx Hepatitis C: No Hx MRSA: No MRSA Source:: Wound Surgical History: coronary bypass surgery, Hysterectomy, other - Vaccination History Hx Tetanus, Diphtheria Vaccination: No Hx Influenza Vaccination: Yes Hx Pneumococcal Vaccination: Yes - Social History Hx Tobacco Use: No Hx Chewing Tobacco Use: No Hx Alcohol Use: Yes Hx Substance Use: No Hx Substance Use Treatment: No Hx Depression: No Hx Physical Abuse: No Hx Emotional Abuse: No Hx Suspected Abuse: No - Female History Patient is a Female of Child Bearing Age (10 -59 yrs old): No Patient : No Family Medical History - Family History Mother Family History: Unknown Living Status: Hx Family;Other: SHE DID NOT KNOW PARENTS AND SHE DOES NOT KNOW FH HISTORY. PT ADOPTED Physical Exam - Physical Exam General Appearance: Frail, No apparent distress Eye Exam: bilateral normal Ears, Nose, Throat: hearing grossly normal, normal ENT inspection, normal pharynx Neck: non-tender, full range of motion, supple Respiratory: chest non-tender, lungs clear, normal breath sounds Cardiovascular/Chest: normal peripheral pulses, regular rate, rhythm, no edema, no gallop, no JVD, no murmur Gastrointestinal/Abdominal: normal bowel sounds, non tender, soft Extremity: swelling - TTP and echymosis of L knew with effusion Neurologic: alert, oriented x 3 Skin Exam: normal color Progress - Results/Orders Results/Orders: Patient Name: LESLY SANDOVAL Gender: Female Date of : 1950 Referring Physician: JEFF RAMEY: [facility] Accession Number: [id number] Requested Date: December 09, 2018 16:11 Report Status: Final Requested Procedure: 1 Procedure Description: Knee,Left 2 or More Views Modality: CR Findings Reporting MD: Rosa Cano MD: Not available Dictation Time: Qa Tester: Not available Electrical Project Manager Date: EXAM DESCRIPTION: Knee,Left 2 or More Views CLINICAL HISTORY: 68 years Female fall with pain and sweling COMPARISON: None TECHNIQUE: Two images of the left knee were obtained. FINDINGS: Large joint effusion. No definite fracture seen. Marked bony demineralization. No erosive or lytic lesions seen. Marked lateral joint compartment narrowing. IMPRESSION: Large joint effusion with no definite fracture or dislocation seen. Marked osteopenia with associated marked degenerative change. Consider correlation with magnetic resonance study of clinical suspicion for abnormality persists. Departure - Departure Clinical Impression: Left knee sprain Qualifiers: Encounter type: initial encounter Involved ligament of knee: unspecified ligament Qualified Code(s): S83.92XA - Sprain of unspecified site of left knee, initial encounter Disposition: Discharge to Home or Self Care Departure Forms: ED Discharge - Pt. Copy, Patient Portal Self Enrollment Referrals: Kwame Barrera MD [Primary Care Provider] - 1-2 Weeks Home Medications: Ambulatory Orders Atorvastatin Calcium [Lipitor] 40 mg PO BEDTIME 05/19/18 Carvedilol [Coreg] 3.125 mg PO BID 05/19/18 Hydroxychloroquine Sulfate [Plaquenil] 200 mg PO BID 05/19/18 Pregabalin [Lyrica] 300 mg PO BID 05/19/18 Spironolactone [Aldactone] 25 mg PO DAILY 05/19/18 Trazodone HCl [Trazodone Hydrochloride] 100 mg PO BEDTIME 05/19/18 Verapamil HCl [Verapamil HCl Sr] 180 mg PO DAILY 05/19/18 Aspirin [Aspirin Adult Low Dose] 81 mg PO DAILY 06/17/18 Docusate Sodium 100 mg PO BEDTIME 06/17/18 Esomeprazole Magnesium [Nexium] 40 mg PO DAILY 06/17/18 Oxycodone HCl 10 mg PO Q6H PRN 06/17/18 ALPRAZolam [Xanax] 0.25 mg PO Q6H PRN 11/20/18 Calcium 1,200 mg PO DAILY 11/20/18 Prednisone [Deltasone] 20 mg PO BIW 11/20/18 Vortioxetine HBr [Brintellix] 10 mg PO DAILY 11/20/18 Additional Instructions: limit weight bearing as able. Ice to area 15 min TID. Follow up with PCP in 2- 3 days to decide if MRI is needed.
[2018-12-09] MEDS: NITROFURANTOIN MONOHYDRATE MAC 100 MG CAP PO ONE (16:35)
--- NOTE | 2018-12-09 17:00 | RAD ---
EXAM DESCRIPTION: Knee,Left 2 or More Views CLINICAL HISTORY: 68 years Female fall with pain and sweling COMPARISON: None TECHNIQUE: Two images of the left knee were obtained. FINDINGS: Large joint effusion. No definite fracture seen. Marked bony demineralization. No erosive or lytic lesions seen. Marked lateral joint compartment narrowing. IMPRESSION: Large joint effusion with no definite fracture or dislocation seen. Marked osteopenia with associated marked degenerative change. Consider correlation with magnetic resonance study of clinical suspicion for abnormality persists. Electronically signed by: Rosa Cano MD 12/09/2018 4:58 PM CDT
--- NOTE | 2018-12-09 17:14 | RAD ---
EXAM: Tibia/Fibula,Left CLINICAL INDICATION: 68-year-old female with pain status post fall. TECHNIQUE: Views of the LEFT tibia-fibula were obtained in AP, and lateral projections. COMPARISON: None. FINDINGS: The bones appear to be diffusely demineralized. Degenerative change of the knee. There is no fracture or dislocation. The joint spaces are preserved. Nonspecific large suprapatellar joint effusion. IMPRESSION: Nonspecific large suprapatellar joint effusion. Electronically signed by: Maday Quinteros MD 12/09/2018 5:12 PM CDT
[2018-12-09 18:34] VITALS: BP 103/68; O2SAT 98
== END 2018-12-09 18:34 | disposition home or self-care (01) ==
LOC: ER 15:35
DX: S83.92XA Sprain of unspecified site of left knee, initial encounter (principal); M85.80 Other specified disorders of bone density and structure, unspecified site; K21.9 Gastro-esophageal reflux disease without esophagitis; I10 Essential (primary) hypertension; I51.9 Heart disease, unspecified; J44.9 Chronic obstructive pulmonary disease, unspecified; Z95.1 Presence of aortocoronary bypass graft; Z86.73 Personal history of transient ischemic attack (TIA), and cerebral infarction without residual deficits; Z79.899 Other long term (current) drug therapy; Z79.82 Long term (current) use of aspirin; Z88.0 Allergy status to penicillin; Z88.2 Allergy status to sulfonamides; Z91.040 Latex allergy status; W19.XXXA Unspecified fall, initial encounter; Y92.9 Unspecified place or not applicable

== ENCOUNTER 2019-01-06 16:17 | Emergency (ER) | payer MEDICARE, MEDICAID ==
[2019-01-06] MEDS ORDERED: SODIUM CHLORIDE 0.9% 1000ML 1,000 ML IVS ONE (16:41)
[2019-01-06 16:42] VITALS: TEMP 98.4
--- NOTE | 2019-01-06 16:44 | ED.PDOC ---
History of Present Illness - General Chief Complaint: Cardiovascular Problem Stated Complaint: Dizziness, fatigue, lethargy, amd cold intolerance Time Seen by Provider: 01/06/19 16:34 Source: patient Exam Limitations: no limitations - History of Present Illness Initial Comments: pt has had dizziness and weakness x 2 days. Pt has recorded low BP at home. Denies chest pain, SOB, fever, dysuria, or N/V/D Timing/Duration: constant Severity: moderate Improving Factors: immobilization Worsening Factors: movement Associated Symptoms: weakness Allergies/Adverse Reactions: Allergies Penicillins Allergy (Mild, Verified 01/06/19 16:35) Unknown reports made throat swell when she was a child Sulfamethoxazole w/Trimethoprim [From Bactrim] Allergy (Mild, Verified 01/06/19 16:35) Nausea Latex Allergy (Verified 01/06/19 16:35) Home Medications: Ambulatory Orders Atorvastatin Calcium [Lipitor] 40 mg PO BEDTIME 05/19/18 Carvedilol [Coreg] 3.125 mg PO BID 05/19/18 Hydroxychloroquine Sulfate [Plaquenil] 200 mg PO BID 05/19/18 Pregabalin [Lyrica] 300 mg PO BID 05/19/18 Spironolactone [Aldactone] 25 mg PO DAILY 05/19/18 Trazodone HCl [Trazodone Hydrochloride] 100 mg PO BEDTIME 05/19/18 Verapamil HCl [Verapamil HCl Sr] 180 mg PO DAILY 05/19/18 Aspirin [Aspirin Adult Low Dose] 81 mg PO DAILY 06/17/18 Docusate Sodium 100 mg PO BEDTIME 06/17/18 Esomeprazole Magnesium [Nexium] 40 mg PO DAILY 06/17/18 Oxycodone HCl 10 mg PO Q6H PRN 06/17/18 Calcium 1,200 mg PO DAILY 11/20/18 Albuterol Sulfate 2.5 mg INH PRN PRN 01/06/19 Rlkydqglos-Fndmnsm-Hpqruboa [Butalbital/Aspirin/Caffei 50-325-40 mg] 1 tab PO Q6H PRN 01/06/19 Indomethacin 50 mg PO Q6H PRN 01/06/19 Ondansetron HCl [Zofran] 8 mg PO Q8H PRN 01/06/19 Sennosides [Senokot] 8.6 mg PO DAILY 01/06/19 Sertraline HCl [Zoloft] 100 mg PO BEDTIME 01/06/19 Umeclidinium [place] [Incruse Ellipta] 62.5 mcg INH PRN PRN 01/06/19 Review of Systems - Review of Systems Constitutional: States: weakness. Denies: chills, fever EENTM: States: no symptoms reported Respiratory: States: no symptoms reported Cardiology: Denies: chest pain, edema, syncope Gastrointestinal/Abdominal: Denies: abdominal pain, diarrhea, nausea, vomiting Genitourinary: States: no symptoms reported Musculoskeletal: States: back pain Skin: States: no symptoms reported Neurological: States: no symptoms reported Endocrine: States: no symptoms reported Hematologic/Lymphatic: States: no symptoms reported Past Medical History (General) - Patient Medical History Hx Seizures: No Hx Stroke: Yes - ~2013 Hx Dementia: No Hx Asthma: No Hx of COPD: Yes Hx Cardiac Disorders: Yes Hx Congestive Heart Failure: No Hx Pacemaker: No Hx Hypertension: No Hx Thyroid Disease: No Hx Diabetes: No Hx Gastroesophageal Reflux: Yes Hx Renal Disease: No Hx Cancer: No Hx of HIV: No Hx Hepatitis C: No Hx MRSA: No MRSA Source:: Wound Surgical History: Hysterectomy, other - Vaccination History Hx Tetanus, Diphtheria Vaccination: No Hx Influenza Vaccination: Yes Hx Pneumococcal Vaccination: Yes - Social History Hx Tobacco Use: No Hx Chewing Tobacco Use: No Hx Alcohol Use: No Hx Substance Use: No Hx Substance Use Treatment: No Hx Depression: No Hx Physical Abuse: No Hx Emotional Abuse: No Hx Suspected Abuse: No - Female History Patient is a Female of Child Bearing Age (10 -59 yrs old): No Patient : No Family Medical History - Family History Mother Family History: Unknown Living Status: Hx Family;Other: SHE DID NOT KNOW PARENTS AND SHE DOES NOT KNOW FH HISTORY. PT ADOPTED Physical Exam - Physical Exam General Appearance: Alert, Comfortable Eye Exam: bilateral normal Ears, Nose, Throat: normal pharynx, other - dry mucosa Neck: non-tender, full range of motion Respiratory: chest non-tender, lungs clear, normal breath sounds, no respiratory distress Cardiovascular/Chest: normal peripheral pulses, regular rate, rhythm, no edema Peripheral Pulses: radial,right: 2+ Gastrointestinal/Abdominal: normal bowel sounds, soft, tenderness - in epigastrium without guarding or rebound Back Exam: no CVA tenderness Extremity: normal range of motion, non-tender Neurologic: alert, normal mood/affect, oriented x 3 Skin Exam: normal color, warm/dry Lymphatic: no adenopathy Progress - EKG/XRAY/CT EKG: Sinus, no ST T wave changes Comments: rate 89, LA 148, QRS 96, QTc 462 Departure - Departure Clinical Impression: Weakness generalized, Dehydration Disposition: Discharge to Home or Self Care Departure Forms: ED Discharge - Pt. Copy, Patient Portal Self Enrollment Instructions: DI for Chest Pain Referrals: Kwame Barrera MD [Primary Care Provider] - 1-2 Weeks Home Medications: Ambulatory Orders Atorvastatin Calcium [Lipitor] 40 mg PO BEDTIME 05/19/18 Carvedilol [Coreg] 3.125 mg PO BID 05/19/18 Hydroxychloroquine Sulfate [Plaquenil] 200 mg PO BID 05/19/18 Pregabalin [Lyrica] 300 mg PO BID 05/19/18 Spironolactone [Aldactone] 25 mg PO DAILY 05/19/18 Trazodone HCl [Trazodone Hydrochloride] 100 mg PO BEDTIME 05/19/18 Verapamil HCl [Verapamil HCl Sr] 180 mg PO DAILY 05/19/18 Aspirin [Aspirin Adult Low Dose] 81 mg PO DAILY 06/17/18 Docusate Sodium 100 mg PO BEDTIME 06/17/18 Esomeprazole Magnesium [Nexium] 40 mg PO DAILY 06/17/18 Oxycodone HCl 10 mg PO Q6H PRN 06/17/18 Calcium 1,200 mg PO DAILY 11/20/18 Albuterol Sulfate 2.5 mg INH PRN PRN 01/06/19 Kpojmiyetf-Ubkufvq-Wrlvqoil [Butalbital/Aspirin/Caffei 50-325-40 mg] 1 tab PO Q6H PRN 01/06/19 Indomethacin 50 mg PO Q6H PRN 01/06/19 Ondansetron HCl [Zofran] 8 mg PO Q8H PRN 01/06/19 Sennosides [Senokot] 8.6 mg PO DAILY 01/06/19 Sertraline HCl [Zoloft] 100 mg PO BEDTIME 01/06/19 Umeclidinium [place] [Incruse Ellipta] 62.5 mcg INH PRN PRN 01/06/19
[2019-01-06 19:38] VITALS: BP 97/62; O2SAT 95
== END 2019-01-06 19:38 | disposition home or self-care (01) ==
LOC: ER 16:17
DX: E86.0 Dehydration (principal); R53.1 Weakness; J44.9 Chronic obstructive pulmonary disease, unspecified; I51.9 Heart disease, unspecified; K21.9 Gastro-esophageal reflux disease without esophagitis; Z86.73 Personal history of transient ischemic attack (TIA), and cerebral infarction without residual deficits; Z79.899 Other long term (current) drug therapy; Z79.82 Long term (current) use of aspirin; Z88.0 Allergy status to penicillin; Z88.2 Allergy status to sulfonamides; Z91.040 Latex allergy status
CPT/HCPCS: 36415; 80053; 81001; 83605; 83880; 85025; 93005; J7030

== ENCOUNTER → 2019-01-14 | Outpatient (CLI) | payer MEDICARE, MEDICAID | LOC: LAB.O 08:26 | PROVIDERS: ATTEND Nuclear Medicine Nuclear Cardiology | DX: R42 Dizziness and giddiness (principal) ==

== ENCOUNTER 2019-03-17 22:20 | Observation (INO) | payer MEDICAID, MEDICARE ==
--- NOTE | 2019-03-17 22:47 | RAD ---
EXAM: XR Chest, 1 View CLINICAL HISTORY: The patient is 68 years old and is Female; chest pain TECHNIQUE: Frontal view of the chest. COMPARISON: Chest radiograph September 29, 2018. FINDINGS: LUNGS: The lungs are hyperinflated with chronic coarse interstitial markings. PLEURAL SPACE: Unremarkable. No pneumothorax. HEART: Cardiac silhouette is prominent. MEDIASTINUM: Unremarkable. BONES/JOINTS: Vertebroplasty at multiple levels is noted. There are degenerative changes of the bones. VASCULATURE: Few prominent vessels on end are present. TUBES, LINES AND DEVICES: A loop recorder is present. IMPRESSION: Cardiomegaly without failure. Electronically signed by: Yecenia Torres MD 03/17/2019 10:45 PM CDT
[2019-03-17] MEDS ORDERED: SODIUM CHLORIDE 0.9% 1000ML 1,000 ML IVS ONE (23:31)
[2019-03-17] MEDS ORDERED: IPRATROPIUM/ALBUTEROL 3 ML VIAL NEB ONE (23:31)
[2019-03-17] MEDS ORDERED: predniSONE 20 MG TAB PO ONE (23:43)
--- NOTE | 2019-03-18 02:26 | ED.PDOC ---
History of Present Illness - General Chief Complaint: Chest Pain/LA Stated Complaint: chest pain Time Seen by Provider: 03/17/19 22:21 Source: patient Exam Limitations: no limitations - History of Present Illness Initial Comments: the patient is a 68-year-old female presenting to the emergency room with her secondary to 2-3 hours of fairly abrupt onset left sided chest pain. It is a little bit higher in the chest. It is worse with taking a deep breath and it is significantly worse with palpation. She reports it is about 80% reproducible with palpation over the left pectoralis muscle. No shortness of breath. She does have chronic anxiety. 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 She did receive an aspirin with EMS in route. The patient also does have some chronic hypotension. It has been a little bit better for her since she had numerous medications discontinued. She has had several episodes of over medication in the past. The patient reports this pain as somewhat sharp in nature and rated at about a 6 out of 10. Timing/Duration: 1-3 hours Severity: moderate Improving Factors: immobilization Worsening Factors: movement Associated Symptoms: chest pain Allergies/Adverse Reactions: Allergies Penicillins Allergy (Mild, Verified 01/06/19 16:35) Unknown reports made throat swell when she was a child Sulfamethoxazole w/Trimethoprim [From Bactrim] Allergy (Mild, Verified 01/06/19 16:35) Nausea Latex Allergy (Verified 01/06/19 16:35) Promethazine [From Phenergan] Allergy (Verified 03/18/19 02:35) Home Medications: Ambulatory Orders Atorvastatin Calcium [Lipitor] 40 mg PO BEDTIME 05/19/18 Carvedilol [Coreg] 3.125 mg PO BID 05/19/18 Hydroxychloroquine Sulfate [Plaquenil] 200 mg PO BID 05/19/18 Trazodone HCl [Trazodone Hydrochloride] 150 mg PO BEDTIME 05/19/18 Verapamil HCl [Verapamil HCl Sr] 180 mg PO DAILY 05/19/18 Aspirin [Aspirin Adult Low Dose] 81 mg PO DAILY 06/17/18 Esomeprazole Magnesium [Nexium] 40 mg PO DAILY 06/17/18 Umeclidinium [place] [Incruse Ellipta] 62.5 mcg INH PRN PRN 01/06/19 Docusate Sodium [Colace Cap] 100 mg PO DAILY 03/17/19 Gabapentin 100 mg PO TID 03/17/19 Prednisone 20 mg PO 03/17/19 Review of Systems - Review of Systems Constitutional: States: no symptoms reported EENTM: States: no symptoms reported Respiratory: States: no symptoms reported Cardiology: States: chest pain Gastrointestinal/Abdominal: States: no symptoms reported Genitourinary: States: no symptoms reported Musculoskeletal: States: no symptoms reported Skin: States: no symptoms reported Neurological: States: anxiety Endocrine: States: no symptoms reported All other Systems: No Change from Baseline Past Medical History (General) - Patient Medical History Hx Seizures: No Hx Stroke: Yes - ~2013 Hx Dementia: No Hx Asthma: No Hx of COPD: Yes Hx Cardiac Disorders: Yes Hx Congestive Heart Failure: No Hx Pacemaker: No Hx Hypertension: No Hx Thyroid Disease: No Hx Diabetes: No Hx Gastroesophageal Reflux: Yes Hx Renal Disease: No Hx Cancer: No Hx of HIV: No Hx Hepatitis C: No Hx MRSA: No MRSA Source:: Wound Surgical History: Hysterectomy - Vaccination History Hx Tetanus, Diphtheria Vaccination: No Hx Influenza Vaccination: Yes Hx Pneumococcal Vaccination: Yes Immunizations Up to Date: Yes - Social History Hx Tobacco Use: No Hx Chewing Tobacco Use: No Hx Alcohol Use: No Hx Substance Use: No Hx Substance Use Treatment: No Hx Depression: No Hx Physical Abuse: No Hx Emotional Abuse: No Hx Suspected Abuse: No - Female History Patient : No Family Medical History - Family History Mother Family History: Unknown Living Status: Hx Family;Other: SHE DID NOT KNOW PARENTS AND SHE DOES NOT KNOW FH HISTORY. PT ADOPTED Physical Exam - Physical Exam General Appearance: Alert, Anxious, No apparent distress Eye Exam: bilateral normal Ears, Nose, Throat: hearing grossly normal, normal ENT inspection Neck: supple Respiratory: lungs clear, normal breath sounds, no respiratory distress, no accessory muscle use, other - left pectoralis muscle is tender to palpation. Cardiovascular/Chest: normal peripheral pulses, regular rate, rhythm, no edema Peripheral Pulses: radial,right: 2+, radial,left: 2+, dorsalis pedis,right: 2+, dorsalis pedis,left: 2+ Gastrointestinal/Abdominal: non tender, soft Rectal Exam: deferred Back Exam: no vertebral tenderness, other - the patient does have some chronic low back pain. 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 Skin Exam: normal color Comments: Vital Signs - 8 hr 03/17/19 03/17/19 03/18/19 22:34 23:00 00:00 Temperature 97.8 F Pulse Rate [ 68 70 69 Apical] Respiratory 16 20 19 Rate Blood Pressure 100/74 87/60 93/52 [Left Arm] O2 Sat by Pulse 98 97 98 Oximetry 03/18/19 00:34 Temperature Pulse Rate [ 74 Apical] Respiratory 17 Rate Blood Pressure 87/53 [Left Arm] O2 Sat by Pulse Oximetry Progress - Progress Progress: 03/18/19 02:29 the patient is 68-year-old female presenting to emergency room secondary to left mid to upper chest pain starting at rest. The patient does have a significant coronary history so the patient is going to be brought in for a longer rule out. Initial and repeat cardiac enzymes at 3 hours are negative in regards to the troponin. The patient's discomfort has improved. She is sleeping. The patient is receiving a dose of aspirin and Lovenox for now. Other pain medications are being avoided due to chronic hypotension. The patient may be better off in the long-term reducing her trazodone dose at night to prevent further hypotension. Admit for above reasons. Blood pressure is too low to start with, for a trial of nitrates. The patient is resting comfortably at this time. - Results/Orders Results/Orders: chest x-ray shows no acute pathology. She does have mild cardiomegaly. EKG shows normal sinus rhythm at 75 bpm. Normal axis. Normal R-wave progression. No definitive ST segment or T-wave changes indicative of acute ischemia. Borderline QT interval. Laboratory Tests 03/17/19 03/17/19 03/17/19 22:34 22:34 22:34 WBC 3.6 L RBC 3.76 L Hgb 10.5 L Hct 32.2 L MCV 85.5 MCH 28.0 MCHC 32.8 L RDW 16.1 H Plt Count 153 MPV 9.0 Absolute Neuts (auto) 2.30 Absolute Lymphs (auto) 1.00 Absolute Monos (auto) 0.30 Absolute Eos (auto) 0.00 Absolute Basos (auto) 0.00 Neutrophils % 63.9 Lymphocytes % 26.9 Monocytes % 8.8 Eosinophils % 0.0 L Basophils % 0.4 PT 9.7 INR 0.97 PTT (SP) 22.3 Sodium 140 Potassium 3.5 L Chloride 105 Carbon Dioxide 25 Anion Gap 13.5 BUN 18 Creatinine 0.83 BUN/Creatinine Ratio 21.7 H Random Glucose 96 Serum Osmolality 281.2 Calcium 9.0 Magnesium 1.9 Total Bilirubin 0.2 AST 30 ALT 11 Alkaline Phosphatase 81 Creatine Kinase 305 H* CK-MB (CK-2) 10.1 H* CK-MB (CK-2) % 3.31 Troponin I < 0.02 B-Natriuretic Peptide 58.3 Serum Total Protein 6.0 L Albumin 3.3 Globulin 2.7 Albumin/Globulin Ratio 1.2 03/18/19 01:23 WBC RBC Hgb Hct MCV MCH MCHC RDW Plt Count MPV Absolute Neuts (auto) Absolute Lymphs (auto) Absolute Monos (auto) Absolute Eos (auto) Absolute Basos (auto) Neutrophils % Lymphocytes % Monocytes % Eosinophils % Basophils % PT INR PTT (SP) Sodium Potassium Chloride Carbon Dioxide Anion Gap BUN Creatinine BUN/Creatinine Ratio Random Glucose Serum Osmolality Calcium Magnesium Total Bilirubin AST ALT Alkaline Phosphatase Creatine Kinase 258 H* CK-MB (CK-2) 8.5 H* CK-MB (CK-2) % 3.29 Troponin I < 0.02 B-Natriuretic Peptide Serum Total Protein Albumin Globulin Albumin/Globulin Ratio Departure - Departure Clinical Impression: Atypical chest pain Pectoralis muscle strain Qualifiers: Encounter type: initial encounter Qualified Code(s): S29.011A - Strain of muscle and tendon of front wall of thorax, initial encounter Disposition: Admit Patient Departure Forms: ED Discharge - Pt. Copy, Patient Portal Self Enrollment Referrals: Rakan Figueroa MD [Primary Care Provider] - 1-2 Weeks Home Medications: Ambulatory Orders Atorvastatin Calcium [Lipitor] 40 mg PO BEDTIME 05/19/18 Carvedilol [Coreg] 3.125 mg PO BID 05/19/18 Hydroxychloroquine Sulfate [Plaquenil] 200 mg PO BID 05/19/18 Trazodone HCl [Trazodone Hydrochloride] 150 mg PO BEDTIME 05/19/18 Verapamil HCl [Verapamil HCl Sr] 180 mg PO DAILY 05/19/18 Aspirin [Aspirin Adult Low Dose] 81 mg PO DAILY 06/17/18 Esomeprazole Magnesium [Nexium] 40 mg PO DAILY 06/17/18 Umeclidinium [place] [Incruse Ellipta] 62.5 mcg INH PRN PRN 01/06/19 Docusate Sodium [Colace Cap] 100 mg PO DAILY 03/17/19 Gabapentin 100 mg PO TID 03/17/19 Prednisone 20 mg PO 03/17/19
[2019-03-18] MEDS ORDERED: ENOXAPARIN SODIUM 60 MG/0.6 ML SYG SUBCU ONE (02:28)
[2019-03-18] MEDS ORDERED: MORPHINE SULFATE INJ 10 MG/ML VIAL IV PRN (03:49)
[2019-03-18] MEDS ORDERED: SODIUM CHLORIDE 0.9% (FLUSH) 10 ML SYG IV PRN (03:49)
[2019-03-18] MEDS ORDERED: NITROGLYCERIN 0.4 MG 25 EA TAB SL PRN (03:49)
[2019-03-18] MEDS ORDERED: IV SET AND CAP CHANGE INJ INJ SCH (04:00)
[2019-03-18] MEDS ORDERED: POTASSIUM CHLORIDE 20 MEQ TAB PO ONE (04:02)
[2019-03-18] MEDS ORDERED: PANTOPRAZOLE SODIUM IV 40 MG VIAL IV SCH (06:30)
[2019-03-18] MEDS ORDERED: SODIUM CHLORIDE 0.9% (FLUSH) 10 ML SYG IV SCH (09:00)
[2019-03-18] MEDS ORDERED: CARVEDILOL 3.125 MG TAB PO SCH (09:00)
[2019-03-18] MEDS ORDERED: DOCUSATE SODIUM 100 MG CAP PO SCH (09:00)
[2019-03-18] MEDS ORDERED: GABAPENTIN 100 MG CAP PO SCH (09:00)
[2019-03-18] MEDS ORDERED: VERAPAMIL ER TAB 180 MG TAB PO SCH (09:00)
[2019-03-18] MEDS ORDERED: NON-FORMULARY MEDICATION 1 EA MIS (Hydroxychloroquine Sulfate [Plaquenil] 200 MG) PO SCH (09:00)
[2019-03-18] MEDS ORDERED: NON-FORMULARY MEDICATION 1 EA MIS (Umeclidinium Bromide [Incruse Ellipta] 62.5 MCG) INH SCH (09:00)
[2019-03-18] MEDS ORDERED: ASPIRIN (ENTERIC COATED) 81 MG TAB PO SCH (09:00)
[2019-03-18 11:01] VITALS: BP 119/68; TEMP 97.7; O2SAT 99
--- NOTE | 2019-03-18 13:14 | CT ---
Procedure: CT CHEST ANGIOGRAPHY WITH IV CONTRAST Exam Date: 03/18/2019 Ordering Provider: Jose Manuel Bacon NP Clinical Indication: CP, elevated d-dimer Comparison: 08/04/2018 Technique: Using a multislice scanner, sequential axial imaging was obtained in the thorax from the level of the thoracic inlet through the lung bases after intravenous contrast administration. The contrast bolus was timed to evaluate the pulmonary arteries for thrombus. MIP coronal and sagittal reformatted images were obtained. This exam was performed according to our departmental dose optimization program which includes use of automated exposure control, adjustment of the mA and/or kV according to patient size and/or use of iterative reconstruction technique. Findings: There are no pulmonary emboli. Lungs and large airways: Subsegmental atelectasis and/or scarring in both lower lobes and the lingula. No focal lung consolidation. Mediastinum and reynold: No lymphadenopathy Pleura: No pleural effusion. No pneumothorax. Heart and great vessels: Cardiomegaly. No pericardial effusion. No aortic aneurysm or dissection. Aortic and coronary artery calcifications. Chest wall, lower neck, axillae: No axillary lymphadenopathy Upper abdomen: Large hiatal hernia. Bones: Prior vertebral body augmentation at multiple levels. Remote rib fractures bilaterally. IMPRESSION: 1. No pulmonary embolism. 2. Large hiatal hernia Electronically signed by: Viet Tompkins MD 03/18/2019 1:12 PM CDT
[2019-03-18] MEDS ORDERED: traZODone HCL 100 MG TAB PO SCH (21:00)
[2019-03-18] MEDS ORDERED: ENOXAPARIN SODIUM 40 MG/0.4 ML SYG SUBCU SCH (21:00)
[2019-03-18] MEDS ORDERED: ATORVASTATIN 20 MG TAB PO SCH (21:00)
--- NOTE | 2019-03-19 08:45 | SSS ---
SUPERVISING PHYSICIAN: Car Roberts MD DATE OF ADMISSION: 03/18/19 DATE OF DISCHARGE: 03/18/19 ADMISSION DIAGNOSIS: 1. Chest pain, rule out. 2. Generalized muscle aches and fatigue. 3. History of humerus followup. 4. Chronic pain syndrome on multiple medications including narcotics and muscle relaxants. 5. Hypertension. 6. Chronic gastroesophageal reflux disease. 7. History of coronary artery disease with previous 3 myocardial infarctions and stent placement. 8. History of diverticulosis. 9. History of chronic obstructive pulmonary disease without any signs of exacerbation. 10. History of fibromyalgia. 11. History of multiple thoracic and lumbar vertebral fractures in the past requiring kyphoplasty. 12. History of depression and anxiety. DISCHARGE DIAGNOSIS: 1. Chest pain with negative EKG and troponins, possibly related to hiatal hernia versus costochondritis. 2. Elevated CPK levels with concerns for possible adverse reaction to Lipitor resulting in the patient's generalized weakness and lower extremity discomfort. 3. Coronary artery disease. 4. Myocardial infarctions previously in 2007, 2009 and 2014 with stent placement. 5. Chronic obstructive pulmonary disease without any signs of exacerbation. 6. History of diverticulosis without any signs of acute diverticulitis. 7. Chronic neck and back pain. 8. Fibromyalgia with chronic pain syndrome on multiple pain management. 9. Osteoarthritis. 10. History of multiple thoracic and lumbar vertebral fractures requiring kyphoplasty. 11. Chronic migraines. 12. Depression. 13. Hyperlipidemia in Lipitor. 14. Hypertension, stable. 15. Gastroesophageal reflux disease, chronic. 16. Hiatal hernia. 17. History of iron deficiency anemia. HISTORY OF PRESENT ILLNESS: Ms. Herring is a 68-year-old female patient that presented to the Emergency Department early this morning with her secondary to have 2 to 3 hours of fairly abrupt onset of left sided chest pain. She noted it did worsen when taking a deep breath as well as on palpation. She denied any shortness of breath. She does have chronic anxiety with known coronary artery disease. She was given an aspirin en route by EMS. She also has a history of chronic hypertension. She reported the pain was somewhat sharp in nature and rated it about 6/10 initially on admission. Initial workup with laboratory studies showed troponin less than 0.02 times 2 sets with elevated CPK levels at 305 and 258 with mild hypokalemia. Otherwise, all other electrolytes and liver functions were within normal limits. CBC showed just a mildly low white count of 3.6 with hemoglobin 10.5, hematocrit 32.2. Differential was without a left shift. Initial EKG in the Emergency Room showed normal sinus rhythm without any ST or T-wave changes to indicate any ischemia or acute injury pattern. Vital signs initially on admission showed temperature 97.8, pulse 68, blood pressure 100/74, saturation 90% on nasal cannula at 2 liters. Given her past medical history and coronary artery stents with 3 previous myocardial infarction, the patient was placed in extended observation for further rule out. PAST MEDICAL HISTORY: 1. Coronary artery disease. 2. Myocardial infarctions in 2007, 2009 and 2014 with stent placement. 3. Chronic obstructive pulmonary disease. 4. History of diverticulosis. 5. Chronic neck pain and back pain. 6. Fibromyalgia. 7. Osteoarthritis. 8. Multiple thoracic and lumbar vertebral fractures with previous kyphoplasty. 9. Depression. 10. Hyperlipidemia. 11. Hypertension. 12. Gastroesophageal reflux disease. 13. Hiatal hernia. 14. Iron deficiency anemia. 15. Previous distal humerus fracture in 2018. PAST SURGICAL HISTORY: 1. Hysterectomy. 2. Coronary artery stents x3. 3. Kyphoplasty. 4. Multiple back and neck surgeries. 5. Tummy tuck surgery. 6. Bilateral hip replacements. CURRENT MEDICATIONS: 1. Verapamil 180 mg daily. 2. Incruse Ellipta 62.5 mcg inhaled p.r.n. 3. Trazodone 150 mg at bedtime. 4. Prednisone 20 mg daily. 5. Plaquenil 200 mg b.i.d. 6. Gabapentin 100 mg t.i.d. 7. Nexium 40 mg daily. 8. Colace 100 mg daily. 9. Coreg 3.125 mg b.i.d. 10. Aspirin 81 mg daily. ALLERGIES: PENICILLINS, SULFA ANTIBIOTICS, LATEX, PHENERGAN, ADHESIVE TAPE. FAMILY HISTORY: Unknown as she is adopted. SOCIAL HISTORY: The patient is retired and lives in [place]. She is . She has never smoked. She has never used illicit drugs or alcohol. REVIEW OF SYSTEMS: CONSTITUTIONAL: Negative for any fevers, chills or unintentional weight loss. HEENT: Negative for sore throats, earaches, nasal congestion, vision changes. RESPIRATORY: Negative for coughing, wheezing or shortness of breath. CARDIOVASCULAR: Per history of present illness. GASTROINTESTINAL: Negative for nausea, vomiting, diarrhea, constipation or abdominal pain. GENITOURINARY: Negative for dysuria, hematuria, polyuria. MUSCULOSKELETAL: Positive for general malaise and arthralgias. NEUROLOGIC: Positive for generalized weakness. Negative for seizures, ataxia or headaches. PHYSICAL EXAMINATION: VITAL SIGNS: Temperature 97.8. Pulse 68. Blood pressure 100/74. Respirations 16. Saturation 92% on nasal cannula at rest in the Emergency Room on admission. Discharge vital signs showed temperature 97.7, pulse 72, blood pressure 119/68, respirations 17, saturation 99% on nasal cannula at rest. GENERAL: The patient appeared to be resting comfortably without any acute distress. She was alert. HEENT: Tympanic membranes clear bilaterally. Oropharynx is pink, moist without any lesions. NECK: Supple, nontender with full range of motion. No jugular venous distention noted. RESPIRATORY: Lungs clear, just slightly diminished towards the bases. No rhonchi, wheezes or rales were appreciated. CARDIOVASCULAR: Regular rate and rhythm without any appreciable murmurs, gallops, or rubs. ABDOMEN: Obese, but soft, nontender. Positive bowel sounds. EXTREMITIES: There is no edema. NEUROLOGIC: The patient is alert and oriented times three. LABORATORY: White count 3,600, hemoglobin 10.5, hematocrit 32.2, platelet count 152,000, differential without a left shift. Coagulation studies showed D-dimer elevated at 0.72 with PT 9.7 and PTT 22.3. Chemistries showed mild hypokalemia with potassium 3.5. Otherwise, within normal limits. Renal function was within normal limits with creatinine 0.83. Liver functions were all within normal limits. CPK levels were elevated from 305 up to 397. Troponins less than 0.02. RADIOLOGY: Initially in the Emergency Room, she had a chest x-ray and per radiologic interpretation showed cardiomegaly without failure. Echocardiogram was pending at discharge. EKG showed normal sinus rhythm with no acute changes from admission to discharge. HOSPITAL COURSE: Ms. Herring was admitted for chest pain rule out that was reproducible, but given her history, she was high risk. Her pain did dissipate with pain management. She had no return of chest pains. She was complaining of general malaise through her lower extremities with some discomfort. After review of her history again, she had just recently been traveling from [place] for a vacation which was well over a [address] Given that history and elevated D-dimer, I did a CT of the chest and per radiologic interpretation there was no evidence of of pulmonary embolism, but with a large hiatal hernia. On the morning of discharge, the patient was no having no pain, was ambulating without any additional assistance, blood pressure and vitals were remaining stable. It was felt that she had been ruled out as far as acute cardiac event and would be able to discharge home to continue followup as an outpatient. I did discuss with her the fact that she continues to have this elevated CPK level and lower extremity discomfort with no findings of concern for pulmonary embolism, possibility of adverse reaction to Lipitor was discussed. DISCHARGE PHYSICAL EXAMINATION: VITAL SIGNS: Temperature 97.8. Pulse 68. Blood pressure 100/74. Respirations 16. Saturation 92% on nasal cannula at rest in the Emergency Room on admission. Discharge vital signs showed temperature 97.7, pulse 72, blood pressure 119/68, respirations 17, saturation 99% on nasal cannula at rest. GENERAL: The patient appeared to be resting comfortably without any acute distress. She was alert. HEENT: Tympanic membranes clear bilaterally. Oropharynx is pink, moist without any lesions. NECK: Supple, nontender with full range of motion. No jugular venous distention noted. RESPIRATORY: Lungs clear, just slightly diminished towards the bases. No rhonchi, wheezes or rales were appreciated. CARDIOVASCULAR: Regular rate and rhythm without any appreciable murmurs, gallops, or rubs. ABDOMEN: Obese, but soft, nontender. Positive bowel sounds. EXTREMITIES: There is no edema. NEUROLOGIC: The patient is alert and oriented times three. PLAN: Ms. Herring was admitted for chest pain rule out which was found to be without any acute findings on EKG and laboratory studies. She does have elevated CPK levels and needs to be followed, which could be resulting from Lipitor. I did discuss those findings with Dr. Figueroa and we will hold Lipitor until she sees Dr. Figueroa in followup. She is to see Dr. Figueroa on followup as scheduled on 03/21/19 at 1515. She was to resume her home medications except as noted to hold Lipitor until seen in followup. She was given warnings to return to the Emergency Room or call Dr. Figueroa's office for any concerning symptoms. Activity to increase as tolerated. Diet to increase as tolerated. No new medications were prescribed on discharge. DISCHARGE MEDICATIONS: 1. Verapamil 180 mg daily. 2. Incruse Ellipta 62.5 mcg inhaled p.r.n. 3. Trazodone 150 mg at bedtime. 4. Prednisone 20 mg daily. 5. Plaquenil 200 mg b.i.d. 6. Gabapentin 100 mg t.i.d. 7. Nexium 40 mg daily. 8. Colace 100 mg daily. 9. Coreg 3.125 mg b.i.d. 10. Aspirin 81 mg daily. CONDITION ON DISCHARGE: Stable and improved. DISPOSITION: The patient was discharged home. #[id number] [facility]
[2019-03-19] MEDS ORDERED: ASPIRIN TABLET 325 MG TAB PO SCH (09:00)
== END 2019-03-18 14:20 | disposition home health service (06) ==
LOC: ER 22:20 → MS 03-18 03:07
PROVIDERS: ADMIT Nurse Practitioner Acute Care; ATTEND Nurse Practitioner Family
DX: R07.89 Other chest pain (principal); R74.8 Abnormal levels of other serum enzymes; I25.10 Atherosclerotic heart disease of native coronary artery without angina pectoris; I10 Essential (primary) hypertension; J44.9 Chronic obstructive pulmonary disease, unspecified; K57.30 Diverticulosis of large intestine without perforation or abscess without bleeding; I25.2 Old myocardial infarction; G89.4 Chronic pain syndrome; M54.2 Cervicalgia; M54.5 Low back pain; M79.7 Fibromyalgia; M19.90 Unspecified osteoarthritis, unspecified site; G43.709 Chronic migraine without aura, not intractable, without status migrainosus; E78.5 Hyperlipidemia, unspecified; F32.9 Major depressive disorder, single episode, unspecified; K21.9 Gastro-esophageal reflux disease without esophagitis; K44.9 Diaphragmatic hernia without obstruction or gangrene; I34.0 Nonrheumatic mitral (valve) insufficiency; I36.1 Nonrheumatic tricuspid (valve) insufficiency; Z79.82 Long term (current) use of aspirin; Z79.51 Long term (current) use of inhaled steroids; Z79.899 Other long term (current) drug therapy; Z88.0 Allergy status to penicillin; Z88.2 Allergy status to sulfonamides; Z88.8 Allergy status to other drugs, medicaments and biological substances; Z91.040 Latex allergy status; Z95.5 Presence of coronary angioplasty implant and graft; Z86.73 Personal history of transient ischemic attack (TIA), and cerebral infarction without residual deficits; Z96.643 Presence of artificial hip joint, bilateral; Z90.710 Acquired absence of both cervix and uterus; Z86.2 Personal history of diseases of the blood and blood-forming organs and certain disorders involving the immune mechanism
CPT/HCPCS: 96374; 96372; J7512; J7030; J1650; J7620; 85379; 82553 ×4; 80053; 36415 ×2; 85025; 82550 ×4; 83735; 85730; 85610; 84484 ×4; 83880; 71045; 71275; 94760 ×2; 94640; 99285; 93306; 93005 ×3

== ENCOUNTER 2019-04-11 19:51 | Emergency (ER) | payer MEDICARE, MEDICAID ==
[2019-04-11] MEDS ORDERED: SODIUM CHLORIDE 0.9% 1000ML 1,000 ML IVS ONE (19:59)
--- NOTE | 2019-04-11 20:03 | ED.PDOC ---
History of Present Illness - General Chief Complaint: GI Problem Time Seen by Provider: 04/11/19 19:59 - History of Present Illness Initial Comments: this is a 68 year old female with cad, stroke, cardiac stents, previous mi. patient present with diarrhea, symptoms began two days ago. no recent travels, no sick contacts, no recent antibiotics use. patient admit mild abdominal pain, no nausea, no vomiting, no dysuria and no hematuria. patient admit watery diarrhea with no blood. patient arrive POV Allergies/Adverse Reactions: Allergies Penicillins Allergy (Mild, Verified 04/11/19 20:05) Unknown reports made throat swell when she was a child Sulfamethoxazole w/Trimethoprim [From Bactrim] Allergy (Mild, Verified 04/11/19 20:05) Nausea Latex Allergy (Verified 04/11/19 20:05) Promethazine [From Phenergan] Allergy (Verified 04/11/19 20:05) adhesive tape Allergy (Uncoded 04/11/19 20:05) Home Medications: Ambulatory Orders Carvedilol [Coreg] 3.125 mg PO BID 05/19/18 Hydroxychloroquine Sulfate [Plaquenil] 200 mg PO BID 05/19/18 Trazodone HCl [Trazodone Hydrochloride] 150 mg PO BEDTIME 05/19/18 Verapamil HCl [Verapamil HCl Sr] 180 mg PO DAILY 05/19/18 Aspirin [Aspirin Adult Low Dose] 81 mg PO DAILY 06/17/18 Esomeprazole Magnesium [Nexium] 40 mg PO DAILY 06/17/18 Umeclidinium [place] [Incruse Ellipta] 62.5 mcg INH PRN PRN 01/06/19 Docusate Sodium [Colace] 100 mg PO DAILY 03/17/19 Gabapentin 100 mg PO TID 03/17/19 Prednisone 20 mg PO 03/17/19 Cephalexin Monohydrate [Keflex] 500 mg PO BID 7 Days #14 cap 04/11/19 Review of Systems - Review of Systems Constitutional: Denies: chills, diaphoresis, fever, malaise, weakness EENTM: Denies: eye pain, blurred vision, tearing, double vision, ear pain, ear discharge, nose pain, throat pain, throat swelling, mouth pain, mouth swelling Respiratory: Denies: cough, orthopnea, short of breath, stridor, wheezing Cardiology: Denies: chest pain, edema, palpitations, syncope Gastrointestinal/Abdominal: States: abdominal pain, diarrhea. Denies: constipation, nausea, vomiting Genitourinary: Denies: discharge, dysuria, frequency, hematuria, pain Musculoskeletal: Denies: see HPI, back pain, gout, joint pain, joint swelling, muscle pain, muscle stiffness, neck pain Skin: Denies: change in color, change in hair/nails, dryness, lesions, lumps, rash, other Neurological: Denies: anxiety, depressed, emotional problems, headache, paresthesia, pre-existing deficit, seizure, tingling, tremors, weakness Endocrine: Denies: excessive sweating, flushing, intolerance to cold, intolerance to heat, increased hunger, increased thirst, increased urine, unexplained weight gain, unexplained weight loss Hematologic/Lymphatic: Denies: anemia, blood clots, easy bleeding, easy bruising, swollen glands Past Medical History (General) - Patient Medical History Hx Seizures: No Hx Stroke: Yes - 2011 Hx Dementia: No Hx Asthma: No Hx of COPD: Yes Hx Cardiac Disorders: Yes Hx Congestive Heart Failure: Yes Hx Pacemaker: No Hx Hypertension: Yes Hx Thyroid Disease: No Hx Diabetes: No Hx Gastroesophageal Reflux: Yes Hx Renal Disease: No Hx Cancer: No Hx of HIV: No Hx Hepatitis C: No Hx MRSA: No MRSA Source:: Wound - Vaccination History Hx Tetanus, Diphtheria Vaccination: No Hx Influenza Vaccination: Yes Hx Pneumococcal Vaccination: Yes - Social History Hx Tobacco Use: No Hx Chewing Tobacco Use: No Hx Alcohol Use: No Hx Substance Use: No Hx Substance Use Treatment: No Hx Depression: No Hx Physical Abuse: No Hx Emotional Abuse: No Hx Suspected Abuse: No - Female History Patient : No Family Medical History - Family History Mother Family History: Unknown Living Status: Hx Family;Other: SHE DID NOT KNOW PARENTS AND SHE DOES NOT KNOW FH HISTORY. PT ADOPTED Physical Exam - Physical Exam General Appearance: Alert, Well Developed, Well Groomed Eye Exam: bilateral normal Ears, Nose, Throat: hearing grossly normal Neck: non-tender Respiratory: chest non-tender, lungs clear, normal breath sounds, no respiratory distress, no accessory muscle use Cardiovascular/Chest: normal peripheral pulses, regular rate, rhythm, no edema, no gallop, no JVD Gastrointestinal/Abdominal: normal bowel sounds, other - no acute abdomen, difuse tenderness, normal bowel sounds. Back Exam: normal inspection Extremity: normal range of motion, non-tender, normal inspection, no pedal edema, pelvis stable Neurologic: alert, normal mood/affect, oriented x 3 Skin Exam: other - pale Progress - Progress Progress: 04/11/19 20:06 this is 68 year old that presents with diarrhea, patient looks pale and with mild generalise weakness, patient will received fluids and i will order basic labs such as cbc,cmp, urine and tsh 04/11/19 20:50 patient labs showed evidence of uti, which could explain patient symptoms. patient will received a dose of iv rocephin and discharge home with keflex patient was instructed to return to the er if fever, chills, abdominal pain, bloody stool, unable to hold any fluids down, altered mental status or any other concerns 04/11/19 20:52 lots of fluids at home Departure - Departure Clinical Impression: Urinary tract infection Qualifiers: Urinary tract infection type: urethritis Qualified Code(s): N34.2 - Other urethritis Diarrhea Qualifiers: Diarrhea type: unspecified type Qualified Code(s): R19.7 - Diarrhea, unspecified Disposition: Discharge to Home or Self Care Departure Forms: ED Discharge - Pt. Copy, Patient Portal Self Enrollment Instructions: Urinary Tract Infections in Adults Referrals: Rakan Figueroa MD [Primary Care Provider] - 1-2 Weeks Prescriptions: Cephalexin Monohydrate [Keflex] 500 mg PO BID 7 Days #14 cap Home Medications: Ambulatory Orders Carvedilol [Coreg] 3.125 mg PO BID 05/19/18 Hydroxychloroquine Sulfate [Plaquenil] 200 mg PO BID 05/19/18 Trazodone HCl [Trazodone Hydrochloride] 150 mg PO BEDTIME 05/19/18 Verapamil HCl [Verapamil HCl Sr] 180 mg PO DAILY 05/19/18 Aspirin [Aspirin Adult Low Dose] 81 mg PO DAILY 06/17/18 Esomeprazole Magnesium [Nexium] 40 mg PO DAILY 06/17/18 Umeclidinium [place] [Incruse Ellipta] 62.5 mcg INH PRN PRN 01/06/19 Docusate Sodium [Colace] 100 mg PO DAILY 03/17/19 Gabapentin 100 mg PO TID 03/17/19 Prednisone 20 mg PO 03/17/19 Cephalexin Monohydrate [Keflex] 500 mg PO BID 7 Days #14 cap 04/11/19 Additional Instructions: return to the er if fever, chills, abdominal pain, bloody stool, unable to hold any fluids down, altered mental status or any other concerns
[2019-04-11 20:05] VITALS: TEMP 99.6
[2019-04-11] MEDS ORDERED: cefTRIAXone SODIUM 1 GM in SODIUM CHL 0.9% 50ML MIN-BAG+ 50 ML IVPB ONE (20:46)
[2019-04-11] MEDS ORDERED: cefTRIAXone SODIUM 1 GM VIAL ONE (20:49)
[2019-04-11] MEDS ORDERED: SODIUM CHL 0.9% 50ML MIN-BAG+ 50 ML IVPB ONE (20:49)
[2019-04-11 21:05] VITALS: BP 112/65
[2019-04-11 21:17] VITALS: O2SAT 94
== END 2019-04-11 21:18 | disposition home or self-care (01) ==
LOC: ER 19:51
DX: R19.7 Diarrhea, unspecified (principal); N34.2 Other urethritis; K21.9 Gastro-esophageal reflux disease without esophagitis; J44.9 Chronic obstructive pulmonary disease, unspecified; I25.10 Atherosclerotic heart disease of native coronary artery without angina pectoris; I50.9 Heart failure, unspecified; I11.0 Hypertensive heart disease with heart failure; I25.2 Old myocardial infarction; Z86.73 Personal history of transient ischemic attack (TIA), and cerebral infarction without residual deficits; Z79.899 Other long term (current) drug therapy; Z79.82 Long term (current) use of aspirin; Z91.040 Latex allergy status; Z88.8 Allergy status to other drugs, medicaments and biological substances; Z88.2 Allergy status to sulfonamides; Z88.0 Allergy status to penicillin; Z95.5 Presence of coronary angioplasty implant and graft
CPT/HCPCS: 36415; 80053; 81001; 84443; 85025; 87086; J0696; J7030; J7050

== ENCOUNTER 2019-06-21 19:41 | Emergency (ER) | payer MEDICARE, MEDICAID ==
[2019-06-21] MEDS ORDERED: SODIUM CHLORIDE 0.9% (FLUSH) 10 ML SYG IV PRN (20:11)
[2019-06-21] MEDS ORDERED: ONDANSETRON INJ 4 MG/2 ML VIAL IV ONE (20:11)
[2019-06-21] MEDS ORDERED: SODIUM CHLORIDE 0.9% 1000ML 1,000 ML IVS PRN (20:11)
--- NOTE | 2019-06-21 20:29 | RAD ---
EXAM DESCRIPTION: X-ray single view chest. CLINICAL HISTORY: 68 years Female, cough COMPARISON: 03/17/2019 and 12/08/[address] chest performed on 03/18/2019 TECHNIQUE: Single portable x-ray view of the chest performed on 06/21/2019 at 7:59 PM FINDINGS: The lungs are well expanded and are grossly clear. Again demonstrated is a large retrocardiac opacity consistent with a hiatal hernia. There is no evidence of a pneumothorax. The cardiac silhouette is normal in size and configuration. A loop recorder projects over the cardiac silhouette. The mediastinal contours are normal. No acute osseous abnormality is identified. There has been prior cement augmentation at multiple vertebral levels. There are remote postsurgical changes of the cervical spine. No focal soft tissue abnormalities are seen. Lines and tubes: None. IMPRESSION: 1. No evidence of acute intrathoracic disease. 2. Large hiatal hernia. 3. Other chronic changes as described above. Electronically signed by: Nadine Mclean DO 06/21/2019 8:28 PM [facility]
--- NOTE | 2019-06-21 20:58 | ED.PDOC ---
History of Present Illness - General Chief Complaint: General Stated Complaint: lethargic, fever Time Seen by Provider: 06/21/19 20:09 Source: patient, RN notes reviewed, Vital Signs reviewed, family - Exam Limitations: no limitations - History of Present Illness Initial Comments: Patient is a 68-year-old white female who presents with complaints of lethargy, malaise and fatigue. Patient started having diarrhea this afternoon. She also has had cough. Nothing makes the cough or diarrhea worse or better. Patient denies any headache, dizziness, chest pain, shortness of breath, nausea or vomiting. Timing/Duration: 4-6 hours Severity: moderate Improving Factors: nothing Worsening Factors: nothing Associated Symptoms: malaise, weakness, other - Diarrhea and cough Allergies/Adverse Reactions: Allergies Penicillins Allergy (Mild, Verified 04/11/19 20:05) Unknown reports made throat swell when she was a child Sulfamethoxazole w/Trimethoprim [From Bactrim] Allergy (Mild, Verified 04/11/19 20:05) Nausea Latex Allergy (Verified 04/11/19 20:05) Promethazine [From Phenergan] Allergy (Verified 04/11/19 20:05) adhesive tape Allergy (Uncoded 04/11/19 20:05) Home Medications: Ambulatory Orders Carvedilol [Coreg] 3.125 mg PO BID 05/19/18 Hydroxychloroquine Sulfate [Plaquenil] 200 mg PO BID 05/19/18 Trazodone HCl [Trazodone Hydrochloride] 150 mg PO BEDTIME 05/19/18 Verapamil HCl [Verapamil HCl Sr] 180 mg PO DAILY 05/19/18 Aspirin [Aspirin Adult Low Dose] 81 mg PO DAILY 06/17/18 Esomeprazole Magnesium [Nexium] 40 mg PO DAILY 06/17/18 Umeclidinium [place] [Incruse Ellipta] 62.5 mcg INH PRN PRN 01/06/19 Docusate Sodium [Colace] 100 mg PO DAILY 03/17/19 Gabapentin 100 mg PO TID 03/17/19 Prednisone 20 mg PO 03/17/19 Cephalexin Monohydrate [Keflex] 500 mg PO BID 7 Days #14 cap 04/11/19 Ondansetron Odt [Zofran ODT] 4 mg PO Q6H #12 tab 06/21/19 Review of Systems - Review of Systems Constitutional: States: see HPI, malaise. Denies: chills, fever EENTM: States: no symptoms reported, see HPI Respiratory: States: see HPI, cough. Denies: stridor, wheezing Cardiology: States: no symptoms reported. Denies: palpitations, syncope Gastrointestinal/Abdominal: States: see HPI, diarrhea. Denies: abdominal pain, nausea Genitourinary: States: no symptoms reported Musculoskeletal: States: no symptoms reported Skin: States: no symptoms reported Neurological: States: see HPI, weakness Endocrine: States: no symptoms reported Hematologic/Lymphatic: States: no symptoms reported All other Systems: Reviewed and Negative Past Medical History (General) - Patient Medical History Hx Seizures: No Hx Stroke: Yes - 2011 Hx Dementia: No Hx Asthma: No Hx of COPD: Yes Hx Cardiac Disorders: Yes Hx Congestive Heart Failure: Yes Hx Pacemaker: No Hx Hypertension: Yes Hx Thyroid Disease: No Hx Diabetes: No Hx Gastroesophageal Reflux: Yes Hx Renal Disease: No Hx Cancer: No Hx of HIV: No Hx Hepatitis C: No Hx MRSA: No MRSA Source:: Wound Surgical History: Hysterectomy - Vaccination History Hx Tetanus, Diphtheria Vaccination: No Hx Influenza Vaccination: Yes Hx Pneumococcal Vaccination: Yes - Social History Hx Tobacco Use: No Hx Chewing Tobacco Use: No Hx Alcohol Use: No Hx Substance Use: No Hx Substance Use Treatment: No Hx Depression: No Hx Physical Abuse: No Hx Emotional Abuse: No Hx Suspected Abuse: No - Female History Patient : No Family Medical History - Family History Mother Family History: Unknown Living Status: Hx Family;Other: SHE DID NOT KNOW PARENTS AND SHE DOES NOT KNOW FH HISTORY. PT ADOPTED Physical Exam - Physical Exam General Appearance: Alert, Anxious, Comfortable, Well Groomed, Well Hydrated, Well Nourished Eye Exam: bilateral normal Ears, Nose, Throat: hearing grossly normal, normal pharynx Neck: non-tender, full range of motion, supple, normal inspection Respiratory: chest non-tender, lungs clear, normal breath sounds, no respiratory distress, no accessory muscle use Cardiovascular/Chest: normal peripheral pulses, regular rate, rhythm, no edema, no gallop, no JVD, no murmur Peripheral Pulses: radial,right: 2+, radial,left: 2+ Gastrointestinal/Abdominal: normal bowel sounds, non tender, soft, no organomegaly, no pulsatile mass Back Exam: normal inspection, no CVA tenderness, no vertebral tenderness Extremity: normal range of motion, non-tender, normal inspection, no pedal edema, no calf tenderness 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 06/21/19 21:45 Patient is improved after IV fluids, Zofran and pain medication. Plan on discharge home with prescription for Zofran. Labs are relatively unremarkable except for mild dehydration. I discussed the plan of care with the patient she voices understanding and agreement. Mino Hernadez M.D. #[id number] - Results/Orders Results/Orders: 06/21/19 20:11 IV Care:Saline Lock per Protoc QSHIFT Sodium Chloride 0.9% (Flush) [Saline Flush Syringe] 10 ml IV PRN PRN Sodium Chloride 0.9% 1000ML [Ns 1000 ml] 1,000 ml IVS .QD 06/21/19 20:15 INFLUENZA A & B BY PCR Stat URINALYSIS Stat Laboratory Results - last 24 hr 06/21/19 06/21/19 20:39 20:39 WBC 13.2 H RBC 3.52 L Hgb 10.7 L Hct 31.6 L MCV 89.9 MCH 30.3 MCHC 33.7 RDW 18.5 H Plt Count 185 MPV 7.7 Absolute Neuts (auto) 12.40 H Absolute Lymphs (auto) 0.30 L Absolute Monos (auto) 0.40 Absolute Eos (auto) 0.00 Absolute Basos (auto) 0.00 Neutrophils % 94.1 H Lymphocytes % 2.4 L Monocytes % 3.3 Eosinophils % 0.0 L Basophils % 0.2 Sodium 138 Potassium 3.3 L Chloride 102 Carbon Dioxide 26 Anion Gap 13.3 BUN 21 H Creatinine 0.75 BUN/Creatinine Ratio 28.0 H Random Glucose 108 H Serum Osmolality 279.2 Calcium 8.8 Total Bilirubin 0.3 Direct Bilirubin 0.1 Indirect Bilirubin 0.2 AST 15 ALT < 8 L Alkaline Phosphatase 81 Serum Total Protein 5.7 L Albumin 3.2 Lipase 26 EXAM DESCRIPTION: X-ray single view chest. CLINICAL HISTORY: 68 years Female, cough COMPARISON: 03/17/2019 and 12/08/[address] CT chest performed on 03/18/2019 TECHNIQUE: Single portable x-ray view of the chest performed on 06/21/2019 at 7:59 PM FINDINGS: The lungs are well expanded and are grossly clear. Again demonstrated is a large retrocardiac opacity consistent with a hiatal hernia. There is no evidence of a pneumothorax. The cardiac silhouette is normal in size and configuration. A loop recorder projects over the cardiac silhouette. The mediastinal contours are normal. No acute osseous abnormality is identified. There has been prior cement augmentation at multiple vertebral levels. There are remote postsurgical changes of the cervical spine. No focal soft tissue abnormalities are seen. Lines and tubes: None. IMPRESSION: 1. No evidence of acute intrathoracic disease. 2. Large hiatal hernia. 3. Other chronic changes as described above. Electronically signed by: Nadine Mclean DO 06/21/2019 8:28 PM Departure - Departure Clinical Impression: Gastroenteritis, Viral URI with cough Time of Disposition: 21:48 Disposition: Discharge to Home or Self Care Condition: Good Departure Forms: ED Discharge - Pt. Copy, Patient Portal Self Enrollment Instructions: Viral Gastroenteritis, Adult (DC), Viral Upper Respiratory Infection, Adult (DC) Referrals: Rakan Figueroa MD [Primary Care Provider] - 1-2 Weeks Prescriptions: Ondansetron Odt [Zofran ODT] 4 mg PO Q6H #12 tab Home Medications: Ambulatory Orders Carvedilol [Coreg] 3.125 mg PO BID 05/19/18 Hydroxychloroquine Sulfate [Plaquenil] 200 mg PO BID 05/19/18 Trazodone HCl [Trazodone Hydrochloride] 150 mg PO BEDTIME 05/19/18 Verapamil HCl [Verapamil HCl Sr] 180 mg PO DAILY 05/19/18 Aspirin [Aspirin Adult Low Dose] 81 mg PO DAILY 06/17/18 Esomeprazole Magnesium [Nexium] 40 mg PO DAILY 06/17/18 Umeclidinium [place] [Incruse Ellipta] 62.5 mcg INH PRN PRN 01/06/19 Docusate Sodium [Colace] 100 mg PO DAILY 03/17/19 Gabapentin 100 mg PO TID 03/17/19 Prednisone 20 mg PO 03/17/19 Cephalexin Monohydrate [Keflex] 500 mg PO BID 7 Days #14 cap 04/11/19 Ondansetron Odt [Zofran ODT] 4 mg PO Q6H #12 tab 06/21/19
[2019-06-21 22:36] VITALS: BP 112/56; TEMP 98.1; O2SAT 97
== END 2019-06-21 22:37 | disposition home or self-care (01) ==
LOC: ER 19:41
DX: K52.9 Noninfective gastroenteritis and colitis, unspecified (principal); J06.9 Acute upper respiratory infection, unspecified; J44.9 Chronic obstructive pulmonary disease, unspecified; I51.9 Heart disease, unspecified; I50.9 Heart failure, unspecified; I11.0 Hypertensive heart disease with heart failure; K21.9 Gastro-esophageal reflux disease without esophagitis; Z86.73 Personal history of transient ischemic attack (TIA), and cerebral infarction without residual deficits; Z79.899 Other long term (current) drug therapy; Z79.82 Long term (current) use of aspirin; Z88.0 Allergy status to penicillin; Z88.2 Allergy status to sulfonamides; Z88.8 Allergy status to other drugs, medicaments and biological substances; Z91.040 Latex allergy status
CPT/HCPCS: 36415; 71046; 80048; 80076; 81001; 83690; 85025; 87502; J2405; J7030

== ENCOUNTER 2019-07-06 12:08 | Emergency (ER) | payer MEDICARE, MEDICAID ==
--- NOTE | 2019-07-06 12:25 | ED.PDOC ---
History of Present Illness - General Chief Complaint: Respiratory Problem Stated Complaint: oxygen is low Time Seen by Provider: 07/06/19 12:12 Source: patient, RN notes reviewed, Vital Signs reviewed Exam Limitations: no limitations Additional Information: this is a 68-year-old woman who presents to the emergency Department with complaints of shortness of breath. She states that she has had low oxygenation as evidenced by her pulse oximeter. She does use home oxygen. She only uses nebulized treatments once each morning. She denies any recent productive cough or fever. Patient also denying any body aches currently. She does admit to having a flu shot and is current on her and pneumonia vaccine. she denies any nausea vomiting or diarrhea. She also denies any abdominal pain. She denies that she has had any recent swelling or chest pain. She reports that she does not use her oxygen 100% of the time. She has a follow-up visit with her PCP on Monday. - History of Present Illness Allergies/Adverse Reactions: Allergies Penicillins Allergy (Mild, Verified 07/06/19 12:29) Unknown reports made throat swell when she was a child Sulfamethoxazole w/Trimethoprim [From Bactrim] Allergy (Mild, Verified 07/06/19 12:29) Nausea Latex Allergy (Verified 07/06/19 12:29) Promethazine [From Phenergan] Allergy (Verified 07/06/19 12:29) adhesive tape Allergy (Uncoded 07/06/19 12:29) Home Medications: Ambulatory Orders Carvedilol [Coreg] 3.125 mg PO BID 05/19/18 Hydroxychloroquine Sulfate [Plaquenil] 200 mg PO BID 05/19/18 Trazodone HCl [Trazodone Hydrochloride] 150 mg PO BEDTIME 05/19/18 Verapamil HCl [Verapamil HCl Sr] 180 mg PO DAILY 05/19/18 Aspirin [Aspirin Adult Low Dose] 81 mg PO DAILY 06/17/18 Esomeprazole Magnesium [Nexium] 40 mg PO DAILY 06/17/18 Umeclidinium [place] [Incruse Ellipta] 62.5 mcg INH PRN PRN 01/06/19 Docusate Sodium [Colace] 100 mg PO DAILY 03/17/19 Gabapentin 100 mg PO TID 03/17/19 Prednisone 20 mg PO 03/17/19 Cephalexin Monohydrate [Keflex] 500 mg PO BID 7 Days #14 cap 04/11/19 Ondansetron Odt [Zofran ODT] 4 mg PO Q6H #12 tab 06/21/19 Doxycycline Hyclate 100 mg PO BID #20 tab 07/06/19 Review of Systems - Review of Systems Constitutional: States: malaise, weakness. Denies: chills, diaphoresis, fever EENTM: States: no symptoms reported Respiratory: States: short of breath, wheezing. Denies: cough, orthopnea, stridor Cardiology: States: no symptoms reported. Denies: chest pain Gastrointestinal/Abdominal: States: no symptoms reported Genitourinary: States: no symptoms reported Musculoskeletal: States: no symptoms reported Skin: States: no symptoms reported Neurological: States: no symptoms reported Endocrine: States: no symptoms reported Hematologic/Lymphatic: States: no symptoms reported All other Systems: Reviewed and Negative Past Medical History (General) - Patient Medical History Hx Seizures: No Hx Stroke: Yes - 2011 Hx Dementia: No Hx Asthma: No Hx of COPD: Yes Hx Cardiac Disorders: Yes Hx Congestive Heart Failure: Yes Hx Pacemaker: No Hx Hypertension: Yes Hx Thyroid Disease: No Hx Diabetes: No Hx Gastroesophageal Reflux: Yes Hx Renal Disease: No Hx Cancer: No Hx of HIV: No Hx Hepatitis C: No Hx MRSA: No MRSA Source:: Wound - Vaccination History Hx Tetanus, Diphtheria Vaccination: No Hx Influenza Vaccination: Yes Hx Pneumococcal Vaccination: Yes - Social History Hx Tobacco Use: No Hx Chewing Tobacco Use: No Hx Alcohol Use: No Hx Substance Use: No Hx Substance Use Treatment: No Hx Depression: No Hx Physical Abuse: No Hx Emotional Abuse: No Hx Suspected Abuse: No - Female History Patient : No Family Medical History - Family History Mother Family History: Unknown Living Status: Hx Family;Other: SHE DID NOT KNOW PARENTS AND SHE DOES NOT KNOW FH HISTORY. PT ADOPTED Physical Exam - Physical Exam General Appearance: Alert, Comfortable, No apparent distress Eye Exam: bilateral normal ENT Exam: normal ENT inspection, hearing grossly normal, TMs normal, pharynx normal Neck: non-tender, full range of motion, supple, normal inspection, trachea midline Respiratory: chest non-tender, no respiratory distress, no accessory muscle use, rales, rhonchi, other - left upper lobe worse in the remainder of the lung smith howeverthere is noted to be some mild rales in the bases. 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 Progress - Progress Progress: 07/06/19 12:37 MDM: COPD exacerbation, pneumonia,flu, bronchitis, hypersensitivity reaction, arrhythmia, angina, electrolyte disturbance. UTI. Patient will have laboratory evaluation performed. We wi go ahead and give her breathing treatment as well as IV steroids. We'll optimize her respiratory status. We'll also check an EKG and make sure that there is no cardiac event current occurring. 07/06/19 13:28 06/21/19 patient noted to have a hemoglobin of 10.7. It is now at 9.5. 07/06/19 14:12 patient's friend was able to go to her home and get her medications. He did realize that she has been on prednisone 20 mg on Mondays and . We needed to know what dosage she was on. We will keep her on antibiotic and have her keep her follow-up appointment on Monday. - Results/Orders Results/Orders: COMPARISON: 06/21/2019 FINDINGS: Mild cardiomegaly is noted.. The pulmonary vascularity is prominent.. The lungs are clear. No dense focal consolidation is seen. Patchy area of atelectasis may be present in the left lung base. No pneumothorax or pleural effusion is seen. Multiple kyphoplasties are noted in the thoracic and upper lumbar spine. Quality of the left humeral head is suggestive of an old healed fracture. Bones are osteopenic IMPRESSION: Cardi omegaly. Mild vascular congestion. 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 Departure - Departure Clinical Impression: COPD (chronic obstructive pulmonary disease) with acute bronchitis Anemia Qualifiers: Anemia type: unspecified type Qualified Code(s): D64.9 - Anemia, unspecified Time of Disposition: 14:17 Disposition: Discharge to Home or Self Care Condition: Good Departure Forms: ED Discharge - Pt. Copy, Patient Portal Self Enrollment Instructions: Exacerbation of COPD Referrals: Rakan Figueroa MD [Primary Care Provider] - 1-2 Weeks Prescriptions: Doxycycline Hyclate 100 mg PO BID #20 tab Home Medications: Ambulatory Orders Carvedilol [Coreg] 3.125 mg PO BID 05/19/18 Hydroxychloroquine Sulfate [Plaquenil] 200 mg PO BID 05/19/18 Trazodone HCl [Trazodone Hydrochloride] 150 mg PO BEDTIME 05/19/18 Verapamil HCl [Verapamil HCl Sr] 180 mg PO DAILY 05/19/18 Aspirin [Aspirin Adult Low Dose] 81 mg PO DAILY 06/17/18 Esomeprazole Magnesium [Nexium] 40 mg PO DAILY 06/17/18 Umeclidinium [place] [Incruse Ellipta] 62.5 mcg INH PRN PRN 01/06/19 Docusate Sodium [Colace] 100 mg PO DAILY 03/17/19 Gabapentin 100 mg PO TID 03/17/19 Prednisone 20 mg PO 03/17/19 Cephalexin Monohydrate [Keflex] 500 mg PO BID 7 Days #14 cap 04/11/19 Ondansetron Odt [Zofran ODT] 4 mg PO Q6H #12 tab 06/21/19 Doxycycline Hyclate 100 mg PO BID #20 tab 07/06/19 Additional Instructions: Take Prednisone 40 mg daily for four days. Use nebulized treatments every 6 hours. Use oxygen to keep oxygen saturations greater than 92%. Keep appt with PCP on Monday. Return to the ER if any worsening of symptoms.
[2019-07-06] MEDS ORDERED: SODIUM CHLORIDE 0.9% 1000ML 1,000 ML IVS PRN (12:29)
[2019-07-06] MEDS ORDERED: methylPREDNISolone SODIUM SUC 125 MG/2 ML VIAL IV ONE (12:29)
--- NOTE | 2019-07-06 13:03 | RAD ---
EXAM DESCRIPTION: XR Chest, one view CLINICAL HISTORY: sob. COMPARISON: 06/21/2019 FINDINGS: Mild cardiomegaly is noted.. The pulmonary vascularity is prominent.. The lungs are clear. No dense focal consolidation is seen. Patchy area of atelectasis may be present in the left lung base. No pneumothorax or pleural effusion is seen. Multiple kyphoplasties are noted in the thoracic and upper lumbar spine. Quality of the left humeral head is suggestive of an old healed fracture. Bones are osteopenic IMPRESSION: Cardiomegaly. Mild vascular congestion. Electronically signed by: Lillian Barnett MD 07/06/2019 1:01 PM [facility]
[2019-07-06] MEDS ORDERED: DOXYCYCLINE HYCLATE CAP 100 MG CAP PO ONE (14:14)
[2019-07-06 15:30] VITALS: BP 114/93; TEMP 98.8; O2SAT 91
== END 2019-07-06 15:05 | disposition home or self-care (01) ==
LOC: ER 12:08
DX: J44.0 Chronic obstructive pulmonary disease with (acute) lower respiratory infection (principal); J20.9 Acute bronchitis, unspecified; D64.9 Anemia, unspecified; I50.9 Heart failure, unspecified; I11.0 Hypertensive heart disease with heart failure; K21.9 Gastro-esophageal reflux disease without esophagitis; I51.9 Heart disease, unspecified; Z99.81 Dependence on supplemental oxygen; Z86.73 Personal history of transient ischemic attack (TIA), and cerebral infarction without residual deficits; Z79.899 Other long term (current) drug therapy; Z79.82 Long term (current) use of aspirin; Z88.0 Allergy status to penicillin; Z88.2 Allergy status to sulfonamides; Z91.040 Latex allergy status; Z88.8 Allergy status to other drugs, medicaments and biological substances
CPT/HCPCS: 36415; 71045; 80053; 83605; 83880; 84484; 85025; 87040; 87502; 93005; J2930; J7030

== ENCOUNTER → 2019-08-08 | Outpatient (CLI) | payer MEDICARE, MEDICAID | LOC: YCHH 10:00 | PROVIDERS: ATTEND Family Medicine | DX: R79.89 Other specified abnormal findings of blood chemistry (principal); E78.5 Hyperlipidemia, unspecified; D51.9 Vitamin B12 deficiency anemia, unspecified; R94.5 Abnormal results of liver function studies ==

== ENCOUNTER 2019-08-17 12:28 | Emergency (ER) | payer MEDICARE, MEDICAID ==
--- NOTE | 2019-08-17 12:44 | ED.PDOC ---
History of Present Illness - General Time Seen by Provider: 08/17/19 12:41 Source: patient, family - History of Present Illness Initial Comments: 68 yo female with PMH of CIDP, hx of CAD, not on blood thinners who is bib neighbor for cc of fall with head injury which occurred approx 1 hour ago at home. Was witnessed by another neighbor there. Pt has been having new onset tremors while awake this morning which lasted approx [address] she was st anding and shaking she lost balance and fell backwards and hit the back of her head against the hard ground. No LOC reported. Pt was able to slowly stand and pull herself into her bed independently. However, neighbor reports she seems more altered than usual and has had difficulty walking since the fall. Pt also had GLF with head injury 2 days ago and was seen in the ED - scans were negative and pt was admitted and discharged just yesterday. Neighbor reports she has really seemed more altered ever since her initial fall 2 days ago - less talkative and responsive than usual. Here pt able to answer some simple questions. Denies any acute pain or complaints. Neighbor states she initially complained of right hip & shoulder pain but denies now. Denies any headache, neck pain, weakness, numbness, chest pain, dyspnea, abd pain, hip pain. Allergies/Adverse Reactions: Allergies Penicillins Allergy (Mild, Verified 08/17/19 13:09) Unknown reports made throat swell when she was a child Sulfamethoxazole w/Trimethoprim [From Bactrim] Allergy (Mild, Verified 08/17/19 13:09) Nausea Latex Allergy (Verified 08/17/19 13:09) Promethazine [From Phenergan] Allergy (Verified 08/17/19 13:09) adhesive tape Allergy (Uncoded 07/06/19 12:29) Home Medications: Ambulatory Orders RX: Carvedilol [Coreg] 3.125 mg PO BID 05/19/18 RX: Hydroxychloroquine Sulfate [Plaquenil] 200 mg PO BID 05/19/18 RX: Trazodone HCl [Trazodone Hydrochloride] 150 mg PO BEDTIME 05/19/18 RX: Verapamil HCl [Verapamil HCl Sr] 180 mg PO DAILY 05/19/18 RX: Aspirin [Aspirin Adult Low Dose] 81 mg PO DAILY 06/17/18 RX: Esomeprazole Magnesium [Nexium] 40 mg PO DAILY 06/17/18 RX: Umeclidinium [place] [Incruse Ellipta] 62.5 mcg INH PRN PRN 01/06/19 RX: Docusate Sodium [Colace] 100 mg PO BEDTIME 03/17/19 RX: Prednisone 20 mg PO WKLY 03/17/19 RX: Ondansetron Odt [Zofran Odt] 4 mg PO Q6H PRN 08/14/19 RX: Pregabalin [Lyrica] 50 mg PO TID 08/14/19 Cephalexin Monohydrate [Keflex] 500 mg PO BID 5 Days #10 cap 08/17/19 Review of Systems - Review of Systems Review of Systems: 08/17/19 13:03 as per HPI All other Systems: Reviewed and Negative Past Medical History (General) - Patient Medical History Hx Seizures: No Hx Stroke: Yes - 7 years ago Hx Dementia: No Hx Asthma: Yes Hx of COPD: Yes Hx Cardiac Disorders: Yes Hx Congestive Heart Failure: Yes Hx Pacemaker: No Hx Hypertension: No Hx Thyroid Disease: No Hx Diabetes: No Hx Gastroesophageal Reflux: Yes Hx Renal Disease: No Hx Cancer: No Hx of HIV: No Hx Hepatitis C: No Hx MRSA: No MRSA Source:: Wound - Vaccination History Hx Tetanus, Diphtheria Vaccination: No Hx Influenza Vaccination: Yes Hx Pneumococcal Vaccination: Yes - Social History Hx Tobacco Use: No Hx Chewing Tobacco Use: No Hx Alcohol Use: No Hx Substance Use: No Hx Substance Use Treatment: No Hx Depression: No Hx Physical Abuse: No Hx Emotional Abuse: No Hx Suspected Abuse: No - Female History Patient : No Family Medical History - Family History Mother Family History: Unknown Living Status: Hx Family;Other: SHE DID NOT KNOW PARENTS AND SHE DOES NOT KNOW FH HISTORY. PT ADOPTED Physical Exam - Physical Exam General Appearance: Alert, Comfortable, No apparent distress Eye Exam: bilateral normal Ears, Nose, Throat: hearing grossly normal, normal ENT inspection, normal pharynx Neck: non-tender, full range of motion, supple, normal inspection Respiratory: chest non-tender, lungs clear, normal breath sounds, no respiratory distress, no accessory muscle use Cardiovascular/Chest: normal peripheral pulses, regular rate, rhythm, no edema, no murmur Peripheral Pulses: radial,right: 2+, radial,left: 2+ Gastrointestinal/Abdominal: non tender, soft, no organomegaly Back Exam: normal inspection, no CVA tenderness, no vertebral tenderness Extremity: normal range of motion, non-tender, normal inspection, no pedal edema, no calf tenderness, normal capillary refill, pelvis stable 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 She knows the president. Able to answer simple questions only, short answers, sometimes questions have to be repeated, seems slightly drowsy Skin Exam: normal color, warm/dry Progress - Progress Progress: 08/17/19 13:04 Fall, AMS -concern for ICH, skull frx, c-spine frx, concussion, infection/sepsis, UTI, toxic/iatrogenic AMS, CVA/TIA, ACS, other -stat labs, CT head/c-spine, XR chest, R shoulder, pelvis -blood cx's, lactate, 1 L NS bolus given fever & tachycardia 08/17/19 15:11 -CT head & c-spine without acute processes, CXR mild vascular congestion, R shoulder & pelvis XR's no acute frx's. -Labs reveal anemia, mild hyponatremia, largely unchanged from chronic. Otherwise pretty unremarkable. -Pt now fully awake, alert, oriented, without complaints. States she took an oxycodone 5 or 7.5 this morning, which is what made her altered. She also take Trazodone 150 mg at night and Lyrica as well. Discussed needing to cut back on pain medications since she apparently does not tolerate them well. Will dc home in good condition and advised close PCP f/u. Return warnings discussed at length. 08/17/19 17:18 -UA finally provided and resulted - appears likely c/w UTI. Suspect this as the source of fever and also likely contributing to transient AMS with fall today. Will give Rx of Keflex x5 days. Dc home in fair condition, return warnings discussed at length. Advised to dc pain meds until further discussion with PCP regarding frequent falls and drowsiness side effects. Buster Bee MD Billing #[id number] 08/17/19 12:42 Sodium Chloride 0.9% (Flush) [Saline Flush Syringe] 10 ml IV PRN PRN 08/17/19 12:45 EKG STAT 08/17/19 13:37 BLOOD CULTURE Stat 08/17/19 16:30 Urine Culture Stat 08/18/19 09:00 Pulse Ox Daily Laboratory Results - last 24 hr 08/17/19 08/17/19 08/17/19 13:37 13:37 13:37 WBC 5.4 RBC 3.37 L Hgb 10.2 L Hct 30.8 L MCV 91.3 MCH 30.4 MCHC 33.3 RDW 15.7 H Plt Count 114 L MPV 8.3 Absolute Neuts (auto) 5.20 Absolute Lymphs (auto) 0.10 L Absolute Monos (auto) 0.10 L Absolute Eos (auto) 0.00 Absolute Basos (auto) 0.00 Neutrophils % 96.0 H Lymphocytes % 1.9 L Monocytes % 1.7 L Eosinophils % 0.2 L Basophils % 0.2 Sodium 132 L Potassium 3.5 L Chloride 99 L Carbon Dioxide 25 Anion Gap 11.5 L BUN 27 H D Creatinine 0.81 BUN/Creatinine Ratio 33.3 H Random Glucose 104 Serum Osmolality 269.9 L Lactic Acid Calcium 8.5 Total Bilirubin 0.7 AST 18 ALT < 8 L Alkaline Phosphatase 52 Troponin I < 0.02 B-Natriuretic Peptide 155.0 H Serum Total Protein 6.1 L Albumin 3.0 L Globulin 3.1 Albumin/Globulin Ratio 1.0 L Urine Color Urine Appearance Urine pH Ur Specific [place] Urine Protein Urine Glucose (UA) Urine Ketones Urine Blood Urine Nitrite Urine Bilirubin Urine Urobilinogen Ur Leukocyte Esterase Urine RBC Urine WBC Ur Epithelial Cells Urine Bacteria 08/17/19 08/17/19 13:37 16:30 WBC RBC Hgb Hct MCV MCH MCHC RDW Plt Count MPV Absolute Neuts (auto) Absolute Lymphs (auto) Absolute Monos (auto) Absolute Eos (auto) Absolute Basos (auto) Neutrophils % Lymphocytes % Monocytes % Eosinophils % Basophils % Sodium Potassium Chloride Carbon Dioxide Anion Gap BUN Creatinine BUN/Creatinine Ratio Random Glucose Serum Osmolality Lactic Acid 1.2 Calcium Total Bilirubin AST ALT Alkaline Phosphatase Troponin I B-Natriuretic Peptide Serum Total Protein Albumin Globulin Albumin/Globulin Ratio Urine Color Yellow Urine Appearance Cloudy Urine pH 5.5 Ur Specific [place] >= 1.030 Urine Protein Trace Urine Glucose (UA) Negative Urine Ketones Negative Urine Blood Negative Urine Nitrite Negative Urine Bilirubin Negative Urine Urobilinogen 0.2 Ur Leukocyte Esterase Small H Urine RBC 0 Urine WBC 5-10 H Ur Epithelial Cells 1-3 Urine Bacteria Rare - EKG/XRAY/CT EKG: Sinus, Tachy - HR, 105, no ST elevations or q waves, axis & intervals normal, compared to 08/14/19 EKG sinus tachycardia is new. XRAY: chest - mild central pulmonary vascular congestion and cardiomegaly noted, no other acute processes per my read. Large intrathoracic hiatal hernia noted. - Additional EKG/XRAY/Consults XRAY #2: pelvis - no acute processes XRAY #3: Right shoulder - no acute processes per my read Departure - Departure Clinical Impression: UTI (urinary tract infection), Medication side effect, Concussion Time of Disposition: 17:14 Disposition: Discharge to Home or Self Care Condition: Fair Instructions: Urinary Tract Infection, Adult (DC) Diet: resume usual diet Referrals: Rakan Figueroa MD [Primary Care Provider] - 1-5 Days Prescriptions: Cephalexin Monohydrate [Keflex] 500 mg PO BID 5 Days #10 cap Home Medications: Ambulatory Orders RX: Carvedilol [Coreg] 3.125 mg PO BID 05/19/18 RX: Hydroxychloroquine Sulfate [Plaquenil] 200 mg PO BID 05/19/18 RX: Trazodone HCl [Trazodone Hydrochloride] 150 mg PO BEDTIME 05/19/18 RX: Verapamil HCl [Verapamil HCl Sr] 180 mg PO DAILY 05/19/18 RX: Aspirin [Aspirin Adult Low Dose] 81 mg PO DAILY 06/17/18 RX: Esomeprazole Magnesium [Nexium] 40 mg PO DAILY 06/17/18 RX: Umeclidinium [place] [Incruse Ellipta] 62.5 mcg INH PRN PRN 01/06/19 RX: Docusate Sodium [Colace] 100 mg PO BEDTIME 03/17/19 RX: Prednisone 20 mg PO WKLY 03/17/19 RX: Ondansetron Odt [Zofran Odt] 4 mg PO Q6H PRN 08/14/19 RX: Pregabalin [Lyrica] 50 mg PO TID 08/14/19 Cephalexin Monohydrate [Keflex] 500 mg PO BID 5 Days #10 cap 08/17/19 Additional Instructions: Remain well-hydrated and advance your diet and activity level slowly as tolerated. As discussed, I would quit taking your prescription oxycodone until further discussion with your primary care doctor. I would also discuss all of your medications at your next visit to see what changes could be made to limit side effects of drowsiness and falls. Return if concerning symptoms arise such as rapidly worsening or severe headache, rapidly worsening or severe mental status changes, chest pain, shortness of breath, etc...
--- NOTE | 2019-08-17 13:26 | RAD ---
EXAM: XR Pelvis Complete, 3 or More Views CLINICAL HISTORY: ground level fall, R hip pain TECHNIQUE: Frontal and frog-leg lateral views of the pelvis. COMPARISON: No relevant prior studies available. FINDINGS: Bones/joints: Bilateral total hip arthroplasty components well seated and intact. Degenerative changes present in the visualized lumbar spine. No fracture. No dislocation. Soft tissues: Unremarkable. IMPRESSION: No acute findings in the pelvis. Electronically signed by: Elise Dunlap MD 08/17/2019 1:24 PM [employer]
--- NOTE | 2019-08-17 13:31 | RAD ---
EXAM DESCRIPTION: Chest,1 View CLINICAL HISTORY: 68 years Female, Altered mental status COMPARISON: 08/14/2019CTA chest 03/18/2019 TECHNIQUE: AP portable chest. FINDINGS/IMPRESSION: Mild central pulmonary vascular congestion. Streaky bilateral subsegmental atelectasis. Possible trace left pleural effusion. No focal consolidation or pneumothorax. The heart is mildly enlarged, unchanged. Interval more pronounced gaseous distention of the large intrathoracic hiatal hernia. Diffuse osteopenia. No acute osseous abnormality. Electronically signed by: Titi Hernandez DO 08/17/2019 1:29 PM [employer]
--- NOTE | 2019-08-17 13:34 | RAD ---
EXAM DESCRIPTION: Shoulder,Right 2 or More Views CLINICAL HISTORY: ground level fall, R shoulder pain COMPARISON: 08/14/2019. TECHNIQUE: Two views of the right shoulder. FINDINGS: Diffuse osteopenia partially limits evaluation. No displaced fracture or dislocation of the right shoulder. The alignment of the acromioclavicular and glenohumeral joints are intact. Mild acromioclavicular and glenohumeral joints osteoarthrosis. Right rotator cuff calcific tendinitis. IMPRESSION: 1. No acute displaced fracture or dislocation. 2. If patient's symptoms persist, further evaluation with CT or MRI can be obtained. Electronically signed by: Titi Hernandez DO 08/17/2019 1:33 PM [facility]
--- NOTE | 2019-08-17 14:09 | CT ---
EXAM: CT head CLINICAL INDICATION: Patient fell, closed head injury COMPARISON: 08/14/2019 TECHNIQUE: CT scan was done using contiguous axial 5 mm sections through the brain. This exam was performed according to our departmental dose-optimization program, which includes automated exposure control, adjustment of the mA and/or kV according to patient size and/or use of iterative reconstruction technique. FINDINGS: There is no midline shift, mass effect, or extraaxial fluid collection. There is no evidence of acute intracranial hemorrhage, mass lesion, or cerebral edema. The ventricles and cortical sulci are normal for the patient's age. Again noted is a nonspecific calcification in the bety. Bone window images reveal no evidence of a skull fracture. IMPRESSION: No evidence of an acute intracranial process. Electronically signed by: Shawn Diaz MD 08/17/2019 2:07 PM [facility]
--- NOTE | 2019-08-17 14:10 | CT ---
EXAM: Cervical Spine CLINICAL INDICATION: Patient fell, pain COMPARISON: There is no previous study for comparison. TECHNIQUE: CT scan of the cervical spine was done using contiguous axial 3mm sections through the cervical spine with sagittal and coronal reconstructions. This exam was performed according to our departmental dose-optimization program, which includes automated exposure control, adjustment of the mA and/or kV according to patient size and/or use of iterative reconstruction technique. Findings: There is no fracture or subluxation. The prevertebral soft tissues are normal. The bilateral facet joint alignment is normal. There are surgical changes from anterior fusion at the C3-C4 level. The osseous structures appear intact and unremarkable. IMPRESSION: No evidence of acute traumatic injury. Electronically signed by: Shawn Diaz MD 08/17/2019 2:08 PM [employer]
[2019-08-17] MEDS: SODIUM CHLORIDE 0.9% (FLUSH) 10 ML SYG IV PRN (14:16)
[2019-08-17] MEDS: SODIUM CHLORIDE 0.9% 1000ML 1,000 ML IVS ONE (14:16)
[2019-08-17] MEDS: CEPHALEXIN MONOHYDRATE 250 MG CAP PO ONE (17:01)
[2019-08-17 17:40] VITALS: BP 97/51; TEMP 100; O2SAT 97
== END 2019-08-17 17:40 | disposition home or self-care (01) ==
LOC: ER 12:28
DX: S06.0X0A Concussion without loss of consciousness, initial encounter (principal); N39.0 Urinary tract infection, site not specified; T50.905A Adverse effect of unspecified drugs, medicaments and biological substances, initial encounter; R00.0 Tachycardia, unspecified; M25.551 Pain in right hip; M25.511 Pain in right shoulder; R25.1 Tremor, unspecified; I25.10 Atherosclerotic heart disease of native coronary artery without angina pectoris; J44.9 Chronic obstructive pulmonary disease, unspecified; K21.9 Gastro-esophageal reflux disease without esophagitis; Z79.899 Other long term (current) drug therapy; Z88.0 Allergy status to penicillin; Z88.2 Allergy status to sulfonamides; Z91.040 Latex allergy status; Z88.8 Allergy status to other drugs, medicaments and biological substances; Z79.82 Long term (current) use of aspirin; Z86.73 Personal history of transient ischemic attack (TIA), and cerebral infarction without residual deficits; W18.30XA Fall on same level, unspecified, initial encounter; Y92.009 Unspecified place in unspecified non-institutional (private) residence as the place of occurrence of the external cause
CPT/HCPCS: 36415; 70450; 71045; 72125; 72190; 73030; 80053; 81001; 83605; 83880; 84484; 85025; 87040; 87086; 87502; 93005; 94760; J7030

== ENCOUNTER 2019-08-24 11:51 | Inpatient (IN) | payer MEDICARE, MEDICAID ==
[2019-08-24] MEDS ORDERED: methylPREDNISolone SODIUM SUC 125 MG/2 ML VIAL IV ONE (12:02)
[2019-08-24] MEDS ORDERED: cefTRIAXone SODIUM 2 GM in SODIUM CHL 0.9% 100ML MINI-BAG 100 ML IVPB ONE (12:02)
[2019-08-24] MEDS ORDERED: IPRATROPIUM/ALBUTEROL 3 ML VIAL NEB ONE (12:02)
[2019-08-24] MEDS ORDERED: SODIUM CHLORIDE 0.9% 1000ML 1,000 ML IVS ONE (12:02)
--- NOTE | 2019-08-24 12:21 | ED.PDOC ---
History of Present Illness - General Chief Complaint: Respiratory Problem Stated Complaint: SOB, chest congestion and cough Time Seen by Provider: 08/24/19 12:01 Source: RN notes reviewed, Vital Signs reviewed, EMS notes reviewed, family - History of Present Illness Initial Comments: This is a 68-year-old female with longstanding history of COPD, multiple ER visits over the last few months for generalized weakness and multiple falls. She is presenting today with progressively worsening shortness of breath has gotten worse over the last week. She typically does not use oxygen, but has been on continuous oxygen at 2 L/min for the past week. She was recently observed in the hospital overnight and discharged home 3 days ago, diagnosed with a UTI, discharged home on Macrobid. She states that she got progressively more weak and short of breath. Denies history of blood clots. She does report increasing cough, no hemoptysis or leg swelling. She does have a history of recurrent pneumonia, states she thinks she has pneumonia at this time. Her O2 sats on arrival were in the mid 70s. Allergies/Adverse Reactions: Allergies Penicillins Allergy (Mild, Verified 08/24/19 12:13) Unknown reports made throat swell when she was a child Sulfamethoxazole w/Trimethoprim [From Bactrim] Allergy (Mild, Verified 08/24/19 12:13) Nausea Latex Allergy (Verified 08/24/19 12:13) Promethazine [From Phenergan] Allergy (Verified 08/24/19 12:13) adhesive tape Allergy (Uncoded 07/06/19 12:29) Home Medications: Ambulatory Orders Carvedilol [Coreg] 3.125 mg PO BID 05/19/18 Hydroxychloroquine Sulfate [Plaquenil] 200 mg PO BID 05/19/18 Trazodone HCl [Trazodone Hydrochloride] 150 mg PO BEDTIME 05/19/18 Verapamil HCl [Verapamil HCl Sr] 180 mg PO DAILY 05/19/18 Aspirin [Aspirin Adult Low Dose] 81 mg PO DAILY 06/17/18 Esomeprazole Magnesium [Nexium] 40 mg PO DAILY 06/17/18 Umeclidinium [place] [Incruse Ellipta] 62.5 mcg INH PRN PRN 01/06/19 Docusate Sodium [Colace] 100 mg PO BEDTIME 03/17/19 Prednisone 20 mg PO WKLY 03/17/19 Ondansetron Odt [Zofran Odt] 4 mg PO Q6H PRN 08/14/19 Pregabalin [Lyrica] 50 mg PO TID 08/14/19 Cephalexin Monohydrate [Keflex] 500 mg PO BID 5 Days #10 cap 08/17/19 Review of Systems - Review of Systems Constitutional: States: malaise, weakness - Generalized. Denies: chills, fever EENTM: Denies: ear discharge, nose pain, nose congestion, throat pain, mouth pain Respiratory: States: cough, short of breath. Denies: orthopnea, stridor Cardiology: Denies: chest pain, edema, palpitations, syncope Gastrointestinal/Abdominal: States: vomiting - Dry heaving 2 days ago. Denies: constipation, diarrhea, nausea Genitourinary: Denies: dysuria, frequency Musculoskeletal: Denies: joint pain, joint swelling, muscle pain, muscle stiffness Skin: Denies: change in color, lesions, rash Neurological: Denies: headache, seizure, tingling, tremors Past Medical History (General) - Patient Medical History Hx Seizures: No Hx Stroke: Yes - 7 years ago Hx Dementia: No Hx Asthma: Yes Hx of COPD: Yes Hx Cardiac Disorders: Yes Hx Congestive Heart Failure: Yes Hx Pacemaker: No Hx Hypertension: No Hx Thyroid Disease: No Hx Diabetes: No Hx Gastroesophageal Reflux: Yes Hx Renal Disease: No Hx Cancer: No Hx of HIV: No Hx Hepatitis C: No Hx MRSA: No MRSA Source:: Wound Surgical History: Hysterectomy, other - Vaccination History Hx Tetanus, Diphtheria Vaccination: No Hx Influenza Vaccination: Yes Hx Pneumococcal Vaccination: Yes - Social History Hx Tobacco Use: No Hx Chewing Tobacco Use: No Hx Alcohol Use: No Hx Substance Use: No Hx Substance Use Treatment: No Hx Depression: No Hx Physical Abuse: No Hx Emotional Abuse: No Hx Suspected Abuse: No - Female History Patient is a Female of Child Bearing Age (10 -59 yrs old): No Patient : No Family Medical History - Family History Mother Family History: Unknown Living Status: Hx Family;Other: SHE DID NOT KNOW PARENTS AND SHE DOES NOT KNOW FH HISTORY. PT ADOPTED Physical Exam - Physical Exam General Appearance: Alert, Frail, Ill Appearing Eyes, Ears, Nose, Throat Exam: PERRL/EOMI, TMs normal, other - Dry oral mucosa Neck: non-tender, full range of motion, supple, normal inspection Respiratory: chest non-tender, no accessory muscle use, decreased breath sounds, wheezing - Scattered diffuse wheezes, poor air motion diffusely Cardiovascular/Chest: normal peripheral pulses, regular rate, rhythm, no edema, no gallop, no JVD, no murmur Peripheral Pulses: dorsalis pedis,right: 2+, dorsalis pedis,left: 2+, posterior tibialis,right: 2+, posterior tibialis,left: 2+ Gastrointestinal/Abdominal: normal bowel sounds, non tender, soft Rectal Exam: deferred Extremity: normal range of motion, non-tender, normal inspection Neurologic: no motor/sensory deficits, alert, normal mood/affect, oriented x 3 Skin Exam: normal color, warm/dry Lymphatic: no adenopathy Progress - Progress Progress: 08/24/19 12:26 Old records reviewed. She has had multiple ER visits over the last 2 months. She was seen twice in the emergency room 1 week ago, was admitted overnight and diagnosed with UTI. He has a longstanding history of chronic pain. Receives regularly scheduled prescriptions of oxycodone and Lyrica. 08/24/19 15:45 Discussed lab/x-ray findings with patient and family. They are in agreement with plan for admission. - Results/Orders Results/Orders: Laboratory Tests 08/24/19 08/24/19 08/24/19 12:02 12:44 12:44 WBC 10.6 RBC 3.44 L Hgb 10.2 L Hct 30.7 L MCV 89.4 MCH 29.8 MCHC 33.3 RDW 16.1 H Plt Count 158 MPV 9.3 Absolute Neuts (auto) 9.90 H Absolute Lymphs (auto) 0.40 L Absolute Monos (auto) 0.30 Absolute Eos (auto) 0.00 Absolute Basos (auto) 0.00 Neutrophils % 93.4 H Lymphocytes % 3.4 L Monocytes % 2.6 Eosinophils % 0.2 L Basophils % 0.4 pCO2 38 pO2 66 L HCO3 27.0 ABG pH 7.458 H ABG O2 Saturation 94.1 L ABG Base Excess 3.0 ABG Deoxyhemoglobin 5.8 H Oxyhemoglobin % 92.5 L Carboxyhemoglobin % 0.7 Methemoglobin % Sat 1.0 Calc Total Hemoglobin 10.1 L Sodium 135 Potassium 3.8 Chloride 100 L Carbon Dioxide 28 Anion Gap 10.8 L BUN 20 H Creatinine 0.70 BUN/Creatinine Ratio 28.6 H Random Glucose 97 Serum Osmolality 272.6 L Lactic Acid Calcium 8.4 Total Bilirubin 0.6 AST 20 ALT < 8 L Alkaline Phosphatase 73 Troponin I B-Natriuretic Peptide 324.0 H* Serum Total Protein 5.9 L Albumin 2.7 L Globulin 3.2 Albumin/Globulin Ratio 0.8 L 08/24/19 08/24/19 08/24/19 12:44 12:44 14:17 WBC RBC Hgb Hct MCV MCH MCHC RDW Plt Count MPV Absolute Neuts (auto) Absolute Lymphs (auto) Absolute Monos (auto) Absolute Eos (auto) Absolute Basos (auto) Neutrophils % Lymphocytes % Monocytes % Eosinophils % Basophils % pCO2 pO2 HCO3 ABG pH ABG O2 Saturation ABG Base Excess ABG Deoxyhemoglobin Oxyhemoglobin % Carboxyhemoglobin % Methemoglobin % Sat Calc Total Hemoglobin Sodium Potassium Chloride Carbon Dioxide Anion Gap BUN Creatinine BUN/Creatinine Ratio Random Glucose Serum Osmolality Lactic Acid 1.2 1.0 Calcium Total Bilirubin AST ALT Alkaline Phosphatase Troponin I < 0.02 B-Natriuretic Peptide Serum Total Protein Albumin Globulin Albumin/Globulin Ratio CXR IMPRESSION: Cardiomegaly with findings suggestive of vascular congestion. Electronically signed by: Yecenia Torres MD 08/24/2019 1:19 PM I reviewed his chest x-ray personally. I feel there are likely right upper lobe infiltrates, possibly right lower lobe, no pneumothorax - EKG/XRAY/CT Comments: NSR, 90, LAD, nl interval, no significant ST/T changes - Additional EKG/XRAY/Consults Time Called: 15:34 - Discussed with Jose Manuel Bacon, hospitalist. Reviewed labs, EKG, chest x-ray, progression of symptoms. Will admit. Departure - Departure Clinical Impression: Dyspnea Qualifiers: Dyspnea type: shortness of breath Qualified Code(s): R06.02 - Shortness of breath; R06.00 - Dyspnea, unspecified; R06.01 - Orthopnea Respiratory failure Qualifiers: Chronicity: acute on chronic Respiratory failure complication: hypoxia Qualified Code(s): J96.21 - Acute and chronic respiratory failure with hypoxia Pneumonia Qualifiers: Pneumonia type: due to unspecified organism Laterality: bilateral Lung location: unspecified part of lung Qualified Code(s): J18.9 - Pneumonia, unspecified organism Disposition: Admit Patient Condition: Fair Departure Forms: Patient Portal Self Enrollment Home Medications: Ambulatory Orders Carvedilol [Coreg] 3.125 mg PO BID 05/19/18 Hydroxychloroquine Sulfate [Plaquenil] 200 mg PO BID 05/19/18 Trazodone HCl [Trazodone Hydrochloride] 150 mg PO BEDTIME 05/19/18 Verapamil HCl [Verapamil HCl Sr] 180 mg PO DAILY 05/19/18 Aspirin [Aspirin Adult Low Dose] 81 mg PO DAILY 06/17/18 Esomeprazole Magnesium [Nexium] 40 mg PO DAILY 06/17/18 Umeclidinium [place] [Incruse Ellipta] 62.5 mcg INH PRN PRN 01/06/19 Docusate Sodium [Colace] 100 mg PO BEDTIME 03/17/19 Prednisone 20 mg PO WKLY 03/17/19 Ondansetron Odt [Zofran Odt] 4 mg PO Q6H PRN 08/14/19 Pregabalin [Lyrica] 50 mg PO TID 08/14/19 Cephalexin Monohydrate [Keflex] 500 mg PO BID 5 Days #10 cap 08/17/19 Decision To Admit - Decistion To Admit Decision to Admit Reason: Admit from ER Decision to Admit Date: 08/24/19 Decision to Admit Time: 15:37
[2019-08-24] MEDS ORDERED: SODIUM CHL 0.9% 100ML MINI-BAG 100 ML IVPB ONE (13:01)
[2019-08-24] MEDS: SODIUM CHLORIDE 0.9% (FLUSH) 10 ML SYG IV PRN ×2 (13:14→19:20)
--- NOTE | 2019-08-24 13:20 | RAD ---
EXAM: XR Chest, 1 View CLINICAL HISTORY: The patient is 68 years old and is Female; SOB TECHNIQUE: Frontal view of the chest. COMPARISON: Chest radiograph August 17, 2019 FINDINGS: LUNGS: Mild diffuse interstitial opacities are present. PLEURAL SPACE: Unremarkable. No pneumothorax. HEART: The cardiac silhouette is enlarged. MEDIASTINUM: Hiatal hernia is not as well-demonstrated. BONES/JOINTS: There are degenerative and postsurgical changes of the bones. VASCULATURE: Prominence of central vasculature is noted. IMPRESSION: Cardiomegaly with findings suggestive of vascular congestion. Electronically signed by: Yecenia Torres MD 08/24/2019 1:19 PM [employer]
[2019-08-24] MEDS ORDERED: SODIUM CHLORIDE 0.9% 1000ML 700 ML IVS ONE (13:23)
--- NOTE | 2019-08-24 15:47 | HP ---
SUPERVISING PHYSICIAN: Susan Yang MD CHIEF COMPLAINT: Increasing shortness of breath, weakness. HISTORY OF PRESENT ILLNESS: Ms. Herring is a 68-year-old female who presented to the Emergency Department today with complaint of shortness of breath, chest congestion and cough. She has a longstanding history of chronic obstructive pulmonary disease and multiple ER visits in the last month for generalized weakness and falls. Today, she endorses that she has progressively worsened over the last week with increased shortness of breath and weakness. She does wear oxygen at home, but noted she was satting in the low 70s off oxygen and only mid to low 90s once back on oxygen. She was recently in the hospital here in [place] within the last week and treated for a urinary tract infection and discharged on Macrobid. She endorses that she got progressively more weak over the week with shortness of breath, but denied history of blood clots, hemoptysis or leg swelling. Her initial on arrival on room air was in the mid 70s. She was giving breathing treatment with some improvement. Chest x-ray showed some bilateral vascular congestion versus early consolidation. Given her past medical history and current findings, it was felt she was having an exacerbation of chronic obstructive pulmonary disease with some developing community acquired pneumonia. She is now going to be admitted for further treatment and evaluation. PAST MEDICAL HISTORY: 1. Coronary artery disease with myocardial infarctions in 2007, 2009 and 2014 with stent placement. 2. Chronic obstructive pulmonary disease. 3. History of diverticulosis. 4. Chronic neck and back pain. 5. Fibromyalgia. 6. Osteoarthritis. 7. Multiple thoracic and lumbar vertebral fractures with previous kyphoplasty. 8. Depression. 9. Hyperlipidemia. 10. Hypertension. 11. Gastroesophageal reflux disease. 12. Hiatal hernia. 13. Iron deficiency anemia. PAST SURGICAL HISTORY: 1. Hysterectomy. 2. Coronary artery stent placement times 3. 3. Kyphoplasty. 4. Multiple back surgeries. 5. Tummy tuck surgery. 6. Bilateral hip replacements. CURRENT MEDICATIONS: Awaiting updated list in electronic medical record and verification by nurses. ALLERGIES: PENICILLIN, SULFA ANTIBIOTICS, LASIX, PHENERGAN, ADHESIVE TAPE. FAMILY HISTORY: Unknown as she is adopted. SOCIAL HISTORY: The patient is retired and lives in [place]. She is . She has never smoked. She has never used illicit drugs or alcohol. REVIEW OF SYSTEMS: CONSTITUTIONAL: Positive for fevers, general malaise but no unintentional weight loss. HEENT: Negative for sore throats, earaches, nasal congestion, headaches vision changes. RESPIRATORY: As noted in history of present illness, positive for cough, increased shortness of breath. CARDIOVASCULAR: Negative for chest pain, palpitations or syncopal episodes. GASTROINTESTINAL: Negative for nausea, vomiting, diarrhea, constipation or abdominal pain. GENITOURINARY: Negative for dysuria, hematuria, polyuria. MUSCULOSKELETAL: Positive for general malaise and arthralgias. NEUROLOGIC: Positive for generalized weakness. Negative for seizures, ataxia or headaches. PHYSICAL EXAMINATION: VITAL SIGNS: Temperature 98.1. Pulse 70. Blood pressure 90/59. Respirations 20. Saturation 93% on nasal cannula at 2 liters. GENERAL: The patient is resting comfortably and appears to be in no acute distress. She is alert. HEENT: Tympanic membranes are clear bilaterally. Oropharynx is pink and moist without any lesions. NECK; Supple, non-tender, full range of motion, no jugular venous distention. CHEST: Lung sounds were diminished throughout with no obvious wheezing but she was given some Solu-Medrol in the Emergency Room. No rhonchi or rales noted. HEART: Regular rate and rhythm without appreciable murmurs, rubs, or gallops. ABDOMEN: Soft, non-tender, positive bowel sounds. EXTREMITIES: No cyanosis, clubbing, or edema. She does have some old ecchymotic areas to the lower extremities from recent falls. NEUROLOGICAL: Cranial nerves II through XII are grossly intact. Facial features were symmetrical. Extraocular movements were within normal limits. There was no noted nystagmus and she was alert and oriented x 3. SKIN Warm pink and dry with again, old ecchymotic areas to bilateral lower extremities from bruises from falls. LABORATORY: PT, PTT both normal. Blood gas analysis showed pH 7.58, pO2 38, pCO2 66, bicarb 27. Chemistries on admission showed normal electrolytes with BUN 17, creatinine 0.68. Liver functions all within normal limits. Urinalysis shows dark yellow urine. Microscopic within normal limits with 5 to 10 epithelials, no other significant findings. MICROBIOLOGY: Group A Strep was negative with Influenza A and B by PCR negative. Blood cultures remain negative at admission. Group A rapid Strep negative. RADIOLOGY: Chest x-ray per radiologic interpretation showed cardiomegaly with findings suggestive of vascular congestion. ASSESSMENT: 1. Acute exacerbation of chronic obstructive pulmonary disease with developing bilateral community acquired pneumonia. 2. Past medical history of coronary artery disease with previous myocardial infarctions in 2007, 2009, and 2014 with stent placements. 3. Chronic neck and back pain. 4. Fibromyalgia. 5. Osteoarthritis. 6. Multiple thoracic and lumbar vertebral fractures with previous kyphoplasties. 7. Depression. 8. Hyperlipidemia. 9. Hypertension. 10. Gastroesophageal reflux disease. 11. Hiatal hernia. 12. Iron deficiency anemia. PLAN: Ms. Herring is going to be admitted for community acquired pneumonia with exacerbation of chronic obstructive pulmonary disease. She is still on coverage with azithromycin and Rocephin. Given that she is on steroids, we will give GI prophylaxis with proton pump inhibitor. We will resume home medications as soon as they are updated and verified. We will start her on antibiotic coverage with Rocephin and azithromycin. #[id number] [facility]
[2019-08-24] MEDS ORDERED: KETOROLAC TROMETHAMINE INJ 30 MG/ML VIAL IV ONE (19:02)
[2019-08-24] MEDS ORDERED: ONDANSETRON INJ 4 MG/2 ML VIAL IV PRN (19:10)
[2019-08-24] MEDS ORDERED: ALBUTEROL SULFATE 2.5 MG/3 ML VIAL NEB PRN (19:10)
[2019-08-24] MEDS ORDERED: SODIUM CHLORIDE 0.9% (FLUSH) 10 ML SYG IV PRN (19:10)
[2019-08-24] MEDS ORDERED: MORPHINE SULFATE INJ 10 MG/ML VIAL IV PRN (19:10)
[2019-08-24] MEDS ORDERED: ACETAMINOPHEN 325 MG TAB PO PRN (19:10)
[2019-08-24] MEDS ORDERED: traZODone HCL 50 MG TAB ONE (20:08)
[2019-08-24] MEDS ORDERED: PREGABALIN 25 MG CAP ONE (20:09)
[2019-08-24] MEDS: CARVEDILOL 3.125 MG TAB PO SCH (20:31)
[2019-08-24] MEDS: DOCUSATE SODIUM 100 MG CAP PO SCH (20:31)
[2019-08-24] MEDS: IV SET AND CAP CHANGE INJ INJ SCH (20:31)
[2019-08-24] MEDS: traZODone HCL 100 MG TAB PO SCH (20:32)
[2019-08-24] MEDS: AZITHROMYCIN 250 MG TAB PO SCH (20:34)
[2019-08-24] MEDS: HYDROcodone 5MG/APAP 325MG 1 EA TAB PO PRN (20:34)
[2019-08-24] MEDS: IPRATROPIUM/ALBUTEROL 3 ML VIAL NEB SCH (20:35)
[2019-08-24] MEDS ORDERED: NON-FORMULARY MEDICATION 1 EA MIS (Hydroxychloroquine Sulfate [Plaquenil] 200 MG) PO SCH (21:00)
[2019-08-24] MEDS ORDERED: NON-FORMULARY MEDICATION 1 EA MIS (Pregabalin [Lyrica] 50 MG) PO SCH (21:00)
[2019-08-24] MEDS: AZATHIOPRINE 50 MG PO SCH (21:54)
[2019-08-24] MEDS: SERTRALINE HCL 50 MG TAB PO SCH (21:55)
[2019-08-25] MEDS: SODIUM CHLORIDE 0.9% (FLUSH) 10 ML SYG IV PRN (05:57)
[2019-08-25] MEDS: PANTOPRAZOLE SODIUM IV 40 MG VIAL IV SCH (05:57)
[2019-08-25] MEDS ORDERED: VERAPAMIL HCL 40 MG TAB ONE (07:23)
[2019-08-25] MEDS ORDERED: ASPIRIN (CHEWABLE) 81 MG TAB ONE (07:23)
[2019-08-25] MEDS ORDERED: cefTRIAXone SODIUM 1 GM VIAL ONE (07:24)
[2019-08-25] MEDS ORDERED: PREGABALIN 25 MG CAP ONE (07:25)
--- NOTE | 2019-08-25 07:35 | RAD ---
CHEST, TWO VIEW, XR CLINICAL HISTORY: Pneumonia COMPARISON: 08/24/2019 TECHNIQUE: Frontal and lateral Chest. FINDINGS: Heart is normal in size. There is pulmonary vascular congestion. There is medial left lower lobe consolidation and atelectasis. No pleural fluid or pneumothorax. Lungs are hyperinflated. No large austin pleural fluid collection. Multilevel thoracic high-grade compression fractures with prior vertebroplasty throughout the thoracic spine. There is extruded methylmethacrylate in the upper thoracic spine. Mild lower thoracic hyperkyphosis. Old left proximal humerus fracture. Rib fractures. IMPRESSION: 1. Medial left lower lobe consolidation/atelectasis. Pulmonary vascular congestion. 2. COPD. Electronically signed by: Jolie Chandra DO 08/25/2019 7:34 AM CONTACT CENTER CONSULTANT
[2019-08-25] MEDS: CARVEDILOL 3.125 MG TAB PO SCH ×2 (07:57→20:18)
[2019-08-25] MEDS: VERAPAMIL ER TAB 180 MG TAB PO SCH (07:57)
[2019-08-25] MEDS: ENOXAPARIN SODIUM 40 MG/0.4 ML SYG SUBCU SCH (08:01)
[2019-08-25] MEDS: SERTRALINE HCL 50 MG TAB PO SCH (08:01)
[2019-08-25] MEDS: PREGABALIN 25 MG CAP PO SCH ×3 (08:01→20:15)
[2019-08-25] MEDS: ASPIRIN (ENTERIC COATED) 81 MG TAB PO SCH (08:02)
[2019-08-25] MEDS: HYDROcodone 5MG/APAP 325MG 1 EA TAB PO PRN ×2 (08:11→15:38)
[2019-08-25] MEDS: IPRATROPIUM/ALBUTEROL 3 ML VIAL NEB SCH ×4 (08:19→19:53)
[2019-08-25] MEDS ORDERED: predniSONE 20 MG TAB PO SCH (09:00)
[2019-08-25] MEDS ORDERED: cefTRIAXone SODIUM 1 GM in SODIUM CHL 0.9% 50ML MIN-BAG+ 50 ML IVPB SCH (09:00)
[2019-08-25] MEDS ORDERED: SODIUM CHL 0.9% 50ML MIN-BAG+ 50 ML IVPB ONE ×2 (09:21→09:26)
[2019-08-25] MEDS: cefTRIAXone SODIUM 1 GM in SODIUM CHL 0.9% 50ML MIN-BAG+ 50 ML IVPB SCH (09:28)
[2019-08-25] MEDS ORDERED: cefTRIAXone SODIUM 1 GM VIAL IM SCH (10:00)
[2019-08-25] MEDS ORDERED: FUROSEMIDE 40 MG TAB ONE (12:13)
[2019-08-25] MEDS: methylPREDNISolone SODIUM SUC 40 MG/ML VIAL IV SCH ×2 (12:18→20:18)
[2019-08-25] MEDS: FUROSEMIDE 40 MG TAB PO SCH (12:18)
--- NOTE | 2019-08-25 13:59 | PN ---
SUPERVISING PHYSICIAN: Lazaro Yang MD DATE: 08/25/19 SUBJECTIVE: The patient still feels weak and a little bit short of breath even at rest. She has not had any fever. She has had no nausea or vomiting. She is tolerating diet. OBJECTIVE: VITAL SIGNS: Heart rate 89, blood pressure 91/55, respirations 20, oxygen saturation 99% on 2 liters nasal cannula at rest. Weight 66 kg. GENERAL: The patient is resting comfortably and eating lunch. She is alert. CHEST: Lung sounds are diminished through the bases with very faint expiratory wheezes bilaterally in the upper apices. No rales or rhonchi. HEART: Regular rate and rhythm. ABDOMEN: Soft, non-tender, positive bowel sounds. EXTREMITIES: Without edema. NEUROLOGIC: She was alert and oriented x 3. LABORATORY: White count 3,800, hemoglobin 8.4, hematocrit 25.1, platelet count 157,000. Differential shows a left shift. Chemistries now show normal electrolytes with BUN of 20, creatinine 0.67,calcium 7.5 corrected for an albumin 2.7 to 8.2. Blood cultures remain negative. RADIOLOGY: Repeat chest x-ray this morning per radiology interpretation of a 2- view chest shows mild left lower lobe consolidation versus atelectasis with pulmonary vascular congestion and chronic obstructive pulmonary disease. ASSESSMENT: 1. Acute exacerbation of chronic obstructive pulmonary disease with left-sided community acquired pneumonia having recently been on antibiotics and failed outpatient treatment. 2. Extensive history of coronary artery disease with previous myocardial infarctions in 2007, 2009, and 2014 with stent placements with no evidence of chest pain. 3. Anemia, normocytic normochromic presentation on this admission with a history of iron-deficiency anemia previously on iron therapy.. 4. Chronic neck and back pain. 5. Significant deconditioning from multiple hospitalizations requiring physical therapy consultation and possible inpatient rehabilitation to insure patient's safety once discharged. 5. Fibromyalgia. 6. Osteoarthritis. 7. Multiple thoracic and lumbar vertebral fractures with previous kyphoplasties. 8. Depression. 9. Hyperlipidemia. 10. Hypertension. 11. Gastroesophageal reflux disease. 12. Hiatal hernia. PLAN: The patient has a little wheezing going on this morning. She was given a single dose of Solu-Medrol yesterday and was hoping to not have to continue additional steroids but at this point, I think she would benefit. Therefore, we will put her on Solu-Medrol 40 mg every 12 hours. Will anticipate hoping to transition to oral steroids in the morning. She remains on antibiotic coverage with Rocephin, azithromycin and aggressive pulmonary hygiene. I have put a consultation in with physical therapy as well as Dietetic Tech as I think the patient is significantly deconditioned and would certainly benefit from outpatient rehabilitation, both from cardiopulmonary aspect and physical therapy. She is on GI prophylaxis with a proton pump inhibitor. I would anticipate hopefully to be able to discharge by tomorrow or Monday. Until the, we will continue to monitor and treat as needed. #[id number] [facility]
[2019-08-25] MEDS ORDERED: ATORVASTATIN 20 MG TAB PO ONE (18:58)
[2019-08-25] MEDS: ATORVASTATIN 20 MG TAB PO SCH (20:15)
[2019-08-25] MEDS: DOCUSATE SODIUM 100 MG CAP PO SCH (20:16)
[2019-08-25] MEDS: AZITHROMYCIN 250 MG TAB PO SCH (20:16)
[2019-08-25] MEDS: traZODone HCL 100 MG TAB PO SCH (20:16)
[2019-08-25] MEDS: AZATHIOPRINE 50 MG PO SCH (20:17)
[2019-08-25] MEDS ORDERED: AZATHIOPRINE 100 MG PO SCH (21:00)
[2019-08-26] MEDS: PANTOPRAZOLE SODIUM IV 40 MG VIAL IV SCH (06:00)
[2019-08-26] MEDS ORDERED: SODIUM CHL 0.9% 50ML MIN-BAG+ 50 ML IVPB ONE (07:30)
[2019-08-26] MEDS ORDERED: cefTRIAXone SODIUM 1 GM VIAL ONE (07:31)
[2019-08-26] MEDS: VERAPAMIL ER TAB 180 MG TAB PO SCH (08:31)
[2019-08-26] MEDS: PREGABALIN 25 MG CAP PO SCH ×3 (08:31→20:16)
[2019-08-26] MEDS: ASPIRIN (ENTERIC COATED) 81 MG TAB PO SCH (08:31)
[2019-08-26] MEDS: FUROSEMIDE 40 MG TAB PO SCH (08:31)
[2019-08-26] MEDS: methylPREDNISolone SODIUM SUC 40 MG/ML VIAL IV SCH (08:32)
[2019-08-26] MEDS: CARVEDILOL 3.125 MG TAB PO SCH ×2 (08:32→20:17)
[2019-08-26] MEDS: ENOXAPARIN SODIUM 40 MG/0.4 ML SYG SUBCU SCH (08:32)
[2019-08-26] MEDS: IPRATROPIUM/ALBUTEROL 3 ML VIAL NEB SCH ×4 (08:45→20:41)
[2019-08-26] MEDS: cefTRIAXone SODIUM 1 GM in SODIUM CHL 0.9% 50ML MIN-BAG+ 50 ML IVPB SCH (09:21)
[2019-08-26] MEDS ORDERED: MAGNESIUM HYDROXIDE 30 ML UD PO ONE (10:25)
[2019-08-26] MEDS: POLYETHYLENE GLYCOL 3350 17 GM PCKT PO SCH (10:42)
--- NOTE | 2019-08-26 14:12 | PN ---
SUPERVISING PHYSICIAN: Ney Fernandez MD DATE: 08/26/19 SUBJECTIVE: The patient is till having some shortness of breath. This morning when she worked with physical therapy even on O2, she desaturated into the low 80s, but recovered quickly. She has had no nausea or vomiting. She reports she has not had a bowel movement now for three days. We did discuss giving her some MiraLAX and Milk of Magnesia in attempts to resolve this. She is not having any nausea or vomiting and no abdominal pains. She was tolerating her diet and has remained afebrile. OBJECTIVE: VITAL SIGNS: Temperature 97.2. Pulse 92. Blood pressure 100/71. Respirations 20. Saturation 92% on 3 liters nasal cannula. I&Os show positive balance of 565 with weight 66.4 kg. GENERAL: The patient is resting comfortably, appears to be in no acute distress. She is alert. CHEST: Lung sounds are improved today with no obvious wheezing. They do remain diminished towards the bases. HEART: Regular rate and rhythm. ABDOMEN: Soft, nontender, positive bowel sounds. EXTREMITIES: Without edema. NEUROLOGIC: She was alert and oriented x 3. LABORATORY: Repeat H&H this morning shows stable at hemoglobin 8.4 and hematocrit 24.9. Chemistries have been stable. MICROBIOLOGY: Blood cultures remain negative at 24 hours. RADIOLOGY: No additional radiographic studies this morning. ASSESSMENT: 1. Acute exacerbation of chronic obstructive pulmonary disease with left-sided community acquired pneumonia having recently been on antibiotics and failed outpatient treatment. The patient is O2 dependent and continues to show some low saturations with ambulation even with oxygen. 2. Extensive history of coronary artery disease with previous myocardial infarctions in 2007, 2009, and 2014 with stent placements with no evidence of chest pain. 3. Anemia, normocytic normochromic presentation on this admission with a history of iron-deficiency anemia previously on iron therapy. 4. Chronic neck and back pain. 5. Significant deconditioning from multiple hospitalizations requiring physical therapy consultation and possible inpatient rehabilitation to insure patient's safety once discharged. 5. Fibromyalgia. 6. Osteoarthritis. 7. Multiple thoracic and lumbar vertebral fractures with previous kyphoplasties. 8. Depression. 9. Hyperlipidemia. 10. Hypertension. 11. Gastroesophageal reflux disease. 12. Hiatal hernia. PLAN: We will continue with current plan at this point, but we will add some CPT. I was hoping to be able to discharge her today, but with her still desaturating into the low 80s with ambulation, certainly, we will continue aggressive treatment today. She did have physical therapy evaluation with recommendation that she could go home with physical therapy once able to be discharged. She does have [facility] for her health provider. I have transitioned her to oral steroids today. She remains on antibiotic coverage with Rocephin and azithromycin. She is GI prophylaxis with proton pump inhibitor. Until the patient can transition to outpatient management, we will continue to monitor and treat as needed. #[id number] [facility]
[2019-08-26] MEDS: HYDROcodone 5MG/APAP 325MG 1 EA TAB PO PRN ×3 (17:35→21:41)
[2019-08-26] MEDS ORDERED: SERTRALINE HCL 50 MG TAB ONE (18:57)
[2019-08-26] MEDS ORDERED: predniSONE 20 MG TAB PO ONE (20:00)
[2019-08-26] MEDS: AZITHROMYCIN 250 MG TAB PO SCH (20:13)
[2019-08-26] MEDS: DOCUSATE SODIUM 100 MG CAP PO SCH (20:14)
[2019-08-26] MEDS: ATORVASTATIN 20 MG TAB PO SCH (20:14)
[2019-08-26] MEDS: SERTRALINE HCL 50 MG TAB PO SCH (20:15)
[2019-08-26] MEDS: traZODone HCL 100 MG TAB PO SCH (20:15)
[2019-08-26] MEDS: AZATHIOPRINE 50 MG PO SCH (20:17)
[2019-08-27] MEDS: PANTOPRAZOLE SODIUM IV 40 MG VIAL IV SCH (06:04)
--- NOTE | 2019-08-27 06:07 | RAD ---
EXAM: XR Chest, 2 Views CLINICAL HISTORY: The patient is 68 years old and is Female; pneumonia TECHNIQUE: Frontal and lateral views of the chest. COMPARISON: Chest radiograph August 25, 2019 FINDINGS: LUNGS: Chronic coarse interstitial markings are present. Interval improvement in the left lower lobe opacity is noted. PLEURAL SPACE: Unremarkable. No pneumothorax. HEART: The cardiac silhouette is stable. Mild prominence of central vasculature is noted. MEDIASTINUM: A large hiatal hernia is present. BONES/JOINTS: Postsurgical change of the cervical spine is present. TUBES, LINES AND DEVICES: A loop recorder is noted. OTHER FINDINGS: Vertebroplasty at multiple levels is present. IMPRESSION: Interval improvement in the left lower lobe opacity. Otherwise, stable chest. Electronically signed by: Yecenia Torres MD 08/27/2019 6:06 AM [facility]
[2019-08-27] MEDS: IPRATROPIUM/ALBUTEROL 3 ML VIAL NEB SCH ×4 (08:57→21:15)
[2019-08-27] MEDS ORDERED: cefTRIAXone SODIUM 1 GM VIAL ONE (09:24)
[2019-08-27] MEDS ORDERED: SODIUM CHL 0.9% 50ML MIN-BAG+ 50 ML IVPB ONE (09:24)
[2019-08-27] MEDS: POLYETHYLENE GLYCOL 3350 17 GM PCKT PO SCH (09:44)
[2019-08-27] MEDS: PREGABALIN 25 MG CAP PO SCH ×3 (09:44→20:32)
[2019-08-27] MEDS: CARVEDILOL 3.125 MG TAB PO SCH ×2 (09:44→20:34)
[2019-08-27] MEDS: ASPIRIN (ENTERIC COATED) 81 MG TAB PO SCH (09:44)
[2019-08-27] MEDS: ENOXAPARIN SODIUM 40 MG/0.4 ML SYG SUBCU SCH (09:44)
[2019-08-27] MEDS: predniSONE 20 MG TAB PO SCH (09:44)
[2019-08-27] MEDS: VERAPAMIL ER TAB 180 MG TAB PO SCH (09:44)
[2019-08-27] MEDS: FUROSEMIDE 40 MG TAB PO SCH (09:44)
[2019-08-27] MEDS: cefTRIAXone SODIUM 1 GM in SODIUM CHL 0.9% 50ML MIN-BAG+ 50 ML IVPB SCH (09:45)
--- NOTE | 2019-08-27 15:30 | PN ---
SUPERVISING PHYSICIAN: Ney Fernandez MD DATE: 08/27/19 SUBJECTIVE: The patient is sitting up in bed. She is somewhat short of breath with speech. She can only speak in short 2 to 3 word phrases without getting short of breath. She has a friend at the bedside. She has no complaints of nausea, vomiting, chest pain. She does continue complaints of some weakness and some shortness of breathy, but the have improved. OBJECTIVE: VITAL SIGNS: Temperature 98. Heart rate 79. Blood pressure 124/81. Respiratory rate 1.6 O2 saturation 92% on 2 liters nasal cannula. RESPIRATORY: Somewhat diminished at the bases, otherwise clear to auscultation. CARDIAC: Regular rate and rhythm. GASTROINTESTINAL: Abdomen is soft, nondistended, nontender. Bowel sounds are positive. NEUROLOGIC: Awake, alert and oriented times three. LABORATORY: Preliminary blood cultures show no growth after 48 hours. Chest x- ray shows interval improvement of the left lower lobe opacity, otherwise stable chest. All other labs and films have been reviewed via the EMR. ASSESSMENT: 1. Acute exacerbation of chronic obstructive pulmonary disease with left-sided community acquired pneumonia having recently been on antibiotics and failed outpatient treatment. The patient is O2 dependent and continues to show some low saturations with ambulation even with oxygen. 2. Extensive history of coronary artery disease with previous myocardial infarctions in 2007, 2009, and 2014 with stent placements with no evidence of chest pain. 3. Anemia, normocytic normochromic presentation on this admission with a history of iron-deficiency anemia previously on iron therapy. 4. Chronic neck and back pain. 5. Significant deconditioning from multiple hospitalizations requiring physical therapy consultation and possible inpatient rehabilitation to insure patient's safety once discharged. 5. Fibromyalgia. 6. Osteoarthritis. 7. Multiple thoracic and lumbar vertebral fractures with previous kyphoplasties. 8. Depression. 9. Hyperlipidemia. 10. Hypertension. 11. Gastroesophageal reflux disease. 12. Hiatal hernia. PLAN: We will continue present supportive care. At the request of her primary care physician, Dr. Figueroa, we will discontinue her oxycodone and continue her on hydrocodone as she presently is scheduled. I have done a CBC and an x-ray in the morning. We will need to watch her H&H closely as it is slowly dropping. She has also gradually been weaned off of her IV steroids and we will start p.o. prednisone in the morning. She will need to ambulate in the hallways. We will encourage good pulmonary hygiene. We will continue to monitor the patient closely and follow as needed. #[id number] [facility]
[2019-08-27] MEDS: IV SET AND CAP CHANGE INJ INJ SCH (20:32)
[2019-08-27] MEDS: AZITHROMYCIN 250 MG TAB PO SCH (20:33)
[2019-08-27] MEDS: traZODone HCL 100 MG TAB PO SCH (20:33)
[2019-08-27] MEDS: ATORVASTATIN 20 MG TAB PO SCH (20:33)
[2019-08-27] MEDS: SERTRALINE HCL 50 MG TAB PO SCH (20:33)
[2019-08-27] MEDS: DOCUSATE SODIUM 100 MG CAP PO SCH (20:33)
[2019-08-27] MEDS: AZATHIOPRINE 50 MG PO SCH (20:34)
[2019-08-28 04:33] VITALS: TEMP 98; O2SAT 93
[2019-08-28] MEDS: PANTOPRAZOLE SODIUM IV 40 MG VIAL IV SCH (06:13)
--- NOTE | 2019-08-28 06:55 | RAD ---
EXAM DESCRIPTION: Chest,2 Views CLINICAL HISTORY: pna COMPARISON: Previous study August 27, 2019 TECHNIQUE: PA/lateral FINDINGS: Plate and screws in lower C-spine. Multilevel methacrylate in the thoracolumbar spine. Implanted cardiac monitoring device over the lower left heart. Heart size is enlarged with increased pulmonary vascularity. No pleural effusion or pneumothorax. Patchy perihilar interstitial and airspace infiltrates especially in the left upper lobe and left lower lobe. Findings appear slightly worsened compared to previous study. Lateral view shows intact sternum and T-spine. IMPRESSION: Large heart with increased vascularity. Bilateral interstitial and airspace pulmonary infiltrates, left more than right. Electronically signed by: Phan Mohan MD 08/28/2019 6:54 AM GLOBAL PROGRAM MANAGER
[2019-08-28] MEDS: IPRATROPIUM/ALBUTEROL 3 ML VIAL NEB SCH ×2 (08:30→14:26)
[2019-08-28] MEDS ORDERED: SODIUM CHL 0.9% 50ML MIN-BAG+ 50 ML IVPB ONE (09:34)
[2019-08-28] MEDS ORDERED: cefTRIAXone SODIUM 1 GM VIAL ONE (09:35)
[2019-08-28] MEDS: ASPIRIN (ENTERIC COATED) 81 MG TAB PO SCH (10:34)
[2019-08-28] MEDS: FUROSEMIDE 40 MG TAB PO SCH (10:34)
[2019-08-28] MEDS: VERAPAMIL ER TAB 180 MG TAB PO SCH (10:34)
[2019-08-28] MEDS: CARVEDILOL 3.125 MG TAB PO SCH (10:34)
[2019-08-28] MEDS: ENOXAPARIN SODIUM 40 MG/0.4 ML SYG SUBCU SCH (10:34)
[2019-08-28] MEDS: POLYETHYLENE GLYCOL 3350 17 GM PCKT PO SCH ×2 (10:35→10:37)
[2019-08-28] MEDS: PREGABALIN 25 MG CAP PO SCH (10:35)
[2019-08-28] MEDS: predniSONE 20 MG TAB PO SCH (10:35)
[2019-08-28] MEDS: cefTRIAXone SODIUM 1 GM in SODIUM CHL 0.9% 50ML MIN-BAG+ 50 ML IVPB SCH (10:44)
[2019-08-28 12:48] VITALS: BP 98/62
[2019-08-28] MEDS: AZITHROMYCIN 250 MG TAB PO SCH (12:52)
[2019-08-31] MEDS ORDERED: predniSONE 20 MG TAB PO SCH (09:00)
--- NOTE | 2019-08-31 12:23 | DS ---
SUPERVISING PHYSICIAN: Ney Fernandez MD DISCHARGE DIAGNOSES: 1. Acute exacerbation of chronic obstructive pulmonary disease with left-sided community acquired pneumonia having recently been on antibiotics and failed outpatient treatment. The patient is O2 dependent and continues to show some low saturations with ambulation even with oxygen. 2. Extensive history of coronary artery disease with previous myocardial infarctions in 2007, 2009, and 2014 with stent placements with no evidence of chest pain. 3. Anemia, normocytic normochromic presentation on this admission with a history of iron-deficiency anemia previously on iron therapy. 4. Chronic neck and back pain. 5. Significant deconditioning from multiple hospitalizations requiring physical therapy consultation and possible inpatient rehabilitation to insure patient's safety once discharged. 5. Fibromyalgia. 6. Osteoarthritis. 7. Multiple thoracic and lumbar vertebral fractures with previous kyphoplasties. 8. Depression. 9. Hyperlipidemia. 10. Hypertension. 11. Gastroesophageal reflux disease. 12. Hiatal hernia. HISTORY OF PRESENT ILLNESS: This is a 69-year-old female patient who presented to the Emergency Room with complaints of shortness of breath, chest congestion and cough. She has a longstanding history of chronic obstructive pulmonary disease and multiple Emergency Room visits in the last month for generalized weakness and falls. She had progressively worsened over the last week with increased shortness of breath and weakness. She does wear oxygen at home but noted she had oxygen saturation in the low 70s off oxygen and only mid to low 90s when using her oxygen. She was recently in the hospital here in [place] within the last week and treated for a urinary tract infection and discharged on Macrobid. Her initial oxygen saturations on room air were in the mid 70s. She was given breathing treatment with some improvement. Her chest x-ray showed some bilateral vascular congestion versus early consolidation. Given her past medical history and current findings, she was admitted to the hospital for an exacerbation of chronic obstructive pulmonary disease and some developing community acquired pneumonia. She was admitted to the medical/surgical floor and pneumonia guidelines were initiated. She had p.r.n. and scheduled nebulizer treatments and was also given azithromycin and Rocephin. A proton pump inhibitor was given for ulcer prophylaxis. She was very short of breath during the initial few days while in the hospital. She also had some wheezing and was given some IV Solu-Medrol. She is on chronic steroids at home. Her steroids were tapered down over the next days and she was transitioned to oral dosing. She had aggressive pulmonary hygiene as well as physical therapy. She was also given DVT prophylaxis. She progressively improved. There was also some concerns over her chronic pain medication. She does see a pain doctor but her primary care physician, Dr. Figueroa, would like her to be off the Oxycodone and he was to switch her to hydrocodone at discharge. She will see him in followup to discuss her pain medication. She has improved significantly and will be discharged home today in stable condition. LABORATORY: Her initial WBCs were 10.6, they dropped to 3800 and today are 5,600. Initially her hemoglobin was 10.2 and hematocrit 30.7. Hemoglobin did drop down to 8.4 and hematocrit 24.9 and today is 8.9 and 26.5. She did have a left shift on her differential. Her blood gas showed PC02 of 38, P02 of 66, bicarb of 27, pH 7.458. Her oxygen saturations were 94%. Her initial electrolytes were unremarkable and today are fairly unremarkable with the exception of her calcium being slightly low at 7.5. BUN and creatinine are stable at 20 and 0.67. Initially, her BNP was 324 and she had a negative troponin. Urinalysis was unremarkable. Stool for occult blood was negative. Preliminary blood cultures showed no growth after 5 days. Influenza per PCR were negative for A and B flu. Final chest x-ray showed enlarged heart with increased vascularity, bilateral interstitial airspace pulmonary infiltrate, left more than right but improved from her previous study. DISCHARGE PLAN: She will be discharged home in stable condition. She is to resume her previous diet and increase her activity as tolerated. She has a followup appointment with her primary care physician on 08/29/19 at 3:45 PM. In addition to her home medication, she will be on azithromycin as well as Cefdinir and a prednisone taper. She is to return to the hospital or followup with Dr. Figueroa for any problems or complications. DISCHARGE MEDICATIONS: 1. Verapamil. 2. Trazodone. 3. Carvedilol. 4. Nexium. 5. Aspirin. 7. Incruse Ellipta. 8. Prednisone. 9. Docusate sodium. 10. Pregabalin. 11. Zofran. 12. Sertraline. 13. Imuran. 14. Atorvastatin. 15. Furosemide. 16. Macrobid. 17. Azithromycin. 18. Cefdinir. 19. Prednisone. #[id number] [facility]
== END 2019-08-28 12:45 | disposition home or self-care (01) | DRG 193 ==
LOC: ER 11:51 → MS 15:46 → OBSVTOIN 15:46
PROVIDERS: ADMIT Nurse Practitioner Family; ATTEND Nurse Practitioner Acute Care
DX: J18.9 Pneumonia, unspecified organism (principal); J96.21 Acute and chronic respiratory failure with hypoxia; J44.1 Chronic obstructive pulmonary disease with (acute) exacerbation; J44.0 Chronic obstructive pulmonary disease with (acute) lower respiratory infection; I25.10 Atherosclerotic heart disease of native coronary artery without angina pectoris; D64.9 Anemia, unspecified; G89.29 Other chronic pain; M54.2 Cervicalgia; M54.9 Dorsalgia, unspecified; M79.7 Fibromyalgia; M19.90 Unspecified osteoarthritis, unspecified site; F32.9 Major depressive disorder, single episode, unspecified; E78.5 Hyperlipidemia, unspecified; I10 Essential (primary) hypertension; K21.9 Gastro-esophageal reflux disease without esophagitis; K44.9 Diaphragmatic hernia without obstruction or gangrene; I25.2 Old myocardial infarction; Z99.81 Dependence on supplemental oxygen; Z95.5 Presence of coronary angioplasty implant and graft; Z87.440 Personal history of urinary (tract) infections; Z96.643 Presence of artificial hip joint, bilateral; Z88.0 Allergy status to penicillin; Z88.2 Allergy status to sulfonamides; Z88.8 Allergy status to other drugs, medicaments and biological substances; Z91.040 Latex allergy status; Z79.82 Long term (current) use of aspirin; Z79.52 Long term (current) use of systemic steroids; Z79.899 Other long term (current) drug therapy; Z86.73 Personal history of transient ischemic attack (TIA), and cerebral infarction without residual deficits

== ENCOUNTER → 2019-10-27 | Outpatient (CLI) | payer MEDICARE, MEDICAID | LOC: YCHH 18:24 | PROVIDERS: ATTEND Family Medicine | DX: R35.0 Frequency of micturition (principal) ==

== ENCOUNTER 2019-11-05 19:25 | Emergency (ER) | payer MEDICARE, MEDICAID ==
[2019-11-05 19:53] VITALS: TEMP 98.4
[2019-11-05] MEDS ORDERED: SODIUM CHLORIDE 0.9% 1000ML 1,000 ML IVS ONE (20:11)
--- NOTE | 2019-11-05 20:17 | ED.PDOC ---
History of Present Illness - General Chief Complaint: GI Problem Stated Complaint: nausea, loss of appetite x4 weeks Time Seen by Provider: 11/05/19 19:44 Source: patient, family Exam Limitations: no limitations - History of Present Illness Initial Comments: 4 WKS NAUSEA, DECREASED APPETITE AND DECR PO FOOD INTAKE WITH RESULTANT 10 LB WEIGHT LOSS, GEN WEAKNESS. APPROX 1 WK AGO, CALLED DR. GARVEY, PCP (UNABLE TO SEE IN CLINIC D/T FLOOD CLINIC CLOSURES). HE RX'D ZOFRAN, WHICH HAS NOT HELPED THE NAUSEA. DENIES COUGH, SOB, V/D/C, F/C/S, AND ABD PAIN. DENIES ANY SIMILAR PREVIOUS SX. APPROX 10 YRS AGO HAD AR AND STROKE. TAKES MED FOR HTN. REPORTS HAD A NEG C- SCOPE YEARS AGO. Timing/Duration: constant Severity: moderate Improving Factors: nothing Worsening Factors: nothing Associated Symptoms: loss of appetite Allergies/Adverse Reactions: Allergies Penicillins Allergy (Mild, Verified 08/24/19 15:53) Unknown reports made throat swell when she was a child Sulfamethoxazole w/Trimethoprim [From Bactrim] Allergy (Mild, Verified 08/24/19 15:53) Nausea Latex Allergy (Verified 08/24/19 15:53) No Known Latex Allergy Allergy (Verified 11/05/19 20:21) Promethazine [From Phenergan] Allergy (Verified 08/24/19 15:53) adhesive tape Allergy (Uncoded 08/24/19 15:53) Home Medications: Ambulatory Orders Carvedilol [Coreg] 3.125 mg PO BID 05/19/18 Trazodone HCl [Trazodone Hydrochloride] 150 mg PO BEDTIME 05/19/18 Verapamil HCl [Verapamil HCl Sr] 180 mg PO DAILY 05/19/18 Aspirin [Aspirin Adult Low Dose] 81 mg PO DAILY 06/17/18 Esomeprazole Magnesium [Nexium] 40 mg PO DAILY 06/17/18 Docusate Sodium [Colace] 100 mg PO BEDTIME 03/17/19 Ondansetron Odt [Zofran Odt] 4 mg PO Q6H PRN 08/14/19 Pregabalin [Lyrica] 50 mg PO TID 08/14/19 Atorvastatin Calcium 40 mg PO DAILY 08/24/19 Azathioprine [Imuran] 100 mg PO BEDTIME 08/24/19 Furosemide 20 mg PO DAILY 08/24/19 Sertraline HCl [Zoloft] 100 mg PO BEDTIME 08/24/19 Amitriptyline HCl [Amitriptyline Hydrochlori] 10 mg PO 11/05/19 Hydroxychloroquine Sulfate [Hydroxychloroquine Sulfat] 11/05/19 Prednisone 20 mg PO DAILY 11/05/19 Pregabalin 50 mg PO 11/05/19 Promethazine HCl 12.5 mg PO 11/05/19 Trazodone HCl 150 mg PO 11/05/19 Review of Systems - Review of Systems Constitutional: States: weakness - GEN WEAKNESS. . Denies: chills, fever EENTM: Denies: nose congestion, throat pain Respiratory: Denies: cough, short of breath, wheezing Cardiology: Denies: chest pain, palpitations Gastrointestinal/Abdominal: States: nausea. Denies: abdominal pain, constipation, diarrhea, vomiting Genitourinary: Denies: dysuria, frequency, pain Musculoskeletal: Denies: back pain, neck pain Skin: Denies: lesions, rash Neurological: States: weakness - GENERALIZED. Denies: headache, paresthesia Endocrine: States: intolerance to cold. Denies: excessive sweating, flushing Hematologic/Lymphatic: Denies: easy bleeding, easy bruising, swollen glands All other Systems: Reviewed and Negative Past Medical History (General) - Patient Medical History Hx Seizures: No Hx Stroke: Yes - 7 years ago Hx Dementia: No Hx Asthma: Yes Hx of COPD: Yes Hx Cardiac Disorders: Yes Hx Congestive Heart Failure: Yes Hx Pacemaker: No Hx Hypertension: No Hx Thyroid Disease: No Hx Diabetes: No Hx Gastroesophageal Reflux: Yes Hx Renal Disease: No Hx Cancer: No Hx of HIV: No Hx Hepatitis C: No Hx MRSA: No MRSA Source:: Wound - Vaccination History Hx Tetanus, Diphtheria Vaccination: No Hx Influenza Vaccination: Yes Hx Pneumococcal Vaccination: Yes Immunizations Up to Date: Yes - Social History Hx Tobacco Use: No Hx Chewing Tobacco Use: No Hx Alcohol Use: No Hx Substance Use: No Hx Substance Use Treatment: No Hx Depression: No Feels Threatened In Home Enviroment: No Feels Threatened In a Relationship: No Hx Physical Abuse: No Hx Emotional Abuse: No Hx Suspected Abuse: No - Activities of Daily Living Hospice Agency (if applicable):: None - Female History Patient is a Female of Child Bearing Age (10 -59 yrs old): No Patient : No Family Medical History - Family History Mother Family History: Unknown Living Status: Hx Family;Other: SHE DID NOT KNOW PARENTS AND SHE DOES NOT KNOW FH HISTORY. PT ADOPTED Physical Exam - Physical Exam General Appearance: Alert, Other - FATIGUED APPEARING. Eye Exam: bilateral normal Ears, Nose, Throat: hearing grossly normal, normal ENT inspection, other - MUCUS MEMBRANES DRY Neck: non-tender, full range of motion, supple Respiratory: chest non-tender, lungs clear, normal breath sounds, no respiratory distress, no accessory muscle use Cardiovascular/Chest: regular rate, rhythm, no murmur Peripheral Pulses: radial,right: 1+, radial,left: 1+ Gastrointestinal/Abdominal: normal bowel sounds, soft, tenderness - TTP LLQ AND RLQ. NTTP PERIUMBILICAL AND REMAINDER. NO G/R. Back Exam: no CVA tenderness, no vertebral tenderness Extremity: normal range of motion, normal inspection, no pedal edema, no calf tenderness Neurologic: no motor/sensory deficits, alert, oriented x 3 Skin Exam: normal color, other - BL FEET COLD. Lymphatic: no adenopathy Progress - Progress Progress: 11/05/19 21:38 CBC - MILD ANEMIA. CMP - NO CONCERNS. NEG FOR OBVIOUS HEPATOBILIARY PATHOLOGY TO EXPLAIN HER CHRONIC NAUSEA. EKG NSR. LIPASE NEG. CARD ENZ - TROP AND CKMB NEG. CK ELEVATED, C/W DEHYDRATION. SBP 125; GAVE 1L NS BOLUS, THEN 107/65. DEHYDRATED THUS I WANTED TO GIVE 2ND BOLUS BUT PT REFUSED AND IS REQUESTING TO GO HOME. U/A ALSO NOT OBTAINED SINCE PT DEHYDRATED AND WAS UNABLE TO VOID AND UNWILLING TO HAVE 2ND BOLUS. PT STATES HER BP IS CHRONICALLY LOW AND THAT THIS IS NOT ABNORMAL FOR HER. KUB SHOWS DISTENDED SMALL BOWEL LOOPS W/ GAS. NO FREE AIR, NO PERFORATION. PT REPORTS PASSING FLATUS AND HAS POS BOWEL SOUNDS, THUS NOT ILEUS OR COMPLETE SMALL BOWEL OBSTRUCTION. MY PLAN WAS TO OBTAIN A CT ABD/PELVIS WITH PO CONTRAST TO LOOK FOR PARTIAL SMALL BOWEL OBSTRUCTION BUT PT REFUSED. SHE IS WILLING TO SEE A GI DR FOR MORE TESTING. SHE IS HEMODYNAMICALLY STABLE AND DOES NOT HAVE ABD PAIN/ SURGICAL ABDOMEN, THUS IT IS REASONABLE TO DISCHARGE FROM ER WITH F/U WITH GI. REFERRED TO GI - WHERE HE CAN FURTHER EVALUATE AND CONSIDER OUTPT CT WITH PO CONTRAST, CHOLECYSTOKININ SCAN FOR BILIARY DYSKINESIA, ETC. Departure - Departure Clinical Impression: Nausea alone, Decreased appetite, Generalized weakness, Feels cold, Dehydration, Elevated creatine kinase, Mild anemia Disposition: Discharge to Home or Self Care Condition: Fair Departure Forms: ED Discharge - Pt. Copy, Patient Portal Self Enrollment Instructions: Nausea and Vomiting, Adult (DC) Diet: bland diet - Increase fruits and vegetables. Activity: increase activity as tolerated Referrals: Rakan Figueroa MD [Primary Care Provider] - 1-2 Weeks Home Medications: Ambulatory Orders Carvedilol [Coreg] 3.125 mg PO BID 05/19/18 Trazodone HCl [Trazodone Hydrochloride] 150 mg PO BEDTIME 05/19/18 Verapamil HCl [Verapamil HCl Sr] 180 mg PO DAILY 05/19/18 Aspirin [Aspirin Adult Low Dose] 81 mg PO DAILY 06/17/18 Esomeprazole Magnesium [Nexium] 40 mg PO DAILY 06/17/18 Docusate Sodium [Colace] 100 mg PO BEDTIME 03/17/19 Ondansetron Odt [Zofran Odt] 4 mg PO Q6H PRN 08/14/19 Pregabalin [Lyrica] 50 mg PO TID 08/14/19 Atorvastatin Calcium 40 mg PO DAILY 08/24/19 Azathioprine [Imuran] 100 mg PO BEDTIME 08/24/19 Furosemide 20 mg PO DAILY 08/24/19 Sertraline HCl [Zoloft] 100 mg PO BEDTIME 08/24/19 Amitriptyline HCl [Amitriptyline Hydrochlori] 10 mg PO 11/05/19 Hydroxychloroquine Sulfate [Hydroxychloroquine Sulfat] 11/05/19 Prednisone 20 mg PO DAILY 11/05/19 Pregabalin 50 mg PO 11/05/19 Promethazine HCl 12.5 mg PO 11/05/19 Trazodone HCl 150 mg PO 11/05/19 Additional Instructions: Please call the gastroenterology (intestinal) doctor tomorrow to arrange an appointment for further testing for the nausea. As mentioned, please continue taking a daily probiotic, stool softener, and increased intake of fruits and vegetables.
--- NOTE | 2019-11-05 20:57 | RAD ---
EXAM DESCRIPTION: KUB CLINICAL HISTORY: 69 years Female NAUSEA X 4 WEEKS COMPARISON: None TECHNIQUE: Supine view of the abdomen was obtained. FINDINGS: Gas is seen throughout the bowel. Bowel gas is identified within the rectosigmoid region. Moderately distended small bowel loops upper and left abdomen with stacked configuration. Bilateral total hip prostheses. Multiple vertebroplasty/kyphoplasty thoracic and lumbar spine. Osteopenia. IMPRESSION: Distended small bowel loops upper abdomen possibly ileus however clinical correlation and follow-up would be needed to further exclude developing partial small bowel obstruction. No perforation. Electronically signed by: Rosa Cano MD 11/05/2019 8:55 PM CDT
[2019-11-05 21:59] VITALS: BP 120/68; O2SAT 99
== END 2019-11-05 21:58 | disposition home or self-care (01) ==
LOC: ER 19:25
DX: R11.0 Nausea (principal); R53.1 Weakness; E86.0 Dehydration; I50.9 Heart failure, unspecified; D64.9 Anemia, unspecified; R63.0 Anorexia
CPT/HCPCS: 36415; 74018; 80053; 82550; 82553; 83690; 84484; 85025; 93005; J7030

== ENCOUNTER → 2019-12-12 | Outpatient (CLI) | payer MEDICARE, MEDICAID | LOC: YCHH 10:36 | PROVIDERS: ATTEND Family Medicine | DX: D64.9 Anemia, unspecified (principal); N39.0 Urinary tract infection, site not specified; N18.9 Chronic kidney disease, unspecified; E78.5 Hyperlipidemia, unspecified; E03.9 Hypothyroidism, unspecified; R74.0 Nonspecific elevation of levels of transaminase and lactic acid dehydrogenase [LDH]; M10.9 Gout, unspecified ==

== ENCOUNTER 2020-04-10 15:02 | Emergency (ER) | payer MEDICARE, MEDICAID ==
--- NOTE | 2020-04-10 15:41 | RAD ---
EXAM DESCRIPTION: Hand,Left 3 Views CLINICAL HISTORY: fall COMPARISON: None Available. TECHNIQUE: AP, LATERAL, AND OBLIQUE FINDINGS: X-ray three-view left hand. Nondisplaced fracture at the base of the fifth metacarpal. Suspect intra-articular extent. This only well seen on AP view. No other fracture. IMPRESSION: 1. Intra-articular fifth metacarpal fracture-acute nondisplaced Electronically signed by: Frank Jack MD 04/10/2020 3:39 PM CDT
--- NOTE | 2020-04-10 15:42 | RAD ---
EXAM DESCRIPTION: Wrist,Left 3 Views CLINICAL HISTORY: 69 years, Female, fall COMPARISON: None IMPRESSION: X-ray Three-view left wrist. Acute nondisplaced fracture the base of the fifth metacarpal. This is suspected to involve the articular surface of the fifth metacarpal proximally. No other fracture. Electronically signed by: Frank Jack MD 04/10/2020 3:40 PM CDT
--- NOTE | 2020-04-10 15:51 | ED.PDOC ---
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 did not hit head. also hit knee, has small bruise. not on blood thinners. no headache, no other injuries. Allergies/Adverse Reactions: Allergies Penicillins Allergy (Mild, Verified 04/10/20 17:00) Unknown reports made throat swell when she was a child Sulfamethoxazole w/Trimethoprim [From Bactrim] Allergy (Mild, Verified 04/10/20 17:00) Nausea Latex Allergy (Verified 04/10/20 17:00) No Known Latex Allergy Allergy (Verified 04/10/20 17:00) Promethazine [From Phenergan] Allergy (Verified 04/10/20 17:00) adhesive tape Allergy (Uncoded 04/10/20 17:00) Home Medications: Ambulatory Orders Carvedilol [Coreg] 3.125 mg PO BID 05/19/18 Trazodone HCl [Trazodone Hydrochloride] 150 mg PO BEDTIME 05/19/18 Verapamil HCl [Verapamil HCl Sr] 180 mg PO DAILY 05/19/18 Aspirin [Aspirin Adult Low Dose] 81 mg PO DAILY 06/17/18 Esomeprazole Magnesium [Nexium] 40 mg PO DAILY 06/17/18 Docusate Sodium [Colace] 100 mg PO BEDTIME 03/17/19 Ondansetron Odt [Zofran Odt] 4 mg PO Q6H PRN 08/14/19 Pregabalin [Lyrica] 50 mg PO TID 08/14/19 Atorvastatin Calcium 40 mg PO DAILY 08/24/19 Azathioprine [Imuran] 100 mg PO BEDTIME 08/24/19 Furosemide 20 mg PO DAILY 08/24/19 Sertraline HCl [Zoloft] 100 mg PO BEDTIME 08/24/19 Amitriptyline HCl [Amitriptyline Hydrochlori] 10 mg PO 11/05/19 Hydroxychloroquine Sulfate [Hydroxychloroquine Sulfat] 11/05/19 Pregabalin 50 mg PO 11/05/19 Promethazine HCl 12.5 mg PO 11/05/19 Trazodone HCl 150 mg PO 11/05/19 Review of Systems - Review of Systems Constitutional: Denies: chills, fever EENTM: Denies: blurred vision, mouth pain Respiratory: Denies: cough, short of breath Cardiology: Denies: chest pain, palpitations, syncope Gastrointestinal/Abdominal: Denies: abdominal pain, diarrhea, nausea, vomiting Genitourinary: Denies: frequency, hematuria Musculoskeletal: States: joint pain, joint swelling. Denies: back pain, muscle pain, muscle stiffness Skin: States: other - ecchymosis Neurological: Denies: headache, numbness, paresthesia, tingling, tremors, weak ness Endocrine: Denies: unexplained weight gain, unexplained weight loss Hematologic/Lymphatic: Denies: easy bleeding, easy bruising Past Medical History (General) - Patient Medical History Hx Seizures: No Hx Stroke: Yes - 7 years ago Hx Dementia: No Hx Asthma: Yes Hx of COPD: Yes Hx Cardiac Disorders: Yes Hx Congestive Heart Failure: Yes Hx Pacemaker: No Hx Hypertension: No Hx Thyroid Disease: No Hx Diabetes: No Hx Gastroesophageal Reflux: Yes Hx Renal Disease: No Hx Cancer: No Hx of HIV: No Hx Hepatitis C: No Hx MRSA: No MRSA Source:: Wound - Vaccination History Hx Tetanus, Diphtheria Vaccination: No Hx Influenza Vaccination: Yes Hx Pneumococcal Vaccination: Yes - Social History Hx Tobacco Use: No Hx Chewing Tobacco Use: No Hx Alcohol Use: No Hx Substance Use: No Hx Substance Use Treatment: No Hx Depression: No Hx Physical Abuse: No Hx Emotional Abuse: No Hx Suspected Abuse: No - Female History Patient : No Family Medical History - Family History Mother Family History: Unknown Living Status: Hx Family;Other: SHE DID NOT KNOW PARENTS AND SHE DOES NOT KNOW FH HISTORY. PT ADOPTED Physical Exam - Physical Exam General Appearance: Alert, Comfortable, No apparent distress, Well Developed, Well Groomed, Well Hydrated, Well Nourished, Other - steady gait uses cane Eyes, Ears, Nose, Throat Exam: PERRL/EOMI, normal ENT inspection, TMs normal Neck: non-tender, full range of motion, supple, normal inspection Cardiovascular/Respiratory: regular rate, rhythm, no M/R/G, normal peripheral pulses, no JVD, normal breath sounds, no respiratory distress Abdominal Exam: non-tender, no organomegaly, no hernia Back Exam: normal inspection, no CVA tenderness, no vertebral tenderness Shoulder Exam: normal inspection, non-tender, no evidence of injury, normal ROM Elbow/Forearm Exam: normal inspection, non-tender, no evidence of injury, normal ROM Wrist Exam: normal inspection, non-tender, no evidence of injury, normal ROM Hand Exam: normal ROM, ecchymosis, swelling - ecchymosis on dorsum of hand, swelling, no deformity. Neuro/Tendon: normal sensation, normal motor functions, normal tendon functions, responds to pain, no evidence tendon injury Mental Status: alert, oriented x 3 Skin Exam: warm/dry, other - small ecchymosis to left knee without swelling or deformity Comments: Symmetrically palpable radial and ulnar pulses. Capillary refill <2 seconds to all digits. 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 Intact recurrent median nerve as demonstrated by ability to move thumb fully through opposition, abduction and flexion. No snuffbox tenderness. Progress - Progress Progress: An ulnar gutter splint was placed. Patient tolerated well. The data reviewed when caring for this patient included: nurse notes, prior records, etc. The history and assessments from nurses notes were reviewed and considered, and the patient's home medication list was also reviewed and considered. My assessment and the results of testing completed here in the ED were discussed with the patient/family. All questions were answered, and they express understanding of my assessment and the plan. They have been instructed to return if their symptoms worsen, and have been asked to follow up with ho orthopedic physician to recheck today's presenting complaint. return precautions given. Liberty Carbajal DO #[id number] - EKG/XRAY/CT XRAY: hand - Intra-articular fifth metacarpal fracture-acute nondisplaced Xray Comments: wrist no acute pathology noted. Departure - Departure Clinical Impression: Metacarpal bone fracture Qualifiers: Encounter type: initial encounter Metacarpal bone: fifth Fracture type: closed Metacarpal location: base Fracture alignment: nondisplaced Laterality: left Qualified Code(s): S62.347A - Nondisplaced fracture of base of fifth metacarpal bone, left hand, initial encounter for closed fracture Time of Disposition: 15:50 Disposition: Discharge to Home or Self Care Departure Forms: ED Discharge - Pt. Copy, Patient Portal Self Enrollment Instructions: Cast Care, Boxer's Fracture, Splint Care Referrals: Rakan Figueroa MD [Primary Care Provider] - 1-5 Days Nain Andino MD [Active Staff] - 1-5 Days Home Medications: Ambulatory Orders Carvedilol [Coreg] 3.125 mg PO BID 05/19/18 Trazodone HCl [Trazodone Hydrochloride] 150 mg PO BEDTIME 05/19/18 Verapamil HCl [Verapamil HCl Sr] 180 mg PO DAILY 05/19/18 Aspirin [Aspirin Adult Low Dose] 81 mg PO DAILY 06/17/18 Esomeprazole Magnesium [Nexium] 40 mg PO DAILY 06/17/18 Docusate Sodium [Colace] 100 mg PO BEDTIME 03/17/19 Ondansetron Odt [Zofran Odt] 4 mg PO Q6H PRN 08/14/19 Pregabalin [Lyrica] 50 mg PO TID 08/14/19 Atorvastatin Calcium 40 mg PO DAILY 08/24/19 Azathioprine [Imuran] 100 mg PO BEDTIME 08/24/19 Furosemide 20 mg PO DAILY 08/24/19 Sertraline HCl [Zoloft] 100 mg PO BEDTIME 08/24/19 Amitriptyline HCl [Amitriptyline Hydrochlori] 10 mg PO 11/05/19 Hydroxychloroquine Sulfate [Hydroxychloroquine Sulfat] 11/05/19 Pregabalin 50 mg PO 11/05/19 Promethazine HCl 12.5 mg PO 11/05/19 Trazodone HCl 150 mg PO 11/05/19
[2020-04-10 17:11] VITALS: TEMP 97.7; O2SAT 95
[2020-04-10 17:20] VITALS: BP 111/79
== END 2020-04-10 16:30 | disposition home or self-care (01) ==
LOC: ER 15:02
DX: S62.347A Nondisplaced fracture of base of fifth metacarpal bone, left hand, initial encounter for closed fracture (principal); S80.02XA Contusion of left knee, initial encounter; K21.9 Gastro-esophageal reflux disease without esophagitis; I50.9 Heart failure, unspecified; J44.9 Chronic obstructive pulmonary disease, unspecified; Z86.73 Personal history of transient ischemic attack (TIA), and cerebral infarction without residual deficits; Z79.899 Other long term (current) drug therapy; Z88.0 Allergy status to penicillin; Z88.2 Allergy status to sulfonamides; Z91.040 Latex allergy status; Z88.8 Allergy status to other drugs, medicaments and biological substances; W01.0XXA Fall on same level from slipping, tripping and stumbling without subsequent striking against object, initial encounter; Y92.9 Unspecified place or not applicable

== ENCOUNTER → 2020-04-17 | Outpatient (CLI) | payer MEDICARE, MEDICAID ==
--- NOTE | 2020-04-17 17:00 | RAD ---
EXAM DESCRIPTION: Hand,Left 3 Views CLINICAL HISTORY: PAIN IN LEFT HAND COMPARISON: 10 April 2020 TECHNIQUE: 3 views left FINDINGS: Exam reveals evidence of a fracture of the base of the fifth metacarpal. It is mildly impacted. Diffuse osteopenia is seen. Arterial calcification is observed. IMPRESSION: A somewhat impacted fracture of the base of the fifth metacarpal is observed. Alignment is not significantly changed when compared to the prior exam. Electronically signed by: Hugh King MD 04/17/2020 4:58 PM CDT
== END ==
LOC: RAD 08:35
PROVIDERS: ATTEND Orthopaedic Surgery
DX: S62.347D Nondisplaced fracture of base of fifth metacarpal bone, left hand, subsequent encounter for fracture with routine healing (principal)

== ENCOUNTER → 2020-04-23 | Outpatient (CLI) | payer MEDICARE, MEDICAID | LOC: GMA MATASK 16:35 | PROVIDERS: ATTEND Family Medicine | DX: D51.8 Other vitamin B12 deficiency anemias (principal); D50.8 Other iron deficiency anemias; J06.9 Acute upper respiratory infection, unspecified; E78.00 Pure hypercholesterolemia, unspecified ==

== ENCOUNTER → 2020-05-11 | Outpatient (CLI) | payer MEDICARE, MEDICAID ==
--- NOTE | 2020-05-11 14:05 | RAD ---
EXAM DESCRIPTION: Hand,Left 3 Views CLINICAL HISTORY: fracture of metacarpal bone COMPARISON: April 17, 2020 TECHNIQUE: AP, LATERAL, AND OBLIQUE FINDINGS: Three views left hand demonstrate an impacted fracture at the base of the fifth metacarpal with maturing callus formation and incomplete bony healing. Some bridging callus formation is evident with some lucency across the base of the fifth metacarpal. New fracture not apparent. No foreign body noted. IMPRESSION: 1. Impacted fracture base of the fifth metacarpal with maturing callus formation and incomplete bony union at this time. Little change in alignment from prior study. Electronically signed by: Car Hdz MD 05/11/2020 2:[address] [facility]
== END ==
LOC: RAD 08:50
PROVIDERS: ATTEND Orthopaedic Surgery
DX: S62.347D Nondisplaced fracture of base of fifth metacarpal bone, left hand, subsequent encounter for fracture with routine healing (principal)

== ENCOUNTER 2020-05-18 13:33 | Observation (INO) | payer MEDICARE, MEDICAID ==
[2020-05-18] MEDS ORDERED: SODIUM CHLORIDE 0.9% (FLUSH) 10 ML SYG IV PRN ×2 (13:38→22:52)
--- NOTE | 2020-05-18 14:15 | RAD ---
EXAM DESCRIPTION: Chest,1 View CLINICAL HISTORY: 69 years Female, chest pain COMPARISON: 10/21/2019 TECHNIQUE: Single view radiograph of the chest. IMPRESSION: Enlarged cardiac silhouette. Partially calcified aorta. No lobar or masslike consolidation. No pleural effusion or pneumothorax. Thoracic spondylosis. Mid cervical fusion. Electronically signed by: Jorge Yan MD 05/18/2020 2:13 PM CALL CENTER ASSISTANT
--- NOTE | 2020-05-18 15:16 | CT ---
EXAM: Head INDICATION: slurred speech x 2 days . COMPARISON: CT head without contrast 08/17/2019 TECHNIQUE: CT of the head was performed without IV contrast. Multiple axial images and multiplanar reconstructions were generated. This exam was performed according to our departmental dose-optimization program, which includes automated exposure control, adjustment of the mA and/or kV according to patient size and/or use of iterative reconstruction technique. FINDINGS: No CT evidence for acute cortical infarct. No acute intracranial hemorrhage. No mass effect or midline shift. No hydrocephalus. Stable coarse calcification in the right paramedian bety. Mild global parenchymal volume loss. Intracranial atherosclerosis. Unremarkable appearance of the visualized globes and orbits. The calvaria and skull base are intact. The paranasal sinuses and mastoid air cells are clear. IMPRESSION: No acute intracranial abnormality. Electronically signed by: Tala Archuleta MD 05/18/2020 3:[address] [facility]
[2020-05-18] MEDS ORDERED: SODIUM CHLORIDE 0.9% 1000ML 1,000 ML ONE (16:23)
[2020-05-18] MEDS ORDERED: SODIUM CHLORIDE 0.9% 1000ML 1,000 ML IVS ONE (16:34)
--- NOTE | 2020-05-18 17:20 | ED.PDOC ---
History of Present Illness - General Chief Complaint: Chest Pain/AK Time Seen by Provider: 05/18/20 13:38 Source: patient, RN notes reviewed, Vital Signs reviewed Exam Limitations: no limitations - History of Present Illness Initial Comments: Patient is a 69-year-old white female who presents with complaints of chest pain starting 3 hours prior to arrival. The pain is pressure-like in nature. Is not associated with exertion. Some mild associated shortness of breath. Patient denies any diaphoresis. Additionally patient is complaining about slurred speech which is been ongoing x2 days. Patient denies any weakness or numbness. Nothing seems to make the chest pain better or worse. It is nonradiating. It is moderate in intensity. Timing/Duration: 1-3 hours Severity: moderate Improving Factors: nothing Worsening Factors: nothing Associated Symptoms: chest pain, other - slurred speech x 2 days. Allergies/Adverse Reactions: Allergies Penicillins Allergy (Mild, Verified 04/10/20 17:00) Unknown reports made throat swell when she was a child Sulfamethoxazole w/Trimethoprim [From Bactrim] Allergy (Mild, Verified 04/10/20 17:00) Nausea Latex Allergy (Verified 04/10/20 17:00) No Known Latex Allergy Allergy (Verified 04/10/20 17:00) Promethazine [From Phenergan] Allergy (Verified 04/10/20 17:00) adhesive tape Allergy (Uncoded 04/10/20 17:00) Home Medications: Ambulatory Orders Carvedilol [Coreg] 3.125 mg PO BID 05/19/18 Trazodone HCl [Trazodone Hydrochloride] 150 mg PO BEDTIME 05/19/18 Verapamil HCl [Verapamil HCl Sr] 180 mg PO DAILY 05/19/18 Aspirin [Aspirin Adult Low Dose] 81 mg PO DAILY 06/17/18 Esomeprazole Magnesium [Nexium] 40 mg PO DAILY 06/17/18 Docusate Sodium [Colace] 100 mg PO BEDTIME 03/17/19 Ondansetron Odt [Zofran Odt] 4 mg PO Q6H PRN 08/14/19 Pregabalin [Lyrica] 50 mg PO TID 08/14/19 Atorvastatin Calcium 40 mg PO DAILY 08/24/19 Azathioprine [Imuran] 100 mg PO BEDTIME 08/24/19 Furosemide 20 mg PO DAILY 08/24/19 Sertraline HCl [Zoloft] 100 mg PO BEDTIME 08/24/19 Amitriptyline HCl [Amitriptyline Hydrochlori] 10 mg PO 11/05/19 Hydroxychloroquine Sulfate [Hydroxychloroquine Sulfat] 11/05/19 Pregabalin 50 mg PO 11/05/19 Promethazine HCl 12.5 mg PO 11/05/19 Trazodone HCl 150 mg PO 11/05/19 Review of Systems - Review of Systems Constitutional: States: no symptoms reported, see HPI. Denies: chills, fever, malaise, weakness EENTM: States: no symptoms reported. Denies: eye pain, blurred vision, double vision Respiratory: States: no symptoms reported. Denies: cough, short of breath, wheezing Cardiology: States: see HPI, chest pain. Denies: palpitations, syncope Gastrointestinal/Abdominal: States: no symptoms reported. Denies: abdominal pain, diarrhea, nausea, vomiting Genitourinary: States: no symptoms reported. Denies: dysuria, frequency Musculoskeletal: States: no symptoms reported. Denies: back pain, joint pain, neck pain Skin: States: no symptoms reported. Denies: change in color, rash Neurological: States: see HPI, anxiety, other - slurred speech.. Denies: tingl ing, tremors, weakness Endocrine: States: no symptoms reported. Denies: increased hunger, increased thirst, increased urine Hematologic/Lymphatic: States: no symptoms reported All other Systems: Reviewed and Negative Past Medical History (General) - Patient Medical History Hx Seizures: No Hx Stroke: Yes Hx Dementia: No Hx Asthma: No Hx of COPD: No Hx Cardiac Disorders: Yes - MIs x 2 Hx Congestive Heart Failure: No Hx Pacemaker: No Hx Hypertension: No Hx Thyroid Disease: No Hx Diabetes: No Hx Gastroesophageal Reflux: No Hx Renal Disease: No Hx Cancer: No Hx of HIV: No Hx Hepatitis C: No Hx MRSA: No MRSA Source:: Wound Surgical History: Hysterectomy, other - Vaccination History Hx Tetanus, Diphtheria Vaccination: Yes Hx Influenza Vaccination: Yes Hx Pneumococcal Vaccination: Yes - Social History Hx Tobacco Use: No Hx Chewing Tobacco Use: No Hx Alcohol Use: No Hx Substance Use: No Hx Substance Use Treatment: No Hx Depression: No Feels Threatened In Home Enviroment: No Feels Threatened In a Relationship: No Hx Physical Abuse: No Hx Emotional Abuse: No Hx Suspected Abuse: No - Female History Patient is a Female of Child Bearing Age (10 -59 yrs old): No Patient : No - Triage Comment ED Triage Comment: The patient was brought into the ED in a wheelchair by her and the patient was moved into the cardiac room and assisted into bed. She complained of chest pain for 3 hours with nausea and shortness of breath. She did not appear in distress and had no other noted complints during assessment. Family Medical History - Family History Mother Family History: Unknown Living Status: Hx Family;Other: SHE DID NOT KNOW PARENTS AND SHE DOES NOT KNOW FH HISTORY. PT ADOPTED Physical Exam - Physical Exam General Appearance: Alert, Anxious, Well Developed, Well Groomed, Well Hydrated, Well Nourished Eye Exam: bilateral normal Ears, Nose, Throat: hearing grossly normal, normal ENT inspection, normal pharynx, other - slurred speech Neck: non-tender, full range of motion, supple Respiratory: chest non-tender, lungs clear, normal breath sounds, no respiratory distress, no accessory muscle use, respiratory distress Cardiovascular/Chest: normal peripheral pulses, regular rate, rhythm, no edema, no gallop, no JVD, no murmur Peripheral Pulses: radial,right: 2+, radial,left: 2+ Gastrointestinal/Abdominal: normal bowel sounds, non tender, soft Back Exam: normal inspection, no CVA tenderness, no vertebral tenderness Extremity: normal range of motion, non-tender, normal inspection, no pedal edema Skin Exam: normal color, warm/dry Lymphatic: no adenopathy Progress - Progress Progress: Differential diagnosis: Acute AK, CVA, hypoglycemia, Covid among others. 05/18/20 20:13 Patient's chest pain work-up is negative with troponins negative x2. Patient does have a mild left facial droop and slurred speech. I have consulted with neurology who recommends admission. I have discussed this with the patient and her and they voiced understanding. Patient wants to be discharged home and requests I speak to her PCP. I have spoken with her PCP who insists on admission to the hospital. I have spoken to Jose Manuel Bacon NP, who accepts the patient for admission. Mino Hernadez M.D. #[id number] - Results/Orders Results/Orders: EXAM: Head INDICATION: slurred speech x 2 days . COMPARISON: CT head without contrast 08/17/2019 TECHNIQUE: CT of the head was performed without IV contrast. Multiple axial images and multiplanar reconstructions were generated. This exam was performed according to our departmental dose-optimization program, which includes automated exposure control, adjustment of the mA and/or kV according to patient size and/or use of iterative reconstruction technique. FINDINGS: No CT evidence for acute cortical infarct. No acute intracranial hemorrhage. No mass effect or midline shift. No hydrocephalus. Stable coarse calcification in the right paramedian bety. Mild global parenchymal volume loss. Intracranial atherosclerosis. Unremarkable appearance of the visualized globes and orbits. The calvaria and skull base are intact. The paranasal sinuses and mastoid air cells are clear. IMPRESSION: No acute intracranial abnormality. Electronically signed by: Tala Archuleta MD 05/18/2020 3:14 PM EXAM DESCRIPTION: Chest,1 View CLINICAL HISTORY: 69 years Female, chest pain COMPARISON: 10/21/2019 TECHNIQUE: Single view radiograph of the chest. IMPRESSION: Enlarged cardiac silhouette. Partially calcified aorta. No lobar or masslike consolidation. No pleural effusion or pneumothorax. Thoracic spondylosis. Mid cervical fusion. Electronically signed by: Jorge Yan MD 05/18/2020 2:13 PM BUILDING MANAGER 05/18/20 13:38 IV Care:Saline Lock per Protoc QSHIFT Telemetry .ONCE Sodium Chloride 0.9% (Flush) [Saline Flush Syringe] 10 ml IV PRN PRN EKG Stat Pulse Ox Stat 05/18/20 16:30 Consult:Physician Routine 05/18/20 18:19 RESPIRATORY PANEL 2 Stat Laboratory Results - last 24 hr 05/18/20 05/18/20 05/18/20 13:40 13:40 17:27 WBC 2.4 L* RBC 3.20 L Hgb 10.7 L Hct 30.6 L MCV 95.7 MCH 33.4 H MCHC 34.9 RDW 16.5 H Plt Count 318 MPV 8.0 Absolute Neuts (auto) Not Reportable Absolute Lymphs (auto) Not Reportable Absolute Monos (auto) Not Reportable Absolute Eos (auto) Not Reportable Neutrophils % Not Reportable Neutrophils % (Manual) 32.0 L Lymphocytes % Not Reportable Lymphocytes % (Manual) 56.0 Monocytes % Not Reportable Monocytes % (Manual) 8.0 Eosinophils % Not Reportable Basophils % Not Reportable Band Neutrophils 4.0 H PT 9.2 INR < 1.00 PTT (SP) 22.5 Sodium 140 Potassium 3.0 L Chloride 103 Carbon Dioxide 26 Anion Gap 14.0 BUN 11 Creatinine 0.66 BUN/Creatinine Ratio 16.7 Random Glucose 108 H Serum Osmolality 279.3 Calcium 8.4 Magnesium 2.0 Total Bilirubin 0.7 Direct Bilirubin 0.1 Indirect Bilirubin 0.6 AST 18 ALT 11 Alkaline Phosphatase 70 Creatine Kinase 37 CK-MB (CK-2) 1.5 CK-MB (CK-2) % Not Reportable Troponin I < 0.02 < 0.02 B-Natriuretic Peptide 124.0 H Serum Total Protein 6.3 L Albumin 3.3 EGD performed 18 May 2020 at 1334 hrs.: Normal sinus rhythm 85 bpm, normal axis deviation, no ST or T wave changes, normal EKG. No comparison EKG available at this time. Covid test: Negative Departure - Departure Clinical Impression: CVA (cerebral vascular accident) Qualifiers: CVA mechanism: unspecified Qualified Code(s): I63.9 - Cerebral infarction, unspecified Chest pain Qualifiers: Chest pain type: unspecified Qualified Code(s): R07.9 - Chest pain, unspecified Time of Disposition: 20:14 Disposition: Admit Patient Condition: Good Departure Forms: ED Discharge - Pt. Copy, Patient Portal Self Enrollment Instructions: DI for Chest Pain Diet: resume usual diet, low fat, low cholesterol Activity: as per physical therapy Referrals: Rakan Figueroa MD [Primary Care Provider] - 1-2 Weeks Home Medications: Ambulatory Orders Carvedilol [Coreg] 3.125 mg PO BID 05/19/18 Trazodone HCl [Trazodone Hydrochloride] 150 mg PO BEDTIME 05/19/18 Verapamil HCl [Verapamil HCl Sr] 180 mg PO DAILY 05/19/18 Aspirin [Aspirin Adult Low Dose] 81 mg PO DAILY 06/17/18 Esomeprazole Magnesium [Nexium] 40 mg PO DAILY 06/17/18 Docusate Sodium [Colace] 100 mg PO BEDTIME 03/17/19 Ondansetron Odt [Zofran Odt] 4 mg PO Q6H PRN 08/14/19 Pregabalin [Lyrica] 50 mg PO TID 08/14/19 Atorvastatin Calcium 40 mg PO DAILY 08/24/19 Azathioprine [Imuran] 100 mg PO BEDTIME 08/24/19 Furosemide 20 mg PO DAILY 08/24/19 Sertraline HCl [Zoloft] 100 mg PO BEDTIME 08/24/19 Amitriptyline HCl [Amitriptyline Hydrochlori] 10 mg PO 11/05/19 Hydroxychloroquine Sulfate [Hydroxychloroquine Sulfat] 11/05/19 Pregabalin 50 mg PO 11/05/19 Promethazine HCl 12.5 mg PO 11/05/19 Trazodone HCl 150 mg PO 11/05/19 Decision To Admit - Decistion To Admit Decision to Admit Date: 05/18/20 Decision to Admit Time: 18:00
[2020-05-18] MEDS ORDERED: CLOPIDOGREL 75 MG TAB PO ONE (19:22)
[2020-05-18] MEDS ORDERED: IV SET AND CAP CHANGE INJ INJ SCH (23:00)
[2020-05-18] MEDS ORDERED: ENOXAPARIN SODIUM 40 MG/0.4 ML SYG SUBCU SCH (23:05)
[2020-05-18] MEDS ORDERED: KETOROLAC TROMETHAMINE INJ 30 MG/ML VIAL IV ONE (23:06)
--- NOTE | 2020-05-19 08:01 | CT ---
CLINICAL HISTORY PROVIDED: CVA TECHNIQUE: Contrast enhanced axial spiral CT images were obtained with multiple reconstructions performed including MIP in various projections for CT angiography. 3D MIP reformats provided. Exam covers from the aortic arch to above the [place]. Unless specified otherwise, proximal internal carotid stenoses are measured by the NASCET technique where residual lumen diameter is compared to the downstream normal ICA diameter. Internal carotid artery diameter stenosis grading system is mild <50% , moderate 50 -69%, and severe 70 % and greater stenosis. This exam was performed according to our departmental dose-optimization program, which includes automated exposure control, adjustment of the mA and/or kV according to patient size and/or use of iterative reconstruction technique. COMPARISON: None available. FINDINGS: Extracranial: Aortic Arch and Proximal Great Vessels: Minimal plaque at the origins of the great vessels. No hemodynamically significant stenosis. Right Carotid: Mild eccentric plaque in the carotid bulb without hemodynamically significant stenosis. Plaque in the carotid siphon. Left Carotid: Mild eccentric calcified plaque at the carotid bulb without hemodynamically significant stenosis. Calcified plaque in the carotid siphon. Right Vertebral: Unremarkable. Left Vertebral: Unremarkable. Intracranial: Right Anterior Circulation: Unremarkable. Left Anterior Circulation: Unremarkable. Posterior Circulation: Unremarkable. Anterior Communicating Artery: Present. Unremarkable. Right Posterior Communicating Artery: Present. Unremarkable. Left Posterior Communicating Artery: Present. Unremarkable. Venous structures: Visible venous structures appear patent and unremarkable. Other Incidental Findings: None of significance. IMPRESSION: No hemodynamically significant stenosis, large vessel occlusion or aneurysm identified. Electronically signed by: Joel Corbett MD 05/19/2020 7:59 AM [employer]
--- NOTE | 2020-05-19 08:46 | MRI ---
Study: MRI of the brain. Indication: CVA Technique: Multiplanar, multi sequence MRI of the brain obtained without intravenous contrast. Comparison: CT head May 18, 2020. Findings: No MRI evidence of acute ischemia, acute hemorrhage, mass, mass effect, midline shift, or extra-axial fluid collection. Ventricles are normal in configuration without hydrocephalus. Patchy elevated T2/FLAIR signal abnormality is seen within the periventricular and subcortical white matter. Although nonspecific, this finding is most consistent with chronic microvascular ischemic change. Global parenchymal volume loss noted as well. Midline structures are intact. Paranasal sinuses are adequately aerated. Mastoid air cells are adequately aerated. Osseous structures and soft tissues demonstrate normal signal characteristics. Impression: No MRI evidence of acute intracranial abnormality. Senescent changes. Electronically signed by: Alex Sheppard MD 05/19/2020 8:44 AM [facility]
[2020-05-19] MEDS ORDERED: CLOPIDOGREL 75 MG TAB PO SCH (09:00)
[2020-05-19] MEDS ORDERED: ASPIRIN (CHEWABLE) 81 MG TAB PO SCH (11:30)
[2020-05-19 15:24] VITALS: BP 138/80; TEMP 97.8; O2SAT 96
--- NOTE | 2020-05-21 11:26 | SSS ---
SUPERVISING PHYSICIAN: Rakan Figueroa MD DATE OF ADMISSION: 05/18/20 DATE OF DISCHARGE: 05/19/20 DISCHARGE DIAGNOSIS: 1. Subacute stroke versus microvascular stroke or transient ischemic attack. 2. Chest pain, rule out acute coronary syndrome. 3. Chronic pain syndrome on multiple narcotics. 4. Coronary artery disease. 5. Chronic obstructive pulmonary disease without exacerbation. 6. Fibromyalgia. 7. Previous history of myocardial infarction with stents. HISTORY OF PRESENT ILLNESS: This is a 59-year-old female patient who presented to the Emergency Room due to chest pain that had been going on for about 3 hours. She had some diaphoresis as well as shortness of breath. It is also noted that she has a slight left facial droop with some left sided weakness. Her initial vital signs showed temperature 98.4, heart rate 81, blood pressure 104/67, respiratory rate 18, O2 saturation 92% on room air. Her labs showed WBC 2.4, hemoglobin 10.7, hematocrit 30.6. Chemistries were basically within normal limits with the exception of potassium low at 3. Liver enzymes within normal limits. BNP slightly elevated at 124. Serum total protein 6.3. Initial troponin was less than 0.02 and followup troponin was 0.02. She had no further complaints of chest pain, but she got a workup due to the left sided weakness and facial droop. Head CT showed no CT evidence for acute cortical infarct, no acute intracranial hemorrhage, no acute intracranial abnormality. She was placed in observation the hospital to have further workup including a brain MRI the following day. HOSPITAL COURSE: The patient was placed on the stroke/TIA protocol. Her vital signs remained stable. Her left sided weakness as well as facial droop resolved. Physical Therapy felt that she was stable to go home. An MRI of the brain as well as CTA of the neck and head were also ordered. The patient has no further symptoms. She denied any chest pain. She will be discharged home today to followup with her primary care physician. PAST MEDICAL HISTORY: 1. Coronary artery disease. 2. Myocardial infarction x3 with stent placement. 3. Chronic obstructive pulmonary disease. 4. History of diverticulosis. 5. Chronic neck and back pain. 6. Fibromyalgia. 7. Osteoarthritis. 8. Multiple thoracic and lumbar vertebral fractures with previous kyphoplasty. 9. Depression. 10. Hyperlipidemia. 11. Hypertension. 12. Gastroesophageal reflux disease. 13. Hiatal hernia. 14. Iron deficiency anemia. 15. Previous distal humerus fracture. PAST SURGICAL HISTORY: 1. Hysterectomy. 2. Coronary artery stents x3. 3. Kyphoplasty. 4. Multiple back and neck surgeries. 5. Tummy tuck surgery. 6. Bilateral hip replacement. OUTPATIENT MEDICATIONS: 1. Amitriptyline. 2. Aspirin. 3. Imuran. 4. Carvedilol. 5. Docusate sodium. 6. Nexium. 7. Hydrocodone. 8. Paroxetine. 9. Pregabalin. 10. Sumatriptan. 11. Trazodone. 12. Verapamil. ALLERGIES: PENICILLINS, SULFAMETHOXAZOLE W/TRIMETHOPRIM, PROMETHAZINE. FAMILY HISTORY: Unknown. SOCIAL HISTORY: She lives in [place]. She is . She denies any tobacco, ETOH or illicit drugs. REVIEW OF SYSTEMS: Negative except as per history of present illness. PHYSICAL EXAMINATION: VITAL SIGNS: Temperature 97.8, heart rate 79, blood pressure 138/80, respiratory rate 17, O2 saturation 96% on 1 liter nasal cannula. GENERAL: This is a 69-year-old female patient who is sitting up in her hospital bed. She is in no acute distress. HEENT: Normocephalic, atraumatic. Pupils are equal and reactive. There is no noted left sided facial droop. NECK: Supple without mass. CARDIOVASCULAR: Regular rate and rhythm. GASTROINTESTINAL: Abdomen is soft, nondistended, nontender. Bowel sounds are positive. EXTREMITIES: No cyanosis, clubbing or edema. Her pull tab dealer are somewhat weak, but equal. NEUROLOGIC: Awake, alert and oriented times three. No slurred speech noted. Cranial nerves II-XII are grossly intact as tested. SKIN: Warm, pink and dry. LABORATORY: Followup labs show WBC 1.8, hemoglobin 9.3, hematocrit 26.4. Sodium 143, potassium 3.6, chloride 108, carbon dioxide 27, BUN 14, creatinine 0.56. Calcium 7.9, magnesium 2.1. Triglycerides 45, LDL 74, HDL 43, vitamin B12 162. Hemoglobin A1c 5.9. RADIOLOGY: Brain MRI shows no MRI evidence of intracranial abnormality and senescent changes. Her neck CTA shows no hemodynamically significant stenosis, large vessel occlusion or aneurysm identified. Head CTA shows no hemodynamically significant stenosis, large vessel occlusion or aneurysm noted. DISCHARGE PLAN: The patient will be discharged home in stable condition. She is to resume her previous diet and increase her activity as tolerated. She has a followup appointment with Dr. Figueroa on 05/24/20 at 10:15 AM via Telehealth visit. He will review her tests at that time. She is to resume her previous medications. She had previously been on Plavix and aspirin, but somehow those had been discontinued, so I have restarted her Plavix as well as baby aspirin and I have given a prescription for those. She is to return to the hospital or followup with Dr. Figueroa for any problems or complications. DISCHARGE MEDICATIONS: 1. Trazodone. 2. Carvedilol. 3. Nexium. 4. Aspirin. 5. Docusate sodium. 6. Imuran. 7. Pregabalin. 8. Amitriptyline. 9. Paroxetine. 10. Hydrocodone. 11. Verapamil. 12. Sumatriptan. 13. Plavix. #[id number] [facility]
== END 2020-05-19 17:06 | disposition home health service (06) ==
LOC: ER 13:33 → MS 21:46
PROVIDERS: ADMIT Nurse Practitioner Family; ATTEND Nurse Practitioner Acute Care
DX: R47.1 Dysarthria and anarthria (principal); R47.81 Slurred speech; R29.810 Facial weakness; R07.89 Other chest pain; E87.6 Hypokalemia; G89.4 Chronic pain syndrome; I25.10 Atherosclerotic heart disease of native coronary artery without angina pectoris; J44.9 Chronic obstructive pulmonary disease, unspecified; M79.7 Fibromyalgia; I25.2 Old myocardial infarction; I10 Essential (primary) hypertension; E78.5 Hyperlipidemia, unspecified; K21.9 Gastro-esophageal reflux disease without esophagitis; M19.90 Unspecified osteoarthritis, unspecified site; F32.9 Major depressive disorder, single episode, unspecified; Z20.828 Contact with and (suspected) exposure to other viral communicable diseases; Z86.73 Personal history of transient ischemic attack (TIA), and cerebral infarction without residual deficits; Z95.5 Presence of coronary angioplasty implant and graft; Z79.02 Long term (current) use of antithrombotics/antiplatelets; Z79.82 Long term (current) use of aspirin; Z79.891 Long term (current) use of opiate analgesic; Z79.899 Other long term (current) drug therapy; Z88.0 Allergy status to penicillin; Z88.2 Allergy status to sulfonamides; Z88.8 Allergy status to other drugs, medicaments and biological substances; Z96.643 Presence of artificial hip joint, bilateral
CPT/HCPCS: 96374; 96372; J1885; J7030; J1650; 80053; 83036; 80061; 36415 ×5; 82550; 80048; 82553; 85025 ×2; 85730; 85610; 84484 ×2; 80076; 83735; 82607; 83880; 71045; 70450; 70496; 70498; 94762; 97116; 97162; 99285; 93306; 70551; 93005; G0378; 87581; 87486; 87633; 87635

== ENCOUNTER 2020-06-28 18:48 | Emergency (ER) | payer MEDICARE, MEDICAID ==
--- NOTE | 2020-06-28 18:57 | ED.PDOC ---
History of Present Illness - General Chief Complaint: Chest Pain/WI Stated Complaint: chest pain Time Seen by Provider: 06/28/20 18:51 Source: patient, RN notes reviewed, Vital Signs reviewed, old records - History of Present Illness Initial Comments: 69 yo F with CAD was sitting talking when she developed left sided chest pain that radiates to her axilla, pain is constant sharp. associated with shortness of breath and nausea. no cough, fever. unsure if it feels similar to prior heart attack. Patient follows Dr. Norris in [place]. Timing/Duration: 1 hour Allergies/Adverse Reactions: Allergies Penicillins Allergy (Mild, Verified 04/10/20 17:00) Unknown reports made throat swell when she was a child Sulfamethoxazole w/Trimethoprim [From Bactrim] Allergy (Mild, Verified 04/10/20 17:00) Nausea Latex Allergy (Verified 04/10/20 17:00) No Known Latex Allergy Allergy (Verified 04/10/20 17:00) Promethazine [From Phenergan] Allergy (Verified 04/10/20 17:00) adhesive tape Allergy (Uncoded 04/10/20 17:00) Home Medications: Ambulatory Orders Carvedilol [Coreg] 3.125 mg PO BID 05/19/18 Trazodone HCl [Trazodone Hydrochloride] 150 mg PO BEDTIME 05/19/18 Aspirin [Aspirin Adult Low Dose] 81 mg PO DAILY 06/17/18 Esomeprazole Magnesium [Nexium] 40 mg PO DAILY 06/17/18 Docusate Sodium [Colace] 100 mg PO BEDTIME 03/17/19 Azathioprine [Imuran] 100 mg PO BEDTIME 08/24/19 Amitriptyline HCl [Amitriptyline Hydrochlori] 20 mg PO BEDTIME 11/05/19 Pregabalin 50 mg PO TID 11/05/19 Clopidogrel Bisulfate [Plavix] 75 mg PO DAILY #30 tab 05/19/20 Hydrocodone-Acetaminophen [Clare 7.5-325 mg] 1 tab PO QID PRN 05/19/20 Paroxetine HCl 30 mg PO DAILY 05/19/20 Sumatriptan Succinate 25 mg PO PRN PRN 05/19/20 Verapamil HCl ER [Isoptin Sr] 180 mg PO DAILY 05/19/20 Review of Systems - Review of Systems Constitutional: Denies: chills, fever EENTM: Denies: blurred vision, throat pain Respiratory: Denies: cough, short of breath Cardiology: States: chest pain. Denies: palpitations, syncope Gastrointestinal/Abdominal: Denies: abdominal pain, diarrhea, nausea, vomiting Genitourinary: Denies: frequency, hematuria Musculoskeletal: Denies: back pain, joint pain, muscle pain Skin: Denies: rash Neurological: Denies: numbness, paresthesia Endocrine: Denies: unexplained weight loss Hematologic/Lymphatic: Denies: blood clots, easy bleeding, easy bruising Past Medical History (General) - Patient Medical History Hx Seizures: No Hx Stroke: Yes - 2004 Hx Dementia: No Hx Asthma: No Hx of COPD: Yes Hx Cardiac Disorders: Yes - MIs x 2 Hx Congestive Heart Failure: Yes Hx Pacemaker: No Hx Hypertension: No Hx Thyroid Disease: No Hx Diabetes: No Hx Gastroesophageal Reflux: No Hx Renal Disease: No Hx Cancer: No Hx of HIV: No Hx Hepatitis C: No Hx MRSA: No MRSA Source:: Wound - Vaccination History Hx Tetanus, Diphtheria Vaccination: Yes Hx Influenza Vaccination: Yes Hx Pneumococcal Vaccination: Yes - Social History Hx Tobacco Use: No Hx Chewing Tobacco Use: No Hx Alcohol Use: No Hx Substance Use: No Hx Substance Use Treatment: No Hx Depression: No Hx Physical Abuse: No Hx Emotional Abuse: No Hx Suspected Abuse: No - Female History Patient : No Family Medical History - Family History Mother Family History: Unknown Living Status: Hx Family;Other: SHE DID NOT KNOW PARENTS AND SHE DOES NOT KNOW FH HISTORY. PT ADOPTED Physical Exam - Physical Exam General Appearance: Alert, Comfortable, No apparent distress, Well Developed, Well Groomed, Well Hydrated, Well Nourished Eyes, Ears, Nose, Throat Exam: normal ENT inspection, other - no teeth Neck: non-tender, full range of motion, supple, normal inspection Respiratory: chest non-tender, lungs clear, normal breath sounds, no respiratory distress, no accessory muscle use Cardiovascular/Chest: normal peripheral pulses, regular rate, rhythm, no edema, no gallop, no JVD, no murmur, other - pain reproducible with palpation. Peripheral Pulses: radial,right: 2+, radial,left: 2+ Gastrointestinal/Abdominal: normal bowel sounds, non tender, soft, no organomegaly, no pulsatile mass Rectal Exam: deferred Extremity: normal range of motion, non-tender, normal inspection, no pedal edema, no calf tenderness, normal capillary refill Neurologic: no motor/sensory deficits, alert, normal mood/affect, oriented x 3 Skin Exam: normal color, warm/dry Progress - Progress Progress: 06/28/20 22:25 patient given aspirin and nitro. Cardiac score 5. EKG no acute ischemia. pain continued given another nitro. bp low after nitro, will give fluid bolus and gi cocktail. repeat troponin negative. Pain down to a 1/10. Recommend admission, patient declines at this time. Understands risk, including . The data reviewed when caring for this patient included: nurse notes, prior records, etc. The history and assessments from nurses notes were reviewed and considered, and the patient's home medication list was also reviewed and considered. My assessment and the results of testing completed here in the ED were discussed with the patient/family. All questions were answered, and they express understanding of my assessment and the plan. They have been instructed to return if their symptoms worsen, and have been asked to follow up with their primary care physician and sales representative consultant to recheck today's presenting complaint. Strict return precautions given. patient left ama in stable condition. Liberty Carbajal DO #[id number] - Results/Orders Results/Orders: 06/28/20 19:01 IV Care:Saline Lock per [facility] QSHIFT Telemetry .ONCE EKG Stat Pulse Ox Stat 06/28/20 19:04 IV Care:Saline Lock per [facility] QSHIFT Telemetry .ONCE Sodium Chloride 0.9% (Flush) [Saline Flush Syringe] 10 ml IV PRN PRN EKG Stat Pulse Ox Stat Laboratory Results WBC 4.2 K/mm3 (4.8-10.8) L 06/28/20 19:10 RBC 3.47 M/mm3 (4.20-5.40) L 06/28/20 19:10 Hgb 11.2 gm/dL (12.0-16.0) L 06/28/20 19:10 Hct 33.5 % (36.0-47.0) L 06/28/20 19:10 MCV 96.4 fl (81.0-99.0) 06/28/20 19:10 MCH 32.4 pg (27.0-31.0) H 06/28/20 19:10 MCHC 33.6 g/dL (33.0-37.0) 06/28/20 19:10 RDW 15.9 % (11.5-14.5) H 06/28/20 19:10 Plt Count 221 K/mm3 (130-400) 06/28/20 19:10 MPV 7.8 fl (7.40-10.4) 06/28/20 19:10 Absolute Neuts (auto) 3.10 K/uL (1.8-6.8) 06/28/20 19:10 Absolute Lymphs (auto) 0.80 K/uL (1.0-3.4) L 06/28/20 19:10 Absolute Monos (auto) 0.30 K/uL (0.2-0.8) 06/28/20 19:10 Absolute Eos (auto) 0.10 K/uL (0.0-0.4) 06/28/20 19:10 Absolute Basos (auto) 0.00 K/uL (0.0-0.1) 06/28/20 19:10 Neutrophils % 73.0 % (42.0-78.0) 06/28/20 19:10 Lymphocytes % 17.8 % (20.0-50.0) L 06/28/20 19:10 Monocytes % 6.9 % (2.0-9.0) 06/28/20 19:10 Eosinophils % 1.8 % (1.0-5.0) 06/28/20 19:10 Basophils % 0.5 % (0.0-2.0) 06/28/20 19:10 PT 9.3 SECONDS (9.0-10.9) 06/28/20 19:10 INR < 1.00 (0.9-1.15) 06/28/20 19:10 PTT (SP) 22.5 SECONDS (21.8-31.6) 06/28/20 19:10 D-Dimer, Quantitative 339.0 ng/ml (131-400) 06/28/20 19:10 Sodium 137 mmol/L (135-145) 06/28/20 19:10 Potassium 3.5 mmol/L (3.6-5.0) L 06/28/20 19:10 Chloride 97 mmol/L (101-111) L 06/28/20 19:10 Carbon Dioxide 30 mmol/L (21-31) 06/28/20 19:10 Anion Gap 13.5 (12-18) 06/28/20 19:10 BUN 13 mg/dL (7-18) 06/28/20 19:10 Creatinine 0.62 mg/dL (0.6-1.3) 06/28/20 19:10 BUN/Creatinine Ratio 21.0 (10-20) H 06/28/20 19:10 Random Glucose 111 mg/dL (70-105) H 06/28/20 19:10 Serum Osmolality 274.6 mOsm/L (275-295) L 06/28/20 19:10 Calcium 9.4 mg/dL (8.4-10.2) 06/28/20 19:10 Magnesium 2.0 mg/dL (1.8-2.5) 06/28/20 19:10 Total Bilirubin 0.3 mg/dL (0.2-1.0) 06/28/20 19:10 Direct Bilirubin 0.1 mg/dL (0-0.2) 06/28/20 19:10 Indirect Bilirubin 0.2 mg/dL (0.2-0.8) 06/28/20 19:10 AST 14 IU/L (10-42) 06/28/20 19:10 ALT < 7 IU/L (10-60) L 06/28/20 19:10 Alkaline Phosphatase 68 IU/L (42-121) 06/28/20 19:10 Creatine Kinase 24 IU/L (26-140) L 06/28/20 19:10 CK-MB (CK-2) 1.1 ng/mL (0.0-4.4) 06/28/20 19:10 CK-MB (CK-2) % Not Reportable 06/28/20 19:10 Troponin I < 0.02 ng/mL (0.01-0.05) 06/28/20 21:30 B-Natriuretic Peptide 41.0 pg/ml (0-100) 06/28/20 19:10 Serum Total Protein 7.3 gm/dL (6.4-8.2) 06/28/20 19:10 Albumin 3.8 g/dl (3.2-5.5) 06/28/20 19:10 - EKG/XRAY/CT EKG: Sinus - hr 88, normal intervals, no acute ischemia noted. XRAY: chest - no acute cardiopulmonary pathology Departure - Departure Clinical Impression: Chest pain of unknown etiology Time of Disposition: 22:21 Disposition: Left Against Medical Advice Departure Forms: ED Discharge - Pt. Copy, Patient Portal Self Enrollment Instructions: DI for Chest Pain, Chest Pain, Angina (DC) Diet: resume usual diet Activity: increase activity as tolerated Referrals: Rakan Figueroa MD [Primary Care Provider] - 1-2 Weeks Home Medications: Ambulatory Orders Carvedilol [Coreg] 3.125 mg PO BID 05/19/18 Trazodone HCl [Trazodone Hydrochloride] 150 mg PO BEDTIME 05/19/18 Aspirin [Aspirin Adult Low Dose] 81 mg PO DAILY 06/17/18 Esomeprazole Magnesium [Nexium] 40 mg PO DAILY 06/17/18 Docusate Sodium [Colace] 100 mg PO BEDTIME 03/17/19 Azathioprine [Imuran] 100 mg PO BEDTIME 08/24/19 Amitriptyline HCl [Amitriptyline Hydrochlori] 20 mg PO BEDTIME 11/05/19 Pregabalin 50 mg PO TID 11/05/19 Clopidogrel Bisulfate [Plavix] 75 mg PO DAILY #30 tab 05/19/20 Hydrocodone-Acetaminophen [Clare 7.5-325 mg] 1 tab PO QID PRN 05/19/20 Paroxetine HCl 30 mg PO DAILY 05/19/20 Sumatriptan Succinate 25 mg PO PRN PRN 05/19/20 Verapamil HCl ER [Isoptin Sr] 180 mg PO DAILY 05/19/20
[2020-06-28] MEDS ORDERED: NITROGLYCERIN 0.4 MG 25 EA TAB SL ONE ×2 (19:04→19:59)
[2020-06-28] MEDS ORDERED: ONDANSETRON INJ 4 MG/2 ML VIAL IV ONE (19:04)
[2020-06-28] MEDS ORDERED: ASPIRIN TABLET 325 MG TAB PO ONE (19:04)
[2020-06-28] MEDS ORDERED: SODIUM CHLORIDE 0.9% (FLUSH) 10 ML SYG IV PRN (19:04)
--- NOTE | 2020-06-28 19:54 | RAD ---
EXAM DESCRIPTION: Chest,1 View CLINICAL HISTORY: cp COMPARISON: None FINDINGS: Cardiac silhouette is unchanged compared with the prior exam. Evaluation of the mediastinum is limited due to degree of penetration. Right cardiophrenic contour is unchanged. Patient is status post vertebroplasties. EKG leads project over the chest. There is no focal parenchymal or pleural disease. IMPRESSION: No evidence of acute cardiopulmonary disease. Electronically signed by: Lanre Jaime MD 06/28/2020 7:52 PM REDEVELOPMENT MANAGER
[2020-06-28] MEDS ORDERED: SODIUM CHLORIDE 0.9% 1000ML 1,000 ML IVS ONE (20:35)
[2020-06-28] MEDS ORDERED: ALUM & MAG HYDROX-SIMETHICONE 30 ML, LIDOCAINE VISCOUS 2% 15 ML PO ONE ×2 (20:35)
[2020-06-28 23:58] VITALS: O2SAT 94
[2020-06-29 00:04] VITALS: BP 90/59; TEMP 97.1
== END 2020-06-28 22:45 | disposition left against medical advice (07) ==
LOC: ER 18:48
DX: R07.9 Chest pain, unspecified (principal); R06.02 Shortness of breath; R11.0 Nausea; J44.9 Chronic obstructive pulmonary disease, unspecified; I50.9 Heart failure, unspecified; I25.2 Old myocardial infarction; Z53.29 Procedure and treatment not carried out because of patient's decision for other reasons; Z79.899 Other long term (current) drug therapy; Z79.82 Long term (current) use of aspirin; Z79.02 Long term (current) use of antithrombotics/antiplatelets; Z88.0 Allergy status to penicillin; Z88.2 Allergy status to sulfonamides; Z91.040 Latex allergy status; Z88.8 Allergy status to other drugs, medicaments and biological substances; Z20.828 Contact with and (suspected) exposure to other viral communicable diseases
CPT/HCPCS: 71045; 80048; 80076; 82550; 82553; 83880; 84484; 85025; 85379; 85610; 85730; 87635; 93005; A4216; J2405; J7030

== ENCOUNTER 2020-08-04 15:48 | Emergency (ER) | payer MEDICARE, MEDICAID ==
[2020-08-04] MEDS ORDERED: SODIUM CHLORIDE 0.9% (FLUSH) 10 ML SYG IV PRN (16:18)
--- NOTE | 2020-08-04 16:25 | ED.PDOC ---
History of Present Illness - General Chief Complaint: Respiratory Problem Stated Complaint: SOB AND COUGH Time Seen by Provider: 08/04/20 16:08 Source: patient Exam Limitations: no limitations - History of Present Illness Initial Comments: 3 DAYS DYSPNEA, COUGH, CHEST PRESSURE. CONSTANT. H/O COPD AND CHF. NEVER SMOKED. LIVES AT HOME WITH SELF. Timing/Duration: constant Severity: moderate Activities at Onset: none Possible Cause: unknown cause Improving Factors: nothing Worsening Factors: nothing Associated Symptoms: cough Allergies/Adverse Reactions: Allergies Penicillins Allergy (Mild, Verified 04/10/20 17:00) Unknown reports made throat swell when she was a child Sulfamethoxazole w/Trimethoprim [From Bactrim] Allergy (Mild, Verified 04/10/20 17:00) Nausea Latex Allergy (Verified 04/10/20 17:00) No Known Latex Allergy Allergy (Verified 04/10/20 17:00) Promethazine [From Phenergan] Allergy (Verified 04/10/20 17:00) adhesive tape Allergy (Uncoded 04/10/20 17:00) Home Medications: Ambulatory Orders Carvedilol [Coreg] 3.125 mg PO BID 05/19/18 Trazodone HCl [Trazodone Hydrochloride] 150 mg PO BEDTIME 05/19/18 Aspirin [Aspirin Adult Low Dose] 81 mg PO DAILY 06/17/18 Esomeprazole Magnesium [Nexium] 40 mg PO DAILY 06/17/18 Docusate Sodium [Colace] 100 mg PO BEDTIME 03/17/19 Azathioprine [Imuran] 100 mg PO BEDTIME 08/24/19 Amitriptyline HCl [Amitriptyline Hydrochlori] 20 mg PO BEDTIME 11/05/19 Pregabalin 50 mg PO DAILY 11/05/19 Verapamil HCl ER [Isoptin Sr] 180 mg PO DAILY 05/19/20 Albuterol Sulfate Nebs [Proventil Nebs] 2.5 mg INH QID PRN 08/04/20 Atorvastatin Calcium 40 mg PO BEDTIME 08/04/20 Azithromycin 250 mg PO DAILY 4 Days #4 tab 08/04/20 [id number]-Lzoaocm-Iubjlokh [Butalbital/ASA/Caffeine 50-325-40 mg] 1 cap PO PRN 08/04/20 Cholecalciferol [Vitamin D3] 400 unit PO DAILY 08/04/20 Ferrous Sulfate [Iron] 65 mg PO DAILY 08/04/20 Furosemide 20 mg PO DAILY 08/04/20 HYDROcodone 5MG/APAP 325MG [Juntura 5/325] 1 tab PO Q6H PRN 08/04/20 Hydroxychloroquine Sulfate [Hydroxychloroquine Sulfat] 200 mg PO BID 08/04/20 Lactobacillus [Probiotic Acidophilus] 1 cap PO DAILY 08/04/20 Methylprednisolone [Medrol Dose Calvin] 4 mg PO DAILY #1 tab 08/04/20 Sertraline HCl [Zoloft] 100 mg PO BEDTIME 08/04/20 Umeclidinium King [Incruse Ellipta] 62.5 mcg IN DAILY 08/04/20 Review of Systems - Review of Systems Constitutional: Denies: chills, fever EENTM: Denies: ear pain, nose congestion, throat pain Respiratory: States: cough, short of breath Cardiology: States: chest pain - CHEST "PRESSURE". Denies: palpitations Gastrointestinal/Abdominal: Denies: abdominal pain, constipation, diarrhea, nausea, vomiting Genitourinary: Denies: dysuria, frequency Musculoskeletal: Denies: back pain, neck pain Skin: States: no symptoms reported Neurological: States: no symptoms reported Endocrine: States: no symptoms reported Hematologic/Lymphatic: States: no symptoms reported All other Systems: Reviewed and Negative Past Medical History (General) - Patient Medical History Hx Seizures: No Hx Stroke: Yes - 2004 Hx Dementia: No Hx Asthma: No Hx of COPD: Yes Hx Cardiac Disorders: Yes - MIs x 2 Hx Congestive Heart Failure: No Hx Pacemaker: No Hx Hypertension: No Hx Thyroid Disease: No Hx Diabetes: No Hx Gastroesophageal Reflux: No Hx Renal Disease: No Hx Cancer: No Hx of HIV: No Hx Hepatitis C: No Hx MRSA: No MRSA Source:: Wound Surgical History: Hysterectomy - Vaccination History Hx Tetanus, Diphtheria Vaccination: Yes Hx Influenza Vaccination: Yes Hx Pneumococcal Vaccination: Yes Immunizations Up to Date: Yes - Social History Hx Tobacco Use: No Hx Chewing Tobacco Use: No Hx Alcohol Use: No Hx Substance Use: No Hx Substance Use Treatment: No Hx Depression: No Hx Physical Abuse: No Hx Emotional Abuse: No Hx Suspected Abuse: No - Female History Patient is a Female of Child Bearing Age (10 -59 yrs old): No Patient : No Family Medical History - Family History Mother Family History: Unknown Living Status: Hx Family;Other: SHE DID NOT KNOW PARENTS AND SHE DOES NOT KNOW FH HISTORY. PT ADOPTED Physical Exam - Physical Exam General Appearance: Alert, Well Groomed Eyes, Ears, Nose, Throat Exam: PERRL/EOMI, normal ENT inspection Neck: full range of motion, normal inspection Respiratory: lungs clear, normal breath sounds, no respiratory distress, no accessory muscle use, other - 92% ON RA, WITH MASK ON. Cardiovascular/Chest: normal peripheral pulses, regular rate, rhythm, no edema, no gallop, no JVD, no murmur Peripheral Pulses: radial,right: 1+, radial,left: 1+, dorsalis pedis,right: 1+, dorsalis pedis,left: 1+, posterior tibialis,right: 1+, posterior tibialis,left: 1+ Gastrointestinal/Abdominal: normal bowel sounds, non tender, soft, no organomegaly, no pulsatile mass Rectal Exam: deferred Extremity: normal range of motion, normal inspection Neurologic: no motor/sensory deficits, alert, normal mood/affect Skin Exam: normal color, warm/dry Lymphatic: no adenopathy Progress - Results/Orders Results/Orders: W/U NEG - RPP NEG FOR COVID AND OTHER PATHOGENS. EKG NSR. BNP, CMP, LACTIC ACID, CXR, CARD ENZ NON-CONTRIBUTORY. CBC HGB MILD ANEMIA AT 10.9. PT STATES HER CHEST PRESSURE HAS RESOLVED IN ER. 3 D CP THUS 1 SET OF NEG CARD ENZ RULES OUT TN. TREATING COPD EXACERBATION WITH STEROIDS AND Z-PACK, 1ST DOSE IN ER. 92% RA (USES CHRONIC 02 AT HOME FOR COPD, THUS 92% RA IS APPROPRIATE FOR HER). SAFE FOR DC TO HOME. - EKG/XRAY/CT EKG: Sinus, no ST T wave changes CT Ordered: No CT Interpretation Call Back: No Departure - Departure Clinical Impression: COPD exacerbation, Chest pressure Dyspnea Qualifiers: Dyspnea type: shortness of breath Qualified Code(s): R06.02 - Shortness of breath; R06.00 - Dyspnea, unspecified; R06.01 - Orthopnea Disposition: Discharge to Home or Self Care Condition: Good Departure Forms: ED Discharge - Pt. Copy, Patient Portal Self Enrollment Instructions: Exacerbation of COPD (DC) Diet: resume usual diet Activity: increase activity as tolerated Referrals: Rakan Figueroa MD [Primary Care Provider] - 1-2 Weeks Prescriptions: Azithromycin 250 mg PO DAILY 4 Days #4 tab Methylprednisolone [Medrol Dose Calvin] 4 mg PO DAILY #1 tab Home Medications: Ambulatory Orders Carvedilol [Coreg] 3.125 mg PO BID 05/19/18 Trazodone HCl [Trazodone Hydrochloride] 150 mg PO BEDTIME 05/19/18 Aspirin [Aspirin Adult Low Dose] 81 mg PO DAILY 06/17/18 Esomeprazole Magnesium [Nexium] 40 mg PO DAILY 06/17/18 Docusate Sodium [Colace] 100 mg PO BEDTIME 03/17/19 Azathioprine [Imuran] 100 mg PO BEDTIME 08/24/19 Amitriptyline HCl [Amitriptyline Hydrochlori] 20 mg PO BEDTIME 11/05/19 Pregabalin 50 mg PO DAILY 11/05/19 Verapamil HCl ER [Isoptin Sr] 180 mg PO DAILY 05/19/20 Albuterol Sulfate Nebs [Proventil Nebs] 2.5 mg INH QID PRN 08/04/20 Atorvastatin Calcium 40 mg PO BEDTIME 08/04/20 Azithromycin 250 mg PO DAILY 4 Days #4 tab 08/04/20 [id number]-Xzhfkej-Uykzhbrc [Butalbital/ASA/Caffeine 50-325-40 mg] 1 cap PO PRN 08/04/20 Cholecalciferol [Vitamin D3] 400 unit PO DAILY 08/04/20 Ferrous Sulfate [Iron] 65 mg PO DAILY 08/04/20 Furosemide 20 mg PO DAILY 08/04/20 HYDROcodone 5MG/APAP 325MG [Juntura 5/325] 1 tab PO Q6H PRN 08/04/20 Hydroxychloroquine Sulfate [Hydroxychloroquine Sulfat] 200 mg PO BID 08/04/20 Lactobacillus [Probiotic Acidophilus] 1 cap PO DAILY 08/04/20 Methylprednisolone [Medrol Dose Calvin] 4 mg PO DAILY #1 tab 08/04/20 Sertraline HCl [Zoloft] 100 mg PO BEDTIME 08/04/20 Umeclidinium King [Incruse Ellipta] 62.5 mcg IN DAILY 08/04/20 Additional Instructions: Please return to the ER if your breathing doesn't start to improve.
--- NOTE | 2020-08-04 16:51 | RAD ---
EXAM DESCRIPTION: Chest,1 View CLINICAL HISTORY: 69 years Female SOB CHEST PRESSURE X 3D. COMPARISON: 06/28/2020. FINDINGS: The cardiomediastinal silhouette appears unremarkable. Atherosclerotic calcifications in the thoracic aorta. No consolidating infiltrates or pleural effusions. No pneumothorax. The patient is post vertebral body augmentation at multiple levels. There are postsurgical changes in the cervical spine. There are chronic appearing changes in the left shoulder. No significant changes are identified compared to the prior study. IMPRESSION: No acute abnormality is identified. Electronically signed by: Mino Bah MD 08/04/2020 4:49 PM PRACTICE REPRESENTATIVE
[2020-08-04] MEDS ORDERED: AZITHROMYCIN 250 MG TAB PO ONE (18:59)
[2020-08-04] MEDS ORDERED: predniSONE 20 MG TAB PO ONE (19:00)
[2020-08-04 19:26] VITALS: BP 119/75; TEMP 98; O2SAT 95
== END 2020-08-04 19:26 | disposition home or self-care (01) ==
LOC: ER 15:48
DX: J44.1 Chronic obstructive pulmonary disease with (acute) exacerbation (principal); R07.89 Other chest pain; I25.2 Old myocardial infarction; Z20.822 Contact with and (suspected) exposure to COVID-19; Z86.73 Personal history of transient ischemic attack (TIA), and cerebral infarction without residual deficits; Z99.81 Dependence on supplemental oxygen; Z79.899 Other long term (current) drug therapy; Z88.0 Allergy status to penicillin; Z88.2 Allergy status to sulfonamides; Z91.040 Latex allergy status; Z88.8 Allergy status to other drugs, medicaments and biological substances
CPT/HCPCS: 36415; 71045; 80053; 82550; 82553; 83605; 83880; 84484; 85025; 87486; 87581; 87633; 87635; 93005; J7512; Q0144

== ENCOUNTER → 2020-09-01 | Outpatient (CLI) | payer MEDICARE, MEDICAID | LOC: LAB.O 08:59 | PROVIDERS: ATTEND Nuclear Medicine Nuclear Cardiology | DX: E78.2 Mixed hyperlipidemia (principal) ==